=== PATIENT | female | born 1955 | race Caucasian/White ===

== ENCOUNTER → 2017-03-01 | Outpatient (CLI) | payer MEDICARE ==
[~2017-03-01] MED LIST: ACHD5005 PO; AMLO2.5T PO; ATEN100T88 PO; NAPR220T76 PO; OXYC-12 PO; PROP1TAB77 PO
--- NOTE | 2017-03-01 10:24 | Diagnostic Imaging Report ---
PROCEDURE: CT head without contrast. TECHNIQUE: Multiple contiguous axial images were obtained through the brain without the use of intravenous contrast. INDICATION: Head and neck cancer, numbness to left side of the mouth. No priors. FINDINGS: There are no findings suggestive of focal or generalized cerebral edema and there is no evidence for elevation of the intracerebral pressures. The basilar cisterns patent. The sulci non-effaced and there is preservation of normal torres-white matter differentiations. The ventricular system nondilated and nondisplaced. There are no abnormal extra-axial collections. Mastoids, paranasal sinuses, orbits and calvarium appeared within normal limits. IMPRESSION: Normal CT head Dictated by: Dictated on workstation # [id number]
== END ==
LOC: RAD 09:33
PROVIDERS: ATTEND Nurse Practitioner Family
DX: N20.9 Urinary calculus, unspecified (principal)
CPT/HCPCS: 70450

== ENCOUNTER 2018-11-14 21:45 | Inpatient (IN) | payer MEDICARE ==
[~2018-11-14] VITALS: Ht 167.6 cm; Wt 112.9 kg
[2018-11-14] MEDS: ASPIRIN 81 MG CHEW (CHILDREN'S ASA) PO ONE ×2 (10:00→22:00)
[2018-11-14] MEDS ORDERED: NS IV 1000 ML 1,000 ML IV SCH (21:55)
[2018-11-14] MEDS ORDERED: DILTIAZEM 25 MG/5 ML INJ (CARDIZEM) VIAL ONE (22:00)
[2018-11-14] MEDS ORDERED: NS (IVPB) 0 ML ONE (22:00)
[2018-11-14] MEDS ORDERED: DILTIAZEM 125 MG/25 ML IV (CARDIZEM) IV ONE (22:00)
--- NOTE | 2018-11-14 22:01 | ED Cardiac General ---
History of Present Illness General Stated Complaint: HIGH BLOOD PRESSURE Source: patient Exam Limitations: no limitations History of Present Illness Date Seen by Provider: Nov 14, 2018 Time Seen by Provider: 21:49 Initial Comments The patient presents to ER by private conveyance with chief complaint for the past day she has felt poorly just feeling off in her chest. She denies any chest pain nausea sweats or radiation of her symptoms. And just palpitations and irregular rapid heartbeat. She took her blood pressure and said it was high 140/110 so she decided to come to the ER to be checked out. She has no history of heart disease or dysrhythmia. She's having no swelling but she does get short of breath on exertion. She is not on any blood thinners nor does she follow with a grinder operator external tool or have a history of a heart catheterization. She does have diabetes but no thyroid problems. She takes blood pressure medicines. All of her medicines have been stable for many months. She does not smoke or use alcohol or drugs. She estimates her weight around 240 pounds. Allergies and Home Medications Allergies Coded Allergies: No Known Drug Allergies (Unverified , 04/20/10) Home Medications Amlodipine Besylate 2.5 Mg Tablet, 2.5 MG PO DAILY, (Reported) Atenolol 100 Mg Tablet, 100 MG PO DAILY, (Reported) Hydrocodone Bit/Acetaminophen 1 Each Tablet, 1 EACH PO BID PRN, (Reported) Naproxen Sodium 220 Mg Tablet, 220 MG PO BID PRN, (Reported) Oxycodone Hcl/Acetaminophen 1 Each Tablet, 1-2 TAB PO Q4H, (Reported) q 4-6 hrs. as needed for pain Patient Home Medication List Home Medication List Reviewed: Yes Review of Systems Review of Systems Constitutional: No chills, No diaphoresis EENTM: No Blurred Vision, No Double Vision Respiratory: Denies Cough; Shortness of Air, SOA With Exertion Cardiovascular: See HPI; Denies Chest Pain, Denies Edema; Irregular Heart Rate , Lightheadedness, Palpitations; Denies Syncope Gastrointestinal: Denies Constipated, Denies Diarrhea, Denies Nausea Genitourinary: Denies Discharge, Denies Drainage Musculoskeletal: No back pain, No joint pain Skin: No pruritus, No rash Psychiatric/Neurological: Denies Headache, Denies Numbness, Denies Paresthesia Past Otlnjkn-Vaxmfp-Ndbuyo Hx Patient Social History Alcohol Use: Denies Use Recreational Drug Use: No Smoking Status: Never a Smoker Recent Foreign Travel: No Contact w/Someone Who Travel: No Immunizations Up To Date Date of Influenza Vaccine: Jun 08, 2012 Past Medical History Reproductive Disorders: No Physical Exam Vital Signs Vital Signs - First Documented 11/14/18 21:50 Pulse 168 Resp 24 B/P (MAP) 120/98 (105) Pulse Ox 98 O2 Delivery Room Air Capillary Refill : Height, Weight, BMI Height: '" Weight: lbs. oz. kg; BMI Method: General Appearance: Anxious, Obese HEENT: PERRL/EOMI, Pharynx Normal, Moist Mucous Membranes Neck: Normal Inspection, Supple Respiratory: Chest Non Tender, Lungs Clear, Normal Breath Sounds, No Accessory Muscle Use, No Respiratory Distress Cardiovascular: No Edema, Normal Peripheral Pulses, Irregularly Irregular, Tachycardia Gastrointestinal: Normal Bowel Sounds, Non Tender, Soft Neurologic/Psychiatric: Alert, Oriented x3, audience coordinator II-XII Norm as Tested Skin: Normal Color, Warm/Dry Progress/Results/Core Measures Results/Orders Lab Results Laboratory Tests Test 11/14/18 22:01 Range/Units White Blood Count 16.3 H 4.3-11.0 10^3/uL Red Blood Count 5.49 4.35-5.85 10^6/uL Hemoglobin 14.7 11.5-16.0 G/DL Hematocrit 44 35-52 % Mean Corpuscular Volume 79 L 80-99 FL Mean Corpuscular Hemoglobin 27 25-34 PG Mean Corpuscular Hemoglobin Concent 34 32-36 G/DL Red Cell Distribution Width 15.6 H 10.0-14.5 % Platelet Count 333 130-400 10^3/uL Mean Platelet Volume 10.2 7.4-10.4 FL Neutrophils (%) (Auto) 72 42-75 % Lymphocytes (%) (Auto) 20 12-44 % Monocytes (%) (Auto) 8 0-12 % Eosinophils (%) (Auto) 1 0-10 % Basophils (%) (Auto) 0 0-10 % Neutrophils # (Auto) 11.7 H 1.8-7.8 X 10^3 Lymphocytes # (Auto) 3.2 1.0-4.0 X 10^3 Monocytes # (Auto) 1.2 H 0.0-1.0 X 10^3 Eosinophils # (Auto) 0.2 0.0-0.3 10^3/uL Basophils # (Auto) 0.0 0.0-0.1 10^3/uL Neutrophils % (Manual) 68 % Lymphocytes % (Manual) 20 % Monocytes % (Manual) 7 % Eosinophils % (Manual) 1 % Basophils % (Manual) 2 % Band Neutrophils 0 % Reactive Lymphocytes 2 % Microcytosis SLIGHT Prothrombin Time 13.1 12.2-14.7 SEC INR Comment 1.0 0.8-1.4 Activated Partial Thromboplast Time 30 24-35 SEC Sodium Level 140 135-145 MMOL/L Potassium Level 3.1 L 3.6-5.0 MMOL/L Chloride Level 103 98-107 MMOL/L Carbon Dioxide Level 23 21-32 MMOL/L Anion Gap 14 5-14 MMOL/L Blood Urea Nitrogen 12 7-18 MG/DL Creatinine 0.98 0.60-1.30 MG/DL Estimat Glomerular Filtration Rate 58 BUN/Creatinine Ratio 12 Glucose Level 132 H 70-105 MG/DL Calcium Level 9.7 8.5-10.1 MG/DL Corrected Calcium 9.5 8.5-10.1 MG/DL Magnesium Level 2.3 1.8-2.4 MG/DL Total Bilirubin 0.3 0.1-1.0 MG/DL Aspartate Amino Transf (AST/SGOT) 27 5-34 U/L Alanine Aminotransferase (ALT/SGPT) 23 0-55 U/L Alkaline Phosphatase 107 40-136 U/L Myoglobin 34.1 10.0-92.0 NG/ML Troponin I < 0.028 <0.028 NG/ML B-Type Natriuretic Peptide 610.0 H <100.0 PG/ML Total Protein 7.9 6.4-8.2 GM/DL Albumin 4.2 3.2-4.5 GM/DL Thyroid Stimulating Hormone (TSH) 6.08 H 0.35-4.94 UIU/ML My Orders Orders - SHA EARLY Cbc With Automated Diff (11/14/18 21:55) Magnesium (11/14/18 21:55) Chest 1 View, Ap/Pa Only (11/14/18 21:55) Ekg Tracing (11/14/18 21:55) Cardiac Profile 1 (11/14/18 21:55) Comprehensive Metabolic Panel (11/14/18 21:55) Myoglobin Serum (11/14/18 21:55) Protime With Inr (11/14/18 21:55) Partial Thromboplastin Time (11/14/18 21:55) O2 (11/14/18 21:55) Monitor-Rhythm Ecg Trace Only (11/14/18 21:55) Lipid Panel (11/15/18 06:00) Aspirin Chewable Tablet (Baby Aspirin Ch (11/14/18 22:00) Saline Lock/Iv-Start (11/14/18 21:55) BNP (11/14/18 21:55) Saline Lock/Iv-Start (11/14/18 21:55) Ns Iv 1000 Ml (Sodium Chloride 0.9%) (11/14/18 21:55) Ns (Ivpb) (Sodium C... W/Diltiazem Injec (11/14/18 22:15) Diltiazem Injection (Cardizem Injection) (11/14/18 22:15) Ns (Ivpb) (Sodium Chloride 0.9% Ivpb Bag (11/14/18 22:00) Diltiazem Iv For Drip (Cardizem Iv For D (11/14/18 22:00) Diltiazem Injection (Cardizem Injection) (11/14/18 22:00) Manual Differential (11/14/18 22:01) Thyroid Stimulating Hormone (11/14/18 22:12) Influenza A And B Antigens (11/14/18 23:13) Medications Given in ED Current Medications Medications Dose Ordered Sig/Vielka Route Start Time Stop Time Status Last Admin Dose Admin Aspirin 324 mg ONCE ONCE PO 11/14/18 22:00 11/14/18 22:01 DC 11/14/18 22:00 324 MG Diltiazem HCl 20 mg ONCE ONCE IVP 11/14/18 22:15 11/14/18 22:16 DC 11/14/18 22:05 10 MG Vital Signs/I&O 11/14/18 21:50 Pulse 168 Resp 24 B/P (MAP) 120/98 (105) Pulse Ox 98 O2 Delivery Room Air Progress Progress Note #1: Time: 22:00 Progress Note On the monitor she looks to be tachycardic with an irregular rhythm most likely atrial fibrillation. We'll obtain EKG give her aspirin look for reason why she would be in atrial fibrillation and talk to her about blood thinners. We'll get a chest x-ray and consultation with cardiology. The EKG supports atrial fib with rapid ventricular response we'll give her a 20 mg bolus of Cardizem, fluid bolus and put her on a drip starting at 5 mg. The patient at this time has a good blood pressure 120/98. Progress Note #2: Time: 23:14 Progress Note We will add an influenza since she has an elevated white count. Her heart rate is under much better control on 10 mg/m running in the 100-110 range. Diagnostic Imaging Diagonstic Imaging: Xray Plain Films/CT/US/NM/MRI: chest (1v) Comments Cardiac prominence accentuated by AP view. No acute cardiopulmonary process. Reviewed: Reviewed by Me Departure Communication (Admissions) Time/Spoke to Admitting Phy: 23:20 Discussed case lab EKG imaging findings with Dr. Brooks and she agrees to admit the patient on a Cardizem drip at the ICU. Time/Spoke to Consulting Phy: 23:15 Discussed case lab imaging findings with Dr. Galindo and he agrees with admission and Lovenox for anticoagulation. Impression Primary Impression: Atrial fibrillation with rapid ventricular response Disposition: ADMITTED INPATIENT Condition: Stable Admissions Decision to Admit Reason: Admit from ER (General) Decision to Admit/Date: Nov 14, 2018 Time/Decision to Admit Time: 23:10 Departure-Patient Inst. Referrals: ZOEY SANTANA DO (PCP) Primary Care Physician VESNA FLOREZ (Family) Primary Care Physician SHA EARLY Nov 14, 2018 22:01
[2018-11-14 22:08] LABS: BASOPHILS % (AUTO) 0 % (0-10); EOSINOPHILS # (AUTO) 0.2 10^3/uL (0.0-0.3); EOSINOPHILS % (AUTO) 1 % (0-10); HEMATOCRIT 44 % (35-52); HEMOGLOBIN 14.7 G/DL (11.5-16.0); LYMPHOCYTES # (AUTO) 3.2 X 10^3 (1.0-4.0); LYMPHOCYTES % (AUTO) 20 % (12-44); MEAN CORPUSCULAR HEMOGLOBIN 27 PG (25-34); MEAN CORPUSCULAR HGB CONC 34 G/DL (32-36); MEAN CORPUSCULAR VOLUME 79 FL (80-99); MEAN PLATELET VOLUME 10.2 FL (7.4-10.4); MONOCYTES # (AUTO) 1.2 X 10^3 (0.0-1.0); MONOCYTES % (AUTO) 8 % (0-12); NEUTROPHILS # (AUTO) 11.7 X 10^3 (1.8-7.8); NEUTROPHILS % (AUTO) 72 % (42-75); PLATELET COUNT 333 10^3/uL (130-400); RED CELL DISTRIBUTION WIDTH 15.6 % (10.0-14.5); WHITE BLOOD COUNT 16.3 10^3/uL (4.3-11.0)
--- OUTSIDE RECORDS SUMMARY | 2018-11-14 22:12 | XMS REPORT ---
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 Active 11381078 Problem Arthritis M19.90 Active 9393875 Problem Edema R60.9 Active 597240098 Problem Morbid (severe) obesity due to excess calories E66.01 Active 340164136 Problem Body mass index (BMI) of 40.0-44.9 in adult Z68.41 Active 280460946 Problem CAD (coronary artery disease) I25.10 Active 17764657 Problem Essential hypertension I10 Active 08723177 Problem H/O motion sickness Z87.898 Active 253600950 Problem Heartburn R12 Active 64981931 ALLERGIES No Information ENCOUNTERS Encounter Location Date Diagnosis [place] [address] [address] Aug, Type 2 diabetes mellitus with diabetic chronic kidney disease, 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 [place] [address] [place] [id number] [place] [address] Aug, Type 2 diabetes mellitus with diabetic chronic kidney disease, 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 ; Essential hypertension I10 ; Encounter for immunization Z23 ; CAD (coronary artery disease) I25.10 ; Arthritis M19.90 and BMI 40.0-44.9, adult Z68.41 [facility] [address] [address] Aug, [place] [address] [place] [id number] [place] [address] Jul, Type 2 diabetes mellitus with diabetic chronic kidney disease, 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 [place] [id number] [place] [address] Jun, [place] [id number] [place] [address] Jun, Cough R05 and BMI 40.0-44.9, adult Z68.[address] [address] Mar, Type 2 diabetes mellitus with diabetic chronic kidney disease, 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 ; Essential hypertension I10 ; Arthritis M19.90 ; Edema R60.9 ; Body mass index (BMI) of 40.0-44.9 in adult Z68.41 and Morbid (severe) obesity due to excess calories E66.01 [place] [id number] [place] [address] 27 Nov, 2018 Cough R05 and BMI 40.0-44.9, adult Z68.41 [place] [id number] [place] [address] 14 Nov, 2018 Type 2 diabetes mellitus with diabetic chronic kidney disease, 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 ; Essential hypertension I10 ; CAD ( coronary artery disease) I25.10 ; Heartburn R12 ; Arthritis M19.90 ; Reactive airway disease that is not asthma R09.89 ; BMI 40.0-44.9, adult Z68.41 ; Screening breast examination Z12.31 ; Family history of breast cancer Z80.3 and Long-term use of high-risk medication Z79.899 [place] [id number] [place] [address] Jul, Type 2 diabetes mellitus with diabetic chronic kidney disease, 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 ; Essential hypertension I10 ; CAD ( coronary artery disease) I25.10 ; Heartburn R12 ; Arthritis M19.90 and Reactive airway disease that is not asthma R09.89 [place] [id number] [place] [address] May, Cellulitis of right lower leg L03.115 and Insect bite ( nonvenomous), right lower leg, initial encounter S80.861A [facility] [address] [place] [id number] [place] [address] February, [place] [address] [place] [id number] [place] [address] February, Type 2 diabetes mellitus with diabetic chronic kidney disease, 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 ; Essential hypertension I10 ; CAD ( coronary artery disease) I25.10 ; Heartburn R12 ; Arthritis M19.90 ; H/O motion sickness Z87.898 and Facial paresthesia R20.9 [place] [address] [place] [id number] [place] [address] February, Type 2 diabetes mellitus with diabetic chronic kidney disease, 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 ; Essential hypertension I10 ; CAD ( coronary artery disease) I25.10 ; Heartburn R12 ; Arthritis M19.90 and H/O motion sickness Z87.898 [place] [address] [place] [id number] [place] [address]- [address] Dec, [place] [address] [place] [id number] [place] [address]- [address] Dec, [place] [address] [place] [id number] [place] [address]62- [address] Oct, Type 2 diabetes mellitus with diabetic chronic kidney disease, 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 ; Essential hypertension I10 ; CAD ( coronary artery disease) I25.10 ; Heartburn R12 and Arthritis M19.90 [facility] [address] [place] [id number] [place] [address] Aug, [facility] [address] [place] [id number] [place] [address]53- [address] Jul, [place] [address] [place] [id number] [place] [address]39- [address] 14 Jun, 2016 Type 2 diabetes mellitus with diabetic chronic kidney disease, 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 ; Essential hypertension I10 ; CAD ( coronary artery disease) I25.10 ; Heartburn R12 ; Screening for hyperlipidemia Z13.220 and Arthritis M19.90 [facility] [address] [place] [id number] [place] [address] Mar, [facility] [address] [place] [id number] [address] Mar, Cubital tunnel 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 G56.22 [facility] [address] [place] [id number] [place] [address] February, Type 2 diabetes mellitus with diabetic chronic kidney disease, 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 ; Essential hypertension I10 ; CAD ( coronary artery disease) I25.10 and Heartburn R12 [facility] [address] [address] February, [facility] [address] [place] [id number] [place] [address]40[address] 1776 February, [facility] [address] [place] [id number] [place] [address] 6[address]- [address] Jan, [facility] [address] [place] [id number] [place] [address]13- 73[address] Jan, [facility] [address] [address] Dec, [facility] [address] [address] Dec, [facility] [address] [place] [address] 24 Dec, 2015 Essential hypertension I10 ; CAD (coronary artery disease) I25.10 ; Type 2 diabetes mellitus with diabetic chronic kidney disease, 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 and Left hand pain M79.642 [facility] [address] [address] 14 Dec, 2015 [facility] [address] [place] [id number] [place] [address]81- 7095 Dec, [facility] [address] [place] [id number] [place] [address] 15980- 9384 Nov, CAD (coronary artery disease) I25.10 and Cough R05 [facility] [address] [place] [id number] [place] [address] 37779- 8708 Nov, [facility] [address] 1201[address]- [address] Nov, Essential hypertension I10 ; Edema R60.9 ; Type 2 diabetes mellitus with diabetic chronic kidney disease, 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 ; Arthritis M19.90 and Sinusitis J32.9 [facility] [address] [address] Jul, Upper respiratory tract infection, unspecified upper respiratory infection J06.9 [facility] [address] [address] Apr, Diabetes 250.00 ; Edema 782.3 ; Hypertension 401.9 ; Arthritis 716.90 and Lumbar back pain 724.2 [facility] [address] [place] [id number] [place] [address]- [address] Jan, [facility] [address] [place] [id number] [place] [address] 03248- 3[address] Jan, [facility] [address] [place] [id number] [place] [address] 75775- 6436 Oct, [facility] [address] [place] [id number] [place] [address] 07858- 8445 Oct, [facility] [address] [place] [id number] [place] [address] 99306- 0541 Sep, [facility] [address] [place] [id number] [place] [address] 0[address]32- 7[address] Sep, [facility] [address] [place] [id number] [place] [address] 48152- 3132 Mar, [facility] [address] [facility] [id number] [place] [address]- [address] Mar, [facility] [place] [facility] [address] [id number] [place] [address]- 2547 Mar, [facility] [place] [facility] [address] [id number] [place] [address]- 9878 Mar, [facility] [place] [facility] [address] [id number] [place] [address]- 0173 Mar, [facility] [place] [facility] [address] [id number] [place] [address]- 8893 Mar, [facility] [place] [facility] [address] [id number] [place] [address]- 6361 February, [facility] [place] [facility] [address] [id number] [place] [address]- 1335 February, [facility] [place] [facility] [address] [id number] [place] [address]- 3684 February, [facility] [place] [facility] [address] [id number] [place] [address]- 9255 February, [facility] [place] [facility] [address] [id number] [place] [address]- 2445 Dec, [facility] [place] [facility] [address] [id number] [place] [address]- 9429 Dec, [facility] [place] [facility] [address] [id number] [place] [address]- 2071 Nov, [facility] [place] [facility] [address] [id number] [place] [address]- 0536 Nov, [facility] [place] [facility] [address] [id number] [place] [address]- 6145 Nov, [facility] [place] [facility] [address] [id number] [place] [address]- 1663 Nov, [facility] [place] [facility] [address] [id number] [place] [address]- 2290 Nov, [facility] [place] [facility] [address] [id number] [place] [address]- 0914 Nov, [facility] [place] [facility] [address] [id number] [place] [address] Aug, [facility] [place] [facility] [address] [id number] [place] [address]- 6223 Aug, [facility] [place] [facility] [address] [id number] [place] [address]- 5779 Jul, [facility] [place] [facility] [address] [id number] [place] [address]- 0838 Jul, [facility] [place] [facility] [address] [id number] [place] [address]- 7960 Jul, [facility] [place] [facility] [address] [id number] [place] [address]- 9878 Jul, [facility] [place] [facility] [address] [id number] [place] [address]- 1909 Jul, [facility] [place] [facility] [address] [id number] [place] [address]- 8103 Jul, [facility] [place] [facility] [address] [id number] [place] [address]- 2803 May, [facility] [place] [facility] [address] [id number] [place] [address]- 5125 Apr, [facility] [place] [facility] [address] [id number] [place] [address]- 7928 Apr, [facility] [place] [facility] [address] [id number] [place] [address]- 5353 Apr, [facility] [place] [facility] [address] [id number] [place] [address]- 4359 Apr, [facility] [place] [facility] [address] [id number] [place] [address] Apr, [facility] [place] [facility] [address] [id number] [place] [address]- 1063 Jan, [facility] [address] [id number] [place] [address]- 4806 Jan, [facility] [address] [id number] [place] [address]- 5585 Jan, [facility] [address] [id number] [place] [address]- 0009 Dec, [facility] [address] [id number] [place] [address]- 7235 Oct, [facility] [address] [id number] [place] [address]- 8752 Sep, [facility] [address] [id number] [place] [address]- 0701 Sep, [facility] [address] [id number] [place] [address]- 7060 February, [facility] [address] [id number] [place] [address]- 5255 February, [facility] [address] [id number] [place] [address]- 9498 Jan, [facility] [address] [id number] [place] [address]- 6301 15 Aug, 2011 [facility] [address] [id number] [place] [address]- 2867 Aug, [facility] [address] [id number] [place] [address]- 8657 Aug, [facility] [address] [id number] [place] [address]- 3771 Aug, [facility] [address] [id number] [place] [address]- 8869 Jul, [facility] [address] [id number] [place] [address] Jul, [facility] [address] [facility] [id number] [place] [address]- 6417 Jul, IMMUNIZATIONS No Known Immunizations SOCIAL HISTORY Never Assessed REASON FOR VISIT refill request PLAN OF CARE VITAL SIGNS MEDICATIONS Medication Instructions Dosage Frequency Start Date End Date Duration Status Bydureon 2 MG Subcutaneous- ICD10- E11.22 once weekly 2 mg 28 days Active RESULTS No Results PROCEDURES No Known procedures INSTRUCTIONS MEDICATIONS ADMINISTERED No Known Medications MEDICAL (GENERAL) HISTORY Type Description Date Medical History HTN Medical History ARTHRITIS R FOOT, BACK, AND BILAT KNEES Medical History Intestinal disaccharidase deficiencies and disaccharide malabsorption Medical History Edema Medical History Diabetes Medical History Hypertension Medical History DM 11/23 7.7 Surgical History HYSTERECTOMY Surgical History C- SECTION Surgical History RIGHT KNEE SCOPED Surgical History SURGICAL BREAST BIOPSY Hospitalization History Surgery(s)/Childbirth(s) only
--- OUTSIDE RECORDS SUMMARY | 2018-11-14 22:13 | XMS REPORT ---
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 Active 56440940 Problem Arthritis M19.90 Active 0126852 Problem Edema R60.9 Active 579495962 Problem Morbid (severe) obesity due to excess calories E66.01 Active 615891802 Problem Body mass index (BMI) of 40.0-44.9 in adult Z68.41 Active 029497790 Problem CAD (coronary artery disease) I25.10 Active 18785324 Problem Essential hypertension I10 Active 63785895 Problem H/O motion sickness Z87.898 Active 266262176 Problem Heartburn R12 Active 05994117 ALLERGIES No Information ENCOUNTERS Encounter Location Date Diagnosis [facility] [address] [address] Aug, [facility] [address] [address] Aug, [facility] [address] [address] Jul, Type 2 diabetes mellitus with diabetic chronic kidney disease, 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 [facility] [address] [address] Jun, [facility] [address] [address] Jun, Cough R05 and BMI 40.0-44.9, adult Z68.41 [facility] [address] [address] Mar, Type 2 diabetes mellitus with diabetic chronic kidney disease, 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 ; Essential hypertension I10 ; Arthritis M19.90 ; Edema R60.9 ; Body mass index (BMI) of 40.0-44.9 in adult Z68.41 and Morbid (severe) obesity due to excess calories E66.01 [facility] [address] [place], [place] [id number] [place] [address] 27 Nov, 2017 Cough R05 and BMI 40.0-44.9, adult Z68.[address] [address] 14 Nov, 2018 Type 2 diabetes mellitus [...] and Long-term use of high-risk medication Z79.[address] [address] Jul, Type 2 diabetes mellitus with diabetic chronic kidney disease, 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 ; Essential hypertension I10 ; CAD ( coronary artery disease) I25.10 ; Heartburn R12 ; Arthritis M19.90 and Reactive airway disease that is not asthma R09.89 [facility] [address] [place] [id number] [place] [address] May, Cellulitis of right lower leg L03.115 and Insect bite ( nonvenomous), right lower leg, initial encounter S80.861A [address] [address] February, [place] [address] [address] February, Type 2 diabetes mellitus with diabetic chronic kidney disease, 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 ; Essential hypertension I10 ; CAD ( coronary artery disease) I25.10 ; Heartburn R12 ; Arthritis M19.90 ; H/O motion sickness Z87.898 and Facial paresthesia R20.9 [facility] [id number] [place] [address]- [address] February, Type 2 diabetes mellitus with diabetic chronic kidney disease, 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 ; Essential hypertension I10 ; CAD ( coronary artery disease) I25.10 ; Heartburn R12 ; Arthritis M19.90 and H/O motion sickness Z87.898 [place] [id number] [place] [address]- [address]98 Dec, [place] [address] [address] Dec, [place] [address] [address] Oct, Type 2 diabetes mellitus with diabetic chronic kidney disease, 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 ; Essential hypertension I10 ; CAD ( coronary artery disease) I25.10 ; Heartburn R12 and Arthritis M19.90 [place] [address] [address] Aug, [facility] [id number] [place] [address] Jul, [place] [address] [address] Jun, Type 2 diabetes mellitus with diabetic chronic kidney disease, 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 ; Essential hypertension I10 ; CAD ( coronary artery disease) I25.10 ; Heartburn R12 ; Screening for hyperlipidemia Z13.220 and Arthritis M19.90 [facility] [id number] [place] [address]- [address] Mar, [facility] [address] [id number] [place] [address]- 12[address] Mar, Cubital tunnel 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 G56.22 [facility] [address] [address] February, Type 2 diabetes mellitus with diabetic chronic kidney disease, 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 ; Essential hypertension I10 ; CAD ( coronary artery disease) I25.10 and Heartburn R12 [facility] [address] [address] February, [facility] [id number] [place] [address]- [address] February, [facility] [id number] [place] [address] 10343- 8296 Jan, [facility] [id number] [place] [address] 16755- 9424 Jan, [facility] [id number] [place] [address] 24702- 9363 Dec, [facility] [id number] [place] [address]73- 6[address] Dec, [facility] [id number] [place] [address] 22271- 9893 Dec, Essential hypertension I10 ; CAD (coronary artery disease) I25.10 ; Type 2 diabetes mellitus with diabetic chronic kidney disease, 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 and Left hand pain M79.642 [facility] [address] [address] Dec, [facility] [address] [address] Dec, [facility] [id number] [place] [address]- 97[address] Nov, CAD (coronary artery disease) I25.10 and Cough R05 [facility] [address] [address] Nov, [facility] [id number] [place] [address]- [address] 16 Nov, 2015 Essential hypertension I10 ; Edema R60.9 ; Type 2 diabetes mellitus with diabetic chronic kidney disease, 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 ; Arthritis M19.90 and Sinusitis J32.9 [facility] [id number] [place] [address]- [address] Jul, Upper respiratory tract infection, unspecified upper respiratory infection J06.9 [facility] [id number] [place] [address]- 1829 Apr, Diabetes 250.00 ; Edema 782.3 ; Hypertension 401.9 ; Arthritis 716.90 and Lumbar back pain 724.2 [facility] [id number] [place] [address]- [address] Jan, [facility] [id number] [place] [address] 05129- 9055 Jan, [facility] [id number] [place] [address] 30[address]- 27[address] Oct, [facility] [id number] [place] [address] 38858- 9468 Oct, [facility] [id number] [place] [address] 44471- 1465 Sep, [facility] [id number] [place] [address] 14746- 7128 Sep, [facility] [id number] [place] [address] 68234- 47[address] Mar, [facility] [id number] [place] [address] 89031- 8[address] Mar, [facility] [id number] [place] [address] 80187- 4[address] Mar, [facility] [id number] [place] [address] 01473- 62[address] Mar, [facility] [id number] [place] [address]- [address] Mar, [facility] [place] [facility] [address] [id number] [place] [address]- [address]94 Mar, [facility] [place] [facility] [address] [id number] [place] [address]- [address] February, [facility] [place] [facility] [address] [facility] [id number] [place] [address]- 6[address] February, [facility] [place] [facility] [address] [id number] [place] [address]- 8813 February, [facility] [place] [facility] [address] [id number] [place] [address]- 1017 February, [facility] [place] [facility] [address] [facility] [id number] [place] [address]- 7840 Dec, [facility] [place] [facility] [address] [facility] [id number] [place] [address]- 3953 Dec, [facility] [place] [facility] [address] [id number] [place] [address]- 1327 Nov, [facility] [place] [facility] [address] [id number] [place] [address]- 0281 Nov, [facility] [place] [facility] [address] [facility] [id number] [place] [address]- 6936 Nov, [facility] [place] [facility] [address] [id number] [place] [address]- 0258 Nov, [facility] [place] [facility] [address] [id number] [address]- 1356 Nov, [facility] [place] [facility] [address] [id number] [place] [address]- 0185 Nov, [facility] [place] [facility] [address] [facility] [id number] [address]- [address] Aug, [facility] [place] [facility] [address] [facility] [id number] [address]- 7043 Aug, [facility] [place] [facility] [address] [id number] [place] [address]- 4067 Jul, [facility] [place] [facility] [address] [id number] [place] [address]- 9490 Jul, [facility] [place] [facility] [address] [id number] [place] [address]- 0912 Jul, [facility] [place] [facility] [address] [id number] [place] [address]- 3806 Jul, [facility] [place] [facility] [address] [id number] [place] [address]- 6175 Jul, [facility] [place] [facility] [address] [id number] [place] [address]- 0011 Jul, [facility] [place] [facility] [address] [id number] [place] [address]- 3059 May, [facility] [place] [facility] [address] [id number] [place] [address]- 3559 Apr, [facility] [place] [facility] [address] [id number] [place] [address]- 1776 Apr, [facility] [place] [facility] [address] [id number] [place] [address]- 0057 Apr, [facility] [place] [facility] [address] [id number] [place] [address]- 2285 Apr, [facility] [place] [facility] [address] [id number] [place] [address]- 1567 Apr, [facility] [place] [facility] [address] [id number] [place] [address]- 8677 Jan, [facility] [place] [facility] [address] [id number] [place] [address]- 7699 Jan, [facility] [place] [facility] [address] [id number] [place] [address]- 8005 Jan, [facility] [place] [facility] [address] [id number] [address]- 2156 Dec, [facility] [id number] [address]- [address] Oct, [facility] [address] [address]- 95[address] Sep, [facility] [address] [address]- 9866 Sep, [facility] [address] [address]- 0[address] February, [facility] [address] [address]- 8[address] February, [facility] [address] [address]- 4556 Jan, [facility] [address] [address]- 1856 Aug, [facility] [address] [address]- 6813 Aug, [facility] [address] [address]- 4511 Aug, [facility] [address] [address]- 2486 Aug, [facility] [id number] [address]- 8903 Jul, [facility] [address] [address]- 8751 Jul, [facility] [id number] [address]- 4432 Jul, IMMUNIZATIONS No Known Immunizations SOCIAL HISTORY Never Assessed REASON FOR VISIT MTM (Medication Therapy Management) PLAN OF CARE VITAL SIGNS MEDICATIONS Unknown Medications RESULTS No Results PROCEDURES No Known procedures [...]
--- OUTSIDE RECORDS SUMMARY | 2018-11-14 22:13 | XMS REPORT ---
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 Active 54888064 Problem Arthritis M19.90 Active 2495759 Problem Edema R60.9 Active 481731976 Problem Morbid (severe) obesity due to excess calories E66.01 Active 498728978 Problem Body mass index (BMI) of 40.0-44.9 in adult Z68.41 Active 720376433 Problem CAD (coronary artery disease) I25.10 Active 73402829 Problem Essential hypertension I10 Active 07715575 Problem H/O motion sickness Z87.898 Active 974761638 Problem Heartburn R12 Active 94626806 ALLERGIES No Known Allergies ENCOUNTERS Encounter Location Date Diagnosis [facility] [id number] [place] [address] 16 Aug, 2018 Type 2 diabetes mellitus with diabetic chronic kidney disease, 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 ; Essential hypertension I10 ; Encounter for immunization Z23 ; CAD (coronary artery disease) I25.10 ; Arthritis M19.90 and BMI 40.0-44.9, adult Z68.41 [facility] [id number] [place] [address]17 Aug, [facility] [id number] [place] [address] 85683- 4320 Jul, Type 2 diabetes mellitus with diabetic chronic kidney disease, 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 [facility] [id number] [address] Jun, [facility] [place] [id number] [place] [address] Jun, Cough R05 and BMI 40.0-44.9, adult Z68.[address] [address] Mar, Type 2 diabetes mellitus with diabetic chronic kidney disease, 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 ; Essential hypertension I10 ; Arthritis M19.90 ; Edema R60.9 ; Body mass index (BMI) of 40.0-44.9 in adult Z68.41 and Morbid (severe) obesity due to excess calories E66.01 [facility] [address] [address] 27 Nov, 2017 Cough R05 and BMI 40.0-44.9, adult Z68.[address] [address] 14 Nov, 2017 Type 2 diabetes mellitus with diabetic chronic kidney disease, 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 ; Essential hypertension I10 ; CAD ( coronary artery disease) I25.10 ; Heartburn R12 ; Arthritis M19.90 ; Reactive airway disease that is not asthma R09.89 ; BMI 40.0-44.9, adult Z68.41 ; Screening breast examination Z12.31 ; Family history of breast cancer Z80.3 and Long-term use of high-risk medication Z79.[address] [address] Jul, Type 2 diabetes mellitus with diabetic chronic kidney disease, 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 ; Essential hypertension I10 ; CAD ( coronary artery disease) I25.10 ; Heartburn R12 ; Arthritis M19.90 and Reactive airway disease that is not asthma R09.89 [facility] [address] [address] May, Cellulitis of right lower leg L03.115 and Insect bite ( nonvenomous), right lower leg, initial encounter S80.861A [address] [place] [address] February, [place] [address] [address] February, Type 2 diabetes mellitus with diabetic chronic kidney disease, 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 ; Essential hypertension I10 ; CAD ( coronary artery disease) I25.10 ; Heartburn R12 ; Arthritis M19.90 ; H/O motion sickness Z87.898 and Facial paresthesia R20.9 [place] [address] [address] February, Type 2 diabetes mellitus with diabetic chronic kidney disease, 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 ; Essential hypertension I10 ; CAD ( coronary artery disease) I25.10 ; Heartburn R12 ; Arthritis M19.90 and H/O motion sickness Z87.898 [place] [address] [address] Dec, [place] [address] [address] Dec, [place] [address] [address] Oct, Type 2 diabetes mellitus with diabetic chronic kidney disease, 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 ; Essential hypertension I10 ; CAD ( coronary artery disease) I25.10 ; Heartburn R12 and Arthritis M19.90 [place] [id number] [place] [address] Aug, [place] [id number] [place] [address]93- 5664 Jul, [place] [address] [address] 14 Jun, 2016 Type 2 diabetes mellitus with diabetic chronic kidney disease, 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 ; Essential hypertension I10 ; CAD ( coronary artery disease) I25.10 ; Heartburn R12 ; Screening for hyperlipidemia Z13.220 and Arthritis M19.90 [place] [address] [place] [address] Mar, [facility] [address] [address] Mar, Cubital tunnel 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 G56.22 [facility] [address] [address] February, Type 2 diabetes mellitus with diabetic chronic kidney disease, 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 ; Essential hypertension I10 ; CAD ( coronary artery disease) I25.10 and Heartburn R12 [facility] [address] [address] February, [facility] [id number] [place] [address]14- [address] February, [facility] [id number] [address] Jan, [facility] [address] [address] Jan, [facility] [address] [address] Dec, [facility] [address] [address] Dec, [facility] [address] [address] Dec, Essential hypertension I10 ; CAD (coronary artery disease) I25.10 ; Type 2 diabetes mellitus with diabetic chronic kidney disease, 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 and Left hand pain M79.642 [facility] [address], [place] [address] Dec, [facility] [address] [address] Dec, [facility] [id number] [address] Nov, CAD (coronary artery disease) I25.10 and Cough R05 [facility] [address] [address] Nov, [facility] [id number] [place] [address] 74[address]- 4[address] Nov, Essential hypertension I10 ; Edema R60.9 ; Type 2 diabetes mellitus with diabetic chronic kidney disease, 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 ; Arthritis M19.90 and Sinusitis J32.9 [facility] [id number] [place] [address]64- [address] Jul, Upper respiratory tract infection, unspecified upper respiratory infection J06.9 [facility] [id number] [place] [address] 24065- 8642 Apr, Diabetes 250.00 ; Edema 782.3 ; Hypertension 401.9 ; Arthritis 716.90 and Lumbar back pain 724.2 [facility] [id number] [place] [address] 99584- 7898 Jan, [facility] [id number] [place] [address]12- 6099 Jan, [facility] [id number] [place] [address] 80446- 4516 Oct, [facility] [id number] [place] [address] 33235- 3570 Oct, [facility] [id number] [place] [address] 71054- 8563 Sep, [facility] [id number] [place] [address] 48002- 3877 Sep, [facility] [id number] [place] [address] 91085- 8755 Mar, [facility] [id number] [place] [address] 10253- 9305 Mar, [facility] [id number] [place] [address] 36091- 3611 Mar, [facility] [place] [facility] [address] [id number] [place] [address]- 87[address] Mar, [facility] [place] [facility] [address] [id number] [place] [address]- 59[address] Mar, [facility] [place] [facility] [address] [facility] [id number] [place] [address]- 0810 Mar, [facility] [place] [facility] [address] [id number] [place] [address]- 20[address] February, [facility] [place] [facility] [address] [id number] [place] [address]- 2088 February, [facility] [place] [facility] [address] [facility] [id number] [place] [address]- 0494 February, [facility] [place] [facility] [address] [facility] [id number] [place] [address]- 1605 February, [facility] [place] [facility] [address] [id number] [place] [address]- 8066 Dec, [facility] [place] [facility] [address] [facility] [id number] [place] [address]- 8832 Dec, [facility] [place] [facility] [address] [facility] [id number] [place] [address]- 7691 Nov, [facility] [place] [facility] [address] [id number] [place] [address]- 0390 Nov, [facility] [place] [facility] [address] [id number] [place] [address]- 3149 Nov, [facility] [place] [facility] [address] [id number] [place] [address]- 9858 Nov, [facility] [place] [facility] [address] [id number] [place] [address]- 5061 Nov, [facility] [place] [facility] [address] [facility] [id number] [place] [address]- 4472 Nov, [facility] [place] [facility] [address] [id number] [place] [address]- 9480 Aug, [facility] [place] [facility] [address] [id number] [place] [address] Aug, [facility] [place] [facility] [address] [id number] [place] [address]- 7474 Jul, [facility] [place] [facility] [address] [id number] [place] [address]- 9607 Jul, [facility] [place] [facility] [address] [id number] [place] [address]- 1501 Jul, [facility] [place] [facility] [address] [id number] [place] [address]- 8370 Jul, [facility] [place] [facility] [address] [id number] [place] [address]- 1017 Jul, [facility] [place] [facility] [address] [id number] [place] [address]- 0587 Jul, [facility] [place] [facility] [address] [id number] [place] [address]- 7923 May, [facility] [place] [facility] [address] [id number] [place] [address]- 0810 Apr, [facility] [place] [facility] [address] [id number] [place] [address]- 7654 Apr, [facility] [place] [facility] [address] [id number] [place] [address]- 7544 Apr, [facility] [place] [facility] [address] [id number] [place] [address]- 7700 Apr, [facility] [place] [facility] [address] [id number] [place] [address]- 9295 Apr, [facility] [place] [facility] [address] [id number] [place] [address]- 7747 Jan, [facility] [place] [facility] [address] [id number] [place] [address]- 2287 Jan, [facility] [address] [facility] [id number], [place] [address]- 1316 Jan, [facility] [address] [facility] [id number], [place] [address]- 1306 Dec, [facility] [address] [place] [address]- 2546 Oct, [facility] [address] [facility] [id number], [place] [address]- 0236 Sep, [facility] [address] [facility] [id number], [place] [address]- 3[address] Sep, [facility] [id number] [place] [address]2557- 6076 February, [facility] [id number] [place] [address]- 6886 February, [facility] [address] [place] [address]- 2983 Jan, [facility] [address] [place] [address]- 1376 Aug, [facility] [address] [place] [address]- 0728 Aug, [facility] [address] [place] [address]- 2546 Aug, [facility] [id number] [address]- 2546 Aug, [facility] [id number] [address]- 1219 Jul, [facility] [address] [place] [address]- 8736 Jul, [facility] [id number], [place] [address]- 0683 Jul, IMMUNIZATIONS Vaccine Route Administration Date Status FLULAVAL QUAD 0.5ML (6 MO & UP) 2018 IM Intramuscular Aug 23, 2018 Administered SOCIAL HISTORY Never Assessed REASON FOR VISIT New Provider Visit Melissa Iniguez MA PLAN OF CARE Activity Details Follow Up 6 months or as indicated by lab Reason:DM/HTN VITAL SIGNS Height 66 in 2018-08-23 Weight 250.7 lbs 2018-08-23 Temperature 97.9 degrees Fahrenheit 2018-08-23 Heart Rate 72 bpm 2018-08-23 Respiratory Rate 20 2018-08-23 BMI 40.46 kg/m2 2018-08-23 Blood pressure systolic 130 mmHg 2018-08-23 Blood pressure diastolic 72 mmHg 2018-08-23 MEDICATIONS Medication Instructions Dosage Frequency Start Date End Date Duration Status Lisinopril 5 mg Orally Once a day 1 tablet 24h 30 days Active Hydrochlorothiazide 25 MG Orally Once a day 1 Tablet by Oral route 1 time per day 24h 30 days Active ProAir HFA 108 (90 Base) MCG/ACT Inhalation every 4 hrs prn 2 puffs as needed Active Bydureon 2 MG Subcutaneous- ICD10- E11.22 once weekly 2 mg Mar, Active Test strips Test Strips ICD10- E11.22 2 times a day test blood sugar 12h Active MetFORMIN HCl ER 500 mg Orally Once a day 2 tablet with evening meal 24h 30 days Active Atenolol 100 mg Orally Once a day 1 tablet 24h 30 days Active Omeprazole 40 mg Orally Once a day 1 capsule 24h 30 Active Celebrex 200 mg Orally Once a day TAKE ONE CAPSULE BY MOUTH ONCE DAILY 24h 30 days Active Hydrocodone-Acetaminophen 5-325 MG Orally daily as needed for severe pain 1 tablet Active Mucinex 600 MG Orally every 12 hrs 1 tablet as needed 12h Active Blood Glucose Monitor System w/Device ICD10- E11.22 2 times a day test blood sugar 12h Active RESULTS No Results PROCEDURES Procedure Date Ordered Result Body Site LAB NOT BILLED BY [facility] Aug 23, 2018 [facility] VISIT ESTABLISHED PATIENT Aug 23, 2018 GLYCATED HEMOGLOBIN TEST Aug 23, 2018 FLULAVAL QUAD 0.5ML (6 MO & UP) 2018 Aug 23, 2018 VENIPUNCT, ROUTINE* Aug 23, 2018 SINGLE IMMUNIZATION ADMIN Aug 23, 2018 INSTRUCTIONS MEDICATIONS ADMINISTERED No Known Medications MEDICAL [...]
--- OUTSIDE RECORDS SUMMARY | 2018-11-14 22:13 | XMS REPORT ---
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 Active 79505710 Problem Arthritis M19.90 Active 1151424 Problem Edema R60.9 Active 032582055 Problem Morbid (severe) obesity due to excess calories E66.01 Active 996090713 Problem Body mass index (BMI) of 40.0-44.9 in adult Z68.41 Active 455993965 Problem CAD (coronary artery disease) I25.10 Active 28801374 Problem Essential hypertension I10 Active 42296889 Problem H/O motion sickness Z87.898 Active 462012488 Problem Heartburn R12 Active 72467665 ALLERGIES No Information ENCOUNTERS Encounter Location Date Diagnosis [facility] [address] [address] 02 Aug, 2018 [facility] [address] [address] Jul, Type 2 diabetes mellitus with diabetic chronic kidney disease, 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 [facility] [address] [address] Jun, [facility] [address] [address] 19 Jun, 2018 Cough R05 and BMI 40.0-44.9, adult Z68.41 [facility] [address] [address] Mar, Type 2 diabetes mellitus with diabetic chronic kidney disease, 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 ; Essential hypertension I10 ; Arthritis M19.90 ; Edema R60.9 ; Body mass index (BMI) of 40.0-44.9 in adult Z68.41 and Morbid (severe) obesity due to excess calories E66.01 [facility] [id number] [place] [address] 27 Nov, 2018 Cough R05 and BMI 40.0-44.9, adult Z68.[address] [address] 14 Nov, 2018 Type 2 diabetes mellitus [...] and Long-term use of high-risk medication Z79.899 [place] [facility] [id number] [place] [address]21- [address]99 Jul, Type 2 diabetes mellitus with diabetic chronic kidney disease, 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 ; Essential hypertension I10 ; CAD ( coronary artery disease) I25.10 ; Heartburn R12 ; Arthritis M19.90 and Reactive airway disease that is not asthma R09.89 [facility] IN [facility] [id number] [place] [address] May, Cellulitis of right lower leg L03.115 and Insect bite ( nonvenomous), right lower leg, initial encounter S80.861A [facility] [facility] [id number] [place] [address]28- 4067 February, [address] [address] February, Type 2 diabetes mellitus with diabetic chronic kidney disease, 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 ; Essential hypertension I10 ; CAD ( coronary artery disease) I25.10 ; Heartburn R12 ; Arthritis M19.90 ; H/O motion sickness Z87.898 and Facial paresthesia R20.9 [place] [id number] [place] [address]60- 4092 February, Type 2 diabetes mellitus with diabetic chronic kidney disease, 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 ; Essential hypertension I10 ; CAD ( coronary artery disease) I25.10 ; Heartburn R12 ; Arthritis M19.90 and H/O motion sickness Z87.898 [place] [facility] [id number] [place] [address]- [address] Dec, [place] [id number] [place] [address] 12055- 8811 Dec, [place] [facility] [id number] [place] [address] 78015- 0828 Oct, Type 2 diabetes mellitus with diabetic chronic kidney disease, 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 ; Essential hypertension I10 ; CAD ( coronary artery disease) I25.10 ; Heartburn R12 and Arthritis M19.90 [place] [id number] [place] [address]- 0[address] Aug, [place] [id number] [place] [address] 97390- 9534 Jul, [place] [id number] [place] [address] 11123- 5469 14 Jun, 2016 Type 2 diabetes mellitus with diabetic chronic kidney disease, 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 ; Essential hypertension I10 ; CAD ( coronary artery disease) I25.10 ; Heartburn R12 ; Screening for hyperlipidemia Z13.220 and Arthritis M19.90 [facility] [id number] [place] [address] 61494- 2561 Mar, [place] [id number] [place] [address] 55958- 7695 Mar, Cubital tunnel 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 G56.22 [place] [id number] [place] [address] 8[address]- 2[address] February, Type 2 diabetes mellitus with diabetic chronic kidney disease, 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 ; Essential hypertension I10 ; CAD ( coronary artery disease) I25.10 and Heartburn R12 [facility] [id number] [place] [address] 19019- 7524 February, [facility] [id number] [place] [address] 0[address]64- 06[address] February, [facility] [address] [address] Jan, [facility] [id number] [place] [address] 53110- 6696 Jan, [facility] [id number] [place] [address] 30646- 4037 Dec, [place] [id number] [place] [address] 00963- 6360 Dec, [facility] [id number] [place] [address] 57926- 8448 Dec, Essential hypertension I10 ; CAD (coronary artery disease) I25.10 ; Type 2 diabetes mellitus with diabetic chronic kidney disease, 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 and Left hand pain M79.642 [facility] [id number] [place] [address] 76658- 6580 Dec, [place] [id number] [place] [address] 81023- 5863 Dec, [facility] [id number] [place] [address] 27261- 4186 Nov, CAD (coronary artery disease) I25.10 and Cough R05 [facility] [id number] [place] [address] 76651- 7991 Nov, [facility] [id number] [place] [address] 64268- 5627 Nov, Essential hypertension I10 ; Edema R60.9 ; Type 2 diabetes mellitus with diabetic chronic kidney disease, 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 ; Arthritis M19.90 and Sinusitis J32.9 [facility] [id number] [place] [address] 08556- 7732 Jul, Upper respiratory tract infection, unspecified upper respiratory infection J06.9 [facility] [address] [address] Apr, Diabetes 250.00 ; Edema 782.3 ; Hypertension 401.9 ; Arthritis 716.90 and Lumbar back pain 724.2 [facility] [id number] [place] [address] 42376- 8755 Jan, [facility] [id number] [place] [address] 89914- 3149 Jan, [facility] [id number] [place] [address] 11126- 9603 Oct, [facility] [id number] [place] [address] 89879- 5842 Oct, [facility] [id number] [place] [address] 12090- 0826 Sep, [facility] [id number] [place] [address] 46059- 2260 Sep, [facility] [address] [address] Mar, [facility] [id number] [place] [address] 50346- 9338 Mar, [facility] [address] [address] Mar, [facility] [id number] [place] [address] 08737- 6270 Mar, [facility] [address] [address] 4747 Mar, [facility] [id number] [place] [address] 94382- 3313 Mar, [facility] [place] [facility] [address] [id number] [place] [address]- 3230 February, [facility] [place] [facility] [address] [facility] [id number] [place] [address] February, [facility] [place] [facility] [address] [facility] [id number] [place] [address]- 57[address] February, [facility] [place] [facility] [address] [facility] [id number] [place] [address]- 3387 February, [facility] [place] [facility] [address] [facility] [id number] [place] [address]- 1729 Dec, [facility] [place] [facility] [address] [facility] [id number] [place] [address]- 7466 Dec, [facility] [place] [facility] [address] [facility] [id number] [place] [address]- 2781 Nov, [facility] [place] [facility] [address] [facility] [id number] [place] [address]- 4206 Nov, [facility] [place] [facility] [address] [facility] [id number] [place] [address]- 3205 Nov, [facility] [place] [facility] [address] [facility] [id number] [place] [address]- 0223 Nov, [facility] [place] [facility] [address] [facility] [id number] [place] [address]- 0665 Nov, [facility] [place] [facility] [address] [facility] [id number], [place] [address]- 2802 Nov, [facility] [place] [facility] [address] [facility] [id number] [address]- 3422 Aug, [facility] [place] [facility] [address] [facility] [id number] [address]- 0511 Aug, [facility] [place] [facility] [address] [facility] [id number], [place] [address]- 2547 Jul, [facility] [place] [facility] [address] [id number] [place] [address]- 3104 Jul, [facility] [place] [facility] [address] [id number] [place] [address]- 2736 Jul, [facility] [place] [facility] [address] [id number] [place] [address]- 0624 Jul, [facility] [place] [facility] [address] [id number] [place] [address]- 6832 Jul, [facility] [place] [facility] [address] [id number] [place] [address]- 9519 Jul, [facility] [place] [facility] [address] [id number] [place] [address]- 6093 May, [facility] [place] [facility] [address] [id number] [place] [address]- 9619 Apr, [facility] [place] [facility] [address] [id number] [place] [address]- 0079 Apr, [facility] [place] [facility] [address] [id number] [place] [address]- 5845 Apr, [facility] [place] [facility] [address] [id number] [place] [address]- 6723 Apr, [facility] [place] [facility] [address] [id number] [place] [address]- 1776 Apr, [facility] [place] [facility] [address] [id number] [place] [address]- 3546 Jan, [facility] [place] [facility] [address] [id number] [place] [address]- 8589 Jan, [facility] [place] [facility] [address] [id number] [place] [address]- 0937 Jan, [facility] [place] [facility] [address] [id number] [place] [address]- 8107 Dec, [facility] [place] [facility] [address] [id number], [place] [address]- 3596 Oct, [facility] [id number] [address]- 9384 Sep, [facility] [address], [place] [address]- 4[address] Sep, [facility] [address] [address]- 8936 February, [facility] [address] [address]- 1466 February, [facility] [address] [address]- 8123 Jan, [facility] [id number] [place] [address] 22335- 8346 Aug, [facility] [address] [address]- 8626 Aug, [facility] [address], [place] [address]- 7094 Aug, [facility] [address] [address]- 6385 Aug, [facility] [address], [place] [address]- 6485 Jul, [facility] [id number] [address]- 4132 Jul, [facility] [address] [address]- 3747 Jul, IMMUNIZATIONS No Known Immunizations SOCIAL HISTORY Never Assessed REASON FOR VISIT Refill request PLAN OF CARE VITAL SIGNS MEDICATIONS Medication Instructions Dosage Frequency Start Date End Date Duration Status MetFORMIN HCl ER 500 mg Orally Once a day 2 tablet with evening meal 24h 30 Active RESULTS No Results PROCEDURES No Known procedures INSTRUCTIONS MEDICATIONS ADMINISTERED No Known Medications MEDICAL (GENERAL) HISTORY Type Description Date Medical History HTN Medical History ARTHRITIS R FOOT, BACK, AND BILAT KNEES Medical History Intestinal disaccharidase deficiencies and disaccharide malabsorption Medical History Edema Medical History Diabetes Medical History Hypertension Medical History DM 2/16 7.7 Surgical History HYSTERECTOMY Surgical History C- SECTION Surgical History RIGHT KNEE SCOPED Surgical History SURGICAL BREAST BIOPSY Hospitalization History Surgery(s)/Childbirth(s) only
--- OUTSIDE RECORDS SUMMARY | 2018-11-14 22:14 | XMS REPORT ---
Author Author VESNA FLOREZ [facility] eClinical[employer] Address Unknown Phone Unavailable Care Team Providers Care Tire Technician Name Role Phone VESNA FLOREZ CP Unavailable Allergies, Adverse Reactions, Alerts Substance Reaction Event Type N.K.D.A. 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 Active Problem Diabetes 250.00 Active Problem Obesity, unspecified 278.00 Active Problem Edema 782.3 Active Problem Need for prophylactic vaccination and inoculation, Influenza V04.81 Active Problem Dyspepsia and other specified disorders of function of stomach 536.8 Active Medications Medication Code System Code Instructions Start Date End Date Status Dosage PredniSONE FORMERLY NAMED [facility] [address]-85 20 MG Orally Twice a day Aug 03, 2015Aug 1 tablet with food or milk Atenolol FORMERLY NAMED [facility] [address]-79 100 MG Orally Once a day 1 tablet Mucinex FORMERLY NAMED [facility] [address]-84 600 MG Orally every 12 hrs 1 tablet as needed Tessalon Perles FORMERLY NAMED [facility] [address]-71 100 MG Orally Three times a day Aug 03, 2015 Aug 23, 2015 1 capsule as needed ProAir HFA FORMERLY NAMED [facility] [address]-53 108 (90 Base) MCG/ACT Inhalation every 4 hrs prn Aug 03, 2015 2 puffs as needed Aleve FORMERLY NAMED [facility] [address]-58 220 MG Once a day March 17, 2014 take 2 tablet (220 mg) by oral route every 12 hours as needed Celebrex FORMERLY NAMED [facility] [address]-35 200 MG Orally Once a day Oct 12, 2014 Nov 24, 2015 1 capsule by Oral route 1 time per day Hydrocodone-Acetaminophen FORMERLY NAMED [facility] [address]-74 5-325 MG Orally every 6 hrs Aug 03, 2015 1 tablet as needed Hydrochlorothiazide FORMERLY NAMED [facility] [address]-81 25 MG Orally Once a day Oct 12, 2014 1 Tablet by Oral route 1 time per day Procedures Procedure Coding System Code Date Office Visit, Est Pt., Level 3 CPT-4 01340 Aug 03, 2015 Vital Signs Date/Time: Aug 03, 2015 Temperature 97.5 F Weight 299.0 lbs Height 66 in BMI 48.25 Index Blood Pressure Diastolic 84 mmHg Blood Pressure Systolic 140 mmHg Cardiac Monitoring Heart Rate 78 bpm Results No Known Results Summary Purpose eClinicalWorks Submission
--- OUTSIDE RECORDS SUMMARY | 2018-11-14 22:14 | XMS REPORT ---
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 Active 47722628 Problem Arthritis M19.90 Active 4458615 Problem Edema R60.9 Active 498283274 Problem Morbid (severe) obesity due to excess calories E66.01 Active 329953624 Problem Body mass index (BMI) of 40.0-44.9 in adult Z68.41 Active 445133611 Problem CAD (coronary artery disease) I25.10 Active 54079163 Problem Essential hypertension I10 Active 33463237 Problem H/O motion sickness Z87.898 Active 962148970 Problem Heartburn R12 Active 90698178 ALLERGIES No Known Allergies ENCOUNTERS Encounter Location Date Diagnosis [facility] [id number], [place] [address] Mar, Type 2 diabetes mellitus with diabetic chronic kidney disease, 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 ; Essential hypertension I10 ; Arthritis M19.90 ; Edema R60.9 ; Body mass index (BMI) of 40.0-44.9 in adult Z68.41 and Morbid (severe) obesity due to excess calories E66.01 [facility] [id number], [place] [address] Nov, 2017 Cough R05 and BMI 40.0-44.9, adult Z68.41 [facility] [id number], [place] [address] 14 Nov, 2017 Type 2 diabetes mellitus [...] and Long-term use of high-risk medication Z79.899 [facility] [address] [address] Jul, Type 2 diabetes mellitus with diabetic chronic kidney disease, 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 ; Essential hypertension I10 ; CAD ( coronary artery disease) I25.10 ; Heartburn R12 ; Arthritis M19.90 and Reactive airway disease that is not asthma R09.89 [facility] [address] [address] May, Cellulitis of right lower leg L03.115 and Insect bite ( nonvenomous), right lower leg, initial encounter S80.861A [address] [address] February, [address] [address] February, Type 2 diabetes mellitus with diabetic chronic kidney disease, 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 ; Essential hypertension I10 ; CAD ( coronary artery disease) I25.10 ; Heartburn R12 ; Arthritis M19.90 ; H/O motion sickness Z87.898 and Facial paresthesia R20.9 [place] [address] [address] February, Type 2 diabetes mellitus with diabetic chronic kidney disease, 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 ; Essential hypertension I10 ; CAD ( coronary artery disease) I25.10 ; Heartburn R12 ; Arthritis M19.90 and H/O motion sickness Z87.898 [place] [address] [address] Dec, [place] [address] [address] Dec, [facility] [address], [place] [address] Oct, Type 2 diabetes mellitus with diabetic chronic kidney disease, 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 ; Essential hypertension I10 ; CAD ( coronary artery disease) I25.10 ; Heartburn R12 and Arthritis M19.90 [facility] [id number], [place] [address] Aug, [facility] [id number] [place] [address] Jul, [facility] [id number] [place] [address] Jun, Type 2 diabetes mellitus with diabetic chronic kidney disease, 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 ; Essential hypertension I10 ; CAD ( coronary artery disease) I25.10 ; Heartburn R12 ; Screening for hyperlipidemia Z13.220 and Arthritis M19.90 [facility] [id number] [place] [address] Mar, [facility] [id number] [place] [address] Mar, Cubital tunnel 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 G56.22 [facility] [address], [place] [address] February, Type 2 diabetes mellitus with diabetic chronic kidney disease, 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 ; Essential hypertension I10 ; CAD ( coronary artery disease) I25.10 and Heartburn R12 [facility] [address], [place] [address] February, [facility] [id number] [place] [address] February, [facility] [address], [place] [address] Jan, [facility] [id number] [place] [address] Jan, [facility] [id number] [place] [address] Dec, [facility] [address] [address] Dec, [facility] [id number] [place] [address] Dec, Essential hypertension I10 ; CAD (coronary artery disease) I25.10 ; Type 2 diabetes mellitus with diabetic chronic kidney disease, 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 and Left hand pain M79.642 [facility] [id number] [place] [address] Dec, [facility] [id number] [place] [address] Dec, [facility] [facility] [id number] [place] [address] Nov, CAD (coronary artery disease) I25.10 and Cough R05 [facility] [facility] [id number] [place] [address] Nov, [facility] [id number] [place] [address] Nov, Essential hypertension I10 ; Edema R60.9 ; Type 2 diabetes mellitus with diabetic chronic kidney disease, 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 ; Arthritis M19.90 and Sinusitis J32.9 [facility] [id number] [place] [address] Jul, Upper respiratory tract infection, unspecified upper respiratory infection J06.9 [facility] [id number] [place] [address] Apr, Diabetes 250.00 ; Edema 782.3 ; Hypertension 401.9 ; Arthritis 716.90 and Lumbar back pain 724.2 [facility] [id number] [place] [address] Jan, [facility] [facility] [address] [id number] [place] [address] Jan, [facility] [place] [facility] [address] [id number] [place] [address] Oct, [facility] [place] [facility] [address] [id number] [place] [address] Oct, [facility] [place] [facility] [address] [id number] [place] [address] Sep, [facility] [place] [facility] [address] [id number] [place] [address] Sep, [facility] [place] [facility] [address] [id number] [place] [address] Mar, [facility] [place] [facility] [address] [id number] [place] [address] Mar, [facility] [place] [facility] [address] [id number] [place] [address] Mar, [facility] [place] [facility] [address] [id number] [place] [address] Mar, [facility] [place] [facility] [address] [id number] [place] [address] Mar, [facility] [place] [facility] [address] [id number] [place] [address] Mar, [facility] [place] [facility] [address] [id number] [place] [address] February, [facility] [place] [facility] [address] [id number] [place] [address] February, [facility] [place] [facility] [address] [id number] [place] [address] February, [facility] [place] [facility] [address] [id number] [place] [address] February, [facility] [place] [facility] [address] [id number] [place] [address] Dec, [facility] [place] [facility] [address] [id number] [place] [address] Dec, [facility] [place] [facility] [address] [id number] [place] [address] Nov, [facility] [place] [facility] [address] [id number] [place] [address] Nov, [facility] [place] [facility] [address] [id number] [place] [address] Nov, [facility] [place] [facility] [address] [id number] [place] [address] Nov, [facility] [place] [facility] [address] [id number] [place] [address] Nov, [facility] [place] [facility] [address] [id number] [place] [address] Nov, [facility] [place] [facility] [address] [id number] [place] [address] Aug, [facility] [place] [facility] [address] [id number] [place] [address] Aug, [facility] [place] [facility] [address] [id number] [place] [address] Jul, [facility] [place] [facility] [address] [id number] [place] [address] Jul, [facility] [place] [facility] [address] [id number] [place] [address] Jul, [facility] [place] [facility] [address] [id number] [place] [address] Jul, [facility] [place] [facility] [address] [facility] [id number] [place] [address] Jul, [facility] [place] [facility] [address] [id number] [place] [address] Jul, [facility] [place] [facility] [address] [id number] [place] [address] May, [facility] [address] [id number] [place] [address] Apr, [facility] [address] [id number] [place] [address] Apr, [facility] [address] [id number] [place] [address] Apr, [facility] [address] [id number] [place] [address] Apr, [facility] [address] [id number] [place] [address] Apr, [facility] [address] [id number] [place] [address] Jan, [facility] [address] [id number] [place] [address] Jan, [facility] [address] [id number] [place] [address] Jan, [facility] [address] [id number] [place] [address]- [address] Dec, [facility] [address] [id number] [place] [address] Oct, [facility] [address] [id number] [place] [address] Sep, [facility] [address] [id number] [place] [address] Sep, [facility] [address] [id number] [place] [address] 269[address] February, [facility] [address] [id number] [place] [address] February, [facility] [address] [id number] [place] [address] Jan, [facility] [address] [facility] [id number] [address] Aug, [facility] [id number], [place] [address] Aug, [facility] [id number], [place] [address] Aug, [facility] [id number], [place] [address] Aug, [facility] [address] [facility] [id number] [address] Jul, [facility] [id number], [place] [address] Jul, [facility] [id number], [place] [address] Jul, IMMUNIZATIONS No Known Immunizations SOCIAL HISTORY Never Assessed REASON FOR VISIT congestion and cough for 4 days. [email or web address] PLAN OF CARE Activity Details Follow Up prn Reason: VITAL SIGNS Height 66 in 2017-12-04 Weight 260.8 lbs 2017-12-04 Temperature 98.6 degrees Fahrenheit 2017-12-04 Heart Rate 80 bpm 2017-12-04 Respiratory Rate 20 2017-12-04 BMI 42.09 kg/m2 2017-12-04 Blood pressure systolic 136 mmHg 2017-12-04 Blood pressure diastolic 80 mmHg 2017-12-04 MEDICATIONS Medication Instructions Dosage Frequency Start Date End Date Duration Status Atenolol 100 MG Orally Once a day 1 tablet 24h 30 days Active Celebrex 200 MG oral Once a day 1 capsule 24h Active Test strips Test Strips ICD10- E11.22 2 times a day test blood sugar 12h Active Hydrochlorothiazide 25 MG Orally Once a day 1 Tablet by Oral route 1 time per day 24h Active Tessalon Perles 100 mg Orally Three times a day 1 capsule as needed 8h Nov, Active Acyclovir 400 mg Orally 5 times daily 1 tablet February, 10 days Not-Taking PredniSONE 10 mg 6 tablets daily x5days, 4 tablets daily x2days, 2 tablets daily x2days, 1 tablet daily x2days February, Not-Taking Omeprazole 40 mg Orally Once a day 1 capsule 24h Active ProAir HFA 108 (90 Base) MCG/ACT Inhalation every 4 hrs prn 2 puffs as needed Active Hydrocodone-Acetaminophen 5-325 MG Orally daily as needed for severe pain 1 tablet Active MetFORMIN HCl ER 500 MG TAKE TWO TABLETS BY MOUTH ONCE DAILY (NEED APPOINTMENT) 30 Active Bydureon 2 MG Subcutaneous- ICD10- E11.22 once weekly 2 mg Active MetFORMIN HCl ER 500 mg Orally Once a day 2 tablets 24h 30 Active Celebrex 200 MG TAKE ONE CAPSULE BY MOUTH ONCE DAILY 30 Active Blood Glucose Monitor System w/Device ICD10- E11.22 2 times a day test blood sugar 12h Active Scopolamine 1 MG/3DAYS Transdermal every 3 days 1 patch to skin as needed Not-Taking RESULTS No Results PROCEDURES Procedure Date Ordered Result Body Site [facility] VISIT ESTABLISHED PATIENT Dec 04, 2017 INSTRUCTIONS MEDICATIONS ADMINISTERED No Known Medications MEDICAL [...]
--- OUTSIDE RECORDS SUMMARY | 2018-11-14 22:14 | XMS REPORT ---
Author Author AL MATHEWS Organization [facility] Address [address] [place] [address] Care Team Providers Care Sr. 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 Active 24067430 Problem Arthritis M19.90 Active 5263465 Problem Edema R60.9 Active 406224622 Problem Morbid (severe) obesity due to excess calories E66.01 Active 061840584 Problem Body mass index (BMI) of 40.0-44.9 in adult Z68.41 Active 984850999 Problem CAD (coronary artery disease) I25.10 Active 87302437 Problem Essential hypertension I10 Active 30100045 Problem H/O motion sickness Z87.898 Active 311457367 Problem Heartburn R12 Active 34782522 ALLERGIES No Known Allergies ENCOUNTERS Encounter Location Date Diagnosis [facility] [id number] [place] [address] Jun, [facility] [id number] [place] [address]12[address] 5163 Mar, Type 2 diabetes mellitus with diabetic chronic kidney disease, 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 ; Essential hypertension I10 ; Arthritis M19.90 ; Edema R60.9 ; Body mass index (BMI) of 40.0-44.9 in adult Z68.41 and Morbid (severe) obesity due to excess calories E66.01 [facility] [id number] [place] [address] 27 Nov, 2017 Cough R05 and BMI 40.0-44.9, adult Z68.41 [facility] [id number] [place] [address]144- 1404 Nov, Type 2 diabetes mellitus with diabetic chronic kidney disease, 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 ; Essential hypertension I10 ; CAD ( coronary artery disease) I25.10 ; Heartburn R12 ; Arthritis M19.90 ; Reactive airway disease that is not asthma R09.89 ; BMI 40.0-44.9, adult Z68.41 ; Screening breast examination Z12.31 ; Family history of breast cancer Z80.3 and Long-term use of high-risk medication Z79.899 [place] [address] [address] Jul, Type 2 diabetes mellitus with diabetic chronic kidney disease, 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 ; Essential hypertension I10 ; CAD ( coronary artery disease) I25.10 ; Heartburn R12 ; Arthritis M19.90 ; H/O motion sickness Z87.898 and Facial paresthesia R20.9 [facility] [address] [address] February, Type 2 diabetes mellitus with diabetic chronic kidney disease, 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 ; Essential hypertension I10 ; CAD ( coronary artery disease) I25.10 ; Heartburn R12 ; Arthritis M19.90 and H/O motion sickness Z87.898 [place] [address] [address]- [address] Dec, [facility] [address], [place] [address] Dec, [facility] [id number] [place] [address]- [address]185 Oct, Type 2 diabetes mellitus with diabetic chronic kidney disease, 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 ; Essential hypertension I10 ; CAD ( coronary artery disease) I25.10 ; Heartburn R12 and Arthritis M19.90 [facility] [id number] [place] [address]285[address] 9133 Aug, [facility] [id number] [place] [address] 34198- 1697 Jul, [facility] [id number] [place] [address] 26588- 1341 Jun, Type 2 diabetes mellitus with diabetic chronic kidney disease, 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 ; Essential hypertension I10 ; CAD ( coronary artery disease) I25.10 ; Heartburn R12 ; Screening for hyperlipidemia Z13.220 and Arthritis M19.90 [facility] [id number] [address] Mar, [facility] [id number] [place] [address]271[address] 5[address] Mar, Cubital tunnel 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 G56.22 [facility] [id number] [place] [address] 08183- 7[address] February, Type 2 diabetes mellitus with diabetic chronic kidney disease, 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 ; Essential hypertension I10 ; CAD ( coronary artery disease) I25.10 and Heartburn R12 [facility] [id number] [address] February, [facility] [id number] [place] [address] 87939- 4912 February, [facility] [id number] [place] [address] 60469- 9892 Jan, [facility] [address] [address] Jan, [facility] [id number] [place] [address]34- 6439 Dec, [facility] [id number] [place] [address] 64779- 2934 Dec, [facility] [id number] [place] [address] 19172- 3235 Dec, Essential hypertension I10 ; CAD (coronary artery disease) I25.10 ; Type 2 diabetes mellitus with diabetic chronic kidney disease, 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 and Left hand pain M79.642 [place] [id number] [place] [address]222- 1614 Dec, [place] [id number] [place] [address] 83111- 8576 Dec, [facility] [id number] [place] [address] 83806- 7381 Nov, CAD (coronary artery disease) I25.10 and Cough R05 [place] [id number] [place] [address]99- 9315 Nov, [place] [id number] [place] [address] 79553- 9241 Nov, Essential hypertension I10 ; Edema R60.9 ; Type 2 diabetes mellitus with diabetic chronic kidney disease, 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 ; Arthritis M19.90 and Sinusitis J32.9 [place] [address] [place] [address] 10551- 2114 Jul, Upper respiratory tract infection, unspecified upper respiratory infection J06.9 [facility] [address] [place] [address] 69682- 6716 Apr, Diabetes 250.00 ; Edema 782.3 ; Hypertension 401.9 ; Arthritis 716.90 and Lumbar back pain 724.2 [facility] [place] [facility] [address] [id number] [place] [address] Jan, [facility] [place] [facility] [address] [id number] [place] [address]- 7833 Jan, [facility] [place] [facility] [address] [id number] [place] [address]- 7029 Oct, [facility] [place] [facility] [address] [id number] [place] [address]- 3866 Oct, [facility] [place] [facility] [address] [id number] [place] [address]- 6067 Sep, [facility] [place] [facility] [address] [id number] [place] [address]- 0212 Sep, [facility] [place] [facility] [address] [id number] [place] [address]- 4999 Mar, [facility] [place] [facility] [address] [id number] [place] [address]- 6763 Mar, [facility] [place] [facility] [address] [id number] [place] [address]- 6901 Mar, [facility] [place] [facility] [address] [id number] [place] [address]- 8934 Mar, [facility] [place] [facility] [address] [id number] [place] [address]- 6874 Mar, [facility] [place] [facility] [address] [id number] [place] [address]- 6604 Mar, [facility] [place] [facility] [address] [id number] [place] [address]- 1523 February, [facility] [place] [facility] [address] [id number] [place] [address]- 2399 February, [facility] [place] [facility] [address] [id number] [place] [address]- 4388 February, [facility] [place] [facility] [address] [id number] [place] [address]- 2972 February, [facility] [place] [facility] [address] [id number] [place] [address]- 9772 Dec, [facility] [place] [facility] [address] [id number] [place] [address]- 1588 Dec, [facility] [place] [facility] [address] [facility] [id number] [place] [address]- 7924 Nov, [facility] [place] [facility] [address] [id number] [place] [address]- 4390 Nov, [facility] [place] [facility] [address] [id number] [place] [address]- 3485 Nov, [facility] [place] [facility] [address] [facility] [id number] [place] [address]- 1231 Nov, [facility] [place] [facility] [address] [facility] [id number] [place] [address]- 2726 Nov, [facility] [place] [facility] [address] [facility] [id number] [place] [address]- 1208 Nov, [facility] [place] [facility] [address] [facility] [id number] [place] [address]- 4780 Aug, [facility] [place] [facility] [address] [facility] [id number] [place] [address]- 5180 Aug, [facility] [place] [facility] [address] [facility] [id number] [place] [address]- 4676 Jul, [facility] [place] [facility] [address] [id number] [place] [address]- 5177 Jul, [facility] [place] [facility] [address] [id number] [place] [address]- 0864 Jul, [facility] [place] [facility] [address] [facility] [id number] [place] [address]- 9961 Jul, [facility] [place] [facility] [address] [facility] [id number] [address]- 9377 Jul, [facility] [place] [facility] [address] [id number] [place] [address]- 5417 Jul, [facility] [address] [id number] [place] [address]- 8485 May, [facility] [place] [facility] [address] [id number] [place] [address]- 2576 Apr, [facility] [place] [facility] [address] [id number] [place] [address]- 6990 Apr, [facility] [place] [facility] [address] [id number] [place] [address]- 1360 Apr, [facility] [place] [facility] [address] [id number] [place] [address]- 4206 Apr, [facility] [address] [id number] [place] [address]- 5523 Apr, [facility] [address] [id number] [place] [address]- 5616 Jan, [facility] [address] [id number] [place] [address]- 6399 Jan, [facility] [address] [id number] [place] [address]- 6756 Jan, [facility] [address] [id number] [place] [address]- 5652 Dec, [facility] [address] [id number] [place] [address]- 6807 Oct, [facility] [place] [facility] [address] [id number] [place] [address]- 6824 Sep, [facility] [place] [facility] [address] [id number] [place] [address]- 3628 Sep, [facility] [place] [facility] [address] [id number] [place] [address]- 0882 February, [facility] [place] [facility] [address] [id number] [place] [address]- 4662 February, [facility] [id number] [address] Jan, [facility] [address] [address] Aug, [facility] [address] [address]- 6062 Aug, [facility] [address] [place] [address]- 8013 Aug, [facility] [address] [place] [address]- 3579 Aug, [facility] [address] [place] [address]- 0565 Jul, [facility] [address] [address]- 9743 Jul, [facility] [address] Jul, IMMUNIZATIONS No Known Immunizations SOCIAL HISTORY Never Assessed REASON FOR VISIT Diabetes-JACKIE Chakraborty PLAN OF CARE Activity Details Follow Up 3 Months, prn Reason:CHM/DM VITAL SIGNS Height 66 in 2018-03-26 Weight 260.7 lbs 2018-03-26 Temperature 97.6 degrees Fahrenheit 2018-03-26 Heart Rate 72 bpm 2018-03-26 Respiratory Rate 20 2018-03-26 BMI 42.07 kg/m2 2018-03-26 Blood pressure systolic 142 mmHg 2018-03-26 Blood pressure diastolic 90 mmHg 2018-03-26 MEDICATIONS Medication Instructions Dosage Frequency Start Date End Date Duration Status Omeprazole 40 mg Orally Once a day 1 capsule 24h Active Test strips Test Strips ICD10- E11.22 2 times a day test blood sugar 12h Active Bydureon 2 MG Subcutaneous- ICD10- E11.22 once weekly 2 mg Mar, 12 months Active ProAir HFA 108 (90 Base) MCG/ACT Inhalation every 4 hrs prn 2 puffs as needed Active Atenolol 100 MG Orally Once a day 1 tablet 24h Active Lisinopril 5 mg Orally Once a day 1 tablet 24h Mar, 90 days Active Blood Glucose Monitor System w/Device ICD10- E11.22 2 times a day test blood sugar 12h Active Hydrocodone-Acetaminophen 5-325 MG Orally daily as needed for severe pain 1 tablet Active Hydrochlorothiazide 25 MG Orally Once a day 1 Tablet by Oral route 1 time per day 24h Active MetFORMIN HCl ER 500 MG TAKE TWO TABLETS BY MOUTH ONCE DAILY (NEED APPOINTMENT) 30 Active Celebrex 200 MG TAKE ONE CAPSULE BY MOUTH ONCE DAILY 30 Active RESULTS No Results PROCEDURES Procedure Date Ordered Result Body Site GLYCATED HEMOGLOBIN TEST March 26, 2018 MICROALBUMIN, SEMIQUANT March 26, 2018 [facility] VISIT ESTABLISHED PATIENT March 26, 2018 LAB [facility] March 26, 2018 INSTRUCTIONS MEDICATIONS ADMINISTERED No Known Medications [...]
--- OUTSIDE RECORDS SUMMARY | 2018-11-14 22:14 | XMS REPORT ---
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
--- OUTSIDE RECORDS SUMMARY | 2018-11-14 22:14 | XMS REPORT ---
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 Active 63786578 Problem H/O motion sickness Z87.898 Active 878679869 Problem Heartburn R12 Active 44958144 Problem Arthritis M19.90 Active 8665198 Problem Edema R60.9 Active 991348169 Problem CAD (coronary artery disease) I25.10 Active 17831086 Problem Essential hypertension I10 Active 08065919 ALLERGIES No Information SOCIAL HISTORY Never Assessed PLAN OF CARE VITAL SIGNS MEDICATIONS No Known Medications RESULTS No Results PROCEDURES No Known procedures IMMUNIZATIONS No Known Immunizations MEDICAL (GENERAL) HISTORY Type Description Date Medical History DM 11/23 7.7 Medical History HTN Medical History ARTHRITIS R FOOT, BACK, AND BILAT KNEES Medical History Intestinal disaccharidase deficiencies and disaccharide malabsorption Medical History Edema Medical History Diabetes Medical History Hypertension Surgical History HYSTERECTOMY Surgical History C- SECTION Surgical History RIGHT KNEE SCOPED Surgical History SURGICAL BREAST BIOPSY Hospitalization History Surgery(s)/Childbirth(s) only
--- OUTSIDE RECORDS SUMMARY | 2018-11-14 22:14 | XMS REPORT ---
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 Active 91695451 Problem Arthritis M19.90 Active 2384641 Problem Edema R60.9 Active 739297394 Problem Morbid (severe) obesity due to excess calories E66.01 Active 224824547 Problem Body mass index (BMI) of 40.0-44.9 in adult Z68.41 Active 386989129 Problem CAD (coronary artery disease) I25.10 Active 01204978 Problem Essential hypertension I10 Active 09655172 Problem H/O motion sickness Z87.898 Active 147813381 Problem Heartburn R12 Active 57022807 ALLERGIES No Known Allergies ENCOUNTERS Encounter Location Date Diagnosis [facility] [address] [address] Jun, [facility] [address] [address] Jun, Cough R05 and BMI 40.0-44.9, adult Z68.41 [facility] [address] [address] Mar, Type 2 diabetes mellitus with diabetic chronic kidney disease, 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 ; Essential hypertension I10 ; Arthritis M19.90 ; Edema R60.9 ; Body mass index (BMI) of 40.0-44.9 in adult Z68.41 and Morbid (severe) obesity due to excess calories E66.01 [facility] [address] [address] 27 Nov, 2017 Cough R05 and BMI 40.0-44.9, adult Z68.41 [place] [address] [address] 14 Nov, 2017 Type 2 diabetes mellitus [...] and Long-term use of high-risk medication Z79.899 [place] [address] [address] 03 Jul, 2017 Type 2 diabetes mellitus with diabetic chronic kidney disease, 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 ; Essential hypertension I10 ; CAD ( coronary artery disease) I25.10 ; Heartburn R12 ; Arthritis M19.90 and Reactive airway disease that is not asthma R09.89 [facility] [address] [address] May, Cellulitis of right lower leg L03.115 and Insect bite ( nonvenomous), right lower leg, initial encounter S80.861A [place] [address] [place] [id number] [place] [address] February, [place] [address] [address] February, Type 2 diabetes mellitus with diabetic chronic kidney disease, 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 ; Essential hypertension I10 ; CAD ( coronary artery disease) I25.10 ; Heartburn R12 ; Arthritis M19.90 ; H/O motion sickness Z87.898 and Facial paresthesia R20.9 [facility] [address] [place] [place] [id number] [place] [address] February, Type 2 diabetes mellitus with diabetic chronic kidney disease, 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 ; Essential hypertension I10 ; CAD ( coronary artery disease) I25.10 ; Heartburn R12 ; Arthritis M19.90 and H/O motion sickness Z87.898 [facility] [id number] [place] [address] Dec, [facility] [id number] [place] [address] Dec, [facility] [address] [id number] [place] [address] Oct, Type 2 diabetes mellitus with diabetic chronic kidney disease, 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 ; Essential hypertension I10 ; CAD ( coronary artery disease) I25.10 ; Heartburn R12 and Arthritis M19.90 [facility] [address] [place] [place] [id number] [place] [address] Aug, [place] [address] [place] [id number] [place] [address] Jul, [facility] [address] [id number] [place] [address] 14 Jun, 2016 Type 2 diabetes mellitus with diabetic chronic kidney disease, 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 ; Essential hypertension I10 ; CAD ( coronary artery disease) I25.10 ; Heartburn R12 ; Screening for hyperlipidemia Z13.220 and Arthritis M19.90 [facility] [id number] [place] [address] Mar, [facility] [address] [place] [place] [id number] [place] [address] Mar, Cubital tunnel 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 G56.22 [facility] [address] [place] [id number] [place] [address] February, Type 2 diabetes mellitus with diabetic chronic kidney disease, 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 ; Essential hypertension I10 ; CAD ( coronary artery disease) I25.10 and Heartburn R12 [facility] [address] [place] [id number] [place] [address] February, [facility] [address] [place] [address] February, [facility] [address] [place] [id number] [place] [address] Jan, [facility] [address] [place] [id number] [place] [address]- [address] Jan, [facility] [address] [place] [id number] [place] [address]- 6[address] Dec, [facility] [address] [place] [id number] [place] [address]- [address] Dec, [facility] [address] [place] [id number] [place] [address]- [address] Dec, Essential hypertension I10 ; CAD (coronary artery disease) I25.10 ; Type 2 diabetes mellitus with diabetic chronic kidney disease, 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 and Left hand pain M79.642 [place] [address] [place] [id number] [place] [address]- [address] Dec, [facility] [address] [place] [id number] [place] [address]67- [address] Dec, [facility] [address] [place] [id number] [place] [address]48- [address] Nov, CAD (coronary artery disease) I25.10 and Cough R05 [facility] [address] [place] [id number] [place] [address] Nov, [facility] [address] [place] [id number] [place] [address]- [address] Nov, Essential hypertension I10 ; Edema R60.9 ; Type 2 diabetes mellitus with diabetic chronic kidney disease, 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 ; Arthritis M19.90 and Sinusitis J32.9 [facility] [id number] [place] [address]- [address] 27 Jul, 2015 Upper respiratory tract infection, unspecified upper respiratory infection J06.9 [facility] [address] [place] [id number] [place] [address]- [address] Apr, Diabetes 250.00 ; Edema 782.3 ; Hypertension 401.9 ; Arthritis 716.90 and Lumbar back pain 724.2 [facility] [address] [address] Jan, [facility] [place] [address] [address] Jan, [facility] [place] [address] [address] Oct, [facility] [place] [address] [address] Oct, [facility] [place] [address] [address] Sep, [facility] [address] [address] Sep, [facility] [place] [address] [place] [address] Mar, [facility] [place] [address] [place] [address] Mar, [facility] [place] [address] [address] Mar, [facility] [address] [address] Mar, [facility] [address] [place] [address] Mar, [facility] [address] [place] [address] Mar, [facility] [address] [place] [address] February, [facility] [place] [id number] [address] February, [facility] [place] [facility] [address] [id number] [place] [address] February, [facility] [place] [facility] [address] [id number] [place] [address]- [address] February, [facility] [place] [facility] [address] [id number] [place] [address]- 5703 Dec, [facility] [place] [facility] [address] [id number] [place] [address]- 5992 Dec, [facility] [place] [facility] [address] [id number] [place] [address]- 8140 Nov, [facility] [place] [facility] [address] [id number] [place] [address]- 1002 Nov, [facility] [place] [facility] [address] [facility] [id number] [place] [address]- 6[address] Nov, [facility] [place] [facility] [address] [id number] [place] [address]- 5703 Nov, [facility] [place] [facility] [address] [id number] [place] [address]- 4406 Nov, [facility] [place] [facility] [address] [facility] [id number] [place] [address]- 1290 Nov, [facility] [place] [facility] [address] [facility] [id number] [place] [address]- 6[address] Aug, [facility] [place] [facility] [address] [id number], [place] [address]- [address] Aug, [facility] [place] [facility] [address] [id number] [place] [address]- 9755 Jul, [facility] [place] [facility] [address] [id number] [place] [address]- 7499 Jul, [facility] [place] [facility] [address] [id number] [place] [address]- 9189 Jul, [facility] [place] [facility] [address] [id number] [place] [address]- 5966 Jul, [facility] [address] [id number] [place] [address]- 9073 Jul, [facility] [place] [facility] [address] [id number] [place] [address]- 9029 Jul, [facility] [place] [facility] [address] [id number] [place] [address]- 0815 May, [facility] [place] [facility] [address] [id number] [place] [address]- 9771 Apr, [facility] [place] [facility] [address] [id number] [place] [address]- 6661 Apr, [facility] [place] [facility] [address] [id number] [place] [address]- 1298 Apr, [facility] [place] [facility] [address] [id number] [place] [address]- 4630 Apr, [facility] [place] [facility] [address] [id number] [place] [address]- 7683 Apr, [facility] [place] [facility] [address] [id number] [place] [address]- 0113 Jan, [facility] [place] [facility] [address] [id number] [place] [address]- [address] Jan, [facility] [place] [facility] [address] [id number], [place] [address]- 9[address] Jan, [facility] [place] [facility] [address] [id number], [place] [address]- [address] Dec, [facility] [place] [facility] [address] [id number] [place] [address]- 9583 Oct, [facility] [place] [facility] [address] [id number] [place] [address]- 8340 Sep, [facility] [place] [facility] [address] [id number] [place] [address]- 0177 Sep, [facility] [place] [facility] [address] [id number] 17 Feb, 2012 [facility] [address] [address] February, [facility] [address] [address]- [address] Jan, [facility] [address] [address]- [address] Aug, [facility] [address] [address]- [address] Aug, [facility] [id number] [place] [address] 8[address]104- 3163 Aug, [facility] [address] [address]- 130[address] Aug, [facility] [address] [address]- 89[address] Jul, [facility] [address], [place] [address]- 68[address] Jul, [facility] [address] [address]- 20[address] Jul, IMMUNIZATIONS No Known Immunizations SOCIAL HISTORY Never Assessed REASON FOR VISIT Congestion and cough JStrasserRN PLAN OF CARE Activity Details Follow Up prn Reason: VITAL SIGNS Height 66 in 2018-06-26 Weight 255.4 lbs 2018-06-26 Temperature 98.6 degrees Fahrenheit 2018-06-26 Heart Rate 86 bpm 2018-06-26 Respiratory Rate 20 2018-06-26 BMI 41.22 kg/m2 2018-06-26 Blood pressure systolic 120 mmHg 2018-06-26 Blood pressure diastolic 74 mmHg 2018-06-26 MEDICATIONS Medication Instructions Dosage Frequency Start Date End Date Duration Status MetFORMIN HCl ER 500 MG TAKE TWO TABLETS BY MOUTH ONCE DAILY (NEED APPOINTMENT) 30 Active Tessalon Perles 100 mg Orally TID PRN 1 capsule as needed Jun, Jun, 10 days Active Lisinopril 5 mg Orally Once a day 1 tablet 24h 90 Active Omeprazole 40 mg Orally Once a day 1 capsule 24h 30 Active Cough Syrup 100 MG/5ML Orally every 4 hrs 10 ml as needed 4h Active Test strips Test Strips ICD10- E11.22 2 times a day test blood sugar 12h Active Blood Glucose Monitor System w/Device ICD10- E11.22 2 times a day test blood sugar 12h Active Mucinex 600 MG Orally every 12 hrs 1 tablet as needed 12h Active Hydrochlorothiazide 25 MG Orally Once a day 1 Tablet by Oral route 1 time per day 24h 30 Active Atenolol 100 MG Orally Once a day 1 tablet 24h 30 Active Hydrocodone-Acetaminophen 5-325 MG Orally daily as needed for severe pain 1 tablet Active Celebrex 200 MG TAKE ONE CAPSULE BY MOUTH ONCE DAILY 30 Active Bydureon 2 MG Subcutaneous- ICD10- E11.22 once weekly 2 mg Mar, 12 months Active ProAir HFA 108 (90 Base) MCG/ACT Inhalation every 4 hrs prn 2 puffs as needed Active RESULTS No Results PROCEDURES Procedure Date Ordered Result Body Site [facility] VISIT ESTABLISHED PATIENT Jun 26, 2018 INSTRUCTIONS MEDICATIONS ADMINISTERED No Known [...]
--- OUTSIDE RECORDS SUMMARY | 2018-11-14 22:14 | XMS REPORT ---
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 Active 02712515 Problem Arthritis M19.90 Active 6222362 Problem Edema R60.9 Active 462725859 Problem Morbid (severe) obesity due to excess calories E66.01 Active 955874719 Problem Body mass index (BMI) of 40.0-44.9 in adult Z68.41 Active 762271078 Problem CAD (coronary artery disease) I25.10 Active 52992589 Problem Essential hypertension I10 Active 29096883 Problem H/O motion sickness Z87.898 Active 270433061 Problem Heartburn R12 Active 86185775 ALLERGIES No Information ENCOUNTERS Encounter Location Date Diagnosis [facility] [address] [address] Jun, [facility] [address] [address] Jun, Cough R05 and BMI 40.0-44.9, adult Z68.41 [facility] [address] [address] Mar, Type 2 diabetes mellitus with diabetic chronic kidney disease, 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 ; Essential hypertension I10 ; Arthritis M19.90 ; Edema R60.9 ; Body mass index (BMI) of 40.0-44.9 in adult Z68.41 and Morbid (severe) obesity due to excess calories E66.01 [facility] [address] [address] Nov, Cough R05 and BMI 40.0-44.9, adult Z68.41 [place] [id number] [place] [address] 14 Nov, 2017 Type 2 diabetes mellitus [...] and Long-term use of high-risk medication Z79.899 [place] [address] [address] Jul, Type 2 diabetes mellitus with diabetic chronic kidney disease, 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 ; Essential hypertension I10 ; CAD ( coronary artery disease) I25.10 ; Heartburn R12 ; Arthritis M19.90 and Reactive airway disease that is not asthma R09.89 [facility] [id number] [place] [address] May, Cellulitis of right lower leg L03.115 and Insect bite ( nonvenomous), right lower leg, initial encounter S80.861A [place] [id number] [place] [address] February, [facility] [address] [address] February, Type 2 diabetes mellitus with diabetic chronic kidney disease, 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 ; Essential hypertension I10 ; CAD ( coronary artery disease) I25.10 ; Heartburn R12 ; Arthritis M19.90 ; H/O motion sickness Z87.898 and Facial paresthesia R20.9 [facility] [id number] [place] [address] February, Type 2 diabetes mellitus with diabetic chronic kidney disease, 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 ; Essential hypertension I10 ; CAD ( coronary artery disease) I25.10 ; Heartburn R12 ; Arthritis M19.90 and H/O motion sickness Z87.898 [facility] [id number] [place] [address] Dec, [facility] [id number] [place] [address] Dec, [facility] [id number] [place] [address] Oct, Type 2 diabetes mellitus with diabetic chronic kidney disease, 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 ; Essential hypertension I10 ; CAD ( coronary artery disease) I25.10 ; Heartburn R12 and Arthritis M19.90 [facility] [id number] [place] [address] Aug, [place] [id number] [place] [address] Jul, [facility] [id number] [place] [address] Jun, Type 2 diabetes mellitus with diabetic chronic kidney disease, 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 ; Essential hypertension I10 ; CAD ( coronary artery disease) I25.10 ; Heartburn R12 ; Screening for hyperlipidemia Z13.220 and Arthritis M19.90 [facility] [id number] [address] Mar, [facility] [id number] [place] [address] Mar, Cubital tunnel 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 G56.22 [facility] [id number] [place] [address] February, Type 2 diabetes mellitus with diabetic chronic kidney disease, 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 ; Essential hypertension I10 ; CAD ( coronary artery disease) I25.10 and Heartburn R12 [facility] [id number] [place] [address] February, [facility] [address] [place] [address] February, [facility] [address] [place] [address] Jan, [facility] [address] [address] Jan, [facility] [id number] [place] [address] Dec, [facility] [id number] [place] [address] Dec, [facility] [id number] [place] [address] Dec, Essential hypertension I10 ; CAD (coronary artery disease) I25.10 ; Type 2 diabetes mellitus with diabetic chronic kidney disease, 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 and Left hand pain M79.642 [facility] [id number] [place] [address] Dec, [facility] [id number] [place] [address] Dec, [facility] [id number] [place] [address] Nov, CAD (coronary artery disease) I25.10 and Cough R05 [facility] [address] [address] Nov, [facility] [id number] [address] Nov, Essential hypertension I10 ; Edema R60.9 ; Type 2 diabetes mellitus with diabetic chronic kidney disease, 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 ; Arthritis M19.90 and Sinusitis J32.9 [facility] [address] [address] 27 Jul, 2015 Upper respiratory tract infection, unspecified upper respiratory infection J06.9 [facility] [id number] [address] Apr, Diabetes 250.00 ; Edema 782.3 ; Hypertension 401.9 ; Arthritis 716.90 and Lumbar back pain 724.2 [facility] [address] [address] Jan, [facility] [id number] [place] [address] Jan, [facility] [id number] [place] [address] Oct, [facility] [id number] [place] [address] Oct, [facility] [id number] [place] [address] Sep, [facility] [id number] [place] [address] Sep, [facility] [id number] [address] Mar, [facility] [id number] [place] [address] Mar, [facility] [id number] [address] Mar, [facility] [address] [address] Mar, [facility] [address] [address] Mar, [facility] [id number] [place] [address] Mar, [facility] [id number] [address] February, [facility] [address] [address] February, [facility] [place] [facility] [address] [id number] [place] [address]- [address] February, [facility] [place] [facility] [address] [id number] [place] [address]- 5[address] February, [facility] [place] [facility] [address] [id number] [place] [address]- 6[address] Dec, [facility] [place] [facility] [address] [id number] [place] [address]- 66[address] Dec, [facility] [place] [facility] [address] [id number] [place] [address]- [address] Nov, [facility] [place] [facility] [address] [id number] [place] [address]- 4005 Nov, [facility] [place] [facility] [address] [facility] [id number] [place] [address]- 5[address] Nov, [facility] [place] [facility] [address] [id number] [place] [address]- 6424 Nov, [facility] [place] [facility] [address] [facility] [id number] [place] [address]- 7378 Nov, [facility] [place] [facility] [address] [facility] [id number] [place] [address]- 8109 Nov, [facility] [place] [facility] [address] [facility] [id number] [place] [address]- 4653 Aug, [facility] [place] [facility] [address] [id number] [address] Aug, [facility] [place] [facility] [address] [id number] [place] [address]- 6016 Jul, [facility] [place] [facility] [address] [id number] [place] [address]- 9596 Jul, [facility] [place] [facility] [address] [id number] [place] [address]- 6505 Jul, [facility] [place] [facility] [address] [id number] [address]- 5[address] Jul, [facility] [address] [id number] [place] [address]- 0886 Jul, [facility] [place] [facility] [address] [id number] [place] [address] Jul, [facility] [place] [facility] [address] [id number] [place] [address]- 2827 May, [facility] [place] [facility] [address] [id number] [place] [address]- 4330 Apr, [facility] [place] [facility] [address] [id number] [place] [address]- 6618 Apr, [facility] [place] [facility] [address] [id number] [place] [address]- 5919 Apr, [facility] [address] [id number] [place] [address]- 3774 Apr, [facility] [place] [facility] [address] [id number] [place] [address]- 7426 Apr, [facility] [place] [facility] [address] [id number] [place] [address]- 8358 Jan, [facility] [place] [facility] [address] [id number] [place] [address]- 2202 Jan, [facility] [place] [facility] [address] [id number] [place] [address]- 4232 Jan, [facility] [place] [facility] [address] [id number] [place] [address]- 6752 Dec, [facility] [place] [facility] [address] [id number] [place] [address] Oct, [facility] [place] [facility] [address] [id number] [place] [address] Sep, [facility] [place] [facility] [address] [id number] [place] [address]- 4069 Sep, [facility] [place] [facility] [id number] [address] February, [facility] [id number] [address] February, [facility] [address] [address] Jan, [facility] [id number] [address]- [address] Aug, [facility] [address] [address]- [address] Aug, [facility] [address] [address]- 4[address] Aug, [facility] [address] [address]- [address] Aug, [facility] [address] [address]- 9[address] Jul, [facility] [id number] [address]- 1608 Jul, [facility] [id number] [address] Jul, IMMUNIZATIONS No Known Immunizations SOCIAL HISTORY Never Assessed REASON FOR VISIT Eye Exam PLAN OF CARE VITAL SIGNS MEDICATIONS Unknown [...]
[2018-11-14] MEDS ORDERED: DILTIAZEM 25 MG/5 ML INJ (CARDIZEM) VIAL IVP ONE (22:15)
[2018-11-14] MEDS ORDERED: DILTIAZEM INJECTION 125 MG in NS (IVPB) 100 ML IV SCH (22:15)
--- OUTSIDE RECORDS SUMMARY | 2018-11-14 22:15 | XMS REPORT ---
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 Unknown Non Drug Allergy Oct, Unknown SOCIAL HISTORY No smoking Hx information available PLAN OF CARE Activity Details Follow Up 3 Months Reason:DM/HTN VITAL SIGNS Height 66 in 2016-11-07 Weight 269.5 lbs 2016-11-07 Temperature 97.6 degrees Fahrenheit 2016-11-07 Heart Rate 76 bpm 2016-11-07 Respiratory Rate 20 2016-11-07 BMI 43.49 kg/m2 2016-11-07 Blood pressure systolic 122 mmHg 2016-11-07 Blood pressure diastolic 80 mmHg 2016-11-07 MEDICATIONS Medication Instructions Dosage Frequency Start Date End Date Duration Status Hydrocodone-Acetaminophen 5-325 MG Orally 2 times a day as needed for severe pain 1 tablet Jul, Active Test strips Test Strips ICD10- E11.22 2 times a day test blood sugar 12h Active Atenolol 100 MG Orally Once a day 1 tablet 24h 30 days Active Celebrex 200 MG oral Once a day 1 capsule 24h Active Blood Glucose Monitor System w/Device ICD10- E11.22 2 times a day test blood sugar 12h Active MetFORMIN HCl ER 500 MG Orally Once a day 2 tablets 24h Active Hydrochlorothiazide 25 MG Orally Once a day 1 Tablet by Oral route 1 time per day 24h Active Omeprazole 40 mg Orally Once a day 1 capsule 24h Active Bydureon 2 MG Subcutaneous- ICD10- E11.22 once weekly 2 mg Active MetFORMIN HCl ER 500 MG TAKE TWO TABLETS BY MOUTH ONCE DAILY 30 Active Bydureon 2 MG INJECT 2 MG SUBCTANEOUS ONCE WEEKLY (MUST HAVE APPOINTMENT FOR REFILL) 84 Active RESULTS Name Result Date Reference Range A1C (IN HOUSE) 2016-11-07 A1C IN HOUSE 6.1 4.3 - 5.6 % Previous A1c 6.1 Lot 0664 Exp date 08/2018 CMP 2016-11-07 Glucose, Serum 125 65-99 BUN 11 8-27 Creatinine, Serum 0.76 0.57-1.00 eGFR If NonAfricn Am 86 >59 eGFR If Africn Am 99 >59 BUN/Creatinine Ratio 14 11-26 Sodium, Serum 141 134-144 Potassium, Serum 3.7 3.5-5.2 Chloride, Serum 97 96-106 Carbon Dioxide, Total 27 18-29 Calcium, Serum 9.1 8.7-10.3 Protein, Total, Serum 6.5 6.0-8.5 Albumin, Serum 3.9 3.6-4.8 Globulin, Total 2.6 1.5-4.5 A/G Ratio 1.5 1.1-2.5 Bilirubin, Total 0.4 0.0-1.2 Alkaline Phosphatase, S 116 39-117 AST (SGOT) 19 0-40 ALT (SGPT) 16 0-32 PROCEDURES Procedure Date Ordered Related Diagnosis Body Site GLYCATED HEMOGLOBIN TEST Nov 07, 2016 [facility] Office Visit, Est Pt., Level 4 Nov 07, 2016 [facility] VISIT ESTABLISHED PATIENT Nov 07, 2016 SONAM, ROUTINE* Nov 07, 2016 IMMUNIZATIONS No Known Immunizations
--- OUTSIDE RECORDS SUMMARY | 2018-11-14 22:15 | XMS REPORT ---
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 Active 92971630 Problem H/O motion sickness Z87.898 Active 582637496 Problem Heartburn R12 Active 92351156 Problem Arthritis M19.90 Active 2914077 Problem Edema R60.9 Active 718451665 Problem CAD (coronary artery disease) I25.10 Active 88380081 Problem Essential hypertension I10 Active 19008265 ALLERGIES No Information SOCIAL HISTORY Never Assessed PLAN OF CARE VITAL SIGNS MEDICATIONS Medication Instructions Dosage Frequency Start Date End Date Duration Status Acyclovir 400 mg Orally 5 times daily 1 tablet February, 10 days Active PredniSONE 10 mg 6 tablets daily x5days, 4 tablets daily x2days, 2 tablets daily x2days, 1 tablet daily x2days February, Active RESULTS No Results PROCEDURES No Known [...]
--- OUTSIDE RECORDS SUMMARY | 2018-11-14 22:15 | XMS REPORT ---
Author Author VESNA FLOREZ Organization [employer] Address Unknown Phone Unavailable Care Team Providers Care Coil Placer Name Role Phone VESNA FLOREZ CP Unavailable [...] disease, 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 Active Medications Medication Code System Code Instructions Start Date End Date Status Dosage Bydureon [facility] [id number] 2 MG INJECT 2 MG SUBCTANEOUS ONCE WEEKLY (MUST HAVE APPOINTMENT FOR REFILL) Results No Known Results Summary Purpose [employer] Submission
--- OUTSIDE RECORDS SUMMARY | 2018-11-14 22:15 | XMS REPORT ---
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 Active 37289110 Problem H/O motion sickness Z87.898 Active 585948793 Problem Heartburn R12 Active 21903782 Problem Arthritis M19.90 Active 8596736 Problem Edema R60.9 Active 230694206 Problem CAD (coronary artery disease) I25.10 Active 54742937 Problem Essential hypertension I10 Active 86169958 ALLERGIES No Known Allergies SOCIAL HISTORY Never Assessed PLAN OF CARE Activity Details Follow Up pending CT and 2.5 months DM Reason:DM VITAL SIGNS Height 66 in 2017-03-01 Weight 262.9 lbs 2017-03-01 Temperature 97.8 degrees Fahrenheit 2017-03-01 Heart Rate 80 bpm 2017-03-01 Respiratory Rate 18 2017-03-01 BMI 42.43 kg/m2 2017-03-01 Blood pressure systolic 130 mmHg 2017-03-01 Blood pressure diastolic 82 mmHg 2017-03-01 MEDICATIONS Medication Instructions Dosage Frequency Start Date End Date Duration Status Blood Glucose Monitor System w/Device ICD10- E11.22 2 times a day test blood sugar 12h Active MetFORMIN HCl ER 500 mg Orally Once a day 2 tablets 24h 30 Active Test strips Test Strips ICD10- E11.22 2 times a day test blood sugar 12h Active Celebrex 200 MG oral Once a day 1 capsule 24h Active Scopolamine 1 MG/3DAYS Transdermal every 3 days 1 patch to skin as needed Active Bydureon 2 MG Subcutaneous- ICD10- E11.22 once weekly 2 mg Active Omeprazole 40 mg Orally Once a day 1 capsule 24h Active Hydrochlorothiazide 25 MG Orally Once a day 1 Tablet by Oral route 1 time per day 24h Active Celebrex 200 MG TAKE ONE CAPSULE BY MOUTH ONCE DAILY 30 Active Atenolol 100 MG Orally Once a day 1 tablet 24h 30 days Active Hydrocodone-Acetaminophen 5-325 MG Orally daily as needed for severe pain 1 tablet Active RESULTS Name Result Date Reference Range CT Scan : Brain w/o Contrast 2017-03-01 PROCEDURES Procedure Date Ordered Result Body Site [facility] VISIT ESTABLISHED PATIENT March 01, 2017 IMMUNIZATIONS No Known Immunizations MEDICAL (GENERAL) HISTORY [...]
--- OUTSIDE RECORDS SUMMARY | 2018-11-14 22:15 | XMS REPORT ---
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 Active 52681011 Problem H/O motion sickness Z87.898 Active 237859027 Problem Heartburn R12 Active 27944748 Problem Arthritis M19.90 Active 7718562 Problem Edema R60.9 Active 908686209 Problem CAD (coronary artery disease) I25.10 Active 97287978 Problem Essential hypertension I10 Active 13092465 ALLERGIES No Known Allergies ENCOUNTERS Encounter Location Date Diagnosis [facility] [address] [facility] [id number] [address] Nov, 2017 Cough R05 and BMI 40.0-44.9, adult Z68.41 [facility] [address] [address] 14 Nov, 2017 Type 2 diabetes mellitus [...] and Long-term use of high-risk medication Z79.899 [facility] [address] [address] Jul, Type 2 diabetes mellitus with diabetic chronic kidney disease, 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 ; Essential hypertension I10 ; CAD ( coronary artery disease) I25.10 ; Heartburn R12 ; Arthritis M19.90 ; H/O motion sickness Z87.898 and Facial paresthesia R20.9 [facility] [id number] [place] [address] February, Type 2 diabetes mellitus with diabetic chronic kidney disease, 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 ; Essential hypertension I10 ; CAD ( coronary artery disease) I25.10 ; Heartburn R12 ; Arthritis M19.90 and H/O motion sickness Z87.898 [facility] [id number] [place] [address] Dec, [facility] [id number] [place] [address] 1772 Dec, [facility] [id number] [place] [address] Oct, Type 2 diabetes mellitus with diabetic chronic kidney disease, 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 ; Essential hypertension I10 ; CAD ( coronary artery disease) I25.10 ; Heartburn R12 and Arthritis M19.90 [facility] [id number] [place] [address] Aug, [facility] [id number] [place] [address] Jul, [facility] [address] [address] Jun, Type 2 diabetes mellitus with diabetic chronic kidney disease, 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 ; Essential hypertension I10 ; CAD ( coronary artery disease) I25.10 ; Heartburn R12 ; Screening for hyperlipidemia Z13.220 and Arthritis M19.90 [facility] [id number] [address] Mar, [facility] [id number] [address] Mar, Cubital tunnel 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 G56.22 [facility] [id number] [place] [address] February, Type 2 diabetes mellitus with diabetic chronic kidney disease, 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 ; Essential hypertension I10 ; CAD ( coronary artery disease) I25.10 and Heartburn R12 [facility] [address] [address] February, [facility] [address] [address] February, [facility] [address] [address] Jan, [facility] [address] [address] Jan, [facility] [address] [address] Dec, [facility] [address] [address] Dec, [facility] [address] [address] Dec, Essential hypertension I10 ; CAD (coronary artery disease) I25.10 ; Type 2 diabetes mellitus with diabetic chronic kidney disease, 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 and Left hand pain M79.642 [facility] [address] [place] [address] Dec, [facility] [address] [address] Dec, [facility] [id number] [place] [address] Nov, CAD (coronary artery disease) I25.10 and Cough R05 [facility] [id number] [place] [address] Nov, [facility] [id number] [place] [address] Nov, Essential hypertension I10 ; Edema R60.9 ; Type 2 diabetes mellitus with diabetic chronic kidney disease, 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 ; Arthritis M19.90 and Sinusitis J32.9 [facility] [id number] [place] [address] Jul, Upper respiratory tract infection, unspecified upper respiratory infection J06.9 [facility] [id number] [place] [address] Apr, Diabetes 250.00 ; Edema 782.3 ; Hypertension 401.9 ; Arthritis 716.90 and Lumbar back pain 724.2 [facility] [id number] [place] [address] Jan, [facility] [id number] [place] [address] 36[address] Jan, [facility] [id number] [place] [address] 73989[address] 7[address] Oct, [facility] [id number] [place] [address] 12[address] 80[address] Oct, [facility] [id number] [place] [address] 48141[address] 85[address] Sep, [facility] [id number] [place] [address] [place] [address] Sep, [facility] [place] [facility] [address] [id number] [place] [address] Mar, [facility] [place] [facility] [address] [id number] [place] [address] Mar, [facility] [place] [facility] [address] [id number] [place] [address] Mar, [facility] [place] [facility] [address] [id number] [place] [address] 39[address] Mar, [facility] [place] [facility] [address] [id number] [place] [address] Mar, [facility] [place] [facility] [address] [id number] [place] [address] 0[address] Mar, [facility] [place] [facility] [address] [id number] [place] [address] February, [facility] [place] [facility] [address] [id number] [place] [address] February, [facility] [place] [facility] [address] [id number] [place] [address]207 February, [facility] [place] [facility] [address] [id number] [place] [address] 00[address] February, [facility] [place] [facility] [address] [id number] [place] [address] 360[address] Dec, [facility] [place] [facility] [address] [id number] [place] [address] 62[address] Dec, [facility] [place] [facility] [address] [id number] [place] [address] 8[address] Nov, [facility] [place] [facility] [address] [id number] [place] [address] 3439 Nov, [facility] [place] [facility] [address] [id number] [place] [address] 8748 Nov, [facility] [place] [facility] [address] [id number] [place] [address] 46[address] Nov, 2013 [facility] [place] [facility] [address] [id number] [place] [address] 95[address] Nov, [facility] [place] [facility] [address] [id number] [place] [address] 34[address] Nov, [facility] [place] [facility] [address] [id number] [place] [address] 0874 Aug, [facility] [place] [facility] [address] [id number] [place] [address] 6062 Aug, [facility] [place] [facility] [address] [id number] [place] [address] 2450 Jul, [facility] [place] [facility] [address] [id number] [place] [address] 0[address] Jul, [facility] [place] [facility] [address] [id number] [place] [address] 6752 Jul, [facility] [place] [facility] [address] [id number] [place] [address]- 2167 Jul, [facility] [place] [facility] [address] [id number] [place] [address]- 0116 Jul, [facility] [place] [facility] [address] [id number] [place] [address]- 0497 Jul, [facility] [place] [facility] [address] [id number] [place] [address] 5[address] May, [facility] [place] [facility] [address] [id number] [place] [address]- 2764 Apr, [facility] [place] [facility] [address] [id number] [place] [address]- 9348 Apr, [facility] [place] [facility] [address] [id number] [address] Apr, [facility] [place] [facility] [address] [id number] [place] [address]- 8716 Apr, [facility] [address] [id number] [place] [address]- 2710 Apr, [facility] [address] [id number] [place] [address]- 7714 Jan, [facility] [address] [id number] [place] [address]- 6065 Jan, [facility] [address] [id number] [place] [address]- 1567 Jan, [facility] [address] [id number] [place] [address]- 1003 Dec, [facility] [address] [id number] [place] [address]- 3662 Oct, [facility] [address] [id number] [place] [address] 3064 Sep, [facility] [address] [id number] [place] [address]- 0083 Sep, [facility] [address] [id number] [place] [address] February, [facility] [address] [id number] [place] [address]- 3[address] February, [facility] [address] [id number] [place] [address]- 7855 Jan, [facility] [address] [id number] [place] [address]- 0783 Aug, [facility] [place] [facility] [address] [id number] [place] [address] 1932 Aug, [facility] [place] [facility] [address] [id number] [place] [address]- 6952 Aug, [facility] [place] [facility] [address] [facility] [id number] [place] [address]- 6[address] Aug, [facility] [place] [facility] [address] [facility] [id number] [place] [address]- 7[address] Jul, [facility] [address] [facility] [id number] [place] [address]- 0100 Jul, [facility] [address] [facility] [id number] [place] [address] 39[address] Jul, IMMUNIZATIONS Vaccine Route Administration Date Status SOLUMEDROL (UP TO 125 MG) IM Intramuscular May 10, 2017 Administered SOCIAL HISTORY Never Assessed REASON FOR VISIT Leg swelling, swelling, redness, and warmth to right calf since this morning---- CRyburn,CCMA PLAN OF CARE Activity Details Follow Up prn Reason: VITAL SIGNS Height 66 in 2017-05-10 Weight 261.4 lbs 2017-05-10 Temperature 98.9 degrees Fahrenheit 2017-05-10 Heart Rate 92 bpm 2017-05-10 Respiratory Rate 18 2017-05-10 BMI 42.19 kg/m2 2017-05-10 Blood pressure systolic 136 mmHg 2017-05-10 Blood pressure diastolic 87 mmHg 2017-05-10 MEDICATIONS Medication Instructions Dosage Frequency Start Date End Date Duration Status Celebrex 200 MG oral Once a day 1 capsule 24h Active Omeprazole 40 mg Orally Once a day 1 capsule 24h Active Scopolamine 1 MG/3DAYS Transdermal every 3 days 1 patch to skin as needed Active Atenolol 100 MG Orally Once a day 1 tablet 24h 30 days Active Blood Glucose Monitor System w/Device ICD10- E11.22 2 times a day test blood sugar 12h Active MetFORMIN HCl ER 500 mg Orally Once a day 2 tablets 24h 30 Active Hydrocodone-Acetaminophen 5-325 MG Orally daily as needed for severe pain 1 tablet Active Hydrochlorothiazide 25 MG Orally Once a day 1 Tablet by Oral route 1 time per day 24h Active Acyclovir 400 mg Orally 5 times daily 1 tablet February, 10 days Active Bydureon 2 MG Subcutaneous- ICD10- E11.22 once weekly 2 mg Active Test strips Test Strips ICD10- E11.22 2 times a day test blood sugar 12h Active Bactrim DS 800-160 MG Orally twice daily 1 tablet May, May, 10 days Active RESULTS No Results PROCEDURES Procedure Date Ordered Result Body Site SOLUMEDROL (UP TO 125 MG) May 10, 2017 THER/PROPH/DIAG INJ, SC/IM May 10, 2017 [facility] VISIT ESTABLISHED PATIENT May 10, 2017 INSTRUCTIONS MEDICATIONS ADMINISTERED No Known Medications [...]
--- OUTSIDE RECORDS SUMMARY | 2018-11-14 22:15 | XMS REPORT ---
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
--- OUTSIDE RECORDS SUMMARY | 2018-11-14 22:15 | XMS REPORT ---
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 Active 85162593 Problem H/O motion sickness Z87.898 Active 389492827 Problem Heartburn R12 Active 16136422 Problem Arthritis M19.90 Active 2366264 Problem Edema R60.9 Active 247904436 Problem CAD (coronary artery disease) I25.10 Active 18415071 Problem Essential hypertension I10 Active 97296885 ALLERGIES No Known Allergies SOCIAL HISTORY Never Assessed PLAN OF CARE Activity Details Follow Up 3 Weeks Reason:DM VITAL SIGNS Height 66 in 2017-02-06 Weight 254.2 lbs 2017-02-06 Temperature 98.1 degrees Fahrenheit 2017-02-06 Heart Rate 82 bpm 2017-02-06 Respiratory Rate 18 2017-02-06 BMI 41.02 kg/m2 2017-02-06 Blood pressure systolic 124 mmHg 2017-02-06 Blood pressure diastolic 76 mmHg 2017-02-06 MEDICATIONS Medication Instructions Dosage Frequency Start Date End Date Duration Status Omeprazole 40 mg Orally Once a day 1 capsule 24h Active Bydureon 2 MG Subcutaneous- ICD10- E11.22 once weekly 2 mg Active Atenolol 100 MG Orally Once a day 1 tablet 24h 30 days Active Celebrex 200 MG oral Once a day 1 capsule 24h Active Blood Glucose Monitor System w/Device ICD10- E11.22 2 times a day test blood sugar 12h Active Scopolamine 1 MG/3DAYS Transdermal every 3 days 1 patch to skin as needed February, Active MetFORMIN HCl ER 500 mg Orally Once a day 2 tablets 24h 30 Active Hydrochlorothiazide 25 MG Orally Once a day 1 Tablet by Oral route 1 time per day 24h Active Test strips Test Strips ICD10- E11.22 2 times a day test blood sugar 12h Active Celebrex 200 MG TAKE ONE CAPSULE BY MOUTH ONCE DAILY 30 Active Hydrocodone-Acetaminophen 5-325 MG Orally daily as needed for severe pain 1 tablet Jul, Active RESULTS Name Result Date Reference Range LIPID PANEL 2017-02-06 Cholesterol, Total 164 100-199 Triglycerides 116 0-149 HDL Cholesterol 57 >39 VLDL Cholesterol Francis 23 5-40 LDL Cholesterol Calc 84 0-99 Comment: A1C (IN HOUSE) 2017-02-06 A1C IN HOUSE 5.9 4.3 - 5.6 % Previous A1c 6.1 Lot [id number] Exp date 10/2018 URINE DRUG SCREEN (IN HOUSE) 2017-02-06 Lot # [id number] Exp date 08/2018 Control + COCAINE Negative AMPH Negative MTD Negative THC Negative OPIATE Negative BENZO Negative PCP Negative BAR Negative OXY Negative MAMP Negative TCA Negative BUP Negative MDMA Negative CMP 2017-02-06 Glucose, Serum 109 65-99 BUN 8 8-27 Creatinine, Serum 0.75 0.57-1.00 eGFR If NonAfricn Am 86 >59 eGFR If Africn Am 99 >59 BUN/Creatinine Ratio 11 12-28 Sodium, Serum 142 134-144 Potassium, Serum 3.8 3.5-5.2 Chloride, Serum 97 96-106 Carbon Dioxide, Total 27 18-29 Calcium, Serum 9.1 8.7-10.3 Protein, Total, Serum 7.1 6.0-8.5 Albumin, Serum 4.0 3.6-4.8 Globulin, Total 3.1 1.5-4.5 A/G Ratio 1.3 1.2-2.2 Bilirubin, Total 0.6 0.0-1.2 Alkaline Phosphatase, S 108 39-117 AST (SGOT) 22 0-40 ALT (SGPT) 14 0-32 PROCEDURES Procedure Date Ordered Result Body Site GLYCATED HEMOGLOBIN TEST February 06, 2017 [facility] February 06, 2017 [facility] VISIT ESTABLISHED PATIENT February 06, 2017 VENIPUNCT, ROUTINE* February 06, 2017 IMMUNIZATIONS No Known Immunizations MEDICAL (GENERAL) [...]
--- OUTSIDE RECORDS SUMMARY | 2018-11-14 22:15 | XMS REPORT ---
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 Unknown Non Drug Allergy Jun, Unknown SOCIAL HISTORY No smoking Hx information available PLAN OF CARE VITAL SIGNS Height 66 in 2016-06-21 Weight 275 lbs 2016-06-21 Heart Rate 78 bpm 2016-06-21 Respiratory Rate 18 2016-06-21 BMI 44.38 kg/m2 2016-06-21 Blood pressure systolic 132 mmHg 2016-06-21 Blood pressure diastolic 86 mmHg 2016-06-21 MEDICATIONS Medication Instructions Dosage Frequency Start Date End Date Duration Status Omeprazole 40 mg Orally Once a day 1 capsule 24h Active Blood Glucose Monitor System w/Device ICD10- E11.22 2 times a day test blood sugar 12h Active MetFORMIN HCl ER 500 MG Orally Once a day 2 tablets 24h Active Celebrex 200 MG oral Once a day 1 capsule 24h Active Bydureon 2 MG Subcutaneous- ICD10- E11.22 once weekly 2 mg Active Test strips Test Strips ICD10- E11.22 2 times a day test blood sugar 12h Active Atenolol 100 MG Orally Once a day 1 tablet 24h 30 days Active Hydrocodone-Acetaminophen 5-325 MG Orally 2 times a day as needed for severe pain 1 tablet Jul, Active Hydrochlorothiazide 25 MG Orally Once a day 1 Tablet by Oral route 1 time per day 24h Active RESULTS Name Result Date Reference Range A1C (IN HOUSE) 2016-06-21 A1C IN HOUSE 6.1 4.3 - 5.6 % Previous A1c 6.5 Lot [id number] Exp date MICROALBUMIN, URINE (IN HOUSE) 2016-06-21 MICROALBUMIN normal Lot # [id number] Exp date Clarity clourdy Color dark yellow ALB 80 mg/L CRE 200 mg/dL A:C (IN HOUSE) <30 mg/g Control + Control Lot # Exp date LIPID PANEL 2016-06-21 Cholesterol, Total 154 100-199 Triglycerides 95 0-149 HDL Cholesterol 46 >39 VLDL Cholesterol Francis 19 5-40 LDL Cholesterol Calc 89 0-99 Comment: CMP 2016-06-21 Glucose, Serum 119 65-99 BUN 9 8-27 Creatinine, Serum 0.70 0.57-1.00 eGFR If NonAfricn Am 94 >59 eGFR If Africn Am 109 >59 BUN/Creatinine Ratio 13 11-26 Sodium, Serum 140 134-144 Potassium, Serum 3.8 3.5-5.2 Chloride, Serum 96 97-108 Carbon Dioxide, Total 28 18-29 Calcium, Serum 9.1 8.7-10.3 Protein, Total, Serum 6.7 6.0-8.5 Albumin, Serum 3.9 3.6-4.8 Globulin, Total 2.8 1.5-4.5 A/G Ratio 1.4 1.1-2.5 Bilirubin, Total 0.5 0.0-1.2 Alkaline Phosphatase, S 123 39-117 AST (SGOT) 21 0-40 ALT (SGPT) 13 0-32 PROCEDURES Procedure Date Ordered Related Diagnosis Body Site GLYCATED HEMOGLOBIN TEST Jun 21, 2016 [facility] Jun [facility], 2016 VENIPUNCT, ROUTINE* Jun 21, 2016 MICROALBUMIN, SEMIQUANT Jun 21, 2016 Office Visit, Est Pt., Level 4 Jun 21, 2016 [facility] VISIT ESTABLISHED PATIENT Jun 21, 2016 IMMUNIZATIONS No Known Immunizations
--- OUTSIDE RECORDS SUMMARY | 2018-11-14 22:16 | XMS REPORT ---
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 Active 42316669 Problem H/O motion sickness Z87.898 Active 990517223 Problem Heartburn R12 Active 55564195 Problem Arthritis M19.90 Active 6770461 Problem Edema R60.9 Active 283955654 Problem CAD (coronary artery disease) I25.10 Active 93576597 Problem Essential hypertension I10 Active 30662657 ALLERGIES No Known Allergies ENCOUNTERS Encounter Location Date Diagnosis [facility] [id number], [place] [address] 27 Nov, 2017 Cough R05 and BMI 40.0-44.9, adult Z68.41 [facility] [id number], [place] [address] 14 Nov, 2017 Type 2 diabetes mellitus [...] and Long-term use of high-risk medication Z79.899 [facility] [address] [address] Jul, Type 2 diabetes mellitus with diabetic chronic kidney disease, 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 ; Essential hypertension I10 ; CAD ( coronary artery disease) I25.10 ; Heartburn R12 ; Arthritis M19.90 and Reactive airway disease that is not asthma R09.89 [facility] [id number] [place] [address] May, Cellulitis of right lower leg L03.115 and Insect bite ( nonvenomous), right lower leg, initial encounter S80.861A [facility] [id number] [place] [address] 16679- [address]85 February, [facility] [id number] [place] [address]192- 9720 February, Type 2 diabetes mellitus with diabetic chronic kidney disease, 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 ; Essential hypertension I10 ; CAD ( coronary artery disease) I25.10 ; Heartburn R12 ; Arthritis M19.90 ; H/O motion sickness Z87.898 and Facial paresthesia R20.9 [facility] [id number] [place] [address]66[address] February, Type 2 diabetes mellitus with diabetic chronic kidney disease, 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 ; Essential hypertension I10 ; CAD ( coronary artery disease) I25.10 ; Heartburn R12 ; Arthritis M19.90 and H/O motion sickness Z87.898 [facility] [id number] [place] [address] 88699- 9875 Dec, [facility] [id number] [place] [address] 25902- 0868 Dec, [facility] [id number] [place] [address] 25629- 3280 Oct, Type 2 diabetes mellitus with diabetic chronic kidney disease, 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 ; Essential hypertension I10 ; CAD ( coronary artery disease) I25.10 ; Heartburn R12 and Arthritis M19.90 [facility] [id number] [place] [address] 08014- 2584 Aug, [facility] [id number] [place] [address] 84911- 9320 Jul, [facility] [address], [place] [address] Jun, Type 2 diabetes mellitus with diabetic chronic kidney disease, 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 ; Essential hypertension I10 ; CAD ( coronary artery disease) I25.10 ; Heartburn R12 ; Screening for hyperlipidemia Z13.220 and Arthritis M19.90 [facility] [id number] [place] [address]- 5[address] Mar, [facility] [id number] [address] Mar, Cubital tunnel 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 G56.22 [facility] [id number] [place] [address] 69784- 2039 February, Type 2 diabetes mellitus with diabetic chronic kidney disease, 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 ; Essential hypertension I10 ; CAD ( coronary artery disease) I25.10 and Heartburn R12 [facility] [address] [address] February, [facility] [address], [place] [address] February, [facility] [address], [place] [address] Jan, [facility] [address], [place] [address] Jan, [facility] [address], [place] [address] Dec, [facility] [address] [address] Dec, [facility] [address], [place] [address] Dec, Essential hypertension I10 ; CAD (coronary artery disease) I25.10 ; Type 2 diabetes mellitus with diabetic chronic kidney disease, 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 and Left hand pain M79.642 [facility] [id number] [place] [address] 09791- 8127 14 Dec, 2015 [facility] [address] [address] Dec, [facility] [id number] [place] [address] 19289- 6468 Nov, CAD (coronary artery disease) I25.10 and Cough R05 [facility] [id number] [place] [address] 86886- 0781 Nov, [facility] [address] [address] Nov, Essential hypertension I10 ; Edema R60.9 ; Type 2 diabetes mellitus with diabetic chronic kidney disease, 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 ; Arthritis M19.90 and Sinusitis J32.9 [facility] [id number] [place] [address] 06726[address] Jul, Upper respiratory tract infection, unspecified upper respiratory infection J06.9 [facility] [id number] [place] [address] 33203- 0430 Apr, Diabetes 250.00 ; Edema 782.3 ; Hypertension 401.9 ; Arthritis 716.90 and Lumbar back pain 724.[id number] [place] [address] 80041[address] 4156 Jan, [facility] [id number] [place] [address] 79906- 5346 Jan, [facility] [id number] [place] [address] 87862- 5554 Oct, [facility] [id number] [place] [address] 52958- 4491 Oct, [facility] [id number] [place] [address] 69547- 4799 Sep, [facility] [address] [place] [address] Sep, [facility] [place] [facility] [address] [id number] [place] [address] Mar, [facility] [place] [facility] [address] [id number] [place] [address] Mar, [facility] [place] [facility] [address] [id number] [place] [address] 8358 Mar, [facility] [place] [facility] [address] [id number] [place] [address] 40[address] Mar, [facility] [place] [facility] [address] [id number] [place] [address] 9707 Mar, [facility] [place] [facility] [address] [id number] [place] [address] Mar, [facility] [place] [facility] [address] [id number] [place] [address] 0446 February, [facility] [place] [facility] [address] [id number] [place] [address] 8361 February, [facility] [place] [facility] [address] [id number] [place] [address] 9558 February, [facility] [place] [facility] [address] [id number] [place] [address] February, [facility] [place] [facility] [address] [id number] [place] [address] Dec, [facility] [place] [facility] [address] [id number] [place] [address] 5908 Dec, [facility] [place] [facility] [address] [id number] [place] [address]324 Nov, [facility] [place] [facility] [address] [id number] [place] [address] 6826 Nov, [facility] [place] [facility] [address] [id number] [place] [address] 63[address] Nov, [facility] [place] [facility] [address] [id number] [place] [address] 9457 Nov, 2013 [facility] [place] [facility] [address] [id number] [place] [address] 9746 Nov, [facility] [place] [facility] [address] [id number] [place] [address] 4978 Nov, [facility] [place] [facility] [address] [id number] [place] [address] 6[address] Aug, [facility] [place] [facility] [address] [id number] [place] [address] 5741 Aug, [facility] [place] [facility] [address] [id number] [place] [address] 46[address] Jul, [facility] [place] [facility] [address] [id number] [place] [address] 4878 Jul, [facility] [place] [facility] [address] [id number] [place] [address] 1114 Jul, [facility] [place] [facility] [address] [id number] [place] [address]- 2049 Jul, [facility] [place] [facility] [address] [id number] [place] [address] 2813 Jul, [facility] [place] [facility] [address] [id number] [place] [address]- 9590 Jul, [facility] [place] [facility] [address] [id number] [place] [address]- 2092 May, [facility] [place] [facility] [address] [id number] [place] [address]- 6174 Apr, [facility] [place] [facility] [address] [id number] [place] [address] Apr, [facility] [place] [facility] [address] [id number] [place] Apr, [facility] [place] [facility] [address] [id number] [place] [address]- 0734 Apr, [facility] [address] [id number] [place] [address]- 9136 Apr, [facility] [address] [id number] [place] [address]- 4842 Jan, [facility] [address] [id number] [place] [address]- 8318 Jan, [facility] [address] [id number] [place] [address]- 8017 Jan, [facility] [address] [id number] [place] [address]- 4729 Dec, [facility] [address] [id number] [place] [address]- 3263 Oct, [facility] [address] [id number] [place] [address]- 7342 Sep, [facility] [address] [id number] [place] [address]- 9459 Sep, [facility] [address] [id number] [place] [address]- 0526 February, [facility] [address] [id number] [place] [address]- 0145 February, [facility] [address] [id number] [place] [address]- 2866 Jan, [facility] [address] [id number] [place] [address]- 0152 Aug, [facility] [address] [id number] [place] [address]- 0407 Aug, [facility] [address] [id number] [place] [address]- 9983 Aug, [facility] [address] [id number] [place] [address]- 7839 Aug, [facility] [address] [facility] [id number] [place] [address] Jul, [facility] [address] [facility] [id number] [place] [address]- 1085 Jul, [facility] [address] [facility] [id number] [place] [address] 1774 Jul, IMMUNIZATIONS No Known Immunizations SOCIAL HISTORY Never Assessed REASON FOR VISIT Diabetes--tcuppettRN PLAN OF CARE Activity Details Follow Up 3 Months, prn Reason:prn VITAL SIGNS Height 66 in 2017-07-10 Weight 257.1 lbs 2017-07-10 Temperature 97.6 degrees Fahrenheit 2017-07-10 Heart Rate 76 bpm 2017-07-10 Respiratory Rate 20 2017-07-10 BMI 41.49 kg/m2 2017-07-10 Blood pressure systolic 128 mmHg 2017-07-10 Blood pressure diastolic 80 mmHg 2017-07-10 MEDICATIONS Medication Instructions Dosage Frequency Start Date [...] 4 hrs prn 2 puffs as needed Jul, Active Scopolamine 1 MG/3DAYS Transdermal every 3 days 1 patch to skin as needed Active Celebrex 200 MG oral Once a day 1 capsule 24h Active Test strips Test Strips ICD10- E11.22 2 times a day test blood sugar 12h Active MetFORMIN HCl ER 500 mg Orally Once a day 2 tablets 24h 30 Active Hydrocodone-Acetaminophen 5-325 MG Orally daily as needed for severe pain 1 tablet Active Atenolol 100 MG Orally Once a day 1 tablet 24h 30 days Active Hydrochlorothiazide 25 MG Orally Once a day 1 Tablet by Oral route 1 time per day 24h Active RESULTS Name Result Date Reference Range A1C (IN HOUSE) 2017-07-10 A1C IN HOUSE 5.7 4.3 - 5.6 % Previous A1c 5.9 Lot [id number] Exp date 04/2019 LIPID PANEL 2017-07-10 Cholesterol, Total 166 100-199 Triglycerides 117 0-149 HDL Cholesterol 51 >39 VLDL Cholesterol Francis 23 5-40 LDL Cholesterol Calc 92 0-99 Comment: CMP 2017-07-10 Glucose, Serum 108 65-99 BUN 9 8-27 Creatinine, Serum 0.72 0.57-1.00 eGFR If NonAfricn Am 91 >59 eGFR If Africn Am 105 >59 BUN/Creatinine Ratio 13 12-28 Sodium, Serum 141 134-144 Potassium, Serum 3.7 3.5-5.2 Chloride, Serum 97 96-106 Carbon Dioxide, Total 26 18-29 Calcium, Serum 9.2 8.7-10.3 Protein, Total, Serum 7.2 6.0-8.5 Albumin, Serum 4.0 3.6-4.8 Globulin, Total 3.2 1.5-4.5 A/G Ratio 1.3 1.2-2.2 Bilirubin, Total 0.5 0.0-1.2 Alkaline Phosphatase, S 116 39-117 AST (SGOT) 21 0-40 ALT (SGPT) 17 0-32 PROCEDURES Procedure Date Ordered Result Body Site LAB [facility] Jul 10, 2017 GLYCATED HEMOGLOBIN TEST Jul 10, 2017 [facility] VISIT ESTABLISHED PATIENT Jul 10, 2017 VENIPUNCT, ROUTINE* Jul 10, 2017 INSTRUCTIONS MEDICATIONS ADMINISTERED No Known [...]
--- OUTSIDE RECORDS SUMMARY | 2018-11-14 22:17 | XMS REPORT | Continuity of Care Document ---
Author Author [facility] Address Unknown Phone Unavailable Allergies Active Description Code Type Severity Reaction Onset Reported/Identified Relationship to Patient Clinical Status Yes No Known Drug Allergies [id number] Drug Allergy Unknown N/A 04/20/2010 Medications There is no data. Problems Date Dx Coded Attending Type Code Diagnosis Diagnosed By 08/06/2008 401.1 HYPERTENSION, BENIGN ESSENTIAL 08/06/2008 461.9 SINUSITIS ACUTE 08/06/2008 401.1 ESSENTIAL HYPERTENSION BENIGN 08/06/2008 461.9 SINUSITIS ACUTE 08/06/2008 ZOEY SANTANA DO K 401.1 ESSENTIAL HYPERTENSION BENIGN 08/06/2008 ZOEY SANTANA DO K 461.9 SINUSITIS ACUTE 08/06/2008 MARIALUISA RODRIGUEZ MD 401.1 ESSENTIAL HYPERTENSION BENIGN 08/06/2008 MARIALUISA RODRIGUEZ MD 461.9 SINUSITIS ACUTE 08/06/2008 MARIALUISA RODRIGUEZ MD 401.1 ESSENTIAL HYPERTENSION BENIGN 08/06/2008 MARIALUISA RODRIGUEZ MD 461.9 SINUSITIS ACUTE 08/06/2008 MARIALUISA RODRIGUEZ MD 401.1 ESSENTIAL HYPERTENSION BENIGN 08/06/2008 MARIALUISA RODRIGUEZ MD M 461.9 SINUSITIS ACUTE 08/06/2008 MADL 911 OPERATOR, VESNA L 401.1 ESSENTIAL HYPERTENSION BENIGN 08/06/2008 MADL 911 OPERATOR, VESNA L 461.9 SINUSITIS ACUTE 08/06/2008 MADL 911 OPERATOR, VESNA L 401.1 ESSENTIAL HYPERTENSION BENIGN 08/06/2008 MADL 911 OPERATOR, VESNA L 461.9 SINUSITIS ACUTE 08/06/2008 MADL 911 OPERATOR, VESNA L 401.1 ESSENTIAL HYPERTENSION BENIGN 08/06/2008 MADL 911 OPERATOR, VESNA L 461.9 SINUSITIS ACUTE 11/04/2009 079.99 UNSPECIFIED VIRAL INFECTION IN CONDITIONS CLASSIFIED ELSEWHERE AND OF UNSPECIFIED SITE 11/04/2009 724.2 LUMBAGO 11/04/2009 729.1 MYALGIA AND MYOSITIS, UNSPECIFIED 11/04/2009 079.99 UNSPECIFIED VIRAL INFECTION IN CONDITIONS CLASSIFIED ELSEWHERE AND OF UNSPECIFIED SITE 11/04/2009 724.2 LUMBAGO 11/04/2009 729.1 MYALGIA AND MYOSITIS, UNSPECIFIED 11/04/2009 SANTANA DO ZOEY K 079.99 UNSPECIFIED VIRAL INFECTION IN CONDITIONS CLASSIFIED ELSEWHERE AND OF UNSPECIFIED SITE 11/04/2009 SANTANA DO ZOEY K 724.2 LUMBAGO 11/04/2009 SANTANA DO ZOEY K 729.1 MYALGIA AND MYOSITIS, UNSPECIFIED 11/04/2009 MARIALUISA RODRIGUEZ MD 079.99 UNSPECIFIED VIRAL INFECTION IN CONDITIONS CLASSIFIED ELSEWHERE AND OF UNSPECIFIED SITE 11/04/2009 MARIALUISA RODRIGUEZ MD 724.2 LUMBAGO 11/04/2009 MARIALUISA RODRIGUEZ MD 729.1 MYALGIA AND MYOSITIS, UNSPECIFIED 11/04/2009 MARIALUISA RODRIGUEZ MD 079.99 UNSPECIFIED VIRAL INFECTION IN CONDITIONS CLASSIFIED ELSEWHERE AND OF UNSPECIFIED SITE 11/04/2009 MARIALUISA RODRIGUEZ MD 724.2 LUMBAGO 11/04/2009 MARIALUISA RODRIGUEZ MD 729.1 MYALGIA AND MYOSITIS, UNSPECIFIED 11/04/2009 MARIALUISA RODRIGUEZ MD 079.99 UNSPECIFIED VIRAL INFECTION IN CONDITIONS CLASSIFIED ELSEWHERE AND OF UNSPECIFIED SITE 11/04/2009 MARIALUISA RODRIGUEZ MD 724.2 LUMBAGO 11/04/2009 MARIALUISA RODRIGUEZ MD 729.1 MYALGIA AND MYOSITIS, UNSPECIFIED 11/04/2009 MADL 911 OPERATOR, VESNA L 079.99 UNSPECIFIED VIRAL INFECTION IN CONDITIONS CLASSIFIED ELSEWHERE AND OF UNSPECIFIED SITE 11/04/2009 MADL 911 OPERATOR, VESNA L 724.2 LUMBAGO 11/04/2009 MADL 911 OPERATOR, VESNA L 729.1 MYALGIA AND MYOSITIS, UNSPECIFIED 11/04/2009 MADL 911 OPERATOR, VESNA L 079.99 UNSPECIFIED VIRAL INFECTION IN CONDITIONS CLASSIFIED ELSEWHERE AND OF UNSPECIFIED SITE 11/04/2009 MADL 911 OPERATOR, VESNA L 724.2 LUMBAGO 11/04/2009 MADL 911 OPERATOR, VESNA L 729.1 MYALGIA AND MYOSITIS, UNSPECIFIED 11/04/2009 MADL 911 OPERATOR, VESNA L 079.99 UNSPECIFIED VIRAL INFECTION IN CONDITIONS CLASSIFIED ELSEWHERE AND OF UNSPECIFIED SITE 11/04/2009 MADL 911 OPERATOR, VESNA L 724.2 LUMBAGO 11/04/2009 MADL 911 OPERATOR, VESNA L 729.1 MYALGIA AND MYOSITIS, UNSPECIFIED 07/28/2010 278.01 MORBID OBESITY 07/28/2010 285.9 ANEMIA UNSPECIFIED 07/28/2010 V68.1 ISSUE OF REPEAT PRESCRIPTIONS 07/28/2010 V76.10 BREAST SCREENING, UNSPECIFIED 07/28/2010 278.01 MORBID OBESITY 07/28/2010 285.9 ANEMIA UNSPECIFIED 07/28/2010 V68.1 ISSUE OF REPEAT PRESCRIPTIONS 07/28/2010 V76.10 BREAST SCREENING, UNSPECIFIED 07/28/2010 SANTANA DO ZOEY K 278.01 MORBID OBESITY 07/28/2010 MAX ORANTES ZOEY K 285.9 ANEMIA UNSPECIFIED 07/28/2010 SANTANA DO ZOEY K V68.1 ISSUE OF REPEAT PRESCRIPTIONS 07/28/2010 SANTANA DO ZOEY K V76.10 BREAST SCREENING, UNSPECIFIED 07/28/2010 MARIALUISA RODRIGUEZ MD 278.01 MORBID OBESITY 07/28/2010 MARIALUISA RODRIGUEZ MD 285.9 ANEMIA UNSPECIFIED 07/28/2010 MARIALUISA RODRIGUEZ MD V68.1 ISSUE OF REPEAT PRESCRIPTIONS 07/28/2010 MARIALUISA RODRIGUEZ MD V76.10 BREAST SCREENING, UNSPECIFIED 07/28/2010 MARIALUISA RODRIGUEZ MD 278.01 MORBID OBESITY 07/28/2010 MARIALUISA RODRIGUEZ MD 285.9 ANEMIA UNSPECIFIED 07/28/2010 MARIALUISA RODRIGUEZ MD V68.1 ISSUE OF REPEAT PRESCRIPTIONS 07/28/2010 MARIALUISA RODRIGUEZ MD V76.10 BREAST SCREENING, UNSPECIFIED 07/28/2010 MARIALUISA RODRIGUEZ MD 278.01 MORBID OBESITY 07/28/2010 MARIALUISA RODRIGUEZ MD 285.9 ANEMIA UNSPECIFIED 07/28/2010 MARIALUISA RODRIGUEZ MD V68.1 ISSUE OF REPEAT PRESCRIPTIONS 07/28/2010 MARIALUISA RODRIGUEZ MD V76.10 BREAST SCREENING, UNSPECIFIED 07/28/2010 MADL 911 OPERATOR, VESNA L 278.01 MORBID OBESITY 07/28/2010 MADL 911 OPERATOR, VESNA L 285.9 ANEMIA UNSPECIFIED 07/28/2010 MADL 911 OPERATOR, VESNA L V68.1 ISSUE OF REPEAT PRESCRIPTIONS 07/28/2010 MADL 911 OPERATOR, VESNA L V76.10 BREAST SCREENING, UNSPECIFIED 07/28/2010 MADL 911 OPERATOR, VESNA L 278.01 MORBID OBESITY 07/28/2010 MADL 911 OPERATOR, VESNA L 285.9 ANEMIA UNSPECIFIED 07/28/2010 MADL 911 OPERATOR, VESNA L V68.1 ISSUE OF REPEAT PRESCRIPTIONS 07/28/2010 MADL 911 OPERATOR, VESNA L V76.10 BREAST SCREENING, UNSPECIFIED 07/28/2010 MADL 911 OPERATOR, VESNA L 278.01 MORBID OBESITY 07/28/2010 MADL 911 OPERATOR, VESNA L 285.9 ANEMIA UNSPECIFIED 07/28/2010 MADL 911 OPERATOR, VESNA L V68.1 ISSUE OF REPEAT PRESCRIPTIONS 07/28/2010 MADL 911 OPERATOR, VESNA L V76.10 BREAST SCREENING, UNSPECIFIED 08/15/2010 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 , BREAST 08/15/2010 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 , BREAST 08/15/2010 ZOEY SANTANA DO 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, BREAST 08/15/2010 MARIALUISA RODRIGUEZ MD 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, BREAST 08/15/2010 MARIALUISA RODRIGUEZ MD 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, BREAST 08/15/2010 MARIALUISA RODRIGUEZ MD 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, BREAST 08/15/2010 MADL 911 OPERATOR, VESNA L 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, BREAST 08/15/2010 MADL 911 OPERATOR, VESNA L 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, BREAST 08/15/2010 MADL 911 OPERATOR, VESNA L 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, BREAST 01/13/2011 719.46 KNEE PAIN 01/13/2011 719.46 joint pain, localized in the knee 01/13/2011 ZOEY SANTANA DO 719.46 joint pain, localized in the knee 01/13/2011 MARIALUISA RODRIGUEZ MD 719.46 joint pain, localized in the knee 01/13/2011 MARIALUISA RODRIGUEZ MD 719.46 joint pain, localized in the knee 01/13/2011 MARIALUISA RODRIGUEZ MD 719.46 joint pain, localized in the knee 01/13/2011 MADL 911 OPERATOR, VESNA L 719.46 joint pain, localized in the knee 01/13/2011 MADL 911 OPERATOR, VESNA L 719.46 joint pain, localized in the knee 01/13/2011 MADL 911 OPERATOR, VESNA L 719.46 joint pain, localized in the knee 02/21/2012 788.41 URINARY FREQUENCY 02/21/2012 788.41 URINARY FREQUENCY 02/21/2012 ZOEY SANTANA DO 788.41 URINARY FREQUENCY 02/21/2012 MARIALUISA RODRIGUEZ MD 788.41 URINARY FREQUENCY 02/21/2012 MARIALUISA RODRIGUEZ MD 788.41 URINARY FREQUENCY 02/21/2012 MARIALUISA RODRIGUEZ MD 788.41 URINARY FREQUENCY 02/21/2012 MADL 911 OPERATOR, VESNA L 788.41 URINARY FREQUENCY 02/21/2012 MADL 911 OPERATOR, VESNA L 788.41 URINARY FREQUENCY 02/21/2012 MADL 911 OPERATOR, VESNA L 788.41 URINARY FREQUENCY 08/10/2012 Ot 285.9 ANEMIA NOS 08/10/2012 Ot 401.9 HYPERTENSION NOS 08/10/2012 Ot 715.36 LOC OSTEOARTH NOS-L/LEG 01/03/2013 ZOEY SANTANA DO 782.3 soft tissue swelling (non-joint) [Sx] 01/03/2013 MARIALUISA RODRIGUEZ MD 782.3 soft tissue swelling (non-joint) [Sx] 01/03/2013 MARIALUISA RODRIGUEZ MD 782.3 soft tissue swelling (non-joint) [Sx] 01/03/2013 MARIALUISA RODRIGUEZ MD 782.3 soft tissue swelling (non-joint) [Sx] 01/03/2013 MADL 911 OPERATOR, VESAN L 782.3 soft tissue swelling (non-joint) [Sx] 01/03/2013 MADL 911 OPERATOR, VESNA L 782.3 soft tissue swelling (non-joint) [Sx] 01/03/2013 MADL 911 OPERATOR, VESNA L 782.3 soft tissue swelling (non-joint) [Sx] 07/29/2013 MARIALUISA RODRIGUEZ MD 271.3 GLUCOSE INTOLERANCE 07/29/2013 MARIALUISA RODRIGUEZ MD V04.81 FLU SHOT 07/29/2013 MARIALUISA RODRIGUEZ MD 271.3 GLUCOSE INTOLERANCE 07/29/2013 MARIALUISA RODRIGUEZ MD V04.81 FLU SHOT 07/29/2013 MADL 911 OPERATOR, VESNA L 271.3 GLUCOSE INTOLERANCE 07/29/2013 MADL 911 OPERATOR, VESNA L V04.81 FLU SHOT 07/29/2013 MADL 911 OPERATOR, VESNA L 271.3 GLUCOSE INTOLERANCE 07/29/2013 MADL 911 OPERATOR, VESNA L V04.81 FLU SHOT 07/29/2013 MADL 911 OPERATOR, VESNA L 271.3 GLUCOSE INTOLERANCE 07/29/2013 MADL 911 OPERATOR, VESNA L V04.81 FLU SHOT 12/03/2013 MARIALUISA RODRIGUEZ MD 278.00 OBESITY UNSPECIFIED 12/03/2013 MARIALUISA RODRIGUEZ MD 536.8 DYSPEPSIA AND OTHER SPECIFIED DISORDERS OF FUNCTION OF STOMACH 12/03/2013 GAUTAM KINCAID VESNA L 278.00 OBESITY UNSPECIFIED 12/03/2013 GAUTAM KINCAID, VESNA L 536.8 DYSPEPSIA AND OTHER SPECIFIED DISORDERS OF FUNCTION OF STOMACH 12/03/2013 MADL 911 OPERATOR, VESNA L 278.00 OBESITY UNSPECIFIED 12/03/2013 GAUTAM KINCAID, VESNA L 536.8 DYSPEPSIA AND OTHER SPECIFIED DISORDERS OF FUNCTION OF STOMACH 12/03/2013 GAUTAM KINCAID VESNA L 278.00 OBESITY UNSPECIFIED 12/03/2013 GAUTAM KINCAID, VESNA L 536.8 DYSPEPSIA AND OTHER SPECIFIED DISORDERS OF FUNCTION OF STOMACH 03/17/2014 MADL VESNA KINCAID 462 ACUTE PHARYNGITIS 03/17/2014 VESNA FLOREZ APRN L 462 ACUTE PHARYNGITIS 03/17/2014 VESNA FLOREZ APRN 462 ACUTE PHARYNGITIS 10/12/2014 VESNA FLOREZ APRN 465.9 UPPER RESPIRATORY INFECTION 03/01/2017 Ot 715.96 OSTEOARTHROS NOS-L/LEG 03/01/2017 Ot V57.1 PHYSICAL THERAPY NEC 03/01/2017 Ot V57.21 ENCOUNTER FOR OCCUPATIONAL THERAPY 03/01/2017 Ot V72.63 PRE- PROCEDURAL LABORATORY EXAMINATION 03/01/2017 Ot V72.81 EXAM-PRE- OPERATIVE CARDIOVASCULAR 03/01/2017 Ot V72.83 EXAM PRE- OPERATIVE NEC 03/01/2017 Ot V74.8 SCREEN- BACTERIAL DIS NEC 03/01/2017 Ot 729.5 PAIN IN LIMB 03/01/2017 Ot 729.81 SWELLING OF LIMB 03/07/2017 VESNA FLOREZ ASSISTANT PROFESSOR OF PHYSICS Ot N20.9 URINARY CALCULUS, UNSPECIFIED 03/19/2017 VESNA FLOREZ ASSISTANT PROFESSOR OF PHYSICS Ot N20.9 URINARY CALCULUS, UNSPECIFIED 11/14/2018 VESNA FLOREZ ASSISTANT PROFESSOR OF PHYSICS Ot N20.9 URINARY CALCULUS, UNSPECIFIED 11/14/2018 VESNA FLOREZ ASSISTANT PROFESSOR OF PHYSICS Ot N20.9 URINARY CALCULUS, UNSPECIFIED Procedures Code Description Performed By Performed On 81.54 TOTAL KNEE REPLACEMENT 08/07/2012 77131 MAMMOGRAM, SCREENING 10/11/2012 40243 ROUTINE VENIPUNCTURE 01/03/2013 81442 VENOUS DOPPLER UNILATERAL/ LIMITED 01/03/2013 64417 GLUCOSE FINGER STICK 01/03/2013 68774 A1C (IN-HOUSE) 01/03/2013 86759 CMP 01/03/2013 9066638 GFR CALC (RESULT ONLY) 01/03/2013 88925 LIPID PANEL 01/03/2013 67637 TSH 01/03/2013 28136 CBC 01/03/2013 68268 ROUTINE VENIPUNCTURE 04/08/2013 18836 BMP 04/09/2013 63719 MAGNESIUM 04/09/2013 7205369 GFR CALC (RESULT ONLY) 04/09/2013 20716 ROUTINE VENIPUNCTURE 07/29/2013 69696 A1C (IN-HOUSE) 07/29/20133058832 GFR CALC (RESULT ONLY) 07/29/2013 00575 BMP 07/29/2013 35680 MAGNESIUM 07/29/2013 79780 ROUTINE VENIPUNCTURE 12/03/2013 23211 A1C (IN-HOUSE) 12/03/20138401942 GFR CALC (RESULT ONLY) 12/03/2013 46494 BMP 12/03/2013 15790 LIPID PANEL 12/03/2013 83165 MAGNESIUM 12/03/2013 12362 ROUTINE VENIPUNCTURE 04/01/2014 53267 TSH 04/01/2014 26057 A1C (IN-HOUSE) 04/01/2014 23968 CBC 04/01/2014 87828 CMP 04/01/2014 25146 LIPID PANEL 04/01/20148193591 GFR CALC (RESULT ONLY) 04/01/2014 05051 A1C (IN-HOUSE) 10/12/2014 Results Test Result Range Comp. Metabolic Panel (14) - 06/21/16 09:09 Glucose, Serum 119 mg/dL 65-99 BUN 9 mg/dL 8-27 Creatinine, Serum 0.70 mg/dL 0.57-1.00 eGFR If NonAfricn Am 94 mL/min/1.73 >59 eGFR If Africn Am 109 mL/min/1.73 >59 BUN/Creatinine Ratio 13 11-26 Sodium, Serum 140 mmol/L 134-144 Potassium, Serum 3.8 mmol/L 3.5-5.2 Chloride, Serum 96 mmol/L 97-108 Carbon Dioxide, Total 28 mmol/L 18-29 Calcium, Serum 9.1 mg/dL 8.7-10.3 Protein, Total, Serum 6.7 g/dL 6.0-8.5 Albumin, Serum 3.9 g/dL 3.6-4.8 Globulin, Total 2.8 g/dL 1.5-4.5 A/G Ratio 1.4 1.1-2.5 Bilirubin, Total 0.5 mg/dL 0.0-1.2 Alkaline Phosphatase, S 123 IU/L 39-117 AST (SGOT) 21 IU/L 0-40 ALT (SGPT) 13 IU/L 0-32 Lipid Panel - 06/21/16 09:09 Cholesterol, Total 154 mg/dL 100-199 Triglycerides 95 mg/dL 0-149 HDL Cholesterol 46 mg/dL >39 VLDL Cholesterol Francis 19 mg/dL 5-40 LDL Cholesterol Calc 89 mg/dL 0-99 Comp. Metabolic Panel (14) - 11/07/16 09:14 Glucose, Serum 125 mg/dL 65-99 BUN 11 mg/dL 8-27 Creatinine, Serum 0.76 mg/dL 0.57-1.00 eGFR If NonAfricn Am 86 mL/min/1.73 >59 eGFR If Africn Am 99 mL/min/1.73 >59 BUN/Creatinine Ratio 14 11-26 Sodium, Serum 141 mmol/L 134-144 Potassium, Serum 3.7 mmol/L 3.5-5.2 Chloride, Serum 97 mmol/L 96-106 Carbon Dioxide, Total 27 mmol/L 18-29 Calcium, Serum 9.1 mg/dL 8.7-10.3 Protein, Total, Serum 6.5 g/dL 6.0-8.5 Albumin, Serum 3.9 g/dL 3.6-4.8 Globulin, Total 2.6 g/dL 1.5-4.5 A/G Ratio 1.5 1.1-2.5 Bilirubin, Total 0.4 mg/dL 0.0-1.2 Alkaline Phosphatase, S 116 IU/L 39-117 AST (SGOT) 19 IU/L 0-40 ALT (SGPT) 16 IU/L 0-32 Comp. Metabolic Panel (14) - 02/06/17 09:44 Glucose, Serum 109 mg/dL 65-99 BUN 8 mg/dL 8-27 Creatinine, Serum 0.75 mg/dL 0.57-1.00 eGFR If NonAfricn Am 86 mL/min/1.73 >59 eGFR If Africn Am 99 mL/min/1.73 >59 BUN/Creatinine Ratio 11 12-28 Sodium, Serum 142 mmol/L 134-144 Potassium, Serum 3.8 mmol/L 3.5-5.2 Chloride, Serum 97 mmol/L 96-106 Carbon Dioxide, Total 27 mmol/L 18-29 Calcium, Serum 9.1 mg/dL 8.7-10.3 Protein, Total, Serum 7.1 g/dL 6.0-8.5 Albumin, Serum 4.0 g/dL 3.6-4.8 Globulin, Total 3.1 g/dL 1.5-4.5 A/G Ratio 1.3 1.2-2.2 Bilirubin, Total 0.6 mg/dL 0.0-1.2 Alkaline Phosphatase, S 108 IU/L 39-117 AST (SGOT) 22 IU/L 0-40 ALT (SGPT) 14 IU/L 0-32 Lipid Panel - 02/06/17 09:44 Cholesterol, Total 164 mg/dL 100-199 Triglycerides 116 mg/dL 0-149 HDL Cholesterol 57 mg/dL >39 VLDL Cholesterol Francis 23 mg/dL 5-40 LDL Cholesterol Calc 84 mg/dL 0-99 CMP - 07/10/17 09:10 Glucose, Serum 108 mg/dL 65-99 BUN 9 mg/dL 8-27 Creatinine, Serum 0.72 mg/dL 0.57-1.00 eGFR If NonAfricn Am 91 mL/min/1.73 >59 eGFR If Africn Am 105 mL/min/1.73 >59 BUN/Creatinine Ratio 13 12- Sodium, Serum 141 mmol/L 134-144 Potassium, Serum 3.7 mmol/L 3.5-5.2 Chloride, Serum 97 mmol/L 96-106 Carbon Dioxide, Total 26 mmol/L 18-29 Calcium, Serum 9.2 mg/dL 8.7-10.3 Protein, Total, Serum 7.2 g/dL 6.0-8.5 Albumin, Serum 4.0 g/dL 3.6-4.8 Globulin, Total 3.2 g/dL 1.5-4.5 A/G Ratio 1.3 1.2-2.2 Bilirubin, Total 0.5 mg/dL 0.0-1.2 Alkaline Phosphatase, S 116 IU/L 39-117 AST (SGOT) 21 IU/L 0-40 ALT (SGPT) 17 IU/L 0-32 Comp. Metabolic Panel (14) - 07/10/17 09:10 Glucose, Serum 108 mg/dL 65-99 BUN 9 mg/dL 8-27 Creatinine, Serum 0.72 mg/dL 0.57-1.00 eGFR If NonAfricn Am 91 mL/min/1.73 >59 eGFR If Africn Am 105 mL/min/1.73 >59 BUN/Creatinine Ratio 13 12-28 Sodium, Serum 141 mmol/L 134-144 Potassium, Serum 3.7 mmol/L 3.5-5.2 Chloride, Serum 97 mmol/L 96-106 Carbon Dioxide, Total 26 mmol/L 18-29 Calcium, Serum 9.2 mg/dL 8.7-10.3 Protein, Total, Serum 7.2 g/dL 6.0-8.5 Albumin, Serum 4.0 g/dL 3.6-4.8 Globulin, Total 3.2 g/dL 1.5-4.5 A/G Ratio 1.3 1.2-2.2 Bilirubin, Total 0.5 mg/dL 0.0-1.2 Alkaline Phosphatase, S 116 IU/L 39-117 AST (SGOT) 21 IU/L 0-40 ALT (SGPT) 17 IU/L 0-32 Lipid Panel - 07/10/17 09:10 Cholesterol, Total 166 mg/dL 100-199 Triglycerides 117 mg/dL 0-149 HDL Cholesterol 51 mg/dL >39 VLDL Cholesterol Francis 23 mg/dL 5-40 LDL Cholesterol Calc 92 mg/dL 0-99 TSH - 11/21/17 09:07 TSH 2.31 mIU/L 0.40-4.50 MICROALBUMIN/CREATININE RATIO, URINE - 03/26/18 10:49 CREATININE, RANDOM URINE 219 mg/dL 20-320 MICROALBUMIN 0.9 mg/dL See Note: MICROALBUMIN/CREATININE RATIO, RANDOM URINE 4 mcg/mg creat <30 LIPID PANEL - 08/23/18 09:34 CHOLESTEROL, TOTAL 181 mg/dL <200 HDL CHOLESTEROL 56 mg/dL >50 TRIGLYCERIDES 90 mg/dL <150 LDL-CHOLESTEROL 107 mg/dL (calc) NRG CHOL/HDLC RATIO 3.2 (calc) <5.0 NON HDL CHOLESTEROL 125 mg/dL (calc) <130 CMP - 08/23/18 09:34 GLUCOSE 97 mg/dL 65-99 UREA NITROGEN (BUN) 12 mg/dL 7-25 CREATININE 0.85 mg/dL 0.50-0.99 eGFR NON-AFR. ANGUILLAN 73 mL/min/1.73m2 > OR=60 eGFR 85 mL/min/1.73m2 > OR=60 BUN/CREATININE RATIO NOT APPLICABLE (calc) 6-22 SODIUM 138 mmol/L 135-146 POTASSIUM 4.2 mmol/L 3.5-5.3 CHLORIDE 100 mmol/L 98-110 CARBON DIOXIDE 30 mmol/L 20-32 CALCIUM 9.3 mg/dL 8.6-10.4 PROTEIN, TOTAL 7.0 g/dL 6.1-8.1 ALBUMIN 4.1 g/dL 3.6-5.1 GLOBULIN 2.9 g/dL (calc) 1.9-3.7 ALBUMIN/GLOBULIN RATIO 1.4 (calc) 1.0-2.5 BILIRUBIN, TOTAL 0.6 mg/dL 0.2-1.2 ALKALINE PHOSPHATASE 89 U/L 33-130 AST 15 U/L 10-35 ALT 10 U/L 6-29 Complete blood count (CBC) with automated white blood cell (WBC) differential - 11/14/18 22:01 Blood leukocytes automated count (number/volume) 16.3 10*3/uL 4.3-11.0 Blood erythrocytes automated count (number/volume) 5.49 10*6/uL 4.35-5.85 Venous blood hemoglobin measurement (mass/volume) 14.7 g/dL 11.5-16.0 Blood hematocrit (volume fraction) 44 % 35-52 Automated erythrocyte mean corpuscular volume 79 [foz_us] 80-99 Automated erythrocyte mean corpuscular hemoglobin (mass per erythrocyte) 27 pg 25-34 Automated erythrocyte mean corpuscular hemoglobin concentration measurement ( mass/volume) 34 g/dL 32-36 Automated erythrocyte distribution width ratio 15.6 % 10.0-14.5 Automated blood platelet count (count/volume) 333 10*3/uL 130-400 Automated blood platelet mean volume measurement 10.2 [foz_us] 7.4-10.4 Automated blood neutrophils/100 leukocytes 72 % 42-75 Automated blood lymphocytes/100 leukocytes 20 % 12-44 Blood monocytes/100 leukocytes 8 % 0-12 Automated blood eosinophils/100 leukocytes 1 % 0-10 Automated blood basophils/100 leukocytes 0 % 0-10 Blood neutrophils automated count (number/volume) 11.7 10*3 1.8-7.8 Blood lymphocytes automated count (number/volume) 3.2 10*3 1.0-4.0 Blood monocytes automated count (number/volume) 1.2 10*3 0.0-1.0 Automated eosinophil count 0.2 10*3/uL 0.0-0.3 Automated blood basophil count (count/volume) 0.0 10*3/uL 0.0-0.1 Encounters ACCT No. Visit Date/Time Discharge Status Pt. Type Provider Facility Loc./Unit Complaint [id number] 10/12/2014 15:02:00 10/12/2014 23:59:59 CLS Outpatient MADL VESNA KINCAID [id number] 04/01/2014 09:07:00 04/01/2014 23:59:59 CLS Outpatient JAZMINL VESNA KINCAID [id number] 03/17/2014 14:44:00 03/17/2014 23:59:59 CLS Outpatient MADL VESNA KINCAID L [id number] 12/03/2013 09:36:00 12/03/2013 23:59:59 CLS Outpatient MARIALUISA RODRIGUEZ MD [id number] 07/29/2013 10:04:00 07/29/2013 23:59:59 CLS Outpatient MARIALUISA RODRIGUEZ MD [id number] 04/08/2013 15:19:00 04/08/2013 23:59:59 CLS Outpatient MARIALUISA RODRIGUEZ MD [id number] 01/03/2013 10:20:00 01/03/2013 23:59:59 CLS Outpatient ZOEY SANTANA DO [id number] 10/10/2012 11:18:00 10/10/2012 23:59:59 CLS Outpatient [id number] 08/05/2012 00:00:00 08/05/2012 23:59:59 CLS Outpatient [id number] 02/07/2017 08:07:00 Document Registration [id number] 11/08/2016 08:40:00 Document Registration [id number] 06/22/2016 08:07:00 Document Registration [id number] 03/26/2018 10:00:00 03/26/2018 23:59:59 CLS Out[facility] [id number] 08/23/2018 09:00:00 Document Registration [id number] 03/26/2018 10:00:00 Document Registration [id number] 11/21/2017 08:00:00 Document Registration [id number] 07/10/2017 08:20:00 Document Registration [id number] 07/11/2017 09:10:00 Document Registration [id number] 11/22/2017 11:15:00 11/22/2017 23:59:59 CLS Preadmit ALDA FLOREZA L ASSISTANT PROFESSOR OF PHYSICS [facility] RAD SCREENING [id number] 03/01/2017 09:33:00 03/01/2017 23:59:59 CLS Outpatient VESNA FLOREZ [facility] RAD R20.9 FACIAL PARESTHESIA [id number] 02/18/2015 11:53:00 02/18/2015 23:59:59 CLS Outpatient LYLA DOSS [facility] QUICK [id number] 03/12/2013 16:07:00 03/12/2013 23:59:59 CLS Outpatient [id number] 11/14/2018 21:46:00 ACT Emergency SHARATH HERR, SHA Thomas [facility] ER HIGH BLOOD PRESSURE [id number] 01/03/2013 12:00:00 Document Registration [id number] 08/07/2012 05:38:00 Document Registration [id number] 07/29/2012 09:50:00 Document Registration
[2018-11-14 22:20] LABS: PROTHROMBIN TIME PATIENT 13.1 SEC (12.2-14.7)
[2018-11-14 22:26] LABS: BAND NEUTROPHILS 0 %; BASOPHILS % (MANUAL) 2 %; EOSINOPHILS % (MANUAL) 1 %; LYMPHOCYTES % (MANUAL) 20 %; MICROCYTOSIS SLIGHT; MONOCYTES % (MANUAL) 7 %; NEUTROPHILS % (MANUAL) 68 %; REACTIVE LYMPHOCYTES 2 %
[2018-11-14 22:27] LABS: ALANINE AMINOTRANSFERASE 23 U/L (0-55); ALBUMIN 4.2 GM/DL (3.2-4.5); ALKALINE PHOSPHATASE 107 U/L (40-136); BILIRUBIN,TOTAL 0.3 MG/DL (0.1-1.0); BUN/CREATININE RATIO 12; CALCIUM 9.7 MG/DL (8.5-10.1); CARBON DIOXIDE 23 MMOL/L (21-32); CHLORIDE 103 MMOL/L (98-107); CREATININE SERUM 0.98 MG/DL (0.60-1.30); GFR ESTIMATED 58; GLUCOSE 132 MG/DL (70-105); MAGNESIUM 2.3 MG/DL (1.8-2.4); POTASSIUM 3.1 MMOL/L (3.6-5.0); SODIUM 140 MMOL/L (135-145); TOTAL PROTEIN 7.9 GM/DL (6.4-8.2)
[2018-11-14 22:34] LABS: MYOGLOBIN SERUM 34.1 NG/ML (10.0-92.0)
[2018-11-15] VITALS (29 sets, daily range): BP systolic 85–143; BP diastolic 63–86
--- NOTE | 2018-11-15 00:30 | NUR ---
KRISTIAN KERNS admitted to room CU8-1, with an admitting diagnosis of A-FIB RVR, HYPOKALEMIA,HYPOTHYROIDISM, on 11/14/18 from [place] via , accompanied by .KRISTIAN KERNS introduced to surroundings, call light, bed controls, phone, TV, temperature control, lights, meal times, smoking policy, visitor policy, side rail policy, bathrooms and showers. Patient Rights given to patient in the handbook. KRISTIAN KERNS verbalizes understanding that [facility] is not responsible for the loss or damage to any personal effects or valuables that are kept in the patients posession during their hospitalization. The following Patient Care Plans were discussed witPATIENT]: Discharge Planning, ,, and . KRISTIAN KERNS verbalizes understanding of Interdisciplinary Patient Education. Patient and/or family were informed about the Rapid Response Team and its purpose.
[2018-11-15] MEDS ORDERED: ENOXAPARIN 100 MG/1 ML (LOVENOX) SYR ONE (00:40)
[2018-11-15] MEDS ORDERED: NS W/KCL 40 MEQ/L 1,000 ML IV ONE (00:45)
[2018-11-15] MEDS ORDERED: ACETAMINOPHEN 500 MG TAB (TYLENOL) PO PRN (01:15)
[2018-11-15] MEDS ORDERED: ONDANSETRON 4 MG/2 ML (SDV) Z0FRAN IV PRN (01:15)
[2018-11-15] MEDS: NS W/KCL 40 MEQ/L 1,000 ML IV SCH ×3 (01:18→16:47)
[2018-11-15] MEDS: DILTIAZEM 125 MG/NS 100 ML IV SCH ×6 (01:18→16:42)
--- NOTE | 2018-11-15 02:37 | Consultation-Cardiology ---
HPI-Cardiology Cardiology Consultation Date of Consultation 11/15/18 Date of Admission Time Seen by Provider: 02:32 Indication: atrial fibrillation HPI 62 years old lady with history of hypertension, diabetes mellitus, started to have palpitation for the past 2 days, became worse associated with some shortness of breath and dizziness, came into the emergency room and noted to be in atrial fibrillation with rapid ventricular response, she denied any shortness of breath, no syncope. No claudication Home Medications & Allergies Allergies: Coded Allergies: No Known Drug Allergies (Unverified , 04/20/10) Home Medication List Reviewed: Yes [id number] Hx Patient Social History Marital Status: Employed/Student: employed Alcohol Use: Denies Use Recreational Drug Use: No Smoking Status: Never a Smoker Recent Foreign Travel: No Recent Infectious Disease Expo: No Recent Hopitalizations: No Immunizations Up To Date Date of Influenza Vaccine: Jun 08, 2012 Past Medical History past medical history as described below Family Medical History Family Medical Hx family history of heart disease and hypertension Review of Systems Constitutional: no symptoms reported, see HPI EENTM: see HPI, no symptoms reported Respiratory: see HPI; No cough; dyspnea on exertion; No hemoptysis, No orthopnea, No phlegm, No short of breath, No stridor, No wheezing, No other Cardiovascular: see HPI; No chest pain; edema; No Hx of Intervention; palpitations; No syncope, No vascular heart diseas, No other Gastrointestinal: no symptoms reported, see HPI Genitourinary: no symptoms reported, see HPI Musculoskeletal: see HPI, back pain; No gout; joint pain; No joint swelling, No muscle pain, No muscle stiffness, No muscle cramps, No muscle twitching, No muscle weakness, No neck pain, No other Skin: no symptoms reported, see HPI Psychiatric/Neurological: No Symptoms Reported, See HPI Reviewed Test Results Reviewed Test Results Lab Laboratory Tests Test 11/14/18 22:01 Range/Units White Blood Count 16.3 H 4.3-11.0 10^3/uL Red Blood Count 5.49 4.35-5.85 10^6/uL Hemoglobin 14.7 11.5-16.0 G/DL Hematocrit 44 35-52 % Mean Corpuscular Volume 79 L 80-99 FL Mean Corpuscular Hemoglobin 27 25-34 PG Mean Corpuscular Hemoglobin Concent 34 32-36 G/DL Red Cell Distribution Width 15.6 H 10.0-14.5 % Platelet Count 333 130-400 10^3/uL Mean Platelet Volume 10.2 7.4-10.4 FL Neutrophils (%) (Auto) 72 42-75 % Lymphocytes (%) (Auto) 20 12-44 % Monocytes (%) (Auto) 8 0-12 % Eosinophils (%) (Auto) 1 0-10 % Basophils (%) (Auto) 0 0-10 % Neutrophils # (Auto) 11.7 H 1.8-7.8 X 10^3 Lymphocytes # (Auto) 3.2 1.0-4.0 X 10^3 Monocytes # (Auto) 1.2 H 0.0-1.0 X 10^3 Eosinophils # (Auto) 0.2 0.0-0.3 10^3/uL Basophils # (Auto) 0.0 0.0-0.1 10^3/uL Neutrophils % (Manual) 68 % Lymphocytes % (Manual) 20 % Monocytes % (Manual) 7 % Eosinophils % (Manual) 1 % Basophils % (Manual) 2 % Band Neutrophils 0 % Reactive Lymphocytes 2 % Microcytosis SLIGHT Prothrombin Time 13.1 12.2-14.7 SEC INR Comment 1.0 0.8-1.4 Activated Partial Thromboplast Time 30 24-35 SEC Sodium Level 140 135-145 MMOL/L Potassium Level 3.1 L 3.6-5.0 MMOL/L Chloride Level 103 98-107 MMOL/L Carbon Dioxide Level 23 21-32 MMOL/L Anion Gap 14 5-14 MMOL/L Blood Urea Nitrogen 12 7-18 MG/DL Creatinine 0.98 0.60-1.30 MG/DL Estimat Glomerular Filtration Rate 58 BUN/Creatinine Ratio 12 Glucose Level 132 H 70-105 MG/DL Calcium Level 9.7 8.5-10.1 MG/DL Corrected Calcium 9.5 8.5-10.1 MG/DL Magnesium Level 2.3 1.8-2.4 MG/DL Total Bilirubin 0.3 0.1-1.0 MG/DL Aspartate Amino Transf (AST/SGOT) 27 5-34 U/L Alanine Aminotransferase (ALT/SGPT) 23 0-55 U/L Alkaline Phosphatase 107 40-136 U/L Myoglobin 34.1 10.0-92.0 NG/ML Troponin I < 0.028 <0.028 NG/ML B-Type Natriuretic Peptide 610.0 H <100.0 PG/ML Total Protein 7.9 6.4-8.2 GM/DL Albumin 4.2 3.2-4.5 GM/DL Thyroid Stimulating Hormone (TSH) 6.08 H 0.35-4.94 UIU/ML Physical Exam Vital Signs Vital Signs - First Documented 11/14/18 11/15/18 21:50 00:34 Temp 97.8 Pulse 168 Resp 24 B/P (MAP) 120/98 (105) Pulse Ox 98 O2 Delivery Room Air Capillary Refill : Less Than 3 Seconds Height, Weight, BMI Height: 5'6.00" Weight: 240lbs. oz. 108.479604kv; BMI Method:Stated General Appearance: No Apparent Distress, WD/WN Eyes: Bilateral Eye Normal Inspection, Bilateral Eye PERRL, Bilateral Eye EOMI HEENT: PERRL/EOMI, TMs Normal, Normal ENT Inspection, Pharynx Normal Neck: Full Range of Motion, Normal Inspection, Non Tender, Supple, Carotid Bruit Respiratory: Chest Non Tender, Lungs Clear, Normal Breath Sounds, No Accessory Muscle Use, No Respiratory Distress Cardiovascular: No Edema, No Gallop, No JVD, No Murmur, Normal Peripheral Pulses, Irregularly Irregular, Tachycardia Gastrointestinal: Normal Bowel Sounds, No Organomegaly, No Pulsatile Mass, Non Tender, Soft Back: Normal Inspection, No CVA Tenderness, No Vertebral Tenderness Extremity: Normal Capillary Refill, Normal Inspection, Normal Range of Motion, Non Tender, No Calf Tenderness, No Pedal Edema Neurologic/Psychiatric: Alert, Oriented x3, No Motor/Sensory Deficits, Normal Mood/Affect Skin: Normal Color, Warm/Dry Lymphatic: No Adenopathy A/P-Cardiology Admission Diagnosis Atrial fibrillation Hypertension Hyperlipidemia Hypokalemia Assessment/Plan Atrial fibrillation without ventricular response, rate is better controlled on Cardizem drip, still borderline tachycardic and hypertensive, receiving IV fluid , I will evaluate echocardiogram, continue on Cardizem drip, will consider CHEN and cardioversion if she does not convert on her own. [id number] score of 3, yearly risk of stroke without oral anticoagulation is 3.2 percent, patient is started on Eliquis, received Lovenox dose in the emergency room Hypertension, currently borderline hypotensive on Cardizem drip on atenolol, continue to monitor Hyperlipidemia, monitor lipids Diabetes mellitus, followed and managed by primary care physician Hypokalemia, replace and monitor next Hypothyroidism, managed by primary care phys MASOOD ESPAÑA MD Nov 15, 2018 02:37
[2018-11-15 04:00] LABS: BASOPHILS % (AUTO) 0 % (0-10); EOSINOPHILS % (AUTO) 0 % (0-10); HEMATOCRIT 41 % (35-52); HEMOGLOBIN 13.4 G/DL (11.5-16.0); LYMPHOCYTES # (AUTO) 2.7 X 10^3 (1.0-4.0); LYMPHOCYTES % (AUTO) 16 % (12-44); MEAN CORPUSCULAR HEMOGLOBIN 26 PG (25-34); MEAN CORPUSCULAR HGB CONC 33 G/DL (32-36); MEAN CORPUSCULAR VOLUME 80 FL (80-99); MONOCYTES % (AUTO) 6 % (0-12); NEUTROPHILS # (AUTO) 13.3 X 10^3 (1.8-7.8); NEUTROPHILS % (AUTO) 78 % (42-75); PLATELET COUNT 228 10^3/uL (130-400); RED CELL DISTRIBUTION WIDTH 15.5 % (10.0-14.5); WHITE BLOOD COUNT 17.1 10^3/uL (4.3-11.0)
[2018-11-15 04:31] LABS: ALANINE AMINOTRANSFERASE 18 U/L (0-55); ALBUMIN 3.4 GM/DL (3.2-4.5); ALKALINE PHOSPHATASE 85 U/L (40-136); BILIRUBIN,TOTAL 0.2 MG/DL (0.1-1.0); BUN/CREATININE RATIO 14; CALCIUM 8.9 MG/DL (8.5-10.1); CARBON DIOXIDE 22 MMOL/L (21-32); CHLORIDE 108 MMOL/L (98-107); CREATININE SERUM 0.77 MG/DL (0.60-1.30); GFR ESTIMATED > 60; GLUCOSE 106 MG/DL (70-105); MAGNESIUM 2.1 MG/DL (1.8-2.4); PHOSPHORUS 3.6 MG/DL (2.3-4.7); POTASSIUM 3.9 MMOL/L (3.6-5.0); SODIUM 142 MMOL/L (135-145); TOTAL PROTEIN 6.5 GM/DL (6.4-8.2)
[2018-11-15 04:32] LABS: CHOLESTEROL 138 MG/DL (< 200); HDL CHOLESTEROL 37 MG/DL (40-60); TRIGLYCERIDES 76 MG/DL (<150); VLDL CHOLESTEROL 15 MG/DL (5-40)
[2018-11-15 04:51] LABS: FREE T4 (FREE THYROXINE) 1.22 NG/DL (0.70-1.48)
--- NOTE | 2018-11-15 05:49 | Diagnostic Imaging Report ---
INDICATION: Hypertension. Palpitations. COMPARISON: None FINDINGS: Single frontal view of the chest demonstrates normal heart size and pulmonary vascularity. The lungs are well aerated and clear. No large pleural effusion or pneumothorax is seen. The visualized osseous structures show no acute abnormalities. IMPRESSION: 1. No acute cardiopulmonary process. Dictated by: Dictated on workstation # [id number]
[2018-11-15] MEDS: POTASSIUM CL 10MEQ/50ML IVPB 50 ML IV SCH (07:10)
[2018-11-15] MEDS: MAGNESIUM 1 GM/100 ML IVPB 100 ML IV SCH (07:10)
[2018-11-15] MEDS: KCL 20 MEQ TAB (K-DUR) PO SCH (07:11)
--- NOTE | 2018-11-15 07:51 | Diagnostic Imaging Report ---
INDICATION: Atrial fibrillation. Hypothyroidism. COMPARISON: 11/14/2018 FINDINGS: Single frontal view of the chest demonstrates normal heart size and pulmonary vascularity. The lungs are well aerated and clear. No large pleural effusion or pneumothorax is seen. The visualized osseous structures show no acute abnormalities. IMPRESSION: 1. No acute cardiopulmonary process. Dictated by: Dictated on workstation # [id number]
[2018-11-15] MEDS ORDERED: ENOXAPARIN 60 MG/0.6 ML (LOVENOX) SYR SC SCH (09:00)
[2018-11-15] MEDS: APIXABAN 5 MG (ELIQUIS) TABLET PO SCH ×2 (09:04→21:19)
[2018-11-15] MEDS: ATENOLOL 50 MG (TENORMIN) TAB PO SCH (09:04)
[2018-11-15] MEDS ORDERED: METF500T8 PO (09:28)
[2018-11-15] MEDS ORDERED: ACET-2267 PO (09:28)
[2018-11-15] MEDS ORDERED: EXEN2PEN SC (09:28)
[2018-11-15] MEDS ORDERED: HYDR25TA4 PO (09:28)
[2018-11-15] MEDS ORDERED: CELE-63 PO (09:28)
[2018-11-15] MEDS ORDERED: ATEN100T PO (09:28)
[2018-11-15] MEDS ORDERED: OMEP40CA36 PO (09:28)
[2018-11-15] MEDS ORDERED: LISI-556 PO (09:28)
--- NOTE | 2018-11-15 09:30 | NUR ---
WENT OVER THE EXT MED HX WITH THE PATIENT. SHE ALSO HAD HER BOTTLES WITH HER EXCEPT FOR HER BYDUREON. SHE ALSO STATES SHE TAKES TYLENOL OTC NEEDED.
--- NOTE | 2018-11-15 11:10 | NUR ---
Pastoral care visit.
[2018-11-15] MEDS ORDERED: NON-FORMULARY MEDICATION 1 EA EA (Acetaminophen (Tylenol Extra Strength) 1,000 MG) PO PRN (13:30)
--- NOTE | 2018-11-15 14:10 | History & Physicial ([facility]) ---
HPI History of Present Illness: 62 yo female presented to ER last night after 2 days of feeling "not right". Had palpitations and shortness of breath with activity. Denies chest pain. Date seen by provider: Nov 15, 2018 Time Seen by Provider: 11:40 Attending Physician Perri Brooks MD PCP Laura Johnson DO Consult Date of Admission Nov 14, 2018 at 23:20 Home Medications Home Medications Reviewed patient Home Medication Reconciliation performed by pharmacy medication reconciliations conveyor technician and/or nursing. Patients Allergies have been reviewed. Allergies Coded Allergies: No Known Drug Allergies (Unverified , 04/20/10) [id number] Hx Patient Social History Marrital Status: Employed/Student: employed Alcohol Use: Denies Use Recreational Drug Use: No Smoking Status: Never a Smoker Recent Foreign Travel: No Contact w/other who traveled: No Recent Hopitalizations: No Recent Infectious Disease Expo: No Immunizations Up To Date Date of Influenza Vaccine: Aug 15, 2018 Past Medical History PMHx: DMII HTN PSurgHx: Hysterectomy C section Right knee scope Breast biopsy Family Medical History Significant Family History: Heart Disease Review of Systems ([facility]) Constitutional: No fever EENTM: No nose congestion, No throat pain Respiratory: see HPI; No cough Cardiovascular: see HPI Gastrointestinal: No abdominal pain, No constipation, No diarrhea, No nausea, No vomiting Genitourinary: No dysuria Musculoskeletal: joint pain Skin: No rash Psychiatric/Neurological: No Symptoms Reported Reviewed Test Results Reviewed Test Results Lab Laboratory Tests Test 11/14/18 22:01 11/15/18 03:30 Range/Units White Blood Count 16.3 H 17.1 H 4.3-11.0 10^3/uL Red Blood Count 5.49 5.12 4.35-5.85 10^6/uL Hemoglobin 14.7 13.4 11.5-16.0 G/DL Hematocrit 44 41 35-52 % Mean Corpuscular Volume 79 L 80 80-99 FL Mean Corpuscular Hemoglobin 27 26 25-34 PG Mean Corpuscular Hemoglobin Concent 34 33 32-36 G/DL Red Cell Distribution Width 15.6 H 15.5 H 10.0-14.5 % Platelet Count 333 228 130-400 10^3/uL Mean Platelet Volume 10.2 11.0 H 7.4-10.4 FL Neutrophils (%) (Auto) 72 78 H 42-75 % Lymphocytes (%) (Auto) 20 16 12-44 % Monocytes (%) (Auto) 8 6 0-12 % Eosinophils (%) (Auto) 1 0 0-10 % Basophils (%) (Auto) 0 0 0-10 % Neutrophils # (Auto) 11.7 H 13.3 H 1.8-7.8 X 10^3 Lymphocytes # (Auto) 3.2 2.7 1.0-4.0 X 10^3 Monocytes # (Auto) 1.2 H 1.0 0.0-1.0 X 10^3 Eosinophils # (Auto) 0.2 0.0 0.0-0.3 10^3/uL Basophils # (Auto) 0.0 0.0 0.0-0.1 10^3/uL Neutrophils % (Manual) 68 % Lymphocytes % (Manual) 20 % Monocytes % (Manual) 7 % Eosinophils % (Manual) 1 % Basophils % (Manual) 2 % Band Neutrophils 0 % Reactive Lymphocytes 2 % Microcytosis SLIGHT Prothrombin Time 13.1 12.2-14.7 SEC INR Comment 1.0 0.8-1.4 Activated Partial Thromboplast Time 30 24-35 SEC Sodium Level 140 142 135-145 MMOL/L Potassium Level 3.1 L 3.9 3.6-5.0 MMOL/L Chloride Level 103 108 H 98-107 MMOL/L Carbon Dioxide Level 23 22 21-32 MMOL/L Anion Gap 14 12 5-14 MMOL/L Blood Urea Nitrogen 12 11 7-18 MG/DL Creatinine 0.98 0.77 0.60-1.30 MG/DL Estimat Glomerular Filtration Rate 58 > 60 BUN/Creatinine Ratio 12 14 Glucose Level 132 H 106 H 70-105 MG/DL Calcium Level 9.7 8.9 8.5-10.1 MG/DL Corrected Calcium 9.5 9.4 8.5-10.1 MG/DL Magnesium Level 2.3 2.1 1.8-2.4 MG/DL Total Bilirubin 0.3 0.2 0.1-1.0 MG/DL Aspartate Amino Transf (AST/SGOT) 27 23 5-34 U/L Alanine Aminotransferase (ALT/SGPT) 23 18 0-55 U/L Alkaline Phosphatase 107 85 40-136 U/L Myoglobin 34.1 10.0-92.0 NG/ML Troponin I < 0.028 <0.028 NG/ML B-Type Natriuretic Peptide 610.0 H <100.0 PG/ML Total Protein 7.9 6.5 6.4-8.2 GM/DL Albumin 4.2 3.4 3.2-4.5 GM/DL Thyroid Stimulating Hormone (TSH) 6.08 H 0.35-4.94 UIU/ML Phosphorus Level 3.6 2.3-4.7 MG/DL Triglycerides Level 76 <150 MG/DL Cholesterol Level 138 < 200 MG/DL LDL Cholesterol Direct 90 1-129 MG/DL VLDL Cholesterol 15 5-40 MG/DL HDL Cholesterol 37 L 40-60 MG/DL Free Thyroxine 1.22 0.70-1.48 NG/DL Physical Exam-([facility]) Physical Exam Vital Signs VS - Last 72 Hours, by Label 11/14/18 11/14/18 11/15/18 11/15/18 21:50 23:51 00:34 00:37 Temp 97.7 97.8 Pulse 168 113 133 133 Resp 24 18 23 B/P (MAP) 120/98 (105) 132/78 (96) 132/86 (101) Pulse Ox 98 100 100 O2 Delivery Room Air Room Air Room Air 11/15/18 11/15/18 11/15/18 11/15/18 00:45 01:00 01:00 01:15 Pulse 121 98 98 106 Resp 14 14 15 B/P (MAP) 103/80 (88) 96/71 (79) 102/68 (79) Pulse Ox 99 96 95 O2 Delivery Room Air Room Air Room Air 11/15/18 11/15/18 11/15/18 11/15/18 01:30 01:45 02:00 02:23 Pulse 107 92 122 Resp 17 16 15 B/P (MAP) 111/68 (82) 97/68 (78) 102/79 (87) Pulse Ox 96 96 97 96 O2 Delivery Room Air Room Air Room Air Room Air 11/15/18 11/15/18 11/15/18 11/15/18 03:00 04:00 04:00 04:00 Temp 97.9 Pulse 98 75 Resp 16 17 B/P (MAP) 98/75 (83) 93/66 (75) Pulse Ox 95 97 95 O2 Delivery Room Air Room Air Room Air 11/15/18 11/15/18 11/15/18 11/15/18 05:00 06:00 06:15 07:00 Pulse 92 98 100 126 Resp 19 16 15 15 B/P (MAP) 107/72 (84) 85/65 (72) 101/63 (76) 109/84 (92) Pulse Ox 96 95 96 99 O2 Delivery Room Air Room Air Room Air Room Air 11/15/18 11/15/18 11/15/18 11/15/18 07:00 08:00 08:00 09:00 Pulse 120 85 129 Resp 17 15 B/P (MAP) 116/79 (91) 122/70 (87) Pulse Ox 97 97 97 O2 Delivery Room Air Room Air Room Air 11/15/18 11/15/18 11/15/18 11/15/18 10:00 11:00 12:00 13:00 Pulse 105 73 86 72 Resp 15 14 19 B/P (MAP) 106/68 (81) 109/69 (82) 123/86 (98) Pulse Ox 97 97 99 O2 Delivery Room Air Room Air Room Air Capillary Refill : Less Than 3 Seconds General Appearance: no apparent distress Respiratory: lungs clear, normal breath sounds Cardiovascular: no murmur, irregularly irregular Gastrointestinal: normal bowel sounds, non tender, soft Extremities: no pedal edema Neurologic/Psychiatric: normal mood/affect Skin: normal color, warm/dry Assessment/Plan Assessment/Plan Admission Dx Atrial fibrillation with RVR Admission Status: Inpatient Order (span 2 midnights) Reason for Inpatient Admission: Atrial fibrillation with RVR requiring continuous drip to manage rate. (1) Atrial fibrillation with rapid ventricular response Status: Acute Assessment & Plan: Started on cardizem drip and anti-coagulation. Cardiology consulted, appreciate recommendations. (2) Hypertension Status: Chronic Assessment & Plan: Currently borderline hypotensive on drip. Hold home lisinopril and HCTZ. Qualifiers: Qualified Codes: I10 - Essential (primary) hypertension (3) Diabetes mellitus, type 2 Status: Chronic Assessment & Plan: Hold home bydureon (has already received dose this week) and metformin. Diabetic diet. SSI. Qualifiers: Qualified Codes: E11.65 - Type 2 diabetes mellitus with hyperglycemia (4) DVT prophylaxis Status: Acute Assessment & Plan: On apixaban. Clinical Quality Measures DVT/VTE Risk/Contraindication: Risk Factor Score Per Nursin RFS Level Per Nursing on Admit: 3=High PERRI BROOKS MD Nov 15, 2018 14:10
[2018-11-15] MEDS: inSUlin ASPART (NovoLOG) 1 UNIT/0.01 ML (CHARGE PER UNIT) SC SCH ×2 (15:45→21:19)
--- NOTE | 2018-11-15 17:45 | NUR ---
Pt converted to Sinus Rhythm at this time. Dr. Galindo called and new orders received.
[2018-11-15] MEDS ORDERED: AMIODARONE FOR BOLUS 150 MG in D5W 100 ML IVPB 100 ML IV NR (18:15)
[2018-11-15] MEDS: AMIODARONE INJECTION 450 MG in D5W IV SOLUTION (EXCEL) 250 ML IV SCH (18:54)
[2018-11-16] VITALS (11 sets, daily range): BP systolic 109–137; BP diastolic 67–75
[2018-11-16] MEDS: AMIODARONE INJECTION 450 MG in D5W IV SOLUTION (EXCEL) 250 ML IV SCH (01:40)
[2018-11-16 03:55] LABS: BASOPHILS % (AUTO) 0 % (0-10); EOSINOPHILS # (AUTO) 0.5 10^3/uL (0.0-0.3); EOSINOPHILS % (AUTO) 4 % (0-10); HEMATOCRIT 38 % (35-52); HEMOGLOBIN 12.3 G/DL (11.5-16.0); LYMPHOCYTES % (AUTO) 18 % (12-44); MEAN CORPUSCULAR HEMOGLOBIN 26 PG (25-34); MEAN CORPUSCULAR HGB CONC 32 G/DL (32-36); MEAN CORPUSCULAR VOLUME 81 FL (80-99); MEAN PLATELET VOLUME 10.7 FL (7.4-10.4); MONOCYTES # (AUTO) 0.8 X 10^3 (0.0-1.0); MONOCYTES % (AUTO) 7 % (0-12); NEUTROPHILS % (AUTO) 71 % (42-75); PLATELET COUNT 210 10^3/uL (130-400); RED CELL DISTRIBUTION WIDTH 15.8 % (10.0-14.5); WHITE BLOOD COUNT 11.4 10^3/uL (4.3-11.0)
[2018-11-16 04:12] LABS: ALANINE AMINOTRANSFERASE 15 U/L (0-55); ALBUMIN 3.2 GM/DL (3.2-4.5); ALKALINE PHOSPHATASE 75 U/L (40-136); BILIRUBIN,TOTAL 0.5 MG/DL (0.1-1.0); BUN/CREATININE RATIO 10; CALCIUM 8.7 MG/DL (8.5-10.1); CARBON DIOXIDE 21 MMOL/L (21-32); CHLORIDE 109 MMOL/L (98-107); CREATININE SERUM 0.71 MG/DL (0.60-1.30); GFR ESTIMATED > 60; GLUCOSE 89 MG/DL (70-105); MAGNESIUM 1.9 MG/DL (1.8-2.4); PHOSPHORUS 3.9 MG/DL (2.3-4.7); SODIUM 140 MMOL/L (135-145); TOTAL PROTEIN 5.9 GM/DL (6.4-8.2)
[2018-11-16] MEDS ORDERED: CELECOXIB 100 MG (CeleBREX) CAP PO SCH (07:00)
[2018-11-16] MEDS ORDERED: PANTOPRAZOLE 40 MG (PROTONIX) TAB PO SCH (07:00)
[2018-11-16] MEDS: MAGNESIUM 1 GM/100 ML IVPB 100 ML IV SCH (07:41)
[2018-11-16] MEDS: POTASSIUM CL 10MEQ/50ML IVPB 50 ML IV SCH (07:41)
[2018-11-16] MEDS: inSUlin ASPART (NovoLOG) 1 UNIT/0.01 ML (CHARGE PER UNIT) SC SCH (07:42)
[2018-11-16] MEDS: KCL 20 MEQ TAB (K-DUR) PO SCH (07:42)
--- NOTE | 2018-11-16 08:09 | Cardiology Progress Note ---
Subjective Date Seen by Provider: Nov 16, 2018 Time Seen by Provider: 08:07 Subjective/Events-last exam patient is sitting in a chair, feeling comfortable, denied any chest pain. Back to sinus rhythm Review of Systems General: No Chills, No Night Sweats, No Fatigue, No Malaise, No Appetite, No Other HEENT: No Head Aches, No Visual Changes, No Eye Pain, No Ear Pain, No Dysphasia , No Sinus Congestion, No Post Nasal Drip, No Sore Throat, No Other Pulmonary: No Dyspnea, No Cough, No Pleuritic Chest Pain, No Other Cardiovascular: No: Chest Pain, Palpitations, Orthopnea, Paroxysmal Noc. Dyspnea, Edema, Lt Headedness, Other Objective-Cardiology Exam Last Set of Vital Signs Vital Signs 11/16/18 11/16/18 04:00 07:00 Temp 96.9 Pulse 73 Resp 18 B/P (MAP) 119/70 (86) Pulse Ox 97 O2 Delivery Room Air Capillary Refill : Less Than 3 Seconds I&O Intake and Output 11/16/18 00:00 Intake Total 3650 ml Output Total 1900 ml Balance 1750 ml Intake Oral 1525 ml IV Total 2125 ml Output Urine Total 1900 ml # Voids 4 General: Alert, Oriented X3, Cooperative HEENT: Atraumatic, PERRLA Neck: Supple, No JVD, No Thyromegaly Lungs: Clear to Auscultation, Normal Air Movement Heart: Regular Rate, Normal S1, Normal S2, No Murmurs Abdomen: Normal Bowel Sounds, Soft, No Tenderness, No Hepatosplenomegaly, No Masses Extremities: No Clubbing, No Cyanosis, No Edema, Normal Pulses, No Tenderness/ Swelling Skin: No Rashes, No Breakdown, No Significant Lesion Neuro: Normal Gait, Normal Speech, Strength at 5/5 X4 Ext, Normal Tone, Sensation Intact Psych/Mental Status: Mental Status NL, Mood NL Results Lab Laboratory Tests 11/16/18 03:21 A/P-Cardiology Admission Diagnosis Atrial fibrillation Hypertension Hyperlipidemia Hypokalemia Assessment/Plan Paroxysmal atrial fibrillation, back to sinus rhythm, converted to sinus rhythm while on Cardizem drip, I started amiodarone after she returned to sinus rhythm to keep her in sinus [id number] score of 3, yearly risk of stroke without oral anticoagulation is 3.2 percent, patient is started on Eliquis Hypertension, good control on current medication Hyperlipidemia, monitor lipids Diabetes mellitus, followed and managed by primary care physician Hypokalemia, replace and monitor next Hypothyroidism, managed by primary care physician Okay for discharge from cardiology standpoint Clinical Quality Measures DVT/VTE Risk/Contraindication: Risk Factor Score Per Nursin RFS Level Per Nursing on Admit: 3=High MASOOD ESPAÑA MD Nov 16, 2018 08:08
[2018-11-16] MEDS ORDERED: AMIO200T4 PO (08:12)
[2018-11-16] MEDS ORDERED: APIX5TAB PO (08:12)
[2018-11-16] MEDS ORDERED: NON-FORMULARY MEDICATION 1 EA EA (Omeprazole 40 MG) PO SCH (09:00)
[2018-11-16] MEDS ORDERED: AMIODARONE 200 MG (CORDARONE) TAB PO SCH (09:00)
[2018-11-16] MEDS ORDERED: NON-FORMULARY MEDICATION 1 EA EA (Celecoxib 200 MG) PO SCH (09:00)
[2018-11-16] MEDS: APIXABAN 5 MG (ELIQUIS) TABLET PO SCH (09:03)
[2018-11-16] MEDS: NS W/KCL 40 MEQ/L 1,000 ML IV SCH (09:03)
[2018-11-16] MEDS: ATENOLOL 50 MG (TENORMIN) TAB PO SCH (09:03)
--- NOTE | 2018-11-16 09:35 | Discharge Instructions ---
Discharge Inst-[facility] Discharge Medications New, Converted or Re-Newed RX: Transmitted to Pharmacy New Medications: Amiodarone HCl (Amiodarone HCl) 200 Mg Tablet 200 MG PO BID, #60 TAB 2 Refills Apixaban (Eliquis) 5 Mg Tablet 5 MG PO BID, #60 TAB 4 Refills Continued Medications: Acetaminophen (Tylenol Extra Strength) 500 Mg Tablet 1000 MG PO Q6H PRN for PAIN-MILD, TAB Atenolol (Atenolol) 100 Mg Tablet 100 MG PO DAILY, TAB Celecoxib (Celecoxib) 200 Mg Capsule 200 MG PO DAILY, CAP Exenatide Microspheres (Bydureon Pen) 2 Mg/0.65 Ml Pen.injctr 2 MG SC Th, EA Hydrochlorothiazide (Hydrochlorothiazide) 25 Mg Tablet 25 MG PO DAILY, TAB Lisinopril (Lisinopril) 5 Mg Tablet 5 MG PO DAILY, TAB Metformin HCl (Metformin HCl ER) 500 Mg Tab.er.24h 1000 MG PO 1730, TAB TAKES 2 (500MG) TABLETS Omeprazole (Omeprazole) 40 Mg Capsule.dr 40 MG PO DAILY, CAP Patient Instructions Goal/Follow Up Appt: Follow up with Dr. Galindo as directed. Follow up at [facility] with Quin Lilly APRN on Nov 19 at 1:20 pm. Return to The [facility] For: Racing heart, shortness of breath, dizziness, chest pain Activity & Diet Discharge Diet: Cardiac Diet Activity as Tolerated: Yes Orders-Post D/C & Referrals Pneu Vac Indicated: Yes Copy Copies To 1: SANJIV Monaco BETHANY N MD Nov 16, 2018 09:35
--- NOTE | 2018-11-16 09:36 | Discharge Summary ---
Diagnosis/Chief Complaint Date of Admission Nov 14, 2018 at 23:20 Date of Discharge Nov 16, 2018 Admission Diagnosis Admission Diagnosis See problem list Discharge Diagnosis See problem list Problems/Diagnosis: (1) Atrial fibrillation with rapid ventricular response Assessment & Plan: Started on cardizem drip and anti-coagulation. Cardiology consulted. Pt converted on drip and was d/c on amiodarone and NOAC. Status: Acute (2) Hypertension Assessment & Plan: Currently borderline hypotensive on drip. Held home lisinopril and HCTZ. Resumed on d/c. Qualifiers: Qualified Codes: I10 - Essential (primary) hypertension Status: Chronic (3) Diabetes mellitus, type 2 Assessment & Plan: Hold home bydureon (has already received dose this week) and metformin. Diabetic diet. SSI. Qualifiers: Qualified Codes: E11.65 - Type 2 diabetes mellitus with hyperglycemia Status: Chronic Chief Complaint/HPI Chief Complaint/HPI 62 yo female presented to ER last night after 2 days of feeling "not right". Had palpitations and shortness of breath with activity. Denies chest pain. Discharge Summary-Simple/Stand Consultations Discharge Physical Examination Allergies: Coded Allergies: No Known Drug Allergies (Unverified , 04/20/10) Vitals & I&Os Vital Sign - Last 12Hours Date Time Temp Pulse Resp B/P (MAP) Pulse Ox O2 Delivery O2 Flow Rate FiO2 11/16/18 09:00 71 19 115/67 (83) Room Air 11/16/18 08:00 99 11/16/18 04:00 96.9 Intake and Output 11/16/18 00:00 Intake Total 1975 ml Output Total 600 ml Balance 1375 ml General Appearance: Alert, No Acute Distress Respiratory: Clear to Auscultation, Normal Air Movement Cardiovascular: Regular Rate, No Murmurs Extremities: No Edema Psych/Mental Status: Mental Status NL, Mood NL Hospital Course Was the Problem List Reviewed?: Yes See final discharge diagnosis. Labs Laboratory Tests Test 11/14/18 22:01 11/15/18 03:30 11/15/18 15:43 11/16/18 03:21 Range/Units White Blood Count 16.3 H 17.1 H 11.4 H 4.3-11.0 10^3/uL Red Blood Count 5.49 5.12 4.71 4.35-5.85 10^6/uL Hemoglobin 14.7 13.4 12.3 11.5-16.0 G/DL Hematocrit 44 41 38 35-52 % Mean Corpuscular Volume 79 L 80 81 80-99 FL Mean Corpuscular Hemoglobin 27 26 26 25-34 PG Mean Corpuscular Hemoglobin Concent 34 33 32 32-36 G/DL Red Cell Distribution Width 15.6 H 15.5 H 15.8 H 10.0-14.5 % Platelet Count 333 228 210 130-400 10^3/uL Mean Platelet Volume 10.2 11.0 H 10.7 H 7.4-10.4 FL Neutrophils (%) (Auto) 72 78 H 71 42-75 % Lymphocytes (%) (Auto) 20 16 18 12-44 % Monocytes (%) (Auto) 8 6 7 0-12 % Eosinophils (%) (Auto) 1 0 4 0-10 % Basophils (%) (Auto) 0 0 0 0-10 % Neutrophils # (Auto) 11.7 H 13.3 H 8.0 H 1.8-7.8 X 10^3 Lymphocytes # (Auto) 3.2 2.7 2.0 1.0-4.0 X 10^3 Monocytes # (Auto) 1.2 H 1.0 0.8 0.0-1.0 X 10^3 Eosinophils # (Auto) 0.2 0.0 0.5 H 0.0-0.3 10^3/uL Basophils # (Auto) 0.0 0.0 0.0 0.0-0.1 10^3/uL Neutrophils % (Manual) 68 % Lymphocytes % (Manual) 20 % Monocytes % (Manual) 7 % Eosinophils % (Manual) 1 % Basophils % (Manual) 2 % Band Neutrophils 0 % Reactive Lymphocytes 2 % Microcytosis SLIGHT Prothrombin Time 13.1 12.2-14.7 SEC INR Comment 1.0 0.8-1.4 Activated Partial Thromboplast Time 30 24-35 SEC Sodium Level 140 142 140 135-145 MMOL/L Potassium Level 3.1 L 3.9 4.0 3.6-5.0 MMOL/L Chloride Level 103 108 H 109 H 98-107 MMOL/L Carbon Dioxide Level 23 22 21 21-32 MMOL/L Anion Gap 14 12 10 5-14 MMOL/L Blood Urea Nitrogen 12 11 7 7-18 MG/DL Creatinine 0.98 0.77 0.71 0.60-1.30 MG/DL Estimat Glomerular Filtration Rate 58 > 60 > 60 BUN/Creatinine Ratio 12 14 10 Glucose Level 132 H 106 H 89 70-105 MG/DL Calcium Level 9.7 8.9 8.7 8.5-10.1 MG/DL Corrected Calcium 9.5 9.4 9.3 8.5-10.1 MG/DL Magnesium Level 2.3 2.1 1.9 1.8-2.4 MG/DL Total Bilirubin 0.3 0.2 0.5 0.1-1.0 MG/DL Aspartate Amino Transf (AST/SGOT) 27 23 16 5-34 U/L Alanine Aminotransferase (ALT/SGPT) 23 18 15 0-55 U/L Alkaline Phosphatase 107 85 75 40-136 U/L Myoglobin 34.1 10.0-92.0 NG/ML Troponin I < 0.028 <0.028 NG/ML B-Type Natriuretic Peptide 610.0 H <100.0 PG/ML Total Protein 7.9 6.5 5.9 L 6.4-8.2 GM/DL Albumin 4.2 3.4 3.2 3.2-4.5 GM/DL Thyroid Stimulating Hormone (TSH) 6.08 H 0.35-4.94 UIU/ML Phosphorus Level 3.6 3.9 2.3-4.7 MG/DL Triglycerides Level 76 <150 MG/DL Cholesterol Level 138 < 200 MG/DL LDL Cholesterol Direct 90 1-129 MG/DL VLDL Cholesterol 15 5-40 MG/DL HDL Cholesterol 37 L 40-60 MG/DL Free Thyroxine 1.22 0.70-1.48 NG/DL Glucometer 106 70-110 MG/DL Discharge Instructions to patient/family Please see electronic discharge instructions given to patient. Discharge Medications Reviewed and agree with Discharge Medication list on patient's Discharge Instruction sheet Clinical Quality Measures DVT/VTE Risk/Contraindication: Risk Factor Score Per Nursin RFS Level Per Nursing on Admit: 3=High Copy Copies To 1: SANJIV Monaco BETHANY N MD Nov 16, 2018 09:36
--- NOTE | 2018-11-16 10:19 | Diagnostic Imaging Report ---
INDICATION: Atrial fibrillation. TIME OF EXAM: 3:57 AM Correlation is made with prior study one day earlier. FINDINGS: The heart size is normal. The pulmonary vascularity is unremarkable. The lungs are clear. No infiltrate, effusion or pneumothorax is detected. IMPRESSION: No acute cardiopulmonary process is detected. Dictated by: Dictated on workstation # [id number]
== END 2018-11-16 10:40 | disposition home or self-care (01) | DRG 309 ==
LOC: EDUNIT# 21:45 → ER 21:46 → ICU 23:20
PROVIDERS: ADMIT Family Medicine; ATTEND Family Medicine
DX: I48.0 Paroxysmal atrial fibrillation (principal); I10 Essential (primary) hypertension; Z68.41 Body mass index [BMI] 40.0-44.9, adult; E66.9 Obesity, unspecified; E11.65 Type 2 diabetes mellitus with hyperglycemia; E78.5 Hyperlipidemia, unspecified; E87.6 Hypokalemia; E03.9 Hypothyroidism, unspecified
CPT/HCPCS: 36415; 71045; 80053; 80061; 82962; 83735; 83874; 83880; 84100; 84439; 84443; 84484; 85007; 85025; 85027; 85610; 85730; 87804; 93005; 93041; 93306

== ENCOUNTER 2018-12-13 12:06 | Emergency (ER) | payer MEDICARE ==
[~2018-12-13] VITALS: Ht 167.6 cm; Wt 108.9 kg
[~2018-12-13 12:06] MED LIST changes: +ACET-2267 PO; +AMIO200T4 PO; +APIX5TAB PO; +ATEN100T PO; +CELE-63 PO; +EXEN2PEN SC; +HYDR25TA4 PO; +LISI-556 PO; +METF500T8 PO; +OMEP40CA36 PO
[2018-12-13] MEDS ORDERED: ASPIRIN 81 MG CHEW (CHILDREN'S ASA) PO ONE (12:15)
--- OUTSIDE RECORDS SUMMARY | 2018-12-13 12:15 | XMS REPORT | Continuity of Care Document ---
Author Author [facility] Address Unknown Phone Unavailable Allergies Active Description Code Type Severity Reaction Onset Reported/Identified Relationship to Patient Clinical Status Yes No Known Drug Allergies [id number] Drug Allergy Unknown N/A 04/20/2010 Medications There [...] MD M 461.9 SINUSITIS ACUTE 08/06/2008 MADL TRUCK HOPPER, VESNA L 401.1 ESSENTIAL HYPERTENSION BENIGN 08/06/2008 MADL TRUCK HOPPER, VESNA L 461.9 SINUSITIS ACUTE 08/06/2008 MADL TRUCK HOPPER, VESNA L 401.1 ESSENTIAL HYPERTENSION BENIGN 08/06/2008 MADL TRUCK HOPPER, VESNA L 461.9 SINUSITIS ACUTE 08/06/2008 MADL TRUCK HOPPER, VESNA L 401.1 ESSENTIAL HYPERTENSION BENIGN 08/06/2008 MADL TRUCK HOPPER, VESNA L 461.9 SINUSITIS ACUTE 11/04/2009 079.99 [...] 729.1 MYALGIA AND MYOSITIS, UNSPECIFIED 11/04/2009 MADL TRUCK HOPPER, VESNA L 079.99 UNSPECIFIED VIRAL INFECTION IN CONDITIONS CLASSIFIED ELSEWHERE AND OF UNSPECIFIED SITE 11/04/2009 MADL TRUCK HOPPER, VESNA L 724.2 LUMBAGO 11/04/2009 MADL TRUCK HOPPER, VESNA L 729.1 MYALGIA AND MYOSITIS, UNSPECIFIED 11/04/2009 MADL TRUCK HOPPER, VESNA L 079.99 UNSPECIFIED VIRAL INFECTION IN CONDITIONS CLASSIFIED ELSEWHERE AND OF UNSPECIFIED SITE 11/04/2009 MADL TRUCK HOPPER, VESNA L 724.2 LUMBAGO 11/04/2009 MADL TRUCK HOPPER, VESNA L 729.1 MYALGIA AND MYOSITIS, UNSPECIFIED 11/04/2009 MADL TRUCK HOPPER, VESNA L 079.99 UNSPECIFIED VIRAL INFECTION IN CONDITIONS CLASSIFIED ELSEWHERE AND OF UNSPECIFIED SITE 11/04/2009 MADL TRUCK HOPPER, VESNA L 724.2 LUMBAGO 11/04/2009 MADL TRUCK HOPPER, VESNA L 729.1 MYALGIA AND MYOSITIS, UNSPECIFIED [...] MD V76.10 BREAST SCREENING, UNSPECIFIED 07/28/2010 MADL TRUCK HOPPER, VESNA L 278.01 MORBID OBESITY 07/28/2010 MADL TRUCK HOPPER, VESNA L 285.9 ANEMIA UNSPECIFIED 07/28/2010 MADL TRUCK HOPPER, VESNA L V68.1 ISSUE OF REPEAT PRESCRIPTIONS 07/28/2010 MADL TRUCK HOPPER, VESNA L V76.10 BREAST SCREENING, UNSPECIFIED 07/28/2010 MADL TRUCK HOPPER, VESNA L 278.01 MORBID OBESITY 07/28/2010 MADL TRUCK HOPPER, VESNA L 285.9 ANEMIA UNSPECIFIED 07/28/2010 MADL TRUCK HOPPER, VESNA L V68.1 ISSUE OF REPEAT PRESCRIPTIONS 07/28/2010 MADL TRUCK HOPPER, VESNA L V76.10 BREAST SCREENING, UNSPECIFIED 07/28/2010 MADL TRUCK HOPPER, VESNA L 278.01 MORBID OBESITY 07/28/2010 MADL TRUCK HOPPER, VESNA L 285.9 ANEMIA UNSPECIFIED 07/28/2010 MADL TRUCK HOPPER, VESNA L V68.1 ISSUE OF REPEAT PRESCRIPTIONS 07/28/2010 MADL TRUCK HOPPER, VESNA L V76.10 BREAST SCREENING, UNSPECIFIED 08/15/2010 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 , BREAST 08/15/2010 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 , BREAST 08/15/2010 ZOEY SANTANA DO 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, BREAST 08/15/2010 MARIALUISA RODRIGUEZ MD 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, BREAST 08/15/2010 MARIALUISA RODRIGUEZ MD 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, BREAST 08/15/2010 MARIALUISA RODRIGUEZ MD 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, BREAST 08/15/2010 MADL TRUCK HOPPER, VESNA L 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, BREAST 08/15/2010 MADL TRUCK HOPPER, VESNA L 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, BREAST 08/15/2010 MADL TRUCK HOPPER, VESNA L 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, BREAST [...] pain, localized in the knee 01/13/2011 MADL TRUCK HOPPER, VESNA L 719.46 joint pain, localized in the knee 01/13/2011 MADL TRUCK HOPPER, VESNA L 719.46 joint pain, localized in the knee 01/13/2011 MADL TRUCK HOPPER, VESNA L 719.46 joint pain, localized in the knee 02/21/2012 788.41 URINARY FREQUENCY 02/21/2012 788.41 URINARY FREQUENCY 02/21/2012 ZOEY SANTANA DO 788.41 URINARY FREQUENCY 02/21/2012 MARIALUISA RODRIGUEZ MD 788.41 URINARY FREQUENCY 02/21/2012 MARIALUISA RODRIGUEZ MD 788.41 URINARY FREQUENCY 02/21/2012 MARIALUISA RODRIGUEZ MD 788.41 URINARY FREQUENCY 02/21/2012 MADL TRUCK HOPPER, VESNA L 788.41 URINARY FREQUENCY 02/21/2012 MADL TRUCK HOPPER, VESNA L 788.41 URINARY FREQUENCY 02/21/2012 MADL TRUCK HOPPER, VESNA L 788.41 URINARY FREQUENCY 08/10/2012 Ot 285.9 ANEMIA NOS 08/10/2012 Ot 401.9 HYPERTENSION NOS 08/10/2012 Ot 715.36 LOC OSTEOARTH NOS-L/LEG 01/03/2013 ZOEY SANTANA DO 782.3 soft tissue swelling (non-joint) [Sx] 01/03/2013 MARIALUISA RODRIGUEZ MD 782.3 soft tissue swelling (non-joint) [Sx] 01/03/2013 MARIALUISA RODRIGUEZ MD 782.3 soft tissue swelling (non-joint) [Sx] 01/03/2013 MARIALUISA RODRIGUEZ MD 782.3 soft tissue swelling (non-joint) [Sx] 01/03/2013 MADL TRUCK HOPPER, VESNA L 782.3 soft tissue swelling (non-joint) [Sx] 01/03/2013 MADL TRUCK HOPPER, VESNA L 782.3 soft tissue swelling (non-joint) [Sx] 01/03/2013 MADL TRUCK HOPPER, VESNA L 782.3 soft tissue swelling (non-joint) [Sx] 07/29/2013 MARIALUISA RODRIGUEZ MD 271.3 GLUCOSE INTOLERANCE 07/29/2013 MARIALUISA RODRIGUEZ MD V04.81 FLU SHOT 07/29/2013 MARIALUISA RODRIGUEZ MD 271.3 GLUCOSE INTOLERANCE 07/29/2013 MARIALUISA RODRIGUEZ MD V04.81 FLU SHOT 07/29/2013 MADL TRUCK HOPPER, VESNA L 271.3 GLUCOSE INTOLERANCE 07/29/2013 MADL TRUCK HOPPER, VESNA L V04.81 FLU SHOT 07/29/2013 MADL TRUCK HOPPER, VESNA L 271.3 GLUCOSE INTOLERANCE 07/29/2013 MADL TRUCK HOPPER, VESNA L V04.81 FLU SHOT 07/29/2013 MADL TRUCK HOPPER, VESNA L 271.3 GLUCOSE INTOLERANCE 07/29/2013 MADL TRUCK HOPPER, VESNA L V04.81 FLU SHOT 12/03/2013 MARIALUISA RODRIGUEZ MD 278.00 OBESITY UNSPECIFIED 12/03/2013 MARIALUISA RODRIGUEZ MD 536.8 DYSPEPSIA AND OTHER SPECIFIED DISORDERS OF FUNCTION OF STOMACH 12/03/2013 GAUTAM KINCAID VESNA L 278.00 OBESITY UNSPECIFIED 12/03/2013 GAUTAM KINCAID, VESNA L 536.8 DYSPEPSIA AND OTHER SPECIFIED DISORDERS OF FUNCTION OF STOMACH 12/03/2013 MADL TRUCK HOPPER, VESNA L 278.00 OBESITY UNSPECIFIED 12/03/2013 GAUTAM KINCAID, VESNA L 536.8 DYSPEPSIA AND OTHER SPECIFIED DISORDERS OF FUNCTION OF STOMACH 12/03/2013 GAUTAM KINCAID VESNA L 278.00 OBESITY UNSPECIFIED 12/03/2013 GAUTAM KINCAID, VESNA L 536.8 DYSPEPSIA AND OTHER SPECIFIED DISORDERS OF FUNCTION OF STOMACH 03/17/2014 GAUTAM KINCAID VESNA L 462 ACUTE PHARYNGITIS 03/17/2014 MADL TRUCK HOPPER, VESNA L 462 ACUTE PHARYNGITIS 03/17/2014 MADL TRUCK HOPPER, VESNA L 462 ACUTE PHARYNGITIS 10/12/2014 JAZMINL TRUCK HOPPER, VESNA L 465.9 UPPER RESPIRATORY INFECTION 03/01/2017 Ot 715.96 OSTEOARTHROS NOS-L/LEG 03/01/2017 Ot V57.1 PHYSICAL THERAPY NEC 03/01/2017 Ot V57.21 ENCOUNTER FOR OCCUPATIONAL THERAPY 03/01/2017 Ot V72.63 PRE- PROCEDURAL LABORATORY EXAMINATION 03/01/2017 Ot V72.81 EXAM-PRE- OPERATIVE CARDIOVASCULAR 03/01/2017 Ot V72.83 EXAM PRE- OPERATIVE NEC 03/01/2017 Ot V74.8 SCREEN- BACTERIAL DIS NEC 03/01/2017 Ot 729.5 PAIN IN LIMB 03/01/2017 Ot 729.81 SWELLING OF LIMB 03/07/2017 MADL, VESNA L LEATHER SORTER Ot N20.9 URINARY CALCULUS, UNSPECIFIED 03/19/2017 MADL, VESNA L LEATHER SORTER Ot N20.9 URINARY CALCULUS, UNSPECIFIED 11/14/2018 MADL, VESNA L LEATHER SORTER Ot N20.9 URINARY CALCULUS, UNSPECIFIED 11/14/2018 MADL, VESNA L LEATHER SORTER Ot N20.9 URINARY CALCULUS, UNSPECIFIED 11/16/2018 PERRI MADRIGAL MD Ot E03.9 HYPOTHYROIDISM, UNSPECIFIED 11/16/2018 PERRI MADRIGAL MD Ot E11.9 TYPE 2 DIABETES MELLITUS WITHOUT COMPLIC 11/16/2018 PERRI MADRIGAL MD Ot E66.9 OBESITY, UNSPECIFIED 11/16/2018 PERRI MADRIGAL MD Ot E78.5 HYPERLIPIDEMIA, UNSPECIFIED 11/16/2018 PERRI MADRIGAL MD Ot E87.6 HYPOKALEMIA 11/16/2018 PERRI MADRIGAL MD Ot I10 ESSENTIAL (PRIMARY) HYPERTENSION 11/16/2018 PERRI MADRIGAL MD Ot I48.91 UNSPECIFIED ATRIAL FIBRILLATION 11/16/2018 PERRI MADRIGAL MD Ot Z68.41 BODY MASS INDEX (BMI) 40.0-44.9, ADULT 11/16/2018 PERRI MADRIGAL MD, Ot E03.9 HYPOTHYROIDISM, UNSPECIFIED 11/16/2018 PERRI MADRIGAL MD Ot E11.65 TYPE 2 DIABETES MELLITUS WITH HYPERGLYCE 11/16/2018 PERRI MADRIGAL MD, Ot E11.9 TYPE 2 DIABETES MELLITUS WITHOUT COMPLIC 11/16/2018 PERRI MADRIGAL MD Ot E66.9 OBESITY, UNSPECIFIED 11/16/2018 PERRI MADRIGAL MD, Ot E78.5 HYPERLIPIDEMIA, UNSPECIFIED 11/16/2018 PERRI MADRIGAL MD Ot E87.6 HYPOKALEMIA 11/16/2018 PERRI MADRIGAL MD Ot I10 ESSENTIAL (PRIMARY) HYPERTENSION 11/16/2018 PERRI MADRIGAL MD, Ot I48.0 PAROXYSMAL ATRIAL FIBRILLATION 11/16/2018 PERRI MADRIGAL MD Ot I48.91 UNSPECIFIED ATRIAL FIBRILLATION 11/16/2018 PERRI MADRIGAL MD, Ot Z68.41 BODY MASS INDEX (BMI) 40.0-44.9, ADULT Procedures Code Description Performed By Performed On 81.54 TOTAL KNEE REPLACEMENT 08/07/2012 60122 MAMMOGRAM, SCREENING 10/11/2012 11244 ROUTINE VENIPUNCTURE 01/03/2013 85832 VENOUS DOPPLER UNILATERAL/ LIMITED 01/03/2013 90149 GLUCOSE FINGER STICK 01/03/2013 01823 A1C (IN-HOUSE) 01/03/2013 88458 CMP 01/03/2013 5900234 GFR CALC (RESULT ONLY) 01/03/2013 71779 LIPID PANEL 01/03/2013 09743 TSH 01/03/2013 57738 CBC 01/03/2013 60763 ROUTINE VENIPUNCTURE 04/08/2013 94513 BMP 04/09/2013 78415 MAGNESIUM 04/09/2013 8412469 GFR CALC (RESULT ONLY) 04/09/2013 27958 ROUTINE VENIPUNCTURE 07/29/2013 35875 A1C (IN-HOUSE) 07/29/2013 6814858 GFR CALC (RESULT ONLY) 07/29/2013 60279 BMP 07/29/2013 91897 MAGNESIUM 07/29/2013 44193 ROUTINE VENIPUNCTURE 12/03/2013 68197 A1C (IN-HOUSE) 12/03/2013 5052470 GFR CALC (RESULT ONLY) 12/03/2013 76059 BMP 12/03/2013 47762 LIPID PANEL 12/03/2013 80943 MAGNESIUM 12/03/2013 47216 ROUTINE VENIPUNCTURE 04/01/2014 88391 TSH 04/01/2014 65747 A1C (IN-HOUSE) 04/01/2014 19909 CBC 04/01/2014 76770 CMP 04/01/2014 66969 LIPID PANEL 04/01/2014 2327612 GFR CALC (RESULT ONLY) 04/01/2014 14448 A1C (IN-HOUSE) 10/12/2014 Results Test Result Range [...] Am 105 mL/min/1.73 >59 BUN/Creatinine Ratio 13 10-04 Sodium, Serum 141 mmol/L 134-144 Potassium, Serum [...] Am 105 mL/min/1.73 >59 BUN/Creatinine Ratio 13 10-04 Sodium, Serum 141 mmol/L 134-144 Potassium, Serum [...] 7-25 CREATININE 0.85 mg/dL 0.50-0.99 eGFR NON-AFR. SLOVENIAN 73 mL/min/1.73m2 > OR=60 eGFR 85 mL/min/1.73m2 [...] blood basophil count (count/volume) 0.0 10*3/uL 0.0-0.1 PT panel in platelet poor plasma by coagulation assay - 11/14/18 22:01 Prothrombin time (PT) in platelet poor plasma by coagulation assay 13.1 s 12.2-14.7 INR in platelet poor plasma or blood by coagulation assay 1.0 0.8-1.4 Activated partial thromboplastin time (aPTT) in platelet poor plasma bycoagulation assay - 11/14/18 22:01 Activated partial thromboplastin time (aPTT) in platelet poor plasma bycoagulation assay 30 s 24-35 Blood manual differential performed detection - 11/14/18 22:01 Blood monocytes/100 leukocytes 7 % NR Manual blood segmented neutrophils/100 leukocytes 68 % NRG Blood band neutrophils/100 leukocytes 0 % NRG Manual blood lymphocytes/100 leukocytes 20 % NRG Manual eosinophils/100 leukocytes in nose 1 % NRG Manual blood basophils/100 leukocytes 2 % NRG Blood lymphocytes variant/100 leukocytes 2 % NRG Blood microcytes detection by light microscopy SLIGHT NR Comprehensive metabolic panel - 11/14/18 22:01 Serum or plasma sodium measurement (moles/volume) 140 mmol/L 135-145 Serum or plasma potassium measurement (moles/volume) 3.1 mmol/L 3.6-5.0 Serum or plasma chloride measurement (moles/volume) 103 mmol/L 98-107 Carbon dioxide 23 mmol/L 21-32 Serum or plasma anion gap determination (moles/volume) 14 mmol/L 5-14 Serum or plasma urea nitrogen measurement (mass/volume) 12 mg/dL 7-18 Serum or plasma creatinine measurement (mass/volume) 0.98 mg/dL 0.60-1.30 Serum or plasma urea nitrogen/creatinine mass ratio 12 NRG Serum or plasma creatinine measurement with calculation of estimated glomerular filtration rate 58 NRG Serum or plasma glucose measurement (mass/volume) 132 mg/dL 70-105 Serum or plasma calcium measurement (mass/volume) 9.7 mg/dL 8.5-10.1 Serum or plasma total bilirubin measurement (mass/volume) 0.3 mg/dL 0.1-1.0 Serum or plasma alkaline phosphatase measurement (enzymatic activity/volume) 107 U/L 40-136 Serum or plasma aspartate aminotransferase measurement (enzymatic activity/ volume) 27 U/L 5-34 Serum or plasma alanine aminotransferase measurement (enzymatic activity/volume ) 23 U/L 0-55 Serum or plasma protein measurement (mass/volume) 7.9 g/dL 6.4-8.2 Serum or plasma albumin measurement (mass/volume) 4.2 g/dL 3.2-4.5 CALCIUM CORRECTED 9.5 mg/dL 8.5-10.1 Magnesium - 11/14/18 22:01 Magnesium 2.3 mg/dL 1.8-2.4 Serum or plasma troponin i.cardiac measurement (mass/volume) - 11/14/18 22:01 Serum or plasma troponin i.cardiac measurement (mass/volume) < ng/ mL <0.028 Myoglobin, serum - 11/14/18 22:01 Myoglobin, serum 34.1 ng/mL 10.0-92.0 Serum or plasma lithium measurement (moles/volume) - 11/14/18 22:01 BNP level 610.0 pg/mL <100.0 THYROID STIMULATING HORMONE - 11/14/18 22:01 THYROID STIMULATING HORMONE 6.08 u[iU]/mL 0.35-4.94 Influenza virus A and B antigen detection - 11/14/18 23:15 FLU RESULT NEGATIVE FOR INFLUENZA A AND B ANTIGENS BY [facility] Complete blood count (CBC) with automated white blood cell (WBC) differential - 11/15/18 03:30 Blood leukocytes automated count (number/volume) 17.1 10*3/uL 4.3-11.0 Blood erythrocytes automated count (number/volume) 5.12 10*6/uL 4.35-5.85 Venous blood hemoglobin measurement (mass/volume) 13.4 g/dL 11.5-16.0 Blood hematocrit (volume fraction) 41 % 35-52 Automated erythrocyte mean corpuscular volume 80 [foz_us] 80-99 Automated erythrocyte mean corpuscular hemoglobin (mass per erythrocyte) 26 pg 25-34 Automated erythrocyte mean corpuscular hemoglobin concentration measurement ( mass/volume) 33 g/dL 32-36 Automated erythrocyte distribution width ratio 15.5 % 10.0-14.5 Automated blood platelet count (count/volume) 228 10*3/uL 130-400 Automated blood platelet mean volume measurement 11.0 [foz_us] 7.4-10.4 Automated blood neutrophils/100 leukocytes 78 % 42-75 Automated blood lymphocytes/100 leukocytes 16 % 12-44 Blood monocytes/100 leukocytes 6 % 0-12 Automated blood eosinophils/100 leukocytes 0 % 0-10 Automated blood basophils/100 leukocytes 0 % 0-10 Blood neutrophils automated count (number/volume) 13.3 10*3 1.8-7.8 Blood lymphocytes automated count (number/volume) 2.7 10*3 1.0-4.0 Blood monocytes automated count (number/volume) 1.0 10*3 0.0-1.0 Automated eosinophil count 0.0 10*3/uL 0.0-0.3 Automated blood basophil count (count/volume) 0.0 10*3/uL 0.0-0.1 Comprehensive metabolic panel - 11/15/18 03:30 Serum or plasma sodium measurement (moles/volume) 142 mmol/L 135-145 Serum or plasma potassium measurement (moles/volume) 3.9 mmol/L 3.6-5.0 Serum or plasma chloride measurement (moles/volume) 108 mmol/L 98-107 Carbon dioxide 22 mmol/L 21-32 Serum or plasma anion gap determination (moles/volume) 12 mmol/L 5-14 Serum or plasma urea nitrogen measurement (mass/volume) 11 mg/dL 7-18 Serum or plasma creatinine measurement (mass/volume) 0.77 mg/dL 0.60-1.30 Serum or plasma urea nitrogen/creatinine mass ratio 14 NRG Serum or plasma creatinine measurement with calculation of estimated glomerular filtration rate > NRG Serum or plasma glucose measurement (mass/volume) 106 mg/dL 70-105 Serum or plasma calcium measurement (mass/volume) 8.9 mg/dL 8.5-10.1 Serum or plasma total bilirubin measurement (mass/volume) 0.2 mg/dL 0.1-1.0 Serum or plasma alkaline phosphatase measurement (enzymatic activity/volume) 85 U/L 40-136 Serum or plasma aspartate aminotransferase measurement (enzymatic activity/ volume) 23 U/L 5-34 Serum or plasma alanine aminotransferase measurement (enzymatic activity/volume ) 18 U/L 0-55 Serum or plasma protein measurement (mass/volume) 6.5 g/dL 6.4-8.2 Serum or plasma albumin measurement (mass/volume) 3.4 g/dL 3.2-4.5 CALCIUM CORRECTED 9.4 mg/dL 8.5-10.1 Serum or plasma phosphate measurement (mass/volume) - 11/15/18 03:30 Serum or plasma phosphate measurement (mass/volume) 3.6 mg/dL 2.3-4.7 Magnesium - 11/15/18 03:30 Magnesium 2.1 mg/dL 1.8-2.4 Lipid 1996 panel - 11/15/18 03:30 Serum or plasma triglyceride measurement (mass/volume) 76 mg/dL <150 Serum or plasma cholesterol measurement (mass/volume) 138 mg/dL < 200 Serum or plasma cholesterol in HDL measurement (mass/volume) 37 mg/ dL 40-60 Cholesterol in LDL [mass/volume] in serum or plasma by direct assay 90 mg/dL 1-129 Serum or plasma cholesterol in VLDL measurement (mass/volume) 15 mg/ dL 5-40 Serum or plasma thyroxine (T4) free measurement (mass/volume) - 11/15/18 03:30 Serum or plasma thyroxine (T4) free measurement (mass/volume) 1.22 ng/dL 0.70-1.48 Capillary blood glucose measurement by glucometer (mass/volume) - 11/15/18 15: 43 Capillary blood glucose measurement by glucometer (mass/volume) 106 mg/dL 70-110 Complete blood count (CBC) with automated white blood cell (WBC) differential - 11/16/18 03:21 Blood leukocytes automated count (number/volume) 11.4 10*3/uL 4.3-11.0 Blood erythrocytes automated count (number/volume) 4.71 10*6/uL 4.35-5.85 Venous blood hemoglobin measurement (mass/volume) 12.3 g/dL 11.5-16.0 Blood hematocrit (volume fraction) 38 % 35-52 Automated erythrocyte mean corpuscular volume 81 [foz_us] 80-99 Automated erythrocyte mean corpuscular hemoglobin (mass per erythrocyte) 26 pg 25-34 Automated erythrocyte mean corpuscular hemoglobin concentration measurement ( mass/volume) 32 g/dL 32-36 Automated erythrocyte distribution width ratio 15.8 % 10.0-14.5 Automated blood platelet count (count/volume) 210 10*3/uL 130-400 Automated blood platelet mean volume measurement 10.7 [foz_us] 7.4-10.4 Automated blood neutrophils/100 leukocytes 71 % 42-75 Automated blood lymphocytes/100 leukocytes 18 % 12-44 Blood monocytes/100 leukocytes 7 % 0-12 Automated blood eosinophils/100 leukocytes 4 % 0-10 Automated blood basophils/100 leukocytes 0 % 0-10 Blood neutrophils automated count (number/volume) 8.0 10*3 1.8-7.8 Blood lymphocytes automated count (number/volume) 2.0 10*3 1.0-4.0 Blood monocytes automated count (number/volume) 0.8 10*3 0.0-1.0 Automated eosinophil count 0.5 10*3/uL 0.0-0.3 Automated blood basophil count (count/volume) 0.0 10*3/uL 0.0-0.1 Comprehensive metabolic panel - 11/16/18 03:21 Serum or plasma sodium measurement (moles/volume) 140 mmol/L 135-145 Serum or plasma potassium measurement (moles/volume) 4.0 mmol/L 3.6-5.0 Serum or plasma chloride measurement (moles/volume) 109 mmol/L 98-107 Carbon dioxide 21 mmol/L 21-32 Serum or plasma anion gap determination (moles/volume) 10 mmol/L 5-14 Serum or plasma urea nitrogen measurement (mass/volume) 7 mg/dL 7-18 Serum or plasma creatinine measurement (mass/volume) 0.71 mg/dL 0.60-1.30 Serum or plasma urea nitrogen/creatinine mass ratio 10 NRG Serum or plasma creatinine measurement with calculation of estimated glomerular filtration rate > NRG Serum or plasma glucose measurement (mass/volume) 89 mg/dL 70-105 Serum or plasma calcium measurement (mass/volume) 8.7 mg/dL 8.5-10.1 Serum or plasma total bilirubin measurement (mass/volume) 0.5 mg/dL 0.1-1.0 Serum or plasma alkaline phosphatase measurement (enzymatic activity/volume) 75 U/L 40-136 Serum or plasma aspartate aminotransferase measurement (enzymatic activity/ volume) 16 U/L 5-34 Serum or plasma alanine aminotransferase measurement (enzymatic activity/volume ) 15 U/L 0-55 Serum or plasma protein measurement (mass/volume) 5.9 g/dL 6.4-8.2 Serum or plasma albumin measurement (mass/volume) 3.2 g/dL 3.2-4.5 CALCIUM CORRECTED 9.3 mg/dL 8.5-10.1 Serum or plasma phosphate measurement (mass/volume) - 11/16/18 03:21 Serum or plasma phosphate measurement (mass/volume) 3.9 mg/dL 2.3-4.7 Magnesium - 11/16/18 03:21 Magnesium 1.9 mg/dL 1.8-2.4 Encounters ACCT No. Visit Date/Time Discharge Status Pt. Type Provider Facility Loc./Unit Complaint [id number] 10/12/2014 15:02:00 10/12/2014 23:59:59 [facility] Outpatient VESNA FLOREZ APRN [id number] 04/01/2014 09:07:00 04/01/2014 23:59:59 CLS Outpatient JAZMINL CECI KINCAIDWNYRichard Sung [id number] 03/17/2014 14:44:00 03/17/2014 23:59:59 CLS Outpatient JAZMINL CECI KINCAIDMEHNAZ Sung [id number] 12/03/2013 09:36:00 12/03/2013 23:59:59 CLS Outpatient MARIALUISA RODRIGUEZ MD [id number] 07/29/2013 10:04:00 07/29/2013 23:59:59 CLS Outpatient MARIALUISA RODRIGUEZ MD [id number] 04/08/2013 15:19:00 04/08/2013 23:59:59 CLS Outpatient MARIALUISA RODRIGUEZ MD [id number] 01/03/2013 10:20:00 01/03/2013 23:59:59 CLS Outpatient MAX ORANTES ZOEY Melissa [id number] 10/10/2012 11:18:00 10/10/2012 23:59:59 CLS Outpatient [id number] 08/05/2012 00:00:00 08/05/2012 23:59:59 CLS Outpatient [id number] 02/07/2017 08:07:00 Document Registration [id number] 11/08/2016 08:40:00 Document Registration [id number] 06/22/2016 08:07:00 Document Registration [id number] 11/19/2018 13:20:00 11/19/2018 23:59:59 CLS Outpatient BEKAH SUNSHINE [facility] [id number] 08/23/2018 09:00:00 Document Registration [id number] 03/26/2018 10:00:00 Document Registration [id number] 11/21/2017 08:00:00 Document Registration [id number] 07/10/2017 08:20:00 Document Registration [id number] 07/11/2017 09:10:00 Document Registration [id number] 11/14/2018 23:20:00 11/16/2018 10:40:00 DIS Inpatient ROHAN HERR, PERRI Pineda [facility] ICU AFIB W/RVR;HYPOKALEMIA, HYPOTHYROIDISM [id number] 11/22/2017 11:15:00 11/22/2017 23:59:59 CLS Preadmit VESNA FLOREZ LEATHER SORTER [facility] RAD SCREENING [id number] 03/01/2017 09:33:00 03/01/2017 23:59:59 CLS Outpatient VESNA FLOREZ LEATH[facility] SORTER [facility] RAD R20.9 FACIAL PARESTHESIA [id number] 02/18/2015 11:53:00 02/18/2015 23:59:59 CLS Outpatient LYLA DOSS [facility]ATH[facility] SORTER [facility] QUICK [id number] 03/12/2013 16:07:00 03/12/2013 23:59:59 CLS Outpatient [id number] 12/13/2018 12:08:00 ACT Emergency HARSHAD HERR, JAN Torres [facility] ER HEAVY FEELING IN CHEST [id number] 12/11/2018 08:41:00 PEN Preadmit MASOOD ESPAÑA MD [facility] CARD AF, DIABETES MELLITUS, HTN [id number] 12/11/2018 08:39:00 PEN Preadmit MASOOD ESPAÑA MD [facility] CARD AF, DIABETES MELLITUS, HTN [id number] 01/03/2013 12:00:00 Document Registration [id number] 08/07/2012 05:38:00 Document Registration [id number] 07/29/2012 09:50:00 Document Registration
[2018-12-13 12:22] LABS: BASOPHILS % (AUTO) 0 % (0-10); EOSINOPHILS # (AUTO) 0.1 10^3/uL (0.0-0.3); EOSINOPHILS % (AUTO) 1 % (0-10); HEMATOCRIT 44 % (35-52); HEMOGLOBIN 14.3 G/DL (11.5-16.0); LYMPHOCYTES # (AUTO) 1.6 X 10^3 (1.0-4.0); LYMPHOCYTES % (AUTO) 16 % (12-44); MEAN CORPUSCULAR HEMOGLOBIN 26 PG (25-34); MEAN CORPUSCULAR HGB CONC 32 G/DL (32-36); MEAN CORPUSCULAR VOLUME 80 FL (80-99); MEAN PLATELET VOLUME 10.1 FL (7.4-10.4); MONOCYTES # (AUTO) 0.7 X 10^3 (0.0-1.0); MONOCYTES % (AUTO) 7 % (0-12); NEUTROPHILS # (AUTO) 7.8 X 10^3 (1.8-7.8); NEUTROPHILS % (AUTO) 76 % (42-75); PLATELET COUNT 226 10^3/uL (130-400); RED CELL DISTRIBUTION WIDTH 15.8 % (10.0-14.5); WHITE BLOOD COUNT 10.3 10^3/uL (4.3-11.0)
--- NOTE | 2018-12-13 12:31 | Diagnostic Imaging Report ---
INDICATION: Chest pain and tightness. COMPARISON: 11/16/2018. FINDINGS: Single frontal view of the chest demonstrates normal heart size and pulmonary vascularity. The lungs are well aerated and clear. No large pleural effusion or pneumothorax is seen. The visualized osseous structures show no acute abnormalities. IMPRESSION: 1. No acute cardiopulmonary process. Dictated by: Dictated on workstation # [id number]
--- NOTE | 2018-12-13 12:37 | ED Chest Pain ---
General Chief Complaint: Chest Pain Stated Complaint: HEAVY FEELING IN CHEST Nursing Triage Note: PT PRESENTS TO ED WITH COMPLAINTS OF MEDIAL CP X 2 DAYS. REPORTS SHE WAS MOVING TWO HEAVY TRASH CANS OUTSIDE WHEN IT STARTED. PT REPROTS SHE CALLED [facility] AND THEY REFERRED HER TO ED. PT DENIES N/V BUT REPROTS DECREASE APPETITE. PT DENIES SOA WELL. Nursing Sepsis Screen: No Definite Risk Source: patient Exam Limitations: no limitations History of Present Illness Date Seen by Provider: Dec 13, 2018 Time Seen by Provider: 12:10 Initial Comments 63-year-old female who presents to the emergency room with complaints of medial to left substernal chest pain that started yesterday around 12:00 while she was moving to heavy trash cans around the end of her house. She reports the pain subsided but she still has a heaviness/burning feeling to her chest today. She denies nausea, vomiting, shortness of breath, lightheadedness, dizziness. She has history of GERD and takes omeprazole, she also has history of atrial fibrillation and is on blood thinners, sees Dr. Galindo for cardiology. Timing/Duration: 24 hours Severity/Quality: mild, other (heaviness) Location: substernal ASA po COKE WHEELER: No NTG SL COKE WHEELER: No Associated Symptoms: No diaphoresis, No dizziness, No nausea/vomiting, No shortness of breath, No syncope, No weakness Allergies and Home Medications Allergies Coded Allergies: No Known Drug Allergies (Unverified , 04/20/10) Home Medications Acetaminophen 500 Mg Tablet, 1,000 MG PO Q6H PRN for PAIN-MILD, (Reported) Amiodarone HCl 200 Mg Tablet, 200 MG PO BID Prescribed by: MASOOD GALINDO on 11/16/18811 Apixaban 5 Mg Tablet, 5 MG PO BID Prescribed by: MASOOD GALINDO on 11/16/18811 Atenolol 100 Mg Tablet, 100 MG PO DAILY, (Reported) Celecoxib 200 Mg Capsule, 200 MG PO DAILY, (Reported) Exenatide Microspheres 2 Mg/0.65 Ml Pen.injctr, 2 MG SC Th, (Reported) Hydrochlorothiazide 25 Mg Tablet, 25 MG PO DAILY, (Reported) Lisinopril 5 Mg Tablet, 5 MG PO DAILY, (Reported) Metformin HCl 500 Mg Tab.er.24h, 1,000 MG PO 1730, (Reported) TAKES 2 (500MG) TABLETS Omeprazole 40 Mg Capsule.dr, 40 MG PO DAILY, (Reported) Patient Home Medication List Home Medication List Reviewed: Yes Review of Systems Review of Systems Constitutional: see HPI; No chills, No fever Cardiovascular: See HPI, Chest Pain Gastrointestinal: See HPI, Other (heartburn) All Other Systems Reviewed Negative Unless Noted: Yes Past Hxcmsvm-Ycoqdk-Qsvwvm Hx Past Med/Social Hx: Reviewed Nursing Past Med/Soc Hx Patient Social History Alcohol Use: Denies Use Recreational Drug Use: No Smoking Status: Never a Smoker Recent Foreign Travel: No Contact w/Someone Who Travel: No Recent Infectious Disease Expo: No Recent Hopitalizations: No Physical Abuse: No Sexual Abuse: No Mistreated: No Fear: No Immunizations Up To Date Date of Influenza Vaccine: Aug 15, 2018 Past Medical History Surgeries: Yes (CA LUMP REMOVED FROM THROAT, ) Respiratory: Yes (USES INHALER WHEN SHE HAS A COLD) Cardiac: Yes Hypertension Neurological: No Reproductive Disorders: No Gastrointestinal: Yes Gastroesophageal Reflux Musculoskeletal: Yes Endocrine: Yes Diabetes, Non-Insulin dep Psychosocial: No Blood Disorders: No Family Medical History Reviewed Nursing Family Hx Heart Disease Physical Exam Vital Signs Vital Signs - First Documented 12/13/18 12:13 Temp 97.0 Pulse 66 Resp 18 B/P (MAP) 170/81 (110) Pulse Ox 99 O2 Delivery Room Air Capillary Refill : Less Than 3 Seconds Height, Weight, BMI Height: 5'6.00" Weight: 240lbs. 0.0oz. 108.777935hs; 40.0 BMI Method:Stated General Appearance: No Apparent Distress, WD/WN HEENT: PERRL/EOMI Neck: Full Range of Motion, Normal Inspection, Non Tender Respiratory: Chest Non Tender, Lungs Clear, Normal Breath Sounds, No Accessory Muscle Use, No Respiratory Distress Cardiovascular: Regular Rate, Rhythm, No Edema, No Gallop, No JVD, No Murmur, Normal Peripheral Pulses Gastrointestinal: Normal Bowel Sounds, No Organomegaly, No Pulsatile Mass, Non Tender, Soft Extremity: Normal Capillary Refill, No Pedal Edema Neurologic/Psychiatric: Alert, Oriented x3, Normal Mood/Affect Skin: Normal Color, Warm/Dry Progress/Results/Core Measures Results/Orders Lab Results Laboratory Tests Test 12/13/18 12:18 12/13/18 14:17 Range/Units White Blood Count 10.3 4.3-11.0 10^3/uL Red Blood Count 5.53 4.35-5.85 10^6/uL Hemoglobin 14.3 11.5-16.0 G/DL Hematocrit 44 35-52 % Mean Corpuscular Volume 80 80-99 FL Mean Corpuscular Hemoglobin 26 25-34 PG Mean Corpuscular Hemoglobin Concent 32 32-36 G/DL Red Cell Distribution Width 15.8 H 10.0-14.5 % Platelet Count 226 130-400 10^3/uL Mean Platelet Volume 10.1 7.4-10.4 FL Neutrophils (%) (Auto) 76 H 42-75 % Lymphocytes (%) (Auto) 16 12-44 % Monocytes (%) (Auto) 7 0-12 % Eosinophils (%) (Auto) 1 0-10 % Basophils (%) (Auto) 0 0-10 % Neutrophils # (Auto) 7.8 1.8-7.8 X 10^3 Lymphocytes # (Auto) 1.6 1.0-4.0 X 10^3 Monocytes # (Auto) 0.7 0.0-1.0 X 10^3 Eosinophils # (Auto) 0.1 0.0-0.3 10^3/uL Basophils # (Auto) 0.0 0.0-0.1 10^3/uL Prothrombin Time 14.9 H 12.2-14.7 SEC INR Comment 1.2 0.8-1.4 Activated Partial Thromboplast Time 36 H 24-35 SEC D-Dimer 0.35 0.00-0.49 UG/ML Sodium Level 137 135-145 MMOL/L Potassium Level 3.9 3.6-5.0 MMOL/L Chloride Level 100 98-107 MMOL/L Carbon Dioxide Level 27 21-32 MMOL/L Anion Gap 10 5-14 MMOL/L Blood Urea Nitrogen 9 7-18 MG/DL Creatinine 0.86 0.60-1.30 MG/DL Estimat Glomerular Filtration Rate > 60 BUN/Creatinine Ratio 10 Glucose Level 90 70-105 MG/DL Calcium Level 10.0 8.5-10.1 MG/DL Corrected Calcium 9.8 8.5-10.1 MG/DL Magnesium Level 2.2 1.8-2.4 MG/DL Total Bilirubin 0.5 0.1-1.0 MG/DL Aspartate Amino Transf (AST/SGOT) 20 5-34 U/L Alanine Aminotransferase (ALT/SGPT) 13 0-55 U/L Alkaline Phosphatase 105 40-136 U/L Myoglobin 40.3 10.0-92.0 NG/ML Troponin I < 0.028 < 0.028 <0.028 NG/ML B-Type Natriuretic Peptide 98.4 <100.0 PG/ML Total Protein 7.6 6.4-8.2 GM/DL Albumin 4.2 3.2-4.5 GM/DL Lipase 16 8-78 U/L My Orders Orders - BERNOT,SPENCER Cbc With Automated Diff (12/13/18 12:12) Magnesium (12/13/18 12:12) Chest 1 View, Ap/Pa Only (12/13/18 12:12) Ekg Tracing (12/13/18 12:12) Cardiac Profile 1 (12/13/18 12:12) Comprehensive Metabolic Panel (12/13/18 12:12) Myoglobin Serum (12/13/18 12:12) Protime With Inr (12/13/18 12:12) Partial Thromboplastin Time (12/13/18 12:12) O2 (12/13/18 12:12) Monitor-Rhythm Ecg Trace Only (12/13/18 12:12) Aspirin Chewable Tablet (Baby Aspirin Ch (12/13/18 12:15) Saline Lock/Iv-Start (12/13/18 12:12) Lipase (12/13/18 12:12) BNP (12/13/18 12:12) Fibrin Degradation Products (12/13/18 12:12) Antacid Suspension (Mylanta Suspension (12/13/18 13:30) Lidocaine 2% Viscous 15 Ml (Xylocaine Vi (12/13/18 13:30) Troponin I (12/13/18 14:11) Medications Given in ED Vital Signs/I&O 12/13/18 12/13/18 12/13/18 12:13 12:13 15:07 Temp 97.0 Pulse 66 64 Resp 18 18 B/P (MAP) 170/81 (110) 115/71 (86) Pulse Ox 99 99 O2 Delivery Room Air Blood Pressure Mean: 110 Progress Progress Note : Time: 14:52 Progress Note I have seen and evaluated the patient. I've informed her of her imaging, EKG, and laboratory findings. Her pain has resolved and her heartburn has subsided. She agrees with plan of care, plans for discharge, return precautions were given. Diagnostic Imaging Diagonstic Imaging: Xray Plain Films/CT/US/NM/MRI: chest Comments NAME: [facility]NS [facility] REC#: [id number] PT STATUS: DEP ER : 1955 PHYSICIAN: SPENCER NASSAR ADMIT DATE: 12/13/18/ER Signed Date of Exam:12/13/18 CHEST 1 VIEW, AP/PA ONLY INDICATION: Chest pain and tightness. COMPARISON: 11/16/2018. FINDINGS: Single frontal view of the chest demonstrates normal heart size and pulmonary vascularity. The lungs are well aerated and clear. No large pleural effusion or pneumothorax is seen. The visualized osseous structures show no acute abnormalities. IMPRESSION: 1. No acute cardiopulmonary process. Dictated by: Dictated on workstation # [id number] Dict: 12/13/18 1228 Trans: 12/13/18 1714 [facility] [id number] Interpreted by: MATILDE COLBERT MD Electronically signed by: MATILDE COLBERT MD 12/13/18 1714 Reviewed: Reviewed by Me Departure Impression Primary Impression: Gastroesophageal reflux disease Additional Impression: Chest pain Disposition: 01 HOME, SELF-CARE Condition: Stable/Unchanged Departure-Patient Inst. Decision time for Depature: 14:52 Referrals: ZOEY SANTANA DO (PCP) Primary Care Physician [facility]JENNY (Family) Primary Care Physician Patient Instructions: Acid Reflux (Gastroesophageal Reflux Disease), Adult (DC) Add. Discharge Instructions: You may continue to use the Mylanta [id number]-ktcpktt as needed for your heartburn. Continue to take your omeprazole as prescribed. Follow-up with your primary care provider and Dr. Galindo within 1 week for recheck. Return back to the emergency room for worsening symptoms, chest pain, shortness of breath, or any other concerns as needed. All discharge instructions reviewed with patient and/or family. Voiced understanding. SPENCER NASSAR Dec 13, 2018 12:37
[2018-12-13 12:39] LABS: INR 1.2 (0.8-1.4); PROTHROMBIN TIME PATIENT 14.9 SEC (12.2-14.7)
[2018-12-13 12:44] LABS: ALANINE AMINOTRANSFERASE 13 U/L (0-55); ALBUMIN 4.2 GM/DL (3.2-4.5); ALKALINE PHOSPHATASE 105 U/L (40-136); BILIRUBIN,TOTAL 0.5 MG/DL (0.1-1.0); BUN/CREATININE RATIO 10; CARBON DIOXIDE 27 MMOL/L (21-32); CHLORIDE 100 MMOL/L (98-107); CREATININE SERUM 0.86 MG/DL (0.60-1.30); GFR ESTIMATED > 60; GLUCOSE 90 MG/DL (70-105); LIPASE 16 U/L (8-78); MAGNESIUM 2.2 MG/DL (1.8-2.4); POTASSIUM 3.9 MMOL/L (3.6-5.0); SODIUM 137 MMOL/L (135-145); TOTAL PROTEIN 7.6 GM/DL (6.4-8.2)
[2018-12-13 12:50] LABS: MYOGLOBIN SERUM 40.3 NG/ML (10.0-92.0)
[2018-12-13] MEDS ORDERED: LIDOCAINE 2% VISCOUS 15 ML UDC PO ONE (13:30)
[2018-12-13] MEDS ORDERED: ANTACID SUSP 30 ML UDC (MYLANTA) PO ONE (13:30)
[2018-12-13 15:07] VITALS: BP 115/71
== END 2018-12-13 15:07 | disposition home or self-care (01) ==
LOC: EDUNIT# 12:06 → ER 12:08
DX: R07.81 Pleurodynia (principal); K21.9 Gastro-esophageal reflux disease without esophagitis; I10 Essential (primary) hypertension; E11.9 Type 2 diabetes mellitus without complications; I48.91 Unspecified atrial fibrillation; Z79.01 Long term (current) use of anticoagulants; Z79.84 Long term (current) use of oral hypoglycemic drugs; Z82.49 Family history of ischemic heart disease and other diseases of the circulatory system
CPT/HCPCS: 36415; 71045; 80053; 83690; 83735; 83874; 83880; 84484; 85025; 85379; 85610; 85730; 93005; 93041

== ENCOUNTER 2018-12-18 08:24 | Outpatient (RCR) | payer MEDICARE, OTHER ==
[2019-02-15] MEDS ORDERED: CEPH500C PO (22:21)
== END 2019-03-18 | disposition home or self-care (01) ==
LOC: CARD 08:24
PROVIDERS: ATTEND Internal Medicine Cardiovascular Disease
DX: I48.91 Unspecified atrial fibrillation (principal); I10 Essential (primary) hypertension; E78.2 Mixed hyperlipidemia; E11.9 Type 2 diabetes mellitus without complications
CPT/HCPCS: 93225; 93226

== ENCOUNTER 2019-02-15 19:53 | Emergency (ER) | payer MEDICARE, OTHER ==
[~2019-02-15] VITALS: Ht 167.6 cm; Wt 108.9 kg
--- OUTSIDE RECORDS SUMMARY | 2019-02-15 19:58 | XMS REPORT ---
Author Author Migration, Doctor Organization [facility] Address Unknown Phone Unavailable Care Team Providers Care Residential Youth Counselor Name Role Phone Migration, Doctor Unavailable Unavailable PROBLEMS Type Condition ICD9-CM Code QEF43-YV Code Onset Dates Condition Status SNOMED Code Problem Edema R60.9 Active 513026238 Problem Arthritis M19.90 Active 2131398 Problem Essential hypertension I10 Active 64266816 Problem Body mass index (BMI) of 40.0-44.9 in adult Z68.41 Active 547534038 Problem Type 2 diabetes mellitus with diabetic chronic kidney disease, 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 Active 56115461 Problem Atrial fibrillation, unspecified type I48.91 Active 71153350 Problem CAD (coronary artery disease) I25.10 Active 47036776 Problem Heartburn R12 Active 35422178 Problem H/O motion sickness Z87.898 Active 888389480 Problem Morbid (severe) obesity due to excess calories E66.01 Active 912747510 ALLERGIES No Information ENCOUNTERS Encounter Location Date Diagnosis [place] [address] [address] Dec, Other chest pain R07.89 [place] [address] [place] [id number] [place] [address]136- [address] 12 Nov, 2018 Atrial fibrillation, unspecified type I48.91 [place] [address] [place] [id number] [place] [address] 55557- [address]185 Nov, [facility] [place] [facility] [address] [place] [id number] [place] [address] 16716- 4873 Nov, [place] [address] [address] 08 Nov, 2018 Type 2 diabetes mellitus with diabetic chronic kidney disease, 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 and Arthritis M19.90 [place] [address] [address]- [address] Oct, Type 2 diabetes mellitus with diabetic chronic kidney disease, 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 [place] [address] [place] [id number] [place] [address] 39836- 7986 Aug, Type 2 diabetes mellitus with diabetic chronic kidney disease, 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 [address] Aug, Type 2 diabetes mellitus with diabetic chronic kidney disease, 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 ; Essential hypertension I10 ; Encounter for immunization Z23 ; CAD (coronary artery disease) I25.10 ; Arthritis M19.90 and BMI 40.0-44.9, adult Z68.[address] [address] Aug, [address] [address] Jul, Type 2 diabetes mellitus with diabetic chronic kidney disease, 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 [place] [address] [place] [id number] [place] [address] 10055- 9178 Jun, [facility] [place] [id number] [place] [address] -2383 Jun, Cough R05 and BMI 40.0-44.9, adult Z68.41 [place] [id number] [place] [address] 04533- [address]38 Mar, Type 2 diabetes mellitus with diabetic chronic kidney disease, 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 ; Essential hypertension I10 ; Arthritis M19.90 ; Edema R60.9 ; Body mass index (BMI) of 40.0-44.9 in adult Z68.41 and Morbid (severe) obesity due to excess calories E66.01 [facility] [place] [id number] [place] [address]28 -[address] 27 Nov, 2017 Cough R05 and BMI 40.0-44.9, adult Z68.41 [address] [place] [address] 14 Nov, 2017 Type 2 diabetes mellitus [...] and Long-term use of high-risk medication Z79.899 [place] [address] [place] [id number] [place] [address] 41931- 4766 03 Jul, 2017 Type 2 diabetes mellitus with diabetic chronic kidney disease, 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 ; Essential hypertension I10 ; CAD ( coronary artery disease) I25.10 ; Heartburn R12 ; Arthritis M19.90 and Reactive airway disease that is not asthma R09.89 [facility] IN [facility] [address] [place] [id number] [place] [address] May, Cellulitis of right lower leg L03.115 and Insect bite ( nonvenomous), right lower leg, initial encounter S80.861A [place] [address] [place] [id number] [place] [address] 04334- 2289 February, [place] [address] [place] [id number] [place] [address] 83997- 4659 February, Type 2 diabetes mellitus with diabetic chronic kidney disease, 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 ; Essential hypertension I10 ; CAD ( coronary artery disease) I25.10 ; Heartburn R12 ; Arthritis M19.90 ; H/O motion sickness Z87.898 and Facial paresthesia R20.9 [facility] [place] [facility] [address] [place] [id number] [place] [address] 66150- 6387 February, Type 2 diabetes mellitus with diabetic chronic kidney disease, 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 ; Essential hypertension I10 ; CAD ( coronary artery disease) I25.10 ; Heartburn R12 ; Arthritis M19.90 and H/O motion sickness Z87.898 [place] [address] [place] [address] Dec, [facility] [place] [facility] [id number] [place] [address] 95374- 5582 Dec, [facility] [place] [facility] [address] [place] [id number] [place] [address] 24362- 0835 Oct, Type 2 diabetes mellitus with diabetic chronic kidney disease, 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 ; Essential hypertension I10 ; CAD ( coronary artery disease) I25.10 ; Heartburn R12 and Arthritis M19.90 [facility] [place] [facility] [address] [place] [id number] [place] [address] 10762- 9539 Aug, [facility] [place] [facility] [address] [place] [id number] [place] [address] 14345- 9034 Jul, [place] [address] [place] [id number] [place] [address] 71516- 4381 Jun, Type 2 diabetes mellitus with diabetic chronic kidney disease, 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 ; Essential hypertension I10 ; CAD ( coronary artery disease) I25.10 ; Heartburn R12 ; Screening for hyperlipidemia Z13.220 and Arthritis M19.90 [place] [id number] [place] [address] 81548- 7830 Mar, [facility] [place] [facility] [id number] [place] [address] 64805- 1368 Mar, Cubital tunnel 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 G56.22 [facility] [place] [facility] [id number] [place] [address] 91330- 7648 February, Type 2 diabetes mellitus with diabetic chronic kidney disease, 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 ; Essential hypertension I10 ; CAD ( coronary artery disease) I25.10 and Heartburn R12 [facility] [place] [facility] [id number] [place] [address] 80535- 4346 February, [facility] [place] [facility] [id number] [place] [address] 36922- 8198 February, [facility] [place] [facility] [address] [place] [id number] [place] [address] 57724- 2874 Jan, [facility] [place] [facility] [address] [place] [id number] [place] [address] 46537- 5279 Jan, [facility] [place] [facility] [address] [place] [id number] [place] [address] 02860- 2163 Dec, [facility] [place] [facility] [address] [place] [id number] [place] [address] 82637- 9139 Dec, [facility] [place] [facility] [address] [address] Dec, Essential hypertension I10 ; CAD (coronary artery disease) I25.10 ; Type 2 diabetes mellitus with diabetic chronic kidney disease, 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 and Left hand pain M79.642 [place] [address] [place] [id number] [place] [address] 59323- 1064 14 Dec, 2015 [place] [address] 51469- [address]44 Dec, [facility] [place] [facility] [address] [place] [id number] [place] [address] 54831- 9182 Nov, CAD (coronary artery disease) I25.10 and Cough R05 [place] [address] [place] [id number] [place] [address] 35058- 8895 Nov, [facility] [place] [facility] [address] [place] [id number] [place] [address] 60795- 0854 Nov, Essential hypertension I10 ; Edema R60.9 ; Type 2 diabetes mellitus with diabetic chronic kidney disease, 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 ; Arthritis M19.90 and Sinusitis J32.9 [place] [address] [place] [id number] [place] [address] 34010- 7086 Jul, Upper respiratory tract infection, unspecified upper respiratory infection J06.9 [facility] [place] [facility] [address] [place] [id number] [place] [address] 73182- 9502 Apr, Diabetes 250.00 ; Edema 782.3 ; Hypertension 401.9 ; Arthritis 716.90 and Lumbar back pain 724.2 [facility] [address] [id number] [place] [address]- [address]39 Jan, [facility] [place] [facility] [address] [id number], [place] [address] 9[address] Jan, [facility] [place] [facility] [address] [facility] [id number] [place] [address]- 2558 Oct, [facility] [place] [facility] [address] [id number], [place] [address] 6016 Oct, [facility] [place] [facility] [address] [id number] [place] [address]- 4485 Sep, [facility] [place] [facility] [address] [facility] [id number] [place] [address]- 3471 Sep, [facility] [address] [id number] [address] 47[address] Mar, [facility] [place] [facility] [address] [id number], [place] [address]- 9925 Mar, [facility] [place] [facility] [address] [id number], [place] [address]- 8890 Mar, [facility] [place] [facility] [address] [facility] [id number], [place] [address]- 8540 Mar, [facility] [place] [facility] [address] [facility] [id number], [place] [address]- 7318 Mar, [facility] [place] [facility] [address] [facility] [id number], [place] [address]- 7209 Mar, [facility] [place] [facility] [address] [facility] [id number], [place] [address]- 9235 February, [facility] [place] [facility] [address] [facility] [id number] [place] [address]- 8682 February, [facility] [place] [facility] [address] [facility] [id number] [place] [address]- 7710 February, [facility] [place] [facility] [address] [id number] [place] [address]- 6209 February, [facility] [place] [facility] [address] [id number] [place] [address]- 4314 Dec, [facility] [place] [facility] [address] [id number] [place] [address]- 1648 Dec, [facility] [place] [facility] [address] [id number] [place] [address]- 6164 Nov, [facility] [place] [facility] [address] [id number] [place] [address]- 4745 Nov, [facility] [place] [facility] [address] [id number] [place] [address]- 0855 Nov, [facility] [place] [facility] [address] [id number] [place] [address]- 2924 Nov, [facility] [place] [facility] [address] [id number] [place] [address]- 8483 Nov, [facility] [place] [facility] [address] [id number] [place] [address]- 8596 Nov, [facility] [place] [facility] [address] [facility] [id number] [place] [address]- 6264 Aug, [facility] [place] [facility] [address] [id number] [place] [address]- 7873 Aug, [facility] [place] [facility] [address] [id number] [place] [address]- 3387 Jul, [facility] [place] [facility] [address] [id number] [place] [address]- 4025 Jul, [facility] [place] [facility] [address] [id number] [place] [address]- 8933 Jul, [facility] [place] [facility] [address] [id number] [place] [address]- 4395 Jul, [facility] [place] [facility] [address] [id number] [place] [address]- 7736 Jul, [facility] [address] [id number] [place] [address]- 6897 Jul, [facility] [address] [id number] [place] [address]- 2000 May, [facility] [address] [id number] [place] [address]- 0267 Apr, [facility] [place] [facility] [address] [id number] [place] [address]- 2271 Apr, [facility] [address] [id number] [place] [address]- 2864 Apr, [facility] [address] [id number] [place] [address]- 1849 Apr, [facility] [address] [id number] [place] [address]- 4311 Apr, [facility] [place] [facility] [address] [id number] [place] [address]- 1082 Jan, [facility] [address] [id number] [place] [address]- 6349 Jan, [facility] [place] [facility] [address] [id number] [place] [address]- 0638 Jan, [facility] [address] [id number] [place] [address]- 2026 Dec, [facility] [place] [facility] [address] [id number], [place] [address]- 3002 Oct, [facility] [place] [facility] [address] [id number] [place] [address]- 9312 Sep, [facility] [place] [facility] [address] [id number] [place] [address]- 0155 Sep, [facility] [place] [facility] [address] [id number] [place] [address]- 5609 February, [facility] [place] [facility] [address] [id number], [place] [address]- 2546 February, [facility] [place] [facility] [address] [id number], [place] [address]- 1546 Jan, [facility] [place] [facility] [address], [place] [address]- 6076 Aug, [facility] [place] [facility] [address] [id number], [place] [address]- 9056 Aug, [facility] [place] [facility] [address], [place] [address]- 2546 Aug, [facility] [place] [facility] [address], [place] [address]- 3505 Aug, [facility] [place] [facility] [id number], [place] [address] Jul, [facility] [id number], [place] [address] Jul, [facility] [address] [id number], [place] [address] Jul, IMMUNIZATIONS No Known Immunizations SOCIAL HISTORY Never Assessed REASON FOR VISIT [facility] [place] VITAL SIGNS MEDICATIONS No [...] SURGICAL BREAST BIOPSY Hospitalization History Surgery(s)/Childbirth(s) only Hospitalization History [facility] for 2018
--- OUTSIDE RECORDS SUMMARY | 2019-02-15 19:58 | XMS REPORT ---
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 Active 93687184 Problem Atrial fibrillation, unspecified type I48.91 Active 10090179 Problem CAD (coronary artery disease) I25.10 Active 67823529 Problem Heartburn R12 Active 19278290 Problem H/O motion sickness Z87.898 Active 153466393 Problem Morbid (severe) obesity due to excess calories E66.01 Active 765205505 ALLERGIES No Information ENCOUNTERS Encounter Location Date Diagnosis [place] [address] [address] Dec, Other chest pain R07.89 [place] [address] [place] [id number] [place] [address]191- [address] 12 Nov, 2018 Atrial fibrillation, unspecified type I48.91 [place] [address] [place] [id number] [place] [address] 95182- 8209 Nov, [facility] [address] [place] [id number] [place] [address] 74599- 2295 Nov, [place] [address] [address] 08 Nov, 2018 Type 2 diabetes mellitus with diabetic chronic kidney disease, 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 and Arthritis M19.90 [place] [address] [address] Oct, Type 2 diabetes mellitus with diabetic chronic kidney disease, 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 [place] [address] [place] [id number] [place] [address] 62964- 0167 Aug, Type 2 diabetes mellitus with diabetic chronic kidney disease, 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 [address]- [address] Aug, Type 2 diabetes mellitus with diabetic chronic kidney disease, 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 ; Essential hypertension I10 ; Encounter for immunization Z23 ; CAD (coronary artery disease) I25.10 ; Arthritis M19.90 and BMI 40.0-44.9, adult Z68.[address] [address]- [address] Aug, [address] [address]- [address] Jul, Type 2 diabetes mellitus with diabetic chronic kidney disease, 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 [place] [address] [place] [id number] [place] [address] 65061- 4941 Jun, [facility] [place] [id number] [place] [address] 84537 -1173 Jun, Cough R05 and BMI 40.0-44.9, adult Z68.41 [place] [id number] [place] [address] 00399- 3593 Mar, Type 2 diabetes mellitus with diabetic chronic kidney disease, 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 ; Essential hypertension I10 ; Arthritis M19.90 ; Edema R60.9 ; Body mass index (BMI) of 40.0-44.9 in adult Z68.41 and Morbid (severe) obesity due to excess calories E66.01 [facility] [place] [id number] [place] [address] 11548 -6697 27 Nov, 2017 Cough R05 and BMI 40.0-44.9, adult Z68.41 [address] [place] [address] 14 Nov, 2017 Type 2 diabetes mellitus [...] and Long-term use of high-risk medication Z79.899 [place] [address] [place] [id number] [place] [address] 02374- 9815 03 Jul, 2017 Type 2 diabetes mellitus with diabetic chronic kidney disease, 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 ; Essential hypertension I10 ; CAD ( coronary artery disease) I25.10 ; Heartburn R12 ; Arthritis M19.90 and Reactive airway disease that is not asthma R09.89 [facility] [address] [place] [id number] [place] [address]891 -0926 May, Cellulitis of right lower leg L03.115 and Insect bite ( nonvenomous), right lower leg, initial encounter S80.861A [place] [address] [place] [id number] [place] [address] 85745- 3468 February, [place] [address] [place] [id number] [place] [address] 95026- 1085 February, Type 2 diabetes mellitus with diabetic chronic kidney disease, 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 ; Essential hypertension I10 ; CAD ( coronary artery disease) I25.10 ; Heartburn R12 ; Arthritis M19.90 ; H/O motion sickness Z87.898 and Facial paresthesia R20.9 [facility] [address] [place] [id number] [place] [address] 33716- 3367 February, Type 2 diabetes mellitus with diabetic chronic kidney disease, 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 ; Essential hypertension I10 ; CAD ( coronary artery disease) I25.10 ; Heartburn R12 ; Arthritis M19.90 and H/O motion sickness Z87.898 [place] [address] [id number] [address] Dec, [facility] [id number] [place] [address] 08786- 2349 Dec, [facility] [address] [place] [id number] [place] [address] 88011- 7402 Oct, Type 2 diabetes mellitus with diabetic chronic kidney disease, 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 ; Essential hypertension I10 ; CAD ( coronary artery disease) I25.10 ; Heartburn R12 and Arthritis M19.90 [facility] [address] [place] [id number] [place] [address] 80980- 4629 Aug, [facility] [address] [place] [id number] [place] [address] 34636- 6708 Jul, [place] [address] [place] [id number] [place] [address] 55127- 1824 Jun, Type 2 diabetes mellitus with diabetic chronic kidney disease, 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 ; Essential hypertension I10 ; CAD ( coronary artery disease) I25.10 ; Heartburn R12 ; Screening for hyperlipidemia Z13.220 and Arthritis M19.90 [place] [address] [place] [address] 18981- 1600 Mar, [facility] [address] [place] [address] 48798- 6451 Mar, Cubital tunnel 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 G56.22 [facility] [address] [place] [address] 73482- 7974 February, Type 2 diabetes mellitus with diabetic chronic kidney disease, 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 ; Essential hypertension I10 ; CAD ( coronary artery disease) I25.10 and Heartburn R12 [facility] [address] [place] [address] 24655- 2054 February, [facility] [address] [place] [address] 45355- 1352 February, [facility] [address] [place] [id number] [place] [address] 68031- 8392 Jan, [facility] [address] [place] [id number] [place] [address] 17369- 9618 Jan, [facility] [address] [place] [id number] [place] [address] 00401- 4911 Dec, [facility] [address] [place] [id number] [place] [address] 79180- 2054 Dec, [facility] [address] 03260- 3141 Dec, Essential hypertension I10 ; CAD (coronary artery disease) I25.10 ; Type 2 diabetes mellitus with diabetic chronic kidney disease, 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 and Left hand pain M79.642 [place] [address] [place] [id number] [place] [address] 09076- 0786 14 Dec, 2015 [place] [address] 28241- 0364 Dec, [facility] [address] [place] [id number] [place] [address] 62784- 3792 Nov, CAD (coronary artery disease) I25.10 and Cough R05 [place] [address] [place] [id number] [place] [address] 80103- 4595 Nov, [facility] [address] [place] [id number] [place] [address] 48490- 9042 Nov, Essential hypertension I10 ; Edema R60.9 ; Type 2 diabetes mellitus with diabetic chronic kidney disease, 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 ; Arthritis M19.90 and Sinusitis J32.9 [place] [address] [place] [id number] [place] [address] 68075- 1147 Jul, Upper respiratory tract infection, unspecified upper respiratory infection J06.9 [facility] [address] [place] [id number] [place] [address] 65889- 4859 Apr, Diabetes 250.00 ; Edema 782.3 ; Hypertension 401.9 ; Arthritis 716.90 and Lumbar back pain 724.2 [facility] [address] [id number] [place] [address]- 9303 Jan, [facility] [place] [facility] [address] [id number] [address]- 0383 Jan, [facility] [place] [facility] [address] [facility] [id number] [place] [address]- 5323 Oct, [facility] [place] [facility] [address] [id number] [address]- 1476 Oct, [facility] [place] [facility] [address] [id number] [place] [address]- 7969 Sep, [facility] [place] [facility] [address] [facility] [id number] [place] [address]- 7211 Sep, [facility] [address] [id number] [address]- 2341 Mar, [facility] [place] [facility] [address] [id number] [address]- 1805 Mar, [facility] [place] [facility] [address] [id number] [place] [address]- 2525 Mar, [facility] [place] [facility] [address] [facility] [id number] [address]- 8132 Mar, [facility] [place] [facility] [address] [facility] [id number] [place] [address]- 0939 Mar, [facility] [place] [facility] [address] [facility] [id number] [place] [address]- 0798 Mar, [facility] [place] [facility] [address] [facility] [id number] [place] [address]- 3273 February, [facility] [place] [facility] [address] [facility] [id number] [place] [address]- 7776 February, [facility] [place] [facility] [address] [facility] [id number] [place] [address]- 1809 February, [facility] [place] [facility] [address] [id number] [place] [address]- 8179 February, [facility] [place] [facility] [address] [id number] [place] [address]- 7858 Dec, [facility] [place] [facility] [address] [id number] [place] [address]- 2434 Dec, [facility] [place] [facility] [address] [id number] [place] [address]- 8498 Nov, [facility] [place] [facility] [address] [id number] [place] [address]- 0798 Nov, [facility] [place] [facility] [address] [id number] [place] [address]- 8349 Nov, [facility] [place] [facility] [address] [id number] [place] [address]- 3466 Nov, [facility] [place] [facility] [address] [id number] [place] [address]- 0746 Nov, [facility] [place] [facility] [address] [id number] [place] [address]- 7851 Nov, [facility] [place] [facility] [address] [facility] [id number] [place] [address]- 4394 Aug, [facility] [place] [facility] [address] [id number] [place] [address]- 5576 Aug, [facility] [place] [facility] [address] [id number] [place] [address]- 3083 Jul, [facility] [place] [facility] [address] [id number] [place] [address]- 3531 Jul, [facility] [place] [facility] [address] [id number] [place] [address]- 1616 Jul, [facility] [place] [facility] [address] [id number] [place] [address]- 3433 Jul, [facility] [place] [facility] [address] [id number] [place] [address]- 0736 Jul, [facility] [address] [id number] [place] [address]- 7395 Jul, [facility] [address] [id number] [place] [address]- 0809 May, [facility] [address] [id number] [place] [address]- 9887 Apr, [facility] [place] [facility] [address] [id number] [place] [address]- 5173 Apr, [facility] [address] [id number] [place] [address]- 6771 Apr, [facility] [address] [id number] [place] [address]- 1429 Apr, [facility] [address] [id number] [place] [address]- 5622 Apr, [facility] [place] [facility] [address] [id number] [place] [address]- 0601 Jan, [facility] [address] [id number] [place] [address]- 5358 Jan, [facility] [place] [facility] [address] [id number] [place] [address]- 2363 Jan, [facility] [address] [id number] [place] [address]- 4663 Dec, [facility] [place] [facility] [address] [id number] [address]- 2366 Oct, [facility] [place] [facility] [address] [id number] [place] [address]- 6524 Sep, [facility] [place] [facility] [address] [id number] [place] [address]- 0604 Sep, [facility] [place] [facility] [address] [id number] [place] [address]- 2981 February, [facility] [place] [facility] [address] [id number] [address]- 7516 February, [facility] [address] [id number] 96[address] Jan, [facility] [address] [address]- 3572 Aug, [facility] [address] [address]- 3580 Aug, [facility] [address] [address]- 2510 Aug, [facility] [address] [address]- 0015 Aug, [facility] [address] [address]- 6228 Jul, [facility] [address] [address]- 2192 Jul, [facility] [address] [id number] [address]- 6002 Jul, IMMUNIZATIONS No Known Immunizations SOCIAL HISTORY Never Assessed REASON FOR VISIT [facility] PLAN OF CARE VITAL SIGNS MEDICATIONS Medication Instructions Dosage Frequency Start Date End Date Duration Status Cipro 500 mg 1 tablet by Oral route every 12 hours for 10 day(s) February Active Hydrocodone-Acetaminophen 5-325 mg 1 Tablet by Oral route 2 times per day PRN severe pain Mar, Active Hydrochlorothiazide 25 mg 1 Tablet by Oral route 1 time per day Oct Active Aleve 220 mg take 1 tablet (220 mg) by oral route every 12 hours as needed Mar, Active Amoxicillin 500 mg 1 capsule by Oral route 3 times per day for 10 days Mar, Active Celebrex 200 mg 1 capsule by Oral route 1 time per day Oct, Active Albuterol Sulfate 90 mcg/actuation 2 puffs by Inhalation route every 4-6 hours as needed PRN cough or wheezing Apr, Active RESULTS No Results PROCEDURES No Known [...] Hospitalization History Surgery(s)/Childbirth(s) only Hospitalization History [facility] for Af2018
--- OUTSIDE RECORDS SUMMARY | 2019-02-15 19:58 | XMS REPORT ---
Author Author Migration, Doctor Organization [facility] Address Unknown Phone Unavailable Care Team Providers Care Taxi Truck Driver Name Role Phone Migration, Doctor Unavailable Unavailable PROBLEMS Type Condition ICD9-CM Code FHI71-QP Code Onset Dates Condition Status SNOMED Code Problem Edema R60.9 Active 704717019 Problem Arthritis M19.90 Active 0473569 Problem Essential hypertension I10 Active 73455223 Problem Body mass index (BMI) of 40.0-44.9 in adult Z68.41 Active 507785108 Problem Type 2 diabetes mellitus with diabetic chronic kidney disease, 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 Active 64730121 Problem Atrial fibrillation, unspecified type I48.91 Active 58574462 Problem CAD (coronary artery disease) I25.10 Active 13205129 Problem Heartburn R12 Active 82452469 Problem H/O motion sickness Z87.898 Active 964414140 Problem Morbid (severe) obesity due to excess calories E66.01 Active 024715599 ALLERGIES No Information ENCOUNTERS Encounter Location Date Diagnosis [place] [address] [address] Dec, Other chest pain R07.89 [place] [address] [place] [id number] [place] [address]854- [address]64 12 Nov, 2018 Atrial fibrillation, unspecified type I48.91 [place] [address] [place] [id number] [place] [address] 05985- 2436 Nov, [facility] [address] [place] [id number] [place] [address] 52329- 6416 Nov, [place] [address] [address] 08 Nov, 2018 Type 2 diabetes mellitus with diabetic chronic kidney disease, 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 and Arthritis M19.90 [place] [address] [address] Oct, Type 2 diabetes mellitus with diabetic chronic kidney disease, 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 [place] [address] [place] [id number] [place] [address] 25355- 9393 Aug, Type 2 diabetes mellitus with diabetic chronic kidney disease, 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 [address]- [address] Aug, Type 2 diabetes mellitus with diabetic chronic kidney disease, 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 ; Essential hypertension I10 ; Encounter for immunization Z23 ; CAD (coronary artery disease) I25.10 ; Arthritis M19.90 and BMI 40.0-44.9, adult Z68.[address] [address] Aug, [address] [address]- [address] Jul, Type 2 diabetes mellitus with diabetic chronic kidney disease, 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 [place] [address] [place] [id number] [place] [address] 00171- 8169 Jun, [facility] [place] [id number] [place] [address] -[address]253 Jun, Cough R05 and BMI 40.0-44.9, adult Z68.41 [place] [id number] [place] [address]27- 3464 Mar, Type 2 diabetes mellitus with diabetic chronic kidney disease, 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 ; Essential hypertension I10 ; Arthritis M19.90 ; Edema R60.9 ; Body mass index (BMI) of 40.0-44.9 in adult Z68.41 and Morbid (severe) obesity due to excess calories E66.01 [facility] [place] [id number] [place] [address]207 -[address]28 27 Nov, 2017 Cough R05 and BMI 40.0-44.9, adult Z68.41 [address] [place] [address] 14 Nov, 2017 Type 2 diabetes mellitus [...] and Long-term use of high-risk medication Z79.899 [place] [address] [place] [id number] [place] [address] 67097- 9783 03 Jul, 2017 Type 2 diabetes mellitus with diabetic chronic kidney disease, 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 ; Essential hypertension I10 ; CAD ( coronary artery disease) I25.10 ; Heartburn R12 ; Arthritis M19.90 and Reactive airway disease that is not asthma R09.89 [facility] [address] [place] [id number] [place] [address] May, Cellulitis of right lower leg L03.115 and Insect bite ( nonvenomous), right lower leg, initial encounter S80.861A [place] [address] [place] [id number] [place] [address] 32303- 5797 February, [place] [address] [place] [id number] [place] [address] 40906- 7679 February, Type 2 diabetes mellitus with diabetic chronic kidney disease, 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 ; Essential hypertension I10 ; CAD ( coronary artery disease) I25.10 ; Heartburn R12 ; Arthritis M19.90 ; H/O motion sickness Z87.898 and Facial paresthesia R20.9 [facility] [address] [place] [id number] [place] [address] 02946- 0463 February, Type 2 diabetes mellitus with diabetic chronic kidney disease, 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 ; Essential hypertension I10 ; CAD ( coronary artery disease) I25.10 ; Heartburn R12 ; Arthritis M19.90 and H/O motion sickness Z87.898 [place] [address] [id number] [address] Dec, [facility] [id number] [place] [address] 74889- 2437 Dec, [facility] [address] [place] [id number] [place] [address] 59991- 4500 Oct, Type 2 diabetes mellitus with diabetic chronic kidney disease, 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 ; Essential hypertension I10 ; CAD ( coronary artery disease) I25.10 ; Heartburn R12 and Arthritis M19.90 [facility] [address] [place] [id number] [place] [address] 50676- 2894 Aug, [facility] [address] [place] [id number] [place] [address] 41012- 8961 Jul, [place] [address] [place] [id number] [place] [address] 87289- 6366 Jun, Type 2 diabetes mellitus with diabetic chronic kidney disease, 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 ; Essential hypertension I10 ; CAD ( coronary artery disease) I25.10 ; Heartburn R12 ; Screening for hyperlipidemia Z13.220 and Arthritis M19.90 [place] [address] [place] [address] 42633- 8394 Mar, [facility] [address] [place] [address] 78125- 4395 Mar, Cubital tunnel 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 G56.22 [facility] [address] [place] [address] 63490- 2617 February, Type 2 diabetes mellitus with diabetic chronic kidney disease, 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 ; Essential hypertension I10 ; CAD ( coronary artery disease) I25.10 and Heartburn R12 [facility] [address] [place] [address] 19701- 0417 February, [facility] [address] [place] [address] 91192- 9104 February, [facility] [address] [place] [id number] [place] [address] 86659- 3968 Jan, [facility] [address] [place] [id number] [place] [address] 55692- 4150 Jan, [facility] [address] [place] [id number] [place] [address] 25398- 9641 Dec, [facility] [address] [place] [id number] [place] [address] 89205- 4714 Dec, [facility] [address] [address]- 1186 Dec, Essential hypertension I10 ; CAD (coronary artery disease) I25.10 ; Type 2 diabetes mellitus with diabetic chronic kidney disease, 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 and Left hand pain M79.642 [place] [address] [place] [id number] [place] [address] 35108- 2515 14 Dec, 2015 [place] [address] 36053- 9714 Dec, [facility] [address] [place] [id number] [place] [address] 33688- 9622 Nov, CAD (coronary artery disease) I25.10 and Cough R05 [place] [address] [place] [id number] [place] [address] 55252- 0823 Nov, [facility] [address] [place] [id number] [place] [address] 73602- 5895 Nov, Essential hypertension I10 ; Edema R60.9 ; Type 2 diabetes mellitus with diabetic chronic kidney disease, 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 ; Arthritis M19.90 and Sinusitis J32.9 [place] [address] [place] [id number] [place] [address] 07283- 1243 Jul, Upper respiratory tract infection, unspecified upper respiratory infection J06.9 [facility] [address] [place] [id number] [place] [address] 09782- 5630 Apr, Diabetes 250.00 ; Edema 782.3 ; Hypertension 401.9 ; Arthritis 716.90 and Lumbar back pain 724.2 [facility] [address] [id number] [place] [address]- 0978 Jan, [facility] [place] [facility] [address] [id number], [place] [address]- 9456 Jan, [facility] [place] [facility] [address] [facility] [id number] [place] [address]- 9831 Oct, [facility] [place] [facility] [address] [id number], [place] [address]- 0016 Oct, [facility] [place] [facility] [address] [id number] [place] [address]- 6962 Sep, [facility] [place] [facility] [address] [facility] [id number] [place] [address]- 8955 Sep, [facility] [address] [id number] [address]- 6986 Mar, [facility] [place] [facility] [address] [id number], [place] [address]- 9834 Mar, [facility] [place] [facility] [address] [id number], [place] [address]- 9842 Mar, [facility] [place] [facility] [address] [facility] [id number], [place] [address]- 3116 Mar, [facility] [place] [facility] [address] [facility] [id number], [place] [address]- 7982 Mar, [facility] [place] [facility] [address] [facility] [id number], [place] [address]- 9014 Mar, [facility] [place] [facility] [address] [facility] [id number], [place] [address]- 5491 February, [facility] [place] [facility] [address] [facility] [id number] [place] [address]- 3319 February, [facility] [place] [facility] [address] [facility] [id number] [place] [address]- 6411 February, [facility] [place] [facility] [address] [id number] [place] [address]- 3705 February, [facility] [place] [facility] [address] [id number] [place] [address]- 7089 Dec, [facility] [place] [facility] [address] [id number] [place] [address]- 7156 Dec, [facility] [place] [facility] [address] [id number] [place] [address]- 5752 Nov, [facility] [place] [facility] [address] [id number] [place] [address]- 1333 Nov, [facility] [place] [facility] [address] [id number] [place] [address]- 3217 Nov, [facility] [place] [facility] [address] [id number] [place] [address]- 6375 Nov, [facility] [place] [facility] [address] [id number] [place] [address]- 7997 Nov, [facility] [place] [facility] [address] [id number] [place] [address]- 2425 Nov, [facility] [place] [facility] [address] [facility] [id number] [place] [address]- 1651 Aug, [facility] [place] [facility] [address] [id number] [place] [address]- 4023 Aug, [facility] [place] [facility] [address] [id number] [place] [address]- 3244 Jul, [facility] [place] [facility] [address] [id number] [place] [address]- 3301 Jul, [facility] [place] [facility] [address] [id number] [place] [address]- 3884 Jul, [facility] [place] [facility] [address] [id number] [place] [address]- 3191 Jul, [facility] [place] [facility] [address] [id number] [place] [address]- 8006 Jul, [facility] [address] [id number] [place] [address]- 8351 Jul, [facility] [address] [id number] [place] [address]- 3329 May, [facility] [address] [id number] [place] [address]- 7091 Apr, [facility] [place] [facility] [address] [id number] [place] [address]- 5676 Apr, [facility] [address] [id number] [place] [address]- 3413 Apr, [facility] [address] [id number] [place] [address]- 0677 Apr, [facility] [address] [id number] [place] [address]- 4260 Apr, [facility] [place] [facility] [address] [id number] [place] [address]- 5652 Jan, [facility] [address] [id number] [place] [address]- 0652 Jan, [facility] [place] [facility] [address] [id number] [place] [address]- 8410 Jan, [facility] [address] [id number] [place] [address]- 4324 Dec, [facility] [place] [facility] [address] [id number], [place] [address]- 6966 Oct, [facility] [place] [facility] [address] [id number] [place] [address]- 2808 Sep, [facility] [place] [facility] [address] [id number] [place] [address]- 2080 Sep, [facility] [place] [facility] [address] [id number] [place] [address]- 4925 February, [facility] [place] [facility] [address] [id number], [place] [address]- 2546 February, [facility] [address] [id number], [place] [address]- 3546 Jan, [facility] [address], [place] [address]- 2746 Aug, [facility] [address] [place] [id number] [address]- 0356 Aug, [facility] [address], [place] [address]- 2546 Aug, [facility] [address], [place] [address]- [address] Aug, [facility] [address], [place] [address]- 8555 Jul, [facility] [address], [place] [address]- 5101 Jul, [facility] [address] [id number], [place] [address]- 0778 Jul, IMMUNIZATIONS No Known Immunizations SOCIAL HISTORY Never Assessed REASON FOR VISIT [facility] PLAN OF CARE VITAL SIGNS MEDICATIONS No [...] Hospitalization History Surgery(s)/Childbirth(s) only Hospitalization History [facility] for 2018
--- OUTSIDE RECORDS SUMMARY | 2019-02-15 20:02 | XMS REPORT | Continuity of Care Document ---
Author Organization Unknown Address Unknown Allergies Active Description Code Type Severity Reaction Onset Reported/Identified Relationship to Patient Clinical Status Yes No Known Drug Allergies [id number] Drug Allergy Unknown N/A 04/20/2010 Medications There [...] MD M 461.9 SINUSITIS ACUTE 08/06/2008 MADL ADVICE LINE RN, VESNA L 401.1 ESSENTIAL HYPERTENSION BENIGN 08/06/2008 MADL ADVICE LINE RN, VESNA L 461.9 SINUSITIS ACUTE 08/06/2008 MADL ADVICE LINE RN, VESNA L 401.1 ESSENTIAL HYPERTENSION BENIGN 08/06/2008 MADL ADVICE LINE RN, VESNA L 461.9 SINUSITIS ACUTE 08/06/2008 MADL ADVICE LINE RN, VESNA L 401.1 ESSENTIAL HYPERTENSION BENIGN 08/06/2008 MADL ADVICE LINE RN, VESNA L 461.9 SINUSITIS ACUTE 11/04/2009 079.99 [...] 729.1 MYALGIA AND MYOSITIS, UNSPECIFIED 11/04/2009 MADL ADVICE LINE RN, VESNA L 079.99 UNSPECIFIED VIRAL INFECTION IN CONDITIONS CLASSIFIED ELSEWHERE AND OF UNSPECIFIED SITE 11/04/2009 MADL ADVICE LINE RN, VESNA L 724.2 LUMBAGO 11/04/2009 MADL ADVICE LINE RN, VESNA L 729.1 MYALGIA AND MYOSITIS, UNSPECIFIED 11/04/2009 MADL ADVICE LINE RN, VESNA L 079.99 UNSPECIFIED VIRAL INFECTION IN CONDITIONS CLASSIFIED ELSEWHERE AND OF UNSPECIFIED SITE 11/04/2009 MADL ADVICE LINE RN, VESNA L 724.2 LUMBAGO 11/04/2009 GAUTAM ADVICE LINE RNALDA PinedaA L 729.1 MYALGIA AND MYOSITIS, UNSPECIFIED 11/04/2009 ALDA FLOREZ APRNA L 079.99 UNSPECIFIED VIRAL INFECTION IN CONDITIONS CLASSIFIED ELSEWHERE AND OF UNSPECIFIED SITE 11/04/2009 GAUTAM ADVICE LINE RNALDA PinedaA L 724.2 LUMBAGO 11/04/2009 GAUTAM ADVICE LINE RNALDA PinedaA L 729.1 MYALGIA AND MYOSITIS, UNSPECIFIED 07/28/2010 [...] MD V76.10 BREAST SCREENING, UNSPECIFIED 07/28/2010 MADL ADVICE LINE RN, VESNA L 278.01 MORBID OBESITY 07/28/2010 MADL ADVICE LINE RN, VESNA L 285.9 ANEMIA UNSPECIFIED 07/28/2010 MADL ADVICE LINE RN, VESNA L V68.1 ISSUE OF REPEAT PRESCRIPTIONS 07/28/2010 MADL ADVICE LINE RN, VESNA L V76.10 BREAST SCREENING, UNSPECIFIED 07/28/2010 MADL ADVICE LINE RN, VESNA L 278.01 MORBID OBESITY 07/28/2010 MADL ADVICE LINE RN, VESNA L 285.9 ANEMIA UNSPECIFIED 07/28/2010 MADL ADVICE LINE RN, VESNA L V68.1 ISSUE OF REPEAT PRESCRIPTIONS 07/28/2010 MADL ADVICE LINE RN, VESNA L V76.10 BREAST SCREENING, UNSPECIFIED 07/28/2010 MADL ADVICE LINE RN, VESNA L 278.01 MORBID OBESITY 07/28/2010 MADL ADVICE LINE RN, VESNA L 285.9 ANEMIA UNSPECIFIED 07/28/2010 MADL ADVICE LINE RN, VESNA L V68.1 ISSUE OF REPEAT PRESCRIPTIONS 07/28/2010 MADL ADVICE LINE RN, VESNA L V76.10 BREAST SCREENING, UNSPECIFIED 08/15/2010 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 , BREAST 08/15/2010 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 , BREAST 08/15/2010 ZOEY SANTANA DO 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, BREAST 08/15/2010 MARIALUISA RODRIGUEZ MD 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, BREAST 08/15/2010 MARIALUISA RODRIGUEZ MD 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, BREAST 08/15/2010 MARIALUISA RODRIGUEZ MD 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, BREAST 08/15/2010 MADL ADVICE LINE RN, VESNA L 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, BREAST 08/15/2010 MADL ADVICE LINE RN, VESNA L 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, BREAST 08/15/2010 MADL ADVICE LINE RN, VESNA L 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, BREAST [...] pain, localized in the knee 01/13/2011 MADL ADVICE LINE RN, VESNA L 719.46 joint pain, localized in the knee 01/13/2011 MADL ADVICE LINE RN, VESNA L 719.46 joint pain, localized in the knee 01/13/2011 MADL ADVICE LINE RN, VESNA L 719.46 joint pain, localized in the knee 02/21/2012 788.41 URINARY FREQUENCY 02/21/2012 788.41 URINARY FREQUENCY 02/21/2012 ZOEY SANTANA DO 788.41 URINARY FREQUENCY 02/21/2012 MARIALUISA RODRIGUEZ MD 788.41 URINARY FREQUENCY 02/21/2012 MARIALUISA RODRIGUEZ MD 788.41 URINARY FREQUENCY 02/21/2012 MARIALUISA RODRIGUEZ MD 788.41 URINARY FREQUENCY 02/21/2012 MADL ADVICE LINE RN, VESNA L 788.41 URINARY FREQUENCY 02/21/2012 MADL ADVICE LINE RN, VESNA L 788.41 URINARY FREQUENCY 02/21/2012 MADL ADVICE LINE RN, VESNA L 788.41 URINARY FREQUENCY 08/10/2012 Ot 285.9 ANEMIA NOS 08/10/2012 Ot 401.9 HYPERTENSION NOS 08/10/2012 Ot 715.36 LOC OSTEOARTH NOS-L/LEG 01/03/2013 ZOEY SANTANA DO 782.3 soft tissue swelling (non-joint) [Sx] 01/03/2013 MARIALUISA RODRIGUEZ MD 782.3 soft tissue swelling (non-joint) [Sx] 01/03/2013 MARIALUISA RODRIGUEZ MD 782.3 soft tissue swelling (non-joint) [Sx] 01/03/2013 MARIALUISA RODRIGUEZ MD 782.3 soft tissue swelling (non-joint) [Sx] 01/03/2013 MADL ADVICE LINE RN, VESNA L 782.3 soft tissue swelling (non-joint) [Sx] 01/03/2013 MADL ADVICE LINE RN, VESNA L 782.3 soft tissue swelling (non-joint) [Sx] 01/03/2013 MADL ADVICE LINE RN, VESNA L 782.3 soft tissue swelling (non-joint) [Sx] 07/29/2013 MARIALUISA RODRIGUEZ MD 271.3 GLUCOSE INTOLERANCE 07/29/2013 MARIALUISA RODRIGUEZ MD V04.81 FLU SHOT 07/29/2013 MARIALUISA RODRIGUEZ MD 271.3 GLUCOSE INTOLERANCE 07/29/2013 MARIALUISA RODRIGUEZ MD M V04.81 FLU SHOT 07/29/2013 MADL ADVICE LINE RN, VESNA L 271.3 GLUCOSE INTOLERANCE 07/29/2013 MADL ADVICE LINE RN, VESNA L V04.81 FLU SHOT 07/29/2013 MADL ADVICE LINE RN, VESNA L 271.3 GLUCOSE INTOLERANCE 07/29/2013 MADL ADVICE LINE RN, VESNA L V04.81 FLU SHOT 07/29/2013 MADL ADVICE LINE RN, VESNA L 271.3 GLUCOSE INTOLERANCE 07/29/2013 MADL ADVICE LINE RN, VESNA L V04.81 FLU SHOT 12/03/2013 MARIALUISA RODRIGUEZ MD 278.00 OBESITY UNSPECIFIED 12/03/2013 MARIALUISA RODRIGUEZ MD 536.8 DYSPEPSIA AND OTHER SPECIFIED DISORDERS OF FUNCTION OF STOMACH 12/03/2013 GAUTAM KINCAID, VESNA L 278.00 OBESITY UNSPECIFIED 12/03/2013 GAUTAM KINCAID VESNA L 536.8 DYSPEPSIA AND OTHER SPECIFIED DISORDERS OF FUNCTION OF STOMACH 12/03/2013 MADPineda ADVICE LINE RN, VESNA L 278.00 OBESITY UNSPECIFIED 12/03/2013 GAUTAM KINCAID, VESNA L 536.8 DYSPEPSIA AND OTHER SPECIFIED DISORDERS OF FUNCTION OF STOMACH 12/03/2013 GAUTAM ADVICE LINE RN, VESNA L 278.00 OBESITY UNSPECIFIED 12/03/2013 GAUTAM KINCAID VESNA L 536.8 DYSPEPSIA AND OTHER SPECIFIED DISORDERS OF FUNCTION OF STOMACH 03/17/2014 ALDA FLOREZ APRNA L 462 ACUTE PHARYNGITIS 03/17/2014 MADL ADVICE LINE RN, VESNA L 462 ACUTE PHARYNGITIS 03/17/2014 MADL ADVICE LINE RN, VESNA L 462 ACUTE PHARYNGITIS 10/12/2014 JAZMINL ADVICE LINE RN, VESNA L 465.9 UPPER RESPIRATORY INFECTION 03/01/2017 [...] SWELLING OF LIMB 03/07/2017 MADL, VESNA L IMMIGRATION ATTORNEY Ot N20.9 URINARY CALCULUS, UNSPECIFIED 03/19/2017 MADL, VESNA L IMMIGRATION ATTORNEY Ot N20.9 URINARY CALCULUS, UNSPECIFIED 11/14/2018 MADL, VESNA L IMMIGRATION ATTORNEY Ot N20.9 URINARY CALCULUS, UNSPECIFIED 11/14/2018 MADL, VESNA L IMMIGRATION ATTORNEY Ot N20.9 URINARY CALCULUS, UNSPECIFIED 11/16/2018 PERRI [...] INDEX (BMI) 40.0-44.9, ADULT 11/16/2018 PERRI MADRIGAL MD Ot E03.9 HYPOTHYROIDISM, UNSPECIFIED 11/16/2018 PERRI MADRIGAL MD Ot E11.65 TYPE 2 DIABETES MELLITUS WITH HYPERGLYCE 11/16/2018 PERRI MADRIGAL MD Ot E11.9 TYPE 2 DIABETES MELLITUS WITHOUT COMPLIC 11/16/2018 PERRI MADRIGAL MD Ot E66.9 OBESITY, UNSPECIFIED 11/16/2018 PERRI MADRIGAL MD Ot E78.5 HYPERLIPIDEMIA, UNSPECIFIED 11/16/2018 PERRI MADRIGAL MD Ot E87.6 HYPOKALEMIA 11/16/2018 PERRI MADRIGAL MD Ot I10 ESSENTIAL (PRIMARY) HYPERTENSION 11/16/2018 PERRI MADRIGAL MD Ot I48.0 PAROXYSMAL ATRIAL FIBRILLATION 11/16/2018 PERRI MADRIGAL MD Ot I48.91 UNSPECIFIED ATRIAL FIBRILLATION 11/16/2018 PERRI MADRIGAL MD Ot Z68.41 BODY MASS INDEX (BMI) 40.0-44.9, ADULT 12/13/2018 VINH NASSARIS Ot E11.9 TYPE 2 DIABETES MELLITUS WITHOUT COMPLIC 12/13/2018 BERNOT, SPENCER Ot I10 ESSENTIAL (PRIMARY) HYPERTENSION 12/13/2018 BERNOT, SPENCER Ot I48.91 UNSPECIFIED ATRIAL FIBRILLATION 12/13/2018 BERNOT, SPENCER Ot K21.9 GASTRO-ESOPHAGEAL REFLUX DISEASE WITHOUT 12/13/2018 BERNOT, SPENCER Ot R07.81 PLEURODYNIA 12/13/2018 BERNOT, SPENCER Ot Z79.01 HALF-WAY (CURRENT) USE OF ANTICOAGULANT 12/13/2018 BERNOT, SPENCER Ot Z79.84 HALF-WAY (CURRENT) USE OF ORAL HYPOGLYC 12/13/2018 BERNOT, SPENCER Ot Z82.49 FAMILY HX OF ISCHEM HEART DIS AND OTH DI 12/16/2018 BERNOT SPENCER Ot E11.9 TYPE 2 DIABETES MELLITUS WITHOUT COMPLIC 12/16/2018 BERNOT, SPENCER Ot I10 ESSENTIAL (PRIMARY) HYPERTENSION 12/16/2018 BERNOT, SPENCER Ot I48.91 UNSPECIFIED ATRIAL FIBRILLATION 12/16/2018 BERNOT, SPENCER Ot K21.9 GASTRO-ESOPHAGEAL REFLUX DISEASE WITHOUT 12/16/2018 BERNOT, SPENCER Ot R07.81 PLEURODYNIA 12/16/2018 BERNOT, SPENCER Ot Z79.01 HALF-WAY (CURRENT) USE OF ANTICOAGULANT 12/16/2018 SPENCER NASSAR Ot Z79.84 ENVIRONMENTAL ECONOMIST (CURRENT) USE OF ORAL HYPOGLYC 12/16/2018 SPENCER NASSAR Ot Z82.49 FAMILY HX OF ISCHEM HEART DIS AND OTH DI 01/22/2019 MASOOD ESPAÑA MD Ot E11.9 TYPE 2 DIABETES MELLITUS WITHOUT COMPLIC 01/22/2019 MASOOD ESPAÑA MD Ot E78.2 MIXED HYPERLIPIDEMIA 01/22/2019 MASOOD EPSAÑA MD Ot I10 ESSENTIAL (PRIMARY) HYPERTENSION 01/22/2019 MASOOD ESPAÑA MD Ot I48.91 UNSPECIFIED ATRIAL FIBRILLATION 01/29/2019 MASOOD ESPAÑA MD Ot E11.9 TYPE 2 DIABETES MELLITUS WITHOUT COMPLIC 01/29/2019 MASOOD ESPAÑA MD Ot E78.2 MIXED HYPERLIPIDEMIA 01/29/2019 MASOOD ESPAÑA MD Ot I10 ESSENTIAL (PRIMARY) HYPERTENSION 01/29/2019 MASOOD ESPAÑA MD Ot I48.91 UNSPECIFIED ATRIAL FIBRILLATION Procedures Code Description Performed By Performed On 81.54 TOTAL KNEE REPLACEMENT 08/07/2012 91639 MAMMOGRAM, SCREENING 10/11/2012 82588 ROUTINE VENIPUNCTURE 01/03/2013 17952 VENOUS DOPPLER UNILATERAL/ LIMITED 01/03/2013 27007 GLUCOSE FINGER STICK 01/03/2013 27397 A1C (IN-HOUSE) 01/03/2013 61271 CMP 01/03/2013 3372037 GFR CALC (RESULT ONLY) 01/03/2013 81639 LIPID PANEL 01/03/2013 00524 TSH 01/03/2013 16823 CBC 01/03/2013 32111 ROUTINE VENIPUNCTURE 04/08/2013 97182 BMP 04/09/2013 92622 MAGNESIUM 04/09/2013 7498425 GFR CALC (RESULT ONLY) 04/09/2013 81014 ROUTINE VENIPUNCTURE 07/29/2013 74876 A1C (IN-HOUSE) 07/29/2013 3898091 GFR CALC (RESULT ONLY) 07/29/2013 21750 BMP 07/29/2013 77487 MAGNESIUM 07/29/2013 32895 ROUTINE VENIPUNCTURE 12/03/2013 92839 A1C (IN-HOUSE) 12/03/2013 [id number] GFR CALC (RESULT ONLY) 12/03/2013 18079 BMP 12/03/2013 72332 LIPID PANEL 12/03/2013 85790 MAGNESIUM 12/03/2013 90429 ROUTINE VENIPUNCTURE 04/01/2014 63001 TSH 04/01/2014 86359 A1C (IN-HOUSE) 04/01/2014 15387 CBC 04/01/2014 27225 CMP 04/01/2014 97308 LIPID PANEL 04/01/2014 3382869 GFR CALC (RESULT ONLY) 04/01/2014 45340 A1C (IN-HOUSE) 10/12/2014 Results Test Result Range [...] 7-25 CREATININE 0.85 mg/dL 0.50-0.99 eGFR NON-AFR. [place] 73 mL/min/1.73m2 > OR=60 eGFR 85 mL/min/1.73m2 [...] NRG Blood band neutrophils/100 leukocytes 0 % NR Manual blood lymphocytes/100 leukocytes 20 % NRG Manual eosinophils/100 leukocytes in nose 1 % NRG Manual blood basophils/100 leukocytes 2 % NRG Blood lymphocytes variant/100 leukocytes 2 % NRG Blood microcytes detection by light microscopy [facility] Comprehensive metabolic panel - 11/14/18 22:01 Serum [...] FOR INFLUENZA A AND B ANTIGENS BY [facility] Complete blood count (CBC) with automated white [...] - 11/16/18 03:21 Magnesium 1.9 mg/dL 1.8-2.4 Complete blood count (CBC) with automated white blood cell (WBC) differential - 12/13/18 12:18 Blood leukocytes automated count (number/volume) 10.3 10*3/uL 4.3-11.0 Blood erythrocytes automated count (number/volume) 5.53 10*6/uL 4.35-5.85 Venous blood hemoglobin measurement (mass/volume) 14.3 g/dL 11.5-16.0 Blood hematocrit (volume fraction) 44 % 35-52 Automated erythrocyte mean corpuscular volume 80 [foz_us] 80-99 Automated erythrocyte mean corpuscular hemoglobin (mass per erythrocyte) 26 pg 25-34 Automated erythrocyte mean corpuscular hemoglobin concentration measurement ( mass/volume) 32 g/dL 32-36 Automated erythrocyte distribution width ratio 15.8 % 10.0-14.5 Automated blood platelet count (count/volume) 226 10*3/uL 130-400 Automated blood platelet mean volume measurement 10.1 [foz_us] 7.4-10.4 Automated blood neutrophils/100 leukocytes 76 % 42-75 Automated blood lymphocytes/100 leukocytes 16 % 12-44 Blood monocytes/100 leukocytes 7 % 0-12 Automated blood eosinophils/100 leukocytes 1 % 0-10 Automated blood basophils/100 leukocytes 0 % 0-10 Blood neutrophils automated count (number/volume) 7.8 10*3 1.8-7.8 Blood lymphocytes automated count (number/volume) 1.6 10*3 1.0-4.0 Blood monocytes automated count (number/volume) 0.7 10*3 0.0-1.0 Automated eosinophil count 0.1 10*3/uL 0.0-0.3 Automated blood basophil count (count/volume) 0.0 10*3/uL 0.0-0.1 Comprehensive metabolic panel - 12/13/18 12:18 Serum or plasma sodium measurement (moles/volume) 137 mmol/L 135-145 Serum or plasma potassium measurement (moles/volume) 3.9 mmol/L 3.6-5.0 Serum or plasma chloride measurement (moles/volume) 100 mmol/L 98-107 Carbon dioxide 27 mmol/L 21-32 Serum or plasma anion gap determination (moles/volume) 10 mmol/L 5-14 Serum or plasma urea nitrogen measurement (mass/volume) 9 mg/dL 7-18 Serum or plasma creatinine measurement (mass/volume) 0.86 mg/dL 0.60-1.30 Serum or plasma urea nitrogen/creatinine mass ratio 10 NRG Serum or plasma creatinine measurement with calculation of estimated glomerular filtration rate > NRG Serum or plasma glucose measurement (mass/volume) 90 mg/dL 70-105 Serum or plasma calcium measurement (mass/volume) 10.0 mg/dL 8.5-10.1 Serum or plasma total bilirubin measurement (mass/volume) 0.5 mg/dL 0.1-1.0 Serum or plasma alkaline phosphatase measurement (enzymatic activity/volume) 105 U/L 40-136 Serum or plasma aspartate aminotransferase measurement (enzymatic activity/ volume) 20 U/L 5-34 Serum or plasma alanine aminotransferase measurement (enzymatic activity/volume ) 13 U/L 0-55 Serum or plasma protein measurement (mass/volume) 7.6 g/dL 6.4-8.2 Serum or plasma albumin measurement (mass/volume) 4.2 g/dL 3.2-4.5 CALCIUM CORRECTED 9.8 mg/dL 8.5-10.1 Magnesium - 12/13/18 12:18 Magnesium 2.2 mg/dL 1.8-2.4 Serum or plasma troponin i.cardiac measurement (mass/volume) - 12/13/18 12:18 Serum or plasma troponin i.cardiac measurement (mass/volume) < ng/ mL <0.028 PT panel in platelet poor plasma by coagulation assay - 12/13/18 12:18 Prothrombin time (PT) in platelet poor plasma by coagulation assay 14.9 s 12.2-14.7 INR in platelet poor plasma or blood by coagulation assay 1.2 0.8-1.4 Activated partial thromboplastin time (aPTT) in platelet poor plasma bycoagulation assay - 12/13/18 12:18 Activated partial thromboplastin time (aPTT) in platelet poor plasma bycoagulation assay 36 s 24-35 Myoglobin, serum - 12/13/18 12:18 Myoglobin, serum 40.3 ng/mL 10.0-92.0 Lipase - 12/13/18 12:18 Lipase 16 U/L 8-78 Serum or plasma lithium measurement (moles/volume) - 12/13/18 12:18 BNP level 98.4 pg/mL <100.0 Fibrin D-dimer FEU measurement in platelet poor plasma (mass/volume) - 12:18 Fibrin D-dimer FEU measurement in platelet poor plasma (mass/volume) 0.35 ug/mL 0.00-0.49 Serum or plasma troponin i.cardiac measurement (mass/volume) - 12/13/18 14:17 Serum or plasma troponin i.cardiac measurement (mass/volume) < ng/ mL <0.028 Encounters ACCT No. Visit Date/Time Discharge Status Pt. Type Provider Facility Loc./Unit Complaint [id number] 10/12/2014 15:02:00 10/12/2014 23:59:59 CLS Outpatient VESNA FLOREZ APRN L [id number] 04/01/2014 09:07:00 04/01/2014 23:59:59 CLS Outpatient GAUTAM HUBBARDNALDAA L [id number] 03/17/2014 14:44:00 03/17/2014 23:59:59 CLS Outpatient GAUTAM HUBBARDNALDAA L [id number] 12/03/2013 09:36:00 12/03/2013 23:59:59 CLS Outpatient MARIALUISA RODRIGUEZ MD [id number] 07/29/2013 10:04:00 07/29/2013 23:59:59 CLS Outpatient MARIALUISA RODRIGUEZ MD [id number] 04/08/2013 15:19:00 04/08/2013 23:59:59 CLS Outpatient MARIALUISA RODRIGUEZ MD [id number] 01/03/2013 10:20:00 01/03/2013 23:59:59 CLS Outpatient ZOEY SANTANA DO [id number] 10/10/2012 11:18:00 10/10/2012 23:59:59 CLS Outpatient [id number] 08/05/2012 00:00:00 08/05/2012 23:59:59 CLS Outpatient [id number] 02/07/2017 08:07:00 Document Registration [id number] 11/08/2016 08:40:00 Document Registration [id number] 06/22/2016 08:07:00 Document Registration [id number] 12/18/2018 14:20:00 12/18/2018 23:59:59 CLS Outpatient BEKAH [facility] [id number] 08/23/2018 09:00:00 Document Registration [id number] 03/26/2018 10:00:00 Document Registration [id number] 11/21/2017 08:00:00 Document Registration [id number] 07/10/2017 08:20:00 Document Registration [id number] 07/11/2017 09:10:00 Document Registration [id number] 12/18/2018 08:24:00 12/18/2018 23:59:59 CLS Outpatient MASOOD ESPAÑA MD [facility] CARD AF, DIABETES MELLITUS, HTN [id number] 12/13/2018 12:08:00 12/13/2018 15:07:00 DIS Emergency SPENCER NASSAR [facility] ER HEAVY FEELING IN CHEST [id number] 12/11/2018 08:41:00 12/11/2018 23:59:59 CLS Preadmit MASOOD ESPAÑA MD [facility] CARD AF, DIABETES MELLITUS, HTN [id number] 11/14/2018 23:20:00 11/16/2018 10:40:00 DIS Inpatient ROHAN HERR, PERRI Pineda [facility] ICU AFIB W/RVR;HYPOKALEMIA, HYPOTHYROIDISM [id number] 11/22/2017 11:15:00 11/22/2017 23:59:59 CLS Preadmit MADL, VESNA L IMMIGRATION ATTORNEY [facility] RAD SCREENING [id number] 03/01/2017 09:33:00 03/01/2017 23:59:59 CLS Outpatient MADL, VESNA L IMMIGRATION ATTORNEY [facility] RAD R20.9 FACIAL PARESTHESIA [id number] 02/18/2015 11:53:00 02/18/2015 23:59:59 CLS Outpatient LYLA DOSS IMMIGRATION ATTORNEY [facility] QUICK [id number] 03/12/2013 16:07:00 03/12/2013 23:59:59 CLS Outpatient [id number] 02/15/2019 19:54:00 ACT Emergency ZACK WONG MD [facility] ER SWEATING,NAUSEAU, STOMACH ACHE [id number] 01/03/2013 12:00:00 Document Registration [id number] 08/07/2012 05:38:00 Document Registration [id number] 07/29/2012 09:50:00 Document Registration
[2019-02-15] MEDS ORDERED: NS IV 500 ML 500 ML IV ONE (20:20)
[2019-02-15 20:28] LABS: BASOPHILS # (AUTO) 0.1 10^3/uL (0.0-0.1); BASOPHILS % (AUTO) 0 % (0-10); EOSINOPHILS # (AUTO) 0.1 10^3/uL (0.0-0.3); EOSINOPHILS % (AUTO) 1 % (0-10); HEMATOCRIT 47 % (35-52); HEMOGLOBIN 15.8 G/DL (11.5-16.0); LYMPHOCYTES # (AUTO) 1.5 X 10^3 (1.0-4.0); LYMPHOCYTES % (AUTO) 8 % (12-44); MEAN CORPUSCULAR HEMOGLOBIN 27 PG (25-34); MEAN CORPUSCULAR HGB CONC 34 G/DL (32-36); MEAN CORPUSCULAR VOLUME 80 FL (80-99); MEAN PLATELET VOLUME 10.7 FL (7.4-10.4); MONOCYTES # (AUTO) 1.1 X 10^3 (0.0-1.0); MONOCYTES % (AUTO) 5 % (0-12); NEUTROPHILS # (AUTO) 16.9 X 10^3 (1.8-7.8); NEUTROPHILS % (AUTO) 86 % (42-75); PLATELET COUNT 301 10^3/uL (130-400); RED CELL DISTRIBUTION WIDTH 16.2 % (10.0-14.5); WHITE BLOOD COUNT 19.6 10^3/uL (4.3-11.0)
--- NOTE | 2019-02-15 20:32 | ED Abdominal Pain ---
General Chief Complaint: Abdominal/GI Problems Stated Complaint: SWEATING,NAUSEAU, STOMACH ACHE Nursing Triage Note: Pt to room #8 via ed w/c by ed staff [facility] with c/o bilat lower abd discomfort, nausea, vomiting, weakness, and diaphoresis. 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 Pt reports x1 episode of loose stool while in waiting room. Sepsis Screen: No Definite Risk Source of Information: Patient Exam Limitations: No Limitations History of Present Illness Date Seen by Provider: February 15, 2019 Time Seen by Provider: 20:17 Initial Comments Here from home with report of nausea, vomiting, weakness and sweating. Apparently she ate at a local [place] restaurant. About 30 minutes after eating she started getting lower abdominal cramping and pain and nausea and vomiting. Others that same food did not have any illness. Patient does have history of A. fib and states that maybe she shouldn't have eaten this type of food. States that the abdominal pain is resolved now after vomiting. She states she vomited a few times and a large amount. Denies diarrhea. Does have decreased stools recently but that is not uncommon for her she states. Did have loose stool while in the waiting room on arrival here. Denies chest pain or breathing problems. They did call EMS to the house and she reports that her blood sugar was normal as well as her blood pressure when they came so she elected to come to the emergency department via POV. Timing/Duration: 1-3 Hours, Changing Over Time Severity/Quality: Moderate, Cramping Location: RLQ, LLQ Radiation: No Radiation Activities at Onset: None Modifying Factors: Improves With Defecating; Worsens With Eating; Improves With Vomiting Associated Symptoms: No Back Pain, No Chest Pain; Diaphoresis; No Fever/Chills , No Heartburn; Nausea/Vomiting; No Shortness of Air, No Swelling/Mass in Abdomen, No Syncope; Weakness Allergies and Home Medications Allergies Coded Allergies: No Known Drug Allergies (Unverified , 04/20/10) Home Medications Acetaminophen 500 Mg Tablet, 1,000 MG PO Q6H PRN for PAIN-MILD, (Reported) Amiodarone HCl 200 Mg Tablet, 200 MG PO BID Prescribed by: MASOOD ESPAÑA on 11/16/18 0812 Apixaban 5 Mg Tablet, 5 MG PO BID Prescribed by: MASOOD ESPAÑA on 11/16/18 0812 Atenolol 100 Mg Tablet, 100 MG PO DAILY, (Reported) Celecoxib 200 Mg Capsule, 200 MG PO DAILY, (Reported) Exenatide Microspheres 2 Mg/0.65 Ml Pen.injctr, 2 MG SC Th, (Reported) Hydrochlorothiazide 25 Mg Tablet, 25 MG PO DAILY, (Reported) Lisinopril 5 Mg Tablet, 5 MG PO DAILY, (Reported) Metformin HCl 500 Mg Tab.er.24h, 1,000 MG PO 1730, (Reported) TAKES 2 (500MG) TABLETS Omeprazole 40 Mg Capsule.dr, 40 MG PO DAILY, (Reported) Patient Home Medication List Home Medication List Reviewed: Yes Review of Systems Review of Systems Constitutional: see HPI; No chills; diaphoresis; No fever EENTM: No Symptoms Reported Respiratory: No Symptoms Reported Gastrointestinal: See HPI Genitourinary: No Symptoms Reported Musculoskeletal: no symptoms reported Skin: no symptoms reported All Other Systems Reviewed Negative Unless Noted: Yes Past Uenpecv-Xtjfbh-Ldtlhq Hx Past Med/Social Hx: Reviewed Nursing Past Med/Soc Hx Patient Social History Alcohol Use: Denies Use Recreational Drug Use: No Smoking Status: Never a Smoker 2nd Hand Smoke Exposure: No Recent Foreign Travel: No Contact w/Someone Who Travel: No Recent Infectious Disease Expo: No Recent Hopitalizations: No Immunizations Up To Date Date of Influenza Vaccine: Aug 15, 2018 Past Medical History Surgeries: Yes (CA LUMP REMOVED FROM THROAT, ) Respiratory: Yes (USES INHALER WHEN SHE HAS A COLD) Cardiac: Yes Hypertension Neurological: No Reproductive Disorders: No Gastrointestinal: Yes Gastroesophageal Reflux Musculoskeletal: Yes Endocrine: Yes Diabetes, Non-Insulin dep Cancer: Yes Did You Recieve Any Treatments: Yes What Type of Treatment Did You: 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 Psychosocial: No Blood Disorders: No Family Medical History Reviewed Nursing Family Hx Heart Disease Physical Exam Vital Signs Vital Signs - First Documented 02/15/19 20:00 Temp 97.8 Pulse 76 Resp 17 B/P (MAP) 102/77 (85) Pulse Ox 100 O2 Delivery Room Air Capillary Refill : Less Than 3 Seconds Height/Weight/BMI Height: 5'6.00" Weight: 240lbs. 0.0oz. [id number]; 40.0 BMI Method:Stated General Appearance: WD/WN, no apparent distress HEENT: PERRL/EOMI, pharynx normal Neck: full range of motion, supple Respiratory: lungs clear, normal breath sounds Cardiovascular: regular rate, rhythm, no murmur Gastrointestinal: non tender, soft Extremities: non-tender, normal inspection Back: normal inspection, no CVA tenderness, no vertebral tenderness Neurologic/Psychiatric: alert, oriented x 3 Skin: normal color, warm/dry Progress/Results/Core Measures Results/Orders Lab Results Laboratory Tests Test 02/15/19 20:12 02/15/19 21:33 Range/Units White Blood Count 19.6 H 4.3-11.0 10^3/uL Red Blood Count 5.85 4.35-5.85 10^6/uL Hemoglobin 15.8 11.5-16.0 G/DL Hematocrit 47 35-52 % Mean Corpuscular Volume 80 80-99 FL Mean Corpuscular Hemoglobin 27 25-34 PG Mean Corpuscular Hemoglobin Concent 34 32-36 G/DL Red Cell Distribution Width 16.2 H 10.0-14.5 % Platelet Count 301 130-400 10^3/uL Mean Platelet Volume 10.7 H 7.4-10.4 FL Neutrophils (%) (Auto) 86 H 42-75 % Lymphocytes (%) (Auto) 8 L 12-44 % Monocytes (%) (Auto) 5 0-12 % Eosinophils (%) (Auto) 1 0-10 % Basophils (%) (Auto) 0 0-10 % Neutrophils # (Auto) 16.9 H 1.8-7.8 X 10^3 Lymphocytes # (Auto) 1.5 1.0-4.0 X 10^3 Monocytes # (Auto) 1.1 H 0.0-1.0 X 10^3 Eosinophils # (Auto) 0.1 0.0-0.3 10^3/uL Basophils # (Auto) 0.1 0.0-0.1 10^3/uL Neutrophils % (Manual) 85 % Lymphocytes % (Manual) 9 % Monocytes % (Manual) 2 % Eosinophils % (Manual) 0 % Basophils % (Manual) 0 % Band Neutrophils 1 % Reactive Lymphocytes 3 % Anisocytosis SLIGHT Sodium Level 138 135-145 MMOL/L Potassium Level 3.7 3.6-5.0 MMOL/L Chloride Level 101 98-107 MMOL/L Carbon Dioxide Level 21 21-32 MMOL/L Anion Gap 16 H 5-14 MMOL/L Blood Urea Nitrogen 19 H 7-18 MG/DL Creatinine 1.33 H 0.60-1.30 MG/DL Estimat Glomerular Filtration Rate 40 BUN/Creatinine Ratio 14 Glucose Level 141 H 70-105 MG/DL Calcium Level 9.9 8.5-10.1 MG/DL Corrected Calcium 9.6 8.5-10.1 MG/DL Total Bilirubin 0.6 0.1-1.0 MG/DL Aspartate Amino Transf (AST/SGOT) 22 5-34 U/L Alanine Aminotransferase (ALT/SGPT) 20 0-55 U/L Alkaline Phosphatase 104 40-136 U/L Troponin I < 0.028 <0.028 NG/ML C-Reactive Protein High Sensitivity 1.71 H 0.00-0.50 MG/DL Total Protein 8.0 6.4-8.2 GM/DL Albumin 4.4 3.2-4.5 GM/DL Thyroid Stimulating Hormone (TSH) 5.90 H 0.35-4.94 UIU/ML Urine Color DARK YELLOW Urine Clarity SL CLOUDY Urine pH 5 5-9 Urine Specific [place] 1.020 1.016-1.022 Urine Protein 3+ H NEGATIVE Urine Glucose (UA) NEGATIVE NEGATIVE Urine Ketones 2+ H NEGATIVE Urine Nitrite POSITIVE H NEGATIVE Urine Bilirubin 2+ H NEGATIVE Urine Urobilinogen 8 H NORMAL MG/DL Urine Leukocyte Esterase 2+ H NEGATIVE Urine RBC (Auto) 1+ H NEGATIVE Urine RBC 0-2 /HPF Urine WBC 2-5 /HPF Urine Squamous Epithelial Cells 10-25 H /HPF Urine Crystals NONE /LPF Urine Bacteria MODERATE H /HPF Urine Casts PRESENT /LPF Urine Hyaline Casts 10-25 H /LPF Urine Mucus MODERATE H /LPF Urine Culture Indicated YES My Orders Orders - ZACK WONG MD Cbc With Automated Diff (02/15/19 20:20) Comprehensive Metabolic Panel (02/15/19 20:20) Hs C Reactive Protein (02/15/19 20:20) Thyroid Stimulating Hormone (02/15/19 20:20) Troponin I (02/15/19 20:20) Ua Culture If Indicated (02/15/19 20:20) Ed Iv/Invasive Line Start (02/15/19 20:20) Ns Iv 500 Ml (Sodium Chloride 0.9%) (02/15/19 20:20) Chest 1 View, Ap/Pa Only (02/15/19 20:20) Ekg Tracing (02/15/19 20:20) Manual Differential (02/15/19 20:12) Urine Culture (02/15/19 21:33) Medications Given in ED Current Medications Medications Dose Ordered Sig/Vielka Route Start Time Stop Time Status Last Admin Dose Admin Sodium Chloride 500 ml @ 0 mls/hr Q0M ONCE IV 02/15/19 20:20 02/15/19 20:23 DC 02/15/19 20:40 0 MLS/HR Vital Signs/I&O 02/15/19 20:00 Temp 97.8 Pulse 76 Resp 17 B/P (MAP) 102/77 (85) Pulse Ox 100 O2 Delivery Room Air Blood Pressure Mean: 85 Progress Progress Note : Progress Note Seen and evaluated. IV, labs, UA, normal saline 500 mL bolus and EKG ordered. Monitor patient. 2215: Catheter UA obtained and is nitrite positive. We will treat with Keflex 500 mg by mouth. Patient did have several episodes of diarrhea throughout the ED stay and was allowed to take her home Imodium. She states that she goes through this occasionally and that usually works. She is able to keep the Imodium down and tolerated water without difficulty. Discharged home with return precautions. Patient verbalize understanding of instructions and agreement with plan. Initial ECG Impression Date: February 15, 2019 Initial ECG Impression Time: 21:45 Initial ECG Rate: 60 Initial ECG Rhythm: Normal Sinus Initial ECG Impression: Normal Initial ECG Comparisson: Unchanged Comment Sinus rhythm with borderline T-wave abnormalities. Normal axis. No evidence of ST elevation VA. Similar to previous of 12/13/18. Interpreted by me. Diagnostic Imaging Diagonstic Imaging: Xray Plain Films/CT/US/NM/MRI: chest Comments [facility] [place] NAME: KRISTIAN KERNS [facility] REC#: [id number] PT STATUS: REG ER : 1955 PHYSICIAN: ZACK WONG MD ADMIT DATE: 02/15/19/ER Draft Date of Exam:02/15/19 CHEST 1 VIEW, AP/PA ONLY INDICATION: Chest discomfort Frontal chest obtained at 8:59 p.m. and compared to 12/13/2018. Heart and mediastinal silhouette are normal in appearance. The lungs are clear. There is no pneumothorax or pleural fluid. IMPRESSION: Negative chest. Dictated on workstation # [id number] Dict: 02/15/192108 Trans: 02/15/192112 [facility] [id number] Interpreted by: ALANA HAYES MD Electronically signed by: Departure Impression Primary Impression: Urinary tract infection Qualified Codes: N30.00 - Acute cystitis without hematuria Additional Impressions: Nausea and vomiting Qualified Codes: R11.2 - Nausea with vomiting, unspecified Diarrhea Qualified Codes: R19.7 - Diarrhea, unspecified Disposition: 01 HOME, SELF-CARE Condition: Improved Departure-Patient Inst. Decision time for Depature: 22:18 Referrals: BEKAH SUNSHINE APRN (PCP/Family) Primary Care Physician Patient Instructions: Acute Abdomen (Belly Pain), Adult (DC), Diarrhea in Adolescents and Adults, Nausea and Vomiting, Adult (DC), Urinary Tract Infection , Adult (DC) Add. Discharge Instructions: All discharge instructions reviewed with patient and/or family. Voiced understanding. Clear liquid or light diet for the next 24 hours and then advance as tolerated. Drink plenty of fluids. Take medications as directed. Follow-up with your Dr. in a few days for recheck. Return for worse pain, fever, vomiting, weakness, breathing problems or other concerns as needed. Scripts Cephalexin (Cephalexin) 500 Mg Capsule 500 MG PO BID, #10 CAP 0 Refills Prov: ZACK WONG MD 02/15/19 ZACK WONG MD February 15, 2019 20:32
[2019-02-15 20:42] LABS: ALANINE AMINOTRANSFERASE 20 U/L (0-55); ALBUMIN 4.4 GM/DL (3.2-4.5); ALKALINE PHOSPHATASE 104 U/L (40-136); BUN/CREATININE RATIO 14; CALCIUM 9.9 MG/DL (8.5-10.1); CARBON DIOXIDE 21 MMOL/L (21-32); CHLORIDE 101 MMOL/L (98-107); CREATININE SERUM 1.33 MG/DL (0.60-1.30); GFR ESTIMATED 40; GLUCOSE 141 MG/DL (70-105); POTASSIUM 3.7 MMOL/L (3.6-5.0); SODIUM 138 MMOL/L (135-145)
[2019-02-15 20:47] LABS: BAND NEUTROPHILS 1 %; BASOPHILS % (MANUAL) 0 %; EOSINOPHILS % (MANUAL) 0 %; LYMPHOCYTES % (MANUAL) 9 %; MONOCYTES % (MANUAL) 2 %; NEUTROPHILS % (MANUAL) 85 %; REACTIVE LYMPHOCYTES 3 %
[2019-02-15 20:48] LABS: ANISOCYTOSIS SLIGHT
--- NOTE | 2019-02-15 21:13 | Diagnostic Imaging Report ---
INDICATION: Chest discomfort Frontal chest obtained at 8:59 p.m. and compared to 12/13/2018. Heart and mediastinal silhouette are normal in appearance. The lungs are clear. There is no pneumothorax or pleural fluid. IMPRESSION: Negative chest. Dictated by: Dictated on workstation # [id number]
[2019-02-15 21:14] LABS: BILIRUBIN,TOTAL 0.6 MG/DL (0.1-1.0)
--- NOTE | 2019-02-15 21:25 | NUR ---
Per provider approval pt took x2 of her personal OTC immodium d/t several episodes of diarrhea throughout ED visit.
[2019-02-15 21:42] LABS: GLUCOSE, URINE (UA) NEGATIVE (NEGATIVE); KETONES,URINE 2+ (NEGATIVE); LEUKOCYTE ESTERASE ,URINE 2+ (NEGATIVE); NITRITE,URINE POSITIVE (NEGATIVE); PH,URINE 5 (5-9); PROTEIN,URINE 3+ (NEGATIVE); UROBILINOGEN,URINE 8 MG/DL (NORMAL)
[2019-02-15 21:44] LABS: CLARITY,URINE SL CLOUDY; COLOR,URINE DARK YELLOW
[2019-02-15 21:51] LABS: BACTERIA,URINE MODERATE /HPF; BILIRUBIN,URINE 2+ (NEGATIVE); RBC,URINE 0-2 /HPF
[2019-02-15] MEDS ORDERED: CEPHALEXIN 250 MG (KEFLEX) CAP PO STA (22:15)
[2019-02-15] MEDS ORDERED: CEPH500C PO (22:21)
[2019-02-15 22:29] VITALS: BP 151/97
== END 2019-02-15 22:29 | disposition home or self-care (01) ==
LOC: EDUNIT# 19:53 → ER 19:54
DX: N39.0 Urinary tract infection, site not specified (principal); R19.7 Diarrhea, unspecified; I48.91 Unspecified atrial fibrillation; I10 Essential (primary) hypertension; K21.9 Gastro-esophageal reflux disease without esophagitis; E11.9 Type 2 diabetes mellitus without complications; Z92.21 Personal history of antineoplastic chemotherapy; Z85.818 Personal history of malignant neoplasm of other sites of lip, oral cavity, and pharynx; Z82.49 Family history of ischemic heart disease and other diseases of the circulatory system; Z98.890 Other specified postprocedural states; Z79.01 Long term (current) use of anticoagulants; Z79.84 Long term (current) use of oral hypoglycemic drugs
CPT/HCPCS: 36415; 51702; 71045; 80053; 81000; 84443; 84484; 85007; 85027; 86141; 87088; 93005; 96360

== ENCOUNTER → 2019-07-10 | Outpatient (CLI) | payer MEDICARE, OTHER ==
[~2019-07-10] MED LIST changes: +CEPH500C PO
--- NOTE | 2019-07-11 15:13 | Diagnostic Imaging Report ---
EXAMINATION: Digital mammogram bilateral screening. INDICATION: Screening. COMPARISON: This study was compared to the prior exams of 08/21/2011 and 08/05/2010. At this time, there are no current complaints. The current study was also evaluated with a Computer Aided Detection (CAD) system. 3-D tomosynthesis was also performed and reviewed. FINDINGS: There are scattered fibroglandular densities in both breasts, which could obscure a lesion. In the interval since the prior exam, a 2 cm poorly defined area of increased density has developed in the mid lateral aspect of the left breast approximately 10 cm from the nipple. There are numerous pleomorphic calcifications associated with this density, and this finding is highly concerning for malignancy. I would recommend that a compression view of this area be performed in both the MLO and CC projections for further evaluation. Ultrasound should also be performed. There are a few other small nodules in the left breast as well as a stereotactic clip. These were also present on the prior exam and do not seem to have changed significantly. There does appear to be architectural distortion in the retroareolar region of the right breast. However, this finding seems similar to the prior exam. IMPRESSION: Additional mammographic views and ultrasound of the left breast would be recommended. ACR BI-RADS Category 0: Incomplete. (Needs additional imaging evaluation). Result letter will be mailed to the patient. Note: At least 10% of breast cancer is not imaged by mammography. Dictated by: Dictated on workstation # [id number]
== END ==
LOC: RAD 10:05
PROVIDERS: ATTEND Nurse Practitioner Family
DX: Z12.31 Encounter for screening mammogram for malignant neoplasm of breast (principal)
CPT/HCPCS: 77067

== ENCOUNTER → 2019-07-28 | Outpatient (CLI) | payer MEDICARE ==
--- NOTE | 2019-07-28 13:58 | Diagnostic Imaging Report ---
INDICATION: Left breast density and left breast calcifications. Patient presents for additional views. COMPARISON: Correlation is made with the recent screening study from 07/10/2019. TECHNIQUE: Unilateral left 2D and 3D diagnostic mammography was performed including magnification CC and ML views as well as conventional 90 degree lateral views. FINDINGS: There is a persistent irregular density in the outer left breast approximately 10 cm from the nipple. There are numerous suspicious microcalcifications associated with the density. This is concerning for neoplasm. IMPRESSION: Irregular density with associated pleomorphic microcalcifications in the outer left breast 10 cm from the nipple. Further evaluation of this area with ultrasound is recommended and will be performed today. ACR BI-RADS Category 0: Incomplete. (Needs additional imaging evaluation). Result letter will be mailed to the patient. Note: At least 10% of breast cancer is not imaged by mammography. Dictated by: Dictated on workstation # [id number]
--- NOTE | 2019-07-28 15:04 | Diagnostic Imaging Report ---
INDICATION: Left breast density with abnormal microcalcifications noted on recent mammogram. This study is performed for further evaluation. COMPARISON: Correlation is made with the diagnostic mammogram from earlier this same day and a screening mammogram from 07/10/2019. FINDINGS: Sonographic interrogation of the outer left breast was performed. There is an irregular region of hypoechogenicity at the 3 o'clock location of the left breast approximately 10 cm from the nipple measuring 14 mm x 12 mm x 14 mm. This likely accounts for the density noted mammographically. There is also a lymph node at the 2:30 location 10 cm from the nipple measuring 8 mm x 7 mm x 4 mm. IMPRESSION: There is an irregular area of hypoechogenicity at the 3 o'clock location of the left breast 10 cm from the nipple. This likely accounts for the density noted mammographically. Features are concerning for malignancy. Tissue sampling is recommended. This would be amenable to an ultrasound-guided core biopsy. ACR BI-RADS Category 4: Suspicious abnormality. Dictated by: Dictated on workstation # [id number]
== END ==
LOC: RAD 13:03
PROVIDERS: ATTEND Nurse Practitioner Family
DX: R92.2 Inconclusive mammogram (principal); R92.0 Mammographic microcalcification found on diagnostic imaging of breast
CPT/HCPCS: 76642

== ENCOUNTER → 2019-08-06 | Outpatient (CLI) | payer MEDICARE, OTHER ==
[~2019-08-06] MED LIST changes: +LIDOCAINE 1% INJ 20 ML 20 ML VIAL INJ ONE; +METF500T19 PO; -METF500T8 PO; +OMEP40CA27 PO; -OMEP40CA36 PO
--- NOTE | 2019-08-06 11:23 | Diagnostic Imaging Report ---
INDICATION: Left breast mass. Patient presents for ultrasound guided biopsy. PROCEDURE: Patient was brought to the procedure room and placed on the bed in the supine position. Ultrasound imaging over the left breast was performed to evaluate appropriate entry site. The left breast was then prepped and draped in usual sterile fashion. A small amount of 1% lidocaine was utilized for local anesthesia. A total of four core biopsies were made through the hypoechoic lesion at the 3 o'clock location of the left breast, 10 cm from the nipple, utilizing a 14-gauge Achieve needle. A marker clip was then deployed. Hemostasis was obtained using manual compression. Patient tolerated the procedure well and was sent for post procedure mammogram in satisfactory condition. IMPRESSION: Ultrasound-guided core biopsy of the hypoechoic mass 3 o'clock location of the left breast, 10 cm from the nipple. Pathology results are currently pending. Dictated by: Dictated on workstation # [id number]
--- NOTE | 2019-08-06 13:14 | Diagnostic Imaging Report ---
INDICATION: Left breast biopsy. FINDINGS: The patient underwent an ultrasound-guided left breast biopsy. CC and ML mammography was performed post biopsy. There is a marker clip identified within the irregular mass with microcalcifications in the outer mid left breast. IMPRESSION: The marker clip is located within the suspicious mass in the outer left breast. The Pathology results are currently pending. Dictated by: Dictated on workstation # [id number]
== END ==
LOC: RAD 10:06
PROVIDERS: ATTEND Nurse Practitioner Family
DX: N63.20 Unspecified lump in the left breast, unspecified quadrant (principal); R92.8 Other abnormal and inconclusive findings on diagnostic imaging of breast
CPT/HCPCS: 19083; 88305; 88341; 88342; 88360

== ENCOUNTER 2019-09-11 06:14 | Day surgery (SDC) | payer MEDICARE, OTHER ==
--- NOTE | 2019-09-03 14:37 | NUR ---
PREOP UPDATED MED REC, I COMPARED IT WITH THE EXT MED HX AND DID NOT SEE ANY DISCREPANCIES. TYLENOL WAS REPORTED NEEDED OTC. I DID NOT RE INTERVIEW THE PATIENT AT THIS TIME.
[~2019-09-11] VITALS: Ht 167 cm; Wt 113.6 kg
[2019-09-11] VITALS (11 sets, daily range): BP systolic 113–167; BP diastolic 62–89
[~2019-09-11 06:14] MED LIST changes: -LIDOCAINE 1% INJ 20 ML 20 ML VIAL INJ ONE
[2019-09-11] MEDS ORDERED: ceFAZolin 2 GM/50 ML NS 50 ML IV ONE (06:45)
--- NOTE | 2019-09-11 07:55 | Progress Note-Pre Operative ---
Pre-Operative Progress Note H&P Reviewed The H&P was reviewed, patient examined and no changes noted. 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
[2019-09-11] MEDS ORDERED: LIDOCAINE PF 2% 5 ML (XYLOCAINE) VIAL ONE (09:21)
[2019-09-11] MEDS ORDERED: SEVOFLURANE (ULTANE) 15 ML INHAL SOLN ONE ×9 (09:21→14:35)
[2019-09-11] MEDS ORDERED: fentaNYL INJECTION 100 MCG/2 ML AMP ONE ×2 (09:21→10:32)
[2019-09-11] MEDS ORDERED: MIDAZOLAM 2 MG/2 ML (VERSED) VIAL ONE (09:21)
[2019-09-11] MEDS ORDERED: proPOfol 200 MG/20 ML (DIPRIVAN) VIAL IV ONE (09:21)
[2019-09-11] MEDS: LACTATED RINGERS 1,000 ML IV PRN ×2 (09:24→11:33)
[2019-09-11] MEDS ORDERED: BUPIVACAINE 0.5% 30 ML (SENSORCAINE) VIAL ONE ×2 (09:25→11:58)
[2019-09-11] MEDS ORDERED: 0.9% SODIUM CHLORIDE PF INJ 20 ML VIAL ONE (09:25)
[2019-09-11] MEDS ORDERED: METHYLENE BLUE 0.5% (PROVAYBLUE) 50 mg/10 ml vial IV ONE (09:25)
[2019-09-11] MEDS ORDERED: BUP/EPI 0.5% 1:200,000 (MARCAINE) 10ML VIAL IJ ONE (09:37)
[2019-09-11] MEDS ORDERED: ONDANSETRON 4 MG/2 ML (SDV) Z0FRAN ONE (10:32)
--- NOTE | 2019-09-11 10:55 | Diagnostic Imaging Report ---
INDICATION: Breast carcinoma. Total of 1.0 mCi of filtered technetium 99 M sulfur colloid was administered in 4 separate aliquots and periareolar distribution of the left breast. Imaging was performed. Imaging does show identification of at least 2 areas of uptake in the region of the left axilla suggestive of sentinel nodes. These were marked on the patient's skin. IMPRESSION: Lymphoscintigraphy for identification of sentinel nodes. Dictated by: Dictated on workstation # [id number]
[2019-09-11] MEDS ORDERED: ONDANSETRON 4 MG/2 ML (SDV) Z0FRAN IVP PRN ×2 (12:15→17:15)
[2019-09-11] MEDS ORDERED: HYDROmorphone 2 MG/ML VIAL (DILAUDID) IV ONE (12:15)
[2019-09-11] MEDS ORDERED: morphine INJ 10 MG/ML 1ML (SYR OR VIAL) IVP ONE (12:15)
--- NOTE | 2019-09-11 13:00 | NUR ---
Pt arrived to floor via bed from recovery, report received from Anglea RN. Pt denies needs at this time, call light in reach, will continue to monitor
--- NOTE | 2019-09-11 13:42 | Anesthesia-General Post-Op ---
General Patient Condition Mental Status/LOC: Same as Preop Cardiovascular: Satisfactory Nausea/Vomiting: Absent Respiratory: Satisfactory Pain: Controlled Complications: Absent Post Op Complications Complications None Follow Up Care/Instructions Patient Instructions None needed. Anesthesia/Patient Condition Patient Condition Patient is doing well, no complaints, stable vital signs, no apparent adverse anesthesia problems. No complications reported per nursing. FERNANDEZ KAUFMAN CRNA Sep 11, 2019 13:42 POS
[2019-09-11] MEDS ORDERED: FLU QUADRIvalent (5+ YOA) 2019-2020 (AFLURIA) 0.5 ML IM ONE (14:00)
[2019-09-11] MEDS ORDERED: ceFAZolin 2 GM/50 ML NS 50 ML IV SCH (14:15)
[2019-09-11] MEDS ORDERED: ONDANSETRON 4 MG/2 ML (SDV) Z0FRAN IV PRN (14:15)
[2019-09-11] MEDS ORDERED: HYDROcodone/APAP 5 MG/325 MG (LORTAB) TAB PO PRN (14:15)
[2019-09-11] MEDS: ceFAZolin 2 GM/NS 50 ML (COMPOUNDED) IV SCH ×2 (15:02→23:04)
--- NOTE | 2019-09-11 15:59 | NUR ---
Pt requested flu shot to be administered prior to dc
--- NOTE | 2019-09-11 17:10 | Progress Note-Post Operative ---
Post-Operative Progess Note Surgeon (s)/Locator (s) Surgeon CLAUDETTE MORA DO Locator: Dr. Ward Pre-Operative Diagnosis dcis with comedonecrosis left breast Post-Operative Diagnosis same Procedure & Operative Findings Date of Procedure 09/11/19 Procedure Performed/Findings left mastectomy with sentinel node biopsy Anesthesia Type gen Estimated Blood Loss Estimated blood loss (mL): 100 mL Specimens/Packing Specimens Removed left breast and sentinel node #1 and #2 CLAUDETTE MORA DO Sep 11, 2019 17:10 POS
[2019-09-11] MEDS ORDERED: morphine INJ 10 MG/ML 1ML (SYR OR VIAL) IVP PRN (17:15)
[2019-09-11] MEDS ORDERED: NON-FORMULARY MEDICATION 1 EA EA (Exenatide Microspheres (Bydureon Pen) 2 MG) SC SCH (17:15)
[2019-09-11] MEDS ORDERED: metFORMIN XR 500 MG (GLUCOPHAGE XR) TAB PO SCH (17:30)
[2019-09-11] MEDS ORDERED: morphine INJ 4 MG/ML 1 ML (VIAL/SYRINGE) IV PRN (17:45)
[2019-09-11] MEDS: AMIODARONE 200 MG (CORDARONE) TAB PO SCH (20:12)
[2019-09-12 04:00] VITALS: BP 103/67
[2019-09-12] MEDS: ceFAZolin 2 GM/NS 50 ML (COMPOUNDED) IV SCH (07:45)
[2019-09-12 08:00] VITALS: BP 120/76
[2019-09-12] MEDS ORDERED: NON-FORMULARY MEDICATION 1 EA EA (Omeprazole 40 MG) PO SCH (09:00)
[2019-09-12] MEDS ORDERED: NON-FORMULARY MEDICATION 1 EA EA (Hydrochlorothiazide 25 MG) PO SCH (09:00)
[2019-09-12] MEDS ORDERED: lisINopril 5 MG (PRINIVIL) TABLET PO SCH (09:00)
[2019-09-12] MEDS ORDERED: HYDROCHLOROTHIAZIDE 25 MG (HCTZ) TAB PO SCH (09:00)
[2019-09-12] MEDS ORDERED: NON-FORMULARY MEDICATION 1 EA EA (Atenolol 100 MG) PO SCH (09:00)
[2019-09-12] MEDS ORDERED: PANTOPRAZOLE 40 MG (PROTONIX) TAB PO SCH (09:00)
[2019-09-12] MEDS ORDERED: ATENOLOL 50 MG (TENORMIN) TAB PO SCH (09:00)
[2019-09-12] MEDS: AMIODARONE 200 MG (CORDARONE) TAB PO SCH (09:04)
[2019-09-12] MEDS ORDERED: FLU QUADRIvalent (5+ YOA) 2019-2020 (AFLURIA) 0.5 ML IM ONE (09:04)
--- NOTE | 2019-09-12 09:09 | NUR ---
prior to a.m. medications pulse was 57 bpm and b/p was 120/76.
[2019-09-12 12:00] VITALS: BP 99/65
[2019-09-12] MEDS ORDERED: ACHD5005 PO (12:55)
--- NOTE | 2019-09-12 12:57 | Discharge Inst-Simple/Standard ---
Discharge Inst-Standard Discharge Medications New, Converted or Re-Newed RX: RX on Chart Patient Instructions/Follow Up Plan of Care/Instructions/FU: 2 weeks chavo Activity as Tolerated: No Discharge Diet: Regular Diet Other Inst to Patient Follow up Appt: Make appointment for 2 week. Instructions: No lifting greater than 10 pounds. No strenuous activity. May shower in 24 hours, no tub bath or soaking. Use incentive spirometer at home as directed. No Smoking Skin/Wound Care: May remove bandages in 24 hours. Keep dressing clean and dry changing daily. Keep track of drainage per drain bulb. When less than 30 mL in 24 hours notify office to discuss having it removed. Symptoms to Report: Appetite Changes, Extremity Discoloration, Numbness/Tingling, Swelling Increased, Bleeding Excessive, Eyesight Changes, Pain Increased, Urine Color Change, Constipation(Persistent), Fever over 101 degree F, Pain/Pressure in ches t, Urinating Difficulty, Cough Up/Vomit Blood, Heart Beat Irreg/Pounding, Pain/Pressure in jaw, Vaginal Bleeding Increase, Cramps in feet or legs, Lightheadedness, Pain/Pressure in shoulder, Diarrhea(Persistent), Memory Changes Suddenly, Questions/Concerns, Weight gain consecutive days, Dizziness/Fainting, Nausea/Vomiting, Shortness of Breath, Weight gain over 2 pounds If questions or concerns contact your physician Or seek help at emergency department. CLAUDETTE MORA DO Sep 12, 2019 12:57 POS
--- NOTE | 2019-09-12 13:05 | Progress Note - Surgery ---
Subjective Date Seen by a Provider: Sep 12, 2019 Time Seen by a Provider: 10:24 Subjective/Events-last exam patient pain controlled. tolerating diet. drains serosang no new complaints. wanting to go home. denies n/v fever sweats chills shortness of breath or chest pain. Objective Exam Vital Signs Date Time Temp Pulse Resp B/P (MAP) Pulse Ox O2 Delivery O2 Flow Rate FiO2 09/12/19 12:00 36.4 58 16 99/65 (76) 99 Room Air 09/12/19 09:00 96 Room Air 09/12/19 08:00 36.4 57 18 120/76 (91) 96 Room Air 09/12/19 04:00 36.6 58 17 103/67 (79) 97 Room Air 09/11/19 23:43 36.2 61 18 113/73 (86) 96 Room Air 09/11/19 21:00 Room Air 09/11/19 19:26 36.6 61 18 113/73 (86) 96 Room Air 09/11/19 19:02 Room Air 09/11/19 16:00 36.4 55 16 137/82 (100) 100 Room Air 09/11/19 14:28 Room Air 3.00 I & O 09/12/19 07:00 Intake Total 2420 ml Output Total 1965 ml Balance 455 ml Capillary Refill : Less Than 3 Seconds General Appearance: No Apparent Distress HEENT: PERRL/EOMI Respiratory: Chest Non Tender, No Accessory Muscle Use, No Respiratory Distress Cardiovascular: Regular Rate, Rhythm Gastrointestinal: normal bowel sounds, non tender, soft Extremity: Non Tender Neurologic/Psychiatric: Alert, Oriented x3, No Motor/Sensory Deficits, Normal Mood/Affect, director treasurer II-XII Norm as Tested Skin: Normal Color, Warm/Dry (incision c/d/i no signs of infection) Assessment/Plan Assessment/Plan Assessment/Plan left breast dcis c comedonecrosis s/p left mastectomy with sentinel node biopsy doing well wanting to go home dc instructions discussed f/u 2 weeks any issues be seen at that time. Final Diagnosis left breast dcis c comedonecrosis s/p left mastectomy with sentinel node biopsy Clinical Quality Measures DVT/VTE Risk/Contraindication: Risk Factor Score Per Nursin RFS Level Per Nursing on Admit: 4+=Very High CLAUDETTE MORA DO Sep 12, 2019 13:05 POS
[2019-09-12 14:10] VITALS: BP 99/65
[2019-09-12 14:36] VITALS: BP 99/65
--- NOTE | 2019-09-22 20:57 | OPERATIVE REPORT ---
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 PROCEDURE: Left mastectomy with sentinel node biopsy. SURGEON: Claudette Rosales DO FISH FLIPPER: Dr. Ward, assisted in retraction, dissection and closure. ANESTHESIA: General. ESTIMATED BLOOD LOSS: 100 mL. COMPLICATIONS: None. INDICATIONS: The patient is a 63-year-old female with DCIS of the left breast with comedo necrosis. She understands risks and benefits of procedure. She understands also alternative procedures. Consent was signed in the chart. DESCRIPTION OF PROCEDURE: The patient was taken to the operating suite. She was prepped and draped in sterile fashion. Surgical pause was performed. Timeout was performed. Methylene blue was injected in four locations and massaged for lymphatic spread. The patient was then reprepped and draped in sterile fashion. Timeout again was reperformed and an elliptical incision from the mediastinum, taking the nipple and previous biopsy site was then made and superior and inferior skin flaps were made just above the breast tissue in an avascular plane. Dissection was taken just above the up to the level of the clavicle and down to the rectus muscle. The pectoral muscle fascia was then removed from the medial aspect of the breast out laterally removing the skin and breast tissue. The Clari counter was used to isolate the sentinel nodes also using the methylene blue. The sentinel node #1 was isolated and dissected out with it measuring 1486 and the second was isolated with the number being 1171. The wound was then irrigated with copious amounts of irrigation Two round drains were placed in the surgical area and placed inferiorly lateral. These were secured with 3-0 silk suture. The subcutaneous tissues were then reapproximated using 2-0 and 3-0 Vicryl. The skin was then closed with lalit. The area was washed and dried and sterile bandages were applied. The patient tolerated procedure well without any complications. She was taken to recovery room in stable condition. Job ID: [id number] DocumentID: [id number] Dictated Date: 09/22/2019 14:15:28 Property Inspector Date: 09/22/2019 20:56:56 Dictated By: CLAUDETTE ROSALES DO
== END 2019-09-12 15:00 | disposition home or self-care (01) ==
LOC: SDC 06:14 → 4TH 13:00 → SDC 09-12 15:00
PROVIDERS: ATTEND Surgery
DX: D05.12 Intraductal carcinoma in situ of left breast (principal); M19.90 Unspecified osteoarthritis, unspecified site; I10 Essential (primary) hypertension; I48.91 Unspecified atrial fibrillation; E78.5 Hyperlipidemia, unspecified; E11.22 Type 2 diabetes mellitus with diabetic chronic kidney disease; R94.39 Abnormal result of other cardiovascular function study; K21.9 Gastro-esophageal reflux disease without esophagitis; E66.01 Morbid (severe) obesity due to excess calories; Z68.41 Body mass index [BMI] 40.0-44.9, adult; Z79.01 Long term (current) use of anticoagulants; Z79.84 Long term (current) use of oral hypoglycemic drugs; Z79.899 Other long term (current) drug therapy; Z80.9 Family history of malignant neoplasm, unspecified; Z96.651 Presence of right artificial knee joint; Z90.710 Acquired absence of both cervix and uterus
CPT/HCPCS: 78195; 82962; 87081; 88307; 88342; 90471; 94664

== ENCOUNTER 2019-10-16 09:05 | Outpatient (RCR) | payer MEDICARE, OTHER ==
[2019-08-18 10:48] LABS: BASOPHILS % (AUTO) 0 % (0-10); EOSINOPHILS # (AUTO) 0.1 10^3/uL (0.0-0.3); EOSINOPHILS % (AUTO) 2 % (0-10); HEMATOCRIT 45 % (35-52); HEMOGLOBIN 14.5 G/DL (11.5-16.0); LYMPHOCYTES # (AUTO) 1.6 X 10^3 (1.0-4.0); LYMPHOCYTES % (AUTO) 17 % (12-44); MEAN CORPUSCULAR HEMOGLOBIN 27 PG (25-34); MEAN CORPUSCULAR HGB CONC 32 G/DL (32-36); MEAN CORPUSCULAR VOLUME 83 FL (80-99); MEAN PLATELET VOLUME 9.9 FL (7.4-10.4); MONOCYTES # (AUTO) 0.9 X 10^3 (0.0-1.0); MONOCYTES % (AUTO) 9 % (0-12); NEUTROPHILS # (AUTO) 6.7 X 10^3 (1.8-7.8); NEUTROPHILS % (AUTO) 72 % (42-75); PLATELET COUNT 220 10^3/uL (130-400); RED CELL DISTRIBUTION WIDTH 16.4 % (10.0-14.5); WHITE BLOOD COUNT 9.3 10^3/uL (4.3-11.0)
[2019-08-18 11:18] LABS: BILIRUBIN,TOTAL 0.4 MG/DL (0.1-1.0); CALCIUM 9.3 MG/DL (8.5-10.1); CREATININE SERUM 0.97 MG/DL (0.60-1.30); POTASSIUM 4.5 MMOL/L (3.6-5.0); TOTAL PROTEIN 7.2 GM/DL (6.4-8.2)
[2019-10-16 09:17] LABS: BASOPHILS % (AUTO) 0 % (0-10); EOSINOPHILS # (AUTO) 0.1 10^3/uL (0.0-0.3); EOSINOPHILS % (AUTO) 2 % (0-10); HEMATOCRIT 40 % (35-52); LYMPHOCYTES # (AUTO) 1.6 X 10^3 (1.0-4.0); LYMPHOCYTES % (AUTO) 23 % (12-44); MEAN CORPUSCULAR HEMOGLOBIN 27 PG (25-34); MEAN CORPUSCULAR HGB CONC 32 G/DL (32-36); MEAN CORPUSCULAR VOLUME 83 FL (80-99); MEAN PLATELET VOLUME 10.2 FL (7.4-10.4); MONOCYTES # (AUTO) 0.7 X 10^3 (0.0-1.0); MONOCYTES % (AUTO) 10 % (0-12); NEUTROPHILS # (AUTO) 4.5 X 10^3 (1.8-7.8); NEUTROPHILS % (AUTO) 65 % (42-75); PLATELET COUNT 198 10^3/uL (130-400); RED CELL DISTRIBUTION WIDTH 14.9 % (10.0-14.5); WHITE BLOOD COUNT 6.9 10^3/uL (4.3-11.0)
[2019-10-16 09:37] LABS: ALANINE AMINOTRANSFERASE 13 U/L (0-55); ALBUMIN 3.7 GM/DL (3.2-4.5); ALKALINE PHOSPHATASE 87 U/L (40-136); BILIRUBIN,TOTAL 0.4 MG/DL (0.1-1.0); BUN/CREATININE RATIO 16; CALCIUM 8.9 MG/DL (8.5-10.1); CARBON DIOXIDE 24 MMOL/L (21-32); CHLORIDE 104 MMOL/L (98-107); GFR ESTIMATED > 60; GLUCOSE 85 MG/DL (70-105); POTASSIUM 4.2 MMOL/L (3.6-5.0); SODIUM 139 MMOL/L (135-145); TOTAL PROTEIN 6.6 GM/DL (6.4-8.2)
== END 2019-11-16 | disposition home or self-care (01) ==
LOC: ONC 09:05
PROVIDERS: ATTEND Internal Medicine Hematology & Oncology
DX: D05.12 Intraductal carcinoma in situ of left breast (principal); I48.91 Unspecified atrial fibrillation; E66.01 Morbid (severe) obesity due to excess calories; I25.10 Atherosclerotic heart disease of native coronary artery without angina pectoris; I10 Essential (primary) hypertension; E11.9 Type 2 diabetes mellitus without complications; E78.2 Mixed hyperlipidemia
CPT/HCPCS: 36415; 80053; 85025; 99213; 99214

== ENCOUNTER 2020-02-19 09:51 | Outpatient (RCR) | payer MEDICARE, OTHER ==
[2019-11-27 09:17] LABS: BASOPHILS % (AUTO) 0 % (0-10); EOSINOPHILS # (AUTO) 0.1 10^3/uL (0.0-0.3); EOSINOPHILS % (AUTO) 2 % (0-10); HEMATOCRIT 41 % (35-52); HEMOGLOBIN 12.9 G/DL (11.5-16.0); LYMPHOCYTES # (AUTO) 1.3 X 10^3 (1.0-4.0); LYMPHOCYTES % (AUTO) 16 % (12-44); MEAN CORPUSCULAR HEMOGLOBIN 26 PG (25-34); MEAN CORPUSCULAR HGB CONC 32 G/DL (32-36); MEAN CORPUSCULAR VOLUME 81 FL (80-99); MEAN PLATELET VOLUME 10.3 FL (7.4-10.4); MONOCYTES # (AUTO) 0.7 X 10^3 (0.0-1.0); MONOCYTES % (AUTO) 8 % (0-12); NEUTROPHILS # (AUTO) 5.8 X 10^3 (1.8-7.8); NEUTROPHILS % (AUTO) 74 % (42-75); PLATELET COUNT 203 10^3/uL (130-400); RED CELL DISTRIBUTION WIDTH 15.2 % (10.0-14.5); WHITE BLOOD COUNT 7.8 10^3/uL (4.3-11.0)
[2019-11-27 09:38] LABS: ALBUMIN 3.7 GM/DL (3.2-4.5); BILIRUBIN,TOTAL 0.2 MG/DL (0.1-1.0); CREATININE SERUM 0.94 MG/DL (0.60-1.30); POTASSIUM 4.1 MMOL/L (3.6-5.0); TOTAL PROTEIN 6.8 GM/DL (6.4-8.2)
[~2020-02-19 09:51] MED LIST changes: +METF-865 PO; -METF500T19 PO
[2020-02-19 10:12] LABS: BASOPHILS % (AUTO) 0 % (0-10); EOSINOPHILS # (AUTO) 0.1 10^3/uL (0.0-0.3); EOSINOPHILS % (AUTO) 2 % (0-10); HEMATOCRIT 40 % (35-52); HEMOGLOBIN 12.7 G/DL (11.5-16.0); LYMPHOCYTES # (AUTO) 1.5 X 10^3 (1.0-4.0); LYMPHOCYTES % (AUTO) 19 % (12-44); MEAN CORPUSCULAR HEMOGLOBIN 26 PG (25-34); MEAN CORPUSCULAR HGB CONC 32 G/DL (32-36); MEAN CORPUSCULAR VOLUME 81 FL (80-99); MEAN PLATELET VOLUME 10.3 FL (7.4-10.4); MONOCYTES # (AUTO) 0.6 X 10^3 (0.0-1.0); MONOCYTES % (AUTO) 7 % (0-12); NEUTROPHILS # (AUTO) 5.5 X 10^3 (1.8-7.8); NEUTROPHILS % (AUTO) 72 % (42-75); PLATELET COUNT 185 10^3/uL (130-400); RED CELL DISTRIBUTION WIDTH 17.2 % (10.0-14.5); WHITE BLOOD COUNT 7.7 10^3/uL (4.3-11.0)
[2020-02-19 10:28] LABS: ALBUMIN 3.6 GM/DL (3.2-4.5); BILIRUBIN,TOTAL 0.3 MG/DL (0.1-1.0); CALCIUM 8.7 MG/DL (8.5-10.1); CREATININE SERUM 0.99 MG/DL (0.60-1.30); TOTAL PROTEIN 6.6 GM/DL (6.4-8.2)
== END 2020-02-25 | disposition home or self-care (01) ==
LOC: ONC 09:51
PROVIDERS: ATTEND Internal Medicine Hematology & Oncology
DX: D05.12 Intraductal carcinoma in situ of left breast (principal); I48.91 Unspecified atrial fibrillation; E66.01 Morbid (severe) obesity due to excess calories; I25.10 Atherosclerotic heart disease of native coronary artery without angina pectoris; I10 Essential (primary) hypertension; E11.9 Type 2 diabetes mellitus without complications; E78.2 Mixed hyperlipidemia
CPT/HCPCS: 80053; 85025; 99213

== ENCOUNTER 2020-04-13 13:19 | Outpatient (RCR) | payer MEDICARE, OTHER ==
[2020-04-13 13:37] LABS: BASOPHILS % (AUTO) 0 % (0-10); EOSINOPHILS # (AUTO) 0.1 10^3/uL (0.0-0.3); EOSINOPHILS % (AUTO) 1 % (0-10); HEMATOCRIT 42 % (35-52); HEMOGLOBIN 13.4 G/DL (11.5-16.0); LYMPHOCYTES # (AUTO) 1.7 X 10^3 (1.0-4.0); LYMPHOCYTES % (AUTO) 17 % (12-44); MEAN CORPUSCULAR HEMOGLOBIN 26 PG (25-34); MEAN CORPUSCULAR HGB CONC 32 G/DL (32-36); MEAN CORPUSCULAR VOLUME 81 FL (80-99); MEAN PLATELET VOLUME 10.2 FL (7.4-10.4); MONOCYTES % (AUTO) 10 % (0-12); NEUTROPHILS % (AUTO) 71 % (42-75); PLATELET COUNT 234 10^3/uL (130-400); WHITE BLOOD COUNT 9.9 10^3/uL (4.3-11.0)
[2020-04-13 13:52] LABS: ALBUMIN 3.6 GM/DL (3.2-4.5); POTASSIUM 4.3 MMOL/L (3.6-5.0)
[2020-04-13 13:54] LABS: TOTAL PROTEIN 6.9 GM/DL (6.4-8.2)
[2020-04-13 13:56] LABS: BILIRUBIN,TOTAL 0.3 MG/DL (0.1-1.0)
[2020-04-13 13:58] LABS: CREATININE SERUM 1.13 MG/DL (0.60-1.30)
== END 2020-07-12 | disposition home or self-care (01) ==
LOC: ONC 13:19
PROVIDERS: ATTEND Internal Medicine Hematology & Oncology
DX: D05.12 Intraductal carcinoma in situ of left breast (principal); I48.91 Unspecified atrial fibrillation; E66.01 Morbid (severe) obesity due to excess calories; I25.10 Atherosclerotic heart disease of native coronary artery without angina pectoris; I10 Essential (primary) hypertension; E11.9 Type 2 diabetes mellitus without complications; E78.2 Mixed hyperlipidemia
CPT/HCPCS: 80053; 85025; G0463; 99213

== ENCOUNTER → 2020-08-20 | Outpatient (CLI) | payer MEDICARE ==
[~2020-08-20] MED LIST changes: -AMIO200T4 PO; +AMIO200T6 PO
--- NOTE | 2020-08-20 14:00 | Diagnostic Imaging Report ---
INDICATION: Left breast carcinoma. Correlation is made with prior mammogram from 07/10/2019 and 08/21/2011. Unilateral right 2-D and 3-D diagnostic mammography was performed with CAD. Scattered fibroglandular densities in the right breast are noted. Overall parenchymal pattern is stable. No dominant mass or malignant appearing microcalcifications are seen. There are benign calcifications present. Right axilla is unremarkable. IMPRESSION: BI-RADS Category 2 No mammographic features suspicious for malignancy are identified. ACR BI-RADS Category 2: Benign findings. Result letter will be mailed to the patient. Note: At least 10% of breast cancer is not imaged by mammography. Dictated by: Dictated on workstation # [id number]
== END ==
LOC: RAD 13:15
PROVIDERS: ATTEND Nurse Practitioner
DX: C50.912 Malignant neoplasm of unspecified site of left female breast (principal)
CPT/HCPCS: 77065; G0279

== ENCOUNTER 2020-09-01 19:05 | Inpatient (IN) | payer MEDICARE ==
[~2020-09-01] VITALS: Ht 168 cm; Wt 109.0 kg
--- NOTE | 2020-09-01 19:07 | NUR ---
pt arrived by [facility] unresponsive. pt intubated by [facility] precinct captain 7.0 oett 20cm at teeth. pt transferred to e.d. cart monitors applied. ns infusing to left prox. tibial i/o under pressure. 1929 rijtl placed by silverio browne using ultrasound. levophed gtt started.
[2020-09-01] MEDS ORDERED: MIDAZOLAM 5 MG/5 ML (VERSED) VIAL ONE (19:13)
[2020-09-01] MEDS ORDERED: fentaNYL INJECTION 100 MCG/2 ML AMP ONE (19:14)
[2020-09-01] MEDS ORDERED: NOREPINEPHRINE 4 MG/250 ML 250 ML IV ONE ×2 (19:17→20:42)
[2020-09-01] MEDS: NS IV 1000 ML 1,000 ML IV SCH ×2 (19:23→20:41)
[2020-09-01 19:43] LABS: BASOPHILS # (AUTO) 0.1 10^3/uL (0.0-0.1); BASOPHILS % (AUTO) 1 % (0-10); EOSINOPHILS # (AUTO) 0.1 10^3/uL (0.0-0.3); EOSINOPHILS % (AUTO) 1 % (0-10); HEMATOCRIT 48 % (35-52); HEMOGLOBIN 14.4 g/dL (11.5-16.0); LYMPHOCYTES % (AUTO) 27 % (12-44); MEAN CORPUSCULAR HEMOGLOBIN 27 pg (25-34); MEAN CORPUSCULAR HGB CONC 30 g/dL (32-36); MEAN CORPUSCULAR VOLUME 89 fL (80-99); MEAN PLATELET VOLUME 10.6 fL (9.0-12.2); MONOCYTES # (AUTO) 0.2 10^3/uL (0.0-1.0); MONOCYTES % (AUTO) 2 % (0-12); NEUTROPHILS # (AUTO) 6.4 10^3/uL (1.8-7.8); NEUTROPHILS % (AUTO) 58 % (42-75); PLATELET COUNT 232 10^3/uL (130-400); WHITE BLOOD COUNT 11.1 10^3/uL (4.3-11.0)
[2020-09-01 19:53] LABS: ABG BASE EXCESS -9.8 MMOL/L (-2.5-2.5); ABG OXYGEN SATURATION 98 % (94-100); ABG PCO2 46 MMHG (35-45); ABG PO2 149 MMHG (79-93); ABG TCO2 19.1 MMOL/L (21.0-31.0); ALLENS TEST YES-POS
[2020-09-01 19:54] LABS: ABG PH 7.19 (7.37-7.43); INSPIRED O2 100; PATIENT TEMP 93.6; VENTILATOR YES
[2020-09-01 19:55] LABS: ALBUMIN 2.8 GM/DL (3.2-4.5)
[2020-09-01 19:56] LABS: CALCIUM 7.5 MG/DL (8.5-10.1); INR 1.4 (0.8-1.4); PROTHROMBIN TIME PATIENT 17.6 SEC (12.2-14.7)
[2020-09-01 19:57] LABS: GLUCOSE 308 MG/DL (70-105)
[2020-09-01 19:58] LABS: TOTAL PROTEIN 5.8 GM/DL (6.4-8.2)
[2020-09-01 19:59] LABS: BILIRUBIN,TOTAL 0.3 MG/DL (0.1-1.0); CARBON DIOXIDE 20 MMOL/L (21-32)
--- NOTE | 2020-09-01 19:59 | Diagnostic Imaging Report ---
INDICATION: Chest pain. EXAMINATION: Portable erect AP chest at 7:35 p.m. FINDINGS: There is shallow inspiration when compared to the prior exam of 02/15/2019. The heart has increased in size and the central pulmonary vascularity does seem more prominent. This appearance does suggest that there is an element of congestion present. There is also some increased density in the right infrahilar region. This could be secondary to coexistent pneumonia. A small amount of atelectasis/infiltrate is also suspected in the left lung base. The lungs are otherwise clear. The mediastinum is not widened. The osseous structures are intact. The patient has been intubated. The ET tube tip overlies the tracheal air shadow just proximal to the thoracic inlet and roughly 5 cm from the darron. IMPRESSION: 1. The appearance of the chest has worsened since the prior study as cardiomegaly and pulmonary congestion have developed. There may also be elements of pneumonia/atelectasis in both lung bases. A follow up exam would be recommended for further study. 2. The ET tube appears to be in good position. Dictated by: Dictated on workstation # [id number]
[2020-09-01 20:01] LABS: ALKALINE PHOSPHATASE 113 U/L (40-136); CREATININE SERUM 1.47 MG/DL (0.60-1.30); GFR ESTIMATED 36
[2020-09-01 20:02] LABS: BUN/CREATININE RATIO 12
[2020-09-01 20:04] LABS: ALANINE AMINOTRANSFERASE 124 U/L (0-55); MAGNESIUM 2.3 MG/DL (1.6-2.4)
--- NOTE | 2020-09-01 20:20 | NUR ---
pt following rn with eyes, following commands, severe weakness.
--- NOTE | 2020-09-01 20:25 | ED CPR ---
HPI-CPR General Chief Complaint: Unresponsive Stated Complaint: UNRESPONSIVE Nursing Triage Note: brought in by [facility] intubated at scene. ems paged at 1808 for unresponsive female. Sepsis Screen: No Definite Risk Source of Information: Patient Exam Limitations: No Limitations History of Present Illness Date Seen by Provider: Sep 01, 2020 Time Seen by Provider: 19:15 Initial Comments To ER by EMS after she collapsed at home. Reportedly she called her niece to the bedroom to report that she was dizzy. She then collapsed. Family feeling well, family reports that she has been feeling well until sudden onset of dizziness this evening. History of breast cancer not undergoing any treatment. Upon EMS arrival she was hypoxic with respiratory rate of 6, she was intubated with a size 7 endotracheal tube 20 cm at the teeth. Unable to obtain blood pressure or palpate a pulse other than the carotid which was week. She did not receive chest compressions or epinephrine. History of a-fib on Eliquis. Initial Complaints: Collapsed, Found Unresponsive Witnessed Arrest: Yes Bystander CPR: No Paramedics Initial Findings: Agonal Respirations Pre Hospital Treatment: Intubation, IV Fluids Allergies and Home Medications Allergies Coded Allergies: No Known Drug Allergies (Unverified , 04/20/10) Home Medications Acetaminophen 500 Mg Tablet, 1,000 MG PO Q6H PRN for PAIN-MILD, (Reported) Amiodarone HCl 200 Mg Tablet, 200 MG PO BID, (Reported) Apixaban 5 Mg Tablet, 5 MG PO BID, (Reported) Atenolol 100 Mg Tablet, 100 MG PO DAILY, (Reported) Celecoxib 200 Mg Capsule, 200 MG PO DAILY, (Reported) Exenatide Microspheres 2 Mg/0.65 Ml Pen.injctr, 2 MG SC Th, (Reported) Hydrochlorothiazide 25 Mg Tablet, 25 MG PO DAILY, (Reported) Hydrocodone Bit/Acetaminophen 1 Tab Tab, 1-2 TAB PO Q6H PRN for PAIN-MODERATE Prescribed by: CLAUDETTE MORA on 09/12/19 1255 Lisinopril 5 Mg Tablet, 5 MG PO DAILY, (Reported) Metformin HCl 500 Mg Tab.er.24h, 1,000 MG PO 1730, (Reported) TAKES 2 (500MG) TABLETS Omeprazole 40 Mg Capsule.dr, 40 MG PO DAILY, (Reported) Patient Home Medication List Home Medication List Reviewed: Yes Review of Systems Review of Systems Constitutional: other (unable to obtain) Past Enwifdk-Ayftan-Zagyun Hx Patient Social History Alcohol Use: Denies Use Recreational Drug Use: No Smoking Status: Unknown if Ever Smoked 2nd Hand Smoke Exposure: No Recent Foreign Travel: No Contact w/Someone Who Travel: No Recent Infectious Disease Expo: No Recent Hopitalizations: No Immunizations Up To Date Tetanus Booster (TDap): Unknown Date of Pneumonia Vaccine: Jul 08, 2019 Date of Influenza Vaccine: Aug 15, 2018 Seasonal Allergies Seasonal Allergies: No Past Medical History Surgeries: Yes (CA LUMP REMOVED FROM THROAT, c/s x2, knee replaced) Appendectomy, Hysterectomy Respiratory: Yes (USES INHALER WHEN SHE HAS A COLD) Cardiac: Yes Atrial Fibrillation, Hypertension Neurological: No : No Reproductive Disorders: No EPILEPSY PHYSICIAN History: Hysterectomy Genitourinary: No Gastrointestinal: Yes Gastroesophageal Reflux Musculoskeletal: Yes Arthritis Endocrine: Yes Diabetes, Non-Insulin dep HEENT: No Cancer: Yes Breast Did You Recieve Any Treatments: Yes What Type of Treatment Did You: Radiation Psychosocial: No Integumentary: No Blood Disorders: No Family Medical History FH: breast cancer 19 MOTHER G8 SISTER Parkinson's disease 19 FATHER Heart Disease Physical Exam Vital Signs Vital Signs - First Documented 09/01/20 09/01/20 19:07 19:08 Temp 34.2 Pulse 59 Resp 20 B/P (MAP) 45/30 (35) Pulse Ox 98 O2 Delivery Mechanical Ventilator FiO2 100 Capillary Refill : Less Than 3 Seconds Height, Weight, BMI Height: 5'6.00" Weight: 240lbs. 0.0oz. 108.882716sd; 38.00 BMI Method:Stated General Appearance: No Apparent Distress, WD/WN, Other (very weak but palpable carotid pulse. Blood pressure in the 40s and 50s systolic. Already intubated and switched over to the ventilator. Has poor venous access so a right internal jugular central line was started using ultrasound guidance. Blood was collected, IV fluids attached and levo fed started at 0.1 mics per kilo per minute and titrated upward. She has had minimal to no response to noxious stimuli. She only required one dose of fentanyl and Versed.) HEENT: PERRL/EOMI, TMs Normal Respiratory: No Accessory Muscle Use, No Respiratory Distress Cardiovascular: Regular Rate, Rhythm, Normal Peripheral Pulses Gastrointestinal: Non Tender, Soft Skin: Normal Color, Warm/Dry Focused Exam Sepsis Stage: Septic Shock Lactate Level 11/25/20 19:30: Lactic Acid Level 8.02*H Time of Focused Exam: 20:53 Respiratory: Lungs Clear, Normal Breath Sounds, No Accessory Muscle Use Cardiovascular: Regular Rate, Rhythm, Normal Peripheral Pulses Capillary Refill: Greater Than 3 Seconds Skin: cool, other (dry) Lactic Acid Level Laboratory Tests Test 09/01/20 19:30 Lactic Acid Level 8.02 MMOL/L (0.50-2.00) *H Procedures/Interventions Lumen: triple Central Line Procedure: betadine prep, sterile drapes applied, sterile dressing applied Position: internal jugular (R) Anesthesia: Lidocaine Volume Anesthetic (ccs): 5 Complications: none Post Position: sutured, good blood return, position confirmed w/ CXR Date of ETT Placement: Sep 01, 2020 Tube Size: 7.00 Progress/Results/Core Measures Results/Orders Lab Results Laboratory Tests Test 09/01/20 19:13 09/01/20 19:30 09/01/20 19:45 Range/Units Coronavirus 2018 (FILIPE) Negative Negative White Blood Count 11.1 H 4.3-11.0 10^3/uL Red Blood Count 5.40 H 3.80-5.11 10^6/uL Hemoglobin 14.4 11.5-16.0 g/dL Hematocrit 48 35-52 % Mean Corpuscular Volume 89 80-99 fL Mean Corpuscular Hemoglobin 27 25-34 pg Mean Corpuscular Hemoglobin Concent 30 L 32-36 g/dL Red Cell Distribution Width 15.3 H 10.0-14.5 % Platelet Count 232 130-400 10^3/uL Mean Platelet Volume 10.6 9.0-12.2 fL Immature Granulocyte % (Auto) 12 % Neutrophils (%) (Auto) 58 42-75 % Lymphocytes (%) (Auto) 27 12-44 % Monocytes (%) (Auto) 2 0-12 % Eosinophils (%) (Auto) 1 0-10 % Basophils (%) (Auto) 1 0-10 % Neutrophils # (Auto) 6.4 1.8-7.8 10^3/uL Lymphocytes # (Auto) 3.0 1.0-4.0 10^3/uL Monocytes # (Auto) 0.2 0.0-1.0 10^3/uL Eosinophils # (Auto) 0.1 0.0-0.3 10^3/uL Basophils # (Auto) 0.1 0.0-0.1 10^3/uL Immature Granulocyte # (Auto) 1.3 H 0.0-0.1 10^3/uL Prothrombin Time 17.6 H 12.2-14.7 SEC INR Comment 1.4 0.8-1.4 Activated Partial Thromboplast Time 28 24-35 SEC Carbon Dioxide Level 20 L 21-32 MMOL/L Blood Urea Nitrogen 17 7-18 MG/DL Creatinine 1.47 H 0.60-1.30 MG/DL Estimat Glomerular Filtration Rate 36 BUN/Creatinine Ratio 12 Glucose Level 308 H 70-105 MG/DL Lactic Acid Level 8.02 *H 0.50-2.00 MMOL/L Calcium Level 7.5 L 8.5-10.1 MG/DL Corrected Calcium 8.5 8.5-10.1 MG/DL Magnesium Level 2.3 1.6-2.4 MG/DL Total Bilirubin 0.3 0.1-1.0 MG/DL Aspartate Amino Transf (AST/SGOT) 303 H 5-34 U/L Alanine Aminotransferase (ALT/SGPT) 124 H 0-55 U/L Alkaline Phosphatase 113 40-136 U/L Myoglobin 436.0 H 10.0-92.0 NG/ML Troponin I < 0.028 <0.028 NG/ML Total Protein 5.8 L 6.4-8.2 GM/DL Albumin 2.8 L 3.2-4.5 GM/DL Blood Gas Puncture Site R RAD Blood Gas Patient Temperature 93.6 Arterial Blood pH 7.19 *L 7.37-7.43 Arterial Blood Partial Pressure CO2 46 H 35-45 MMHG Arterial Blood Partial Pressure O2 149 H 79-93 MMHG Arterial Blood HCO3 18 L 23-27 MMOL/L Arterial Blood Total CO2 19.1 L 21.0-31.0 MMOL/L Arterial Blood Oxygen Saturation 98 94-100 % Arterial Blood Base Excess -9.8 L -2.5-2.5 MMOL/L Olvin Test YES-POS Blood Gas Ventilator Setting YES Blood Gas Inspired Oxygen 100 My Orders Orders - THIERRY CRAVEN APRN Covid 19 Inhouse Test (09/01/20 19:24) Cbc With Automated Diff (09/01/20 19:24) Magnesium (09/01/20 19:24) Chest 1 View, Ap/Pa Only (09/01/20 19:24) Ekg Tracing (09/01/20:24) Comprehensive Metabolic Panel (09/01/20) Myoglobin Serum (09/01/20 19:24) Protime With Inr (09/01/20:24) Partial Thromboplastin Time (09/01/20:24) O2 (09/01/20:24) Monitor-Rhythm Ecg Trace Only (09/01/20:) Lipid Panel (09/02/20 06:00) Ed Iv/Invasive Line Start (09/01/20:24) Troponin I (09/01/20:) Blood Culture (09/01/20) Sputum Culture (09/01/20:) Urinalysis (09/01/20) Urine Culture (09/01/20:) Ed Iv/Invasive Line Start (09/01/20:24) Ed Iv/Invasive Line Start (09/01/20:24) Vital Signs Adult Sepsis Patie Q15M (09/01/20 19:24) O2 (09/01/20:24) Remove Rings In Anticipation O (09/01/20:) Lactic Acid Analyzer (09/01/20:) Ns Iv 1000 Ml (Sodium Chloride 0.9%) (09/01/20:24) Arterial Blood Gas (09/01/20:) Ct Head Wo-R/O Stroke (09/01/20 19:52) Vasopressin Injection (Pitressin Injecti (09/01/20 20:30) Chest 1 View, Ap/Pa Only (09/01/20 20:26) Dexmedetomidine Pre Mix (Precedex Pre-M (09/01/20 20:30) Norepinephrine 4 Mg/250 Ml (Norepinephri (09/01/20 20:42) Piperacillin Sodium/Tazobactam (Zosyn Vi (09/01/20 21:30) Salicylate (09/01/20 21:27) Alcohol (09/01/20 21:27) Drug Screen Stat (Urine) (09/01/20:) Acetaminophen (11/25/20 21:27) Medications Given in ED Current Medications Medications Dose Ordered Sig/Vielka Route Start Time Stop Time Status Last Admin Dose Admin Fentanyl Citrate 100 mcg STK-MED ONCE .ROUTE 09/01/20 19:14 09/01/20 19:17 DC 09/01/20 19:23 75 MCG Midazolam HCl 5 mg STK-MED ONCE .ROUTE 09/01/20 19:13 09/01/20 19:16 DC 09/01/20 19:32 5 MG Norepinephrine Bitartrate 250 ml @ ud STK-MED ONCE IV 09/01/20 19:17 09/01/20 19:19 DC 09/01/20 19:30 82.3 MLS/HR Vital Signs/I&O 09/01/20 09/01/20 09/01/20 09/01/20 19:07 19:08 19:30 19:30 Temp 34.2 Pulse 59 56 55 Resp 20 20 B/P (MAP) 45/30 (35) 47/26 Pulse Ox 98 98 98 O2 Delivery Mechanical Ventilator Mechanical Ventilator FiO2 100 100 09/01/20 09/01/20 09/01/20 19:51 20:23 20:40 Pulse 51 B/P (MAP) 56/37 58/24 FiO2 70 Blood Pressure Mean: 33 Critical Care Note Critical Care Start Time: 19:07 Stop Time: 19:39 Total Time (minutes) 32 Progress Spent 32 minutes at the bedside titrating pressors, adjusting ventilator settings and directing plan of care. Departure Communication (Admissions) 2052-levophed 0.3 mcg/kg/m, vasopressin drip. Has received 2 L of crystalloids as bolus. Precedex drip for sedation as she did follow commands, her eyes were open and when I tapped on her right shoulder and told her to look that direction she moved both her eyes and her head. When I asked her to open her mouth to insert the endotracheal tube little further she was able to follow the command as well. Impression Primary Impression: Hypotension Additional Impression: Collapse Disposition: 09 ADMITTED INPATIENT Condition: Critical Admissions Decision to Admit Reason: Admit from ER (General) Decision to Admit/Date: Sep 01, 2020 Time/Decision to Admit Time: 20:55 Departure-Patient Inst. Referrals: [facility] (PCP/Family) Primary Care Physician THIERRY CRAVEN INSOLE BEVELER Sep 01, 2020 20:25
[2020-09-01] MEDS ORDERED: DexMEDEtomidine PRE MIX 100 ML IV SCH (20:30)
[2020-09-01] MEDS ORDERED: VASOPRESSIN INJECTION 20 UNIT in NS (IVPB) 100 ML IV SCH (20:30)
--- NOTE | 2020-09-01 21:10 | NUR ---
pt to ct with rn/rt 2118-pt back from ct, tolerated well.
[2020-09-01] MEDS ORDERED: PIPERACILLIN SODIUM/TAZOBACTAM 4.5 GM in NS (IVPB) 100 ML IV ONE (21:30)
--- NOTE | 2020-09-01 21:56 | Diagnostic Imaging Report ---
PROCEDURE: CT head wo r/o stroke. TECHNIQUE: Multiple contiguous axial images were obtained through the brain without the use of intravenous contrast. Auto Exposure Controls were utilized during the CT exam to meet ALARA standards for radiation dose reduction. INDICATION: Unresponsive There is no mass, shift of the midline or hemorrhage to suggest an acute intracranial abnormality. The ventricles are not abnormally dilated and stable in size when compared to the prior exam of 03/01/2017. The senescent changes seen on the prior study including cortical atrophy and periventricular encephalomalacia are again evident and no different. The bone windows show no evidence for a fracture or for a destructive lesion. The orbits are symmetrical and within normal limits. The sinuses are generally clear. IMPRESSION: 1. There is no evidence for an acute intracranial abnormality. 2. If clinical concern regarding an underlying abnormality persists, then MRI would be recommended for further evaluation. Dictated by: Dictated on workstation # [id number]
[2020-09-01 21:59] LABS: CHLORIDE 102 MMOL/L (98-107); POTASSIUM 4.9 MMOL/L (3.6-5.0); SODIUM 136 MMOL/L (135-145)
--- NOTE | 2020-09-01 21:59 | Diagnostic Imaging Report ---
INDICATION: Central line placement. EXAMINATION: Portable supine AP chest at 8:44 p.m. FINDINGS: In the interval since the exam performed earlier today at 8:43 p.m., a central venous catheter has been inserted through the internal jugular vein on the right. The tip of the catheter overlies the proximal superior vena cava and seems to be in good position. There is no sign of a pneumothorax although a small pneumothorax could be present yet undetected on a supine film such as this. There has also been insertion of an OG line. The line extends below the diaphragm but the tip of the line is not visualized. The ET tube noted previously has been advanced since the prior exam. The tip now overlies the distal tracheal air shadow approximately 2.2 cm cephalad to the darron. It should be retracted at least 1 cm. The overall appearance of the chest is otherwise stable. IMPRESSION: 1. There has been insertion of a central venous catheter on the right without apparent complication. There is also an OG line in place although the tip of line is not visualized. 2. The ET tube should be retracted approximately 1 cm. Results were conveyed to Albin Singleton APRN at 9:53 p.m.., by say. Dictated by: Dictated on workstation # [id number]
[2020-09-01] MEDS ORDERED: NS IV 1000 ML 1,000 ML IV SCH (22:15)
[2020-09-01 22:29] LABS: ACETAMINOPHEN < 10 UG/ML (10-30); SALICYLATE < 5.0 MG/DL (5.0-20.0)
[2020-09-01] MEDS ORDERED: LACTATED RINGERS 1,000 ML IV ONE (22:34)
[2020-09-01 22:58] VITALS: BP 121/69
[2020-09-01 23:00] VITALS: BP 121/69
[2020-09-01 23:15] VITALS: BP 76/64
[2020-09-01 23:30] VITALS: BP 97/61
[2020-09-01] MEDS: PRECEDEX IV SCH (23:35)
[2020-09-01] MEDS: NOREPINEPHRINE 4 MG/250 ML 250 ML IV SCH (23:35)
[2020-09-01] MEDS: LACTATED RINGERS 1,000 ML IV SCH (23:35)
[2020-09-01] MEDS ORDERED: CALCIUM GLUC. 10% 4.65 MEQ/10 ML VIAL ONE (23:38)
[2020-09-01] MEDS ORDERED: NS (IVPB) 50 ML ONE (23:39)
[2020-09-01 23:45] VITALS: BP 86/51
[2020-09-01] MEDS ORDERED: CALCIUM GLUCONATE 10% INJ 4.65 MEQ in NS (IVPB) 50 ML IV ONE (23:45)
[2020-09-01] MEDS: ENOXAPARIN 60 MG/0.6 ML (LOVENOX) SYR SC SCH (23:47)
[2020-09-02] VITALS (30 sets, daily range): BP systolic 45–120; BP diastolic 30–84
[2020-09-02 00:19] LABS: ABG OXYGEN SATURATION 93 % (94-100); ABG PCO2 37 MMHG (35-45); ABG PO2 76 MMHG (79-93)
[2020-09-02 00:24] LABS: ABG PH 7.29 (7.37-7.43); ALLENS TEST POS; INSPIRED O2 40%
[2020-09-02 00:25] LABS: PATIENT TEMP 35; VENTILATOR YES
[2020-09-02] MEDS: NOREPINEPHRINE 4 MG/250 ML 250 ML IV SCH ×6 (00:32→21:00)
[2020-09-02] MEDS ORDERED: RT-ALBUTEROL INHALER HFA (VENTOLIN HFA) 18 GM IH PRN (01:00)
--- NOTE | 2020-09-02 01:46 | NUR ---
EICU UPDATED ON PT LABS, VSS AND URINE OUTPUT
[2020-09-02] MEDS: LACTATED RINGERS 1,000 ML IV SCH ×2 (02:52→11:20)
[2020-09-02 04:56] LABS: BASOPHILS # (AUTO) 0.1 10^3/uL (0.0-0.1); BASOPHILS % (AUTO) 0 % (0-10); EOSINOPHILS % (AUTO) 0 % (0-10); HEMATOCRIT 47 % (35-52); HEMOGLOBIN 14.7 g/dL (11.5-16.0); LYMPHOCYTES # (AUTO) 1.1 10^3/uL (1.0-4.0); LYMPHOCYTES % (AUTO) 5 % (12-44); MEAN CORPUSCULAR HEMOGLOBIN 27 pg (25-34); MEAN CORPUSCULAR HGB CONC 31 g/dL (32-36); MEAN CORPUSCULAR VOLUME 87 fL (80-99); MONOCYTES # (AUTO) 0.7 10^3/uL (0.0-1.0); MONOCYTES % (AUTO) 3 % (0-12); NEUTROPHILS # (AUTO) 23.1 10^3/uL (1.8-7.8); NEUTROPHILS % (AUTO) 91 % (42-75); PLATELET COUNT 242 10^3/uL (130-400); WHITE BLOOD COUNT 25.3 10^3/uL (4.3-11.0)
[2020-09-02 05:29] LABS: ABG BASE EXCESS -7.6 MMOL/L (-2.5-2.5); ABG OXYGEN SATURATION 96 % (94-100); ABG PCO2 33 MMHG (35-45); ABG PO2 95 MMHG (79-93); ABG TCO2 18.1 MMOL/L (21.0-31.0)
[2020-09-02] MEDS ORDERED: NS (IVPB) 100 ML ONE (05:31)
[2020-09-02] MEDS ORDERED: PIPERACILLIN/TAZO 4.5 GM VIAL (ZOSYN) IV ONE (05:31)
[2020-09-02 05:38] LABS: POTASSIUM 4.5 MMOL/L (3.6-5.0)
[2020-09-02 05:39] LABS: CALCIUM 7.2 MG/DL (8.5-10.1)
[2020-09-02] MEDS: PIPERACILLIN/TAZO 4.5 GM/NS 100 ML IV SCH ×6 (05:42→20:26)
[2020-09-02 05:43] LABS: PHOSPHORUS 3.4 MG/DL (2.3-4.7)
[2020-09-02 05:44] LABS: CREATININE SERUM 1.83 MG/DL (0.60-1.30)
[2020-09-02 05:46] LABS: MAGNESIUM 2.1 MG/DL (1.6-2.4)
[2020-09-02] MEDS ORDERED: POTASSIUM CL 10MEQ/50ML IVPB 50 ML IV SCH (06:00)
[2020-09-02] MEDS ORDERED: KCL 20 MEQ TAB (K-DUR) PO SCH (06:00)
[2020-09-02] MEDS ORDERED: inSUlin ASPART (NovoLOG) 1 UNIT/0.01 ML (CHARGE PER UNIT) SC SCH (06:00)
[2020-09-02] MEDS: inSUlin ASPART (NovoLOG) 1 UNIT/0.01 ML (CHARGE PER UNIT) SC SCH ×3 (06:00→18:39)
[2020-09-02] MEDS ORDERED: MAGNESIUM 1 GM/100 ML IVPB 100 ML IV SCH (06:00)
--- NOTE | 2020-09-02 06:08 | History & Physical-Hospitalist ---
History of Present Illness HPI/Chief Complaint CC: Unresponsive episode with hypotension HPI: This is a 64yoWF who was brought to the ER due to unresponsive episode at home. Details are limited since patient was intubated at the time I assessed her but apparently she was trying to have a BM and was sitting on the toilet when she "blacked out." Patient was brought to the ER and intubated. Patient was given aggressive IVF and was maintained on the vent until she became awake and alert and was able to maintain her airway and was successfully extubated. Patient remained on Levophed but Dr Galindo evaluated her and I evaluated her and we agreed to extubate since the patient was alert and asking for extubation. Patient still remained with elevated lactic acid in the 6 range so Levophed maintained. Patient then began to have extremely loose stools "pouring" onto the bed so rectal tube placed. Arzate cath revealed minimal urinary output and CVP was 3 then increased to 8 with another fluid bolus and remains at 12 so albumin given but creatinine increased to 2.7 with anuric renal failure. Discussion with RN after she spoke to eicu will start process for Nephrology transfer but in the midst of COVID pandemic no ICU around the area is able to take a patient due to diversion. Hyperkalemia will be managed with D50 IV and insulin. UA will be checked for ATN and hydrocortisone will be given empirically in case she is in adrenal crisis. Source: RN/MD Exam Limitations: clinical condition Date Seen 09/02/20 Time Seen by a Provider: 10:00 Attending Physician Tonya Sellers DO [facility] Referring Physician Date of Admission Sep 01, 2020 at 21:25 Home Medications & Allergies Home Medications Reviewed patient Home Medication Reconciliation performed by pharmacy medication reconciliations mobile home technician and/or nursing. Patients Allergies have been reviewed. Allergies Allergies Coded Allergies No Known Drug Allergies (Unverified04/20/10) Past Xwghdqw-Mwhauj-Mojqjx Hx Past Med/Social Hx: Reviewed Nursing Past Med/Soc Hx, Reviewed and Corrections made Patient Social History Alcohol Use: Denies Use Recreational Drug Use: No Smoking Status: Unknown if Ever Smoked 2nd Hand Smoke Exposure: No Recent Foreign Travel: No Contact w/other who traveled: No Recent Hopitalizations: No Recent Infectious Disease Expo: No Immunizations Up To Date Tetanus Booster (TDap): Unknown Date of Pneumonia Vaccine: Jul 08, 2019 Date of Influenza Vaccine: Aug 15, 2018 Seasonal Allergies Seasonal Allergies: No Past Medical History Surgeries: Appendectomy, Hysterectomy Cardiac: Atrial Fibrillation, Hypertension : No Reproductive: No Hysterectomy Gastrointestinal: Gastroesophageal Reflux Musculoskeletal: Arthritis Endocrine: Diabetes, Non-Insulin dep Cancer: Breast Did You Recieve Any Treatments: Yes What Type of Treatment Did You: Radiation History of Blood Disorders: No Family History FH: breast cancer 19 MOTHER G8 SISTER Parkinson's disease 19 FATHER Heart Disease Review of Systems Constitutional: see HPI, dizziness, malaise, weakness EENTM: no symptoms reported Respiratory: no symptoms reported Cardiovascular: no symptoms reported Gastrointestinal: constipation, diarrhea Genitourinary: no symptoms reported Musculoskeletal: no symptoms reported Skin: no symptoms reported Psychiatric/Neurological: No Symptoms Reported All Other Systems Reviewed Negative Unless Noted: Yes Physical Exam Physical Exam Vital Signs Vital Signs - First Documented 09/01/20 09/01/20 09/01/20 19:07 19:08 23:00 Temp 34.2 Pulse 59 Resp 20 B/P (MAP) 45/30 (35) Pulse Ox 98 O2 Delivery Mechanical Ventilator O2 Flow Rate 60.00 FiO2 100 Capillary Refill : Greater Than 3 Seconds Height, Weight, BMI Height: 5'6.00" Weight: 240lbs. 0.0oz. 108.040745ml; 38.00 BMI Method:Stated General Appearance: Anxious, Chronically ill, Mild Distress, Other (intubated but awake and alert, communicating with me) Eyes: Right Eye Normal Inspection, Right Eye PERRL HEENT: PERRL/EOMI, Normal ENT Inspection, Pharynx Normal, Moist Mucous Membranes Neck: Full Range of Motion, Normal Inspection, Non Tender Respiratory: Chest Non Tender, Lungs Clear, Normal Breath Sounds, No Accessory Muscle Use, No Respiratory Distress Cardiovascular: Regular Rate, Rhythm, No Edema, No Gallop, No JVD, No Murmur, Normal Peripheral Pulses Gastrointestinal: Normal Bowel Sounds, No Organomegaly, No Pulsatile Mass, Non Tender, Soft Back: Normal Inspection, No CVA Tenderness, No Vertebral Tenderness Extremity: Normal Capillary Refill, Normal Inspection, Normal Range of Motion, Non Tender, No Calf Tenderness, No Pedal Edema Neurologic/Psychiatric: Alert, Oriented x3, No Motor/Sensory Deficits, Normal Mood/Affect Skin: Normal Color, Warm/Dry Lymphatic: No Adenopathy Results Results/Procedures Labs Laboratory Tests 09/01/20 19:30 09/02/20 04:13 09/02/20 16:20 Patient resulted labs reviewed. Assessment/Plan Admission Diagnosis Assessment: Unresponsive episode requiring intubation Hypotension refractory CVP was 3 then 8 then now 13 after fluid boluses requiring albumin infusion and gave Hydrocortisone empirically in case adrenal insufficiency as source Anuria Elevated lactic acid Severe diarrhea requiring rectal tube hx of AF Breast cancer hx HTN hx Plan: ICU Appreciate eicu Blake empirically COVID swab negative Appreciate Dr Galindo Add lactic acid C. diff and stool leukocytes to lab Monitor UOP May need transfer to Nephrology Admission Status: Inpatient Order (span 2 midnights) Reason for Inpatient Admission: VDRF with hypotension Diagnosis/Problems Diagnosis/Problems (1) Collapse Status: Acute (2) Hypotension Status: Acute (3) Breast cancer (4) Diarrhea Status: Acute (5) Atrial fibrillation with rapid ventricular response Status: Acute Clinical Quality Measures DVT/VTE Risk/Contraindication: Risk Factor Score Per Nursin RFS Level Per Nursing on Admit: 4+=Very High TONYA SELLERS DO Sep 02, 2020 06:08
[2020-09-02 06:20] LABS: ABG PH 7.34 (7.37-7.43)
[2020-09-02 06:21] LABS: CLARITY,URINE TURBID; COLOR,URINE BROWN; GLUCOSE, URINE (UA) TRACE (NEGATIVE); KETONES,URINE TRACE (NEGATIVE); LEUKOCYTE ESTERASE ,URINE TRACE (NEGATIVE); NITRITE,URINE NEGATIVE (NEGATIVE); PH,URINE 5.5 (5-9); PROTEIN,URINE 3+ (NEGATIVE)
[2020-09-02 06:21] LABS: ALLENS TEST POS; INSPIRED O2 21%; PATIENT TEMP 36.8; VENTILATOR YES
--- NOTE | 2020-09-02 06:34 | NUR ---
PT ON PRESSURE SUPPORT ON VENT X1 HOUR-ABG DRAWN-NOTIFIED EICU OF CRITICAL LABS AND INCREASE RATE OF LEVOPHED-ORDERS TO HOLD OFF ON EXTUBATION FOR NOW.
[2020-09-02 06:43] LABS: NEUTROPHILS % (MANUAL) 91 %
[2020-09-02 06:44] LABS: BAND NEUTROPHILS 2 %; EOSINOPHILS % (MANUAL) 2 %; LYMPHOCYTES % (MANUAL) 5 %; RBC MORPH NORMAL
[2020-09-02 06:54] LABS: AMORPHOUS SEDIMENT,UR LARGE AMOR URATES /LPF
[2020-09-02 06:56] LABS: BACTERIA,URINE TRACE /HPF; BILIRUBIN,URINE 1+ (NEGATIVE); YEAST,URINE MODERATE /HPF
[2020-09-02] MEDS: RT-ALBUTEROL INHALER HFA (VENTOLIN HFA) 18 GM IH SCH ×2 (07:22→21:28)
--- NOTE | 2020-09-02 10:52 | Consultation-Cardiology ---
HPI-Cardiology Cardiology Consultation Date of Consultation 09/02/20 Date of Admission Time Seen by Provider: 10:50 Indication: hypotensive shock HPI 64-year-old lady with history of hypertension, hyperlipidemia and diabetes mellitus, patient collapsed at home, she called for help to her niece and then she collapsed. She has history of breast cancer. On arrival patient was hy poxic with respiratory rate 6, she was intubated and brought to the emergency room, has been in hypotensive shock, received IV fluid and has been on pressors, currently she is awake, wanting to take the tube out. Blood pressure is still soft. Unable to provide any further history. I was able to communicate with her and she denied any chest pain prior to collapse Home Medications & Allergies Allergies: Coded Allergies: No Known Drug Allergies (Unverified , 04/20/10) Home Medication List Reviewed: Yes FIM-Ububaq-Hkgppj Hx Patient Social History Alcohol Use: Denies Use Recreational Drug Use: No Smoking Status: Unknown if Ever Smoked 2nd Hand Smoke Exposure: No Recent Foreign Travel: No Recent Infectious Disease Expo: No Recent Hopitalizations: No Immunizations Up To Date Tetanus Booster (TDap): Unknown Date of Pneumonia Vaccine: Jul 08, 2019 Date of Influenza Vaccine: Aug 15, 2018 Past Medical History Discussed below Family Medical History Significant Family History: Heart Disease Family History: FH: breast cancer 19 MOTHER G8 SISTER Parkinson's disease 19 FATHER Review of Systems-General Review of Systems Constitutional: other (unable to provide review of systems) Reviewed Test Results Reviewed Test Results Lab Laboratory Tests Test 09/01/20 19:13 09/01/20 19:30 09/01/20 19:45 09/01/20 22:17 Range/Units Coronavirus 2019 (FILIPE) Negative Negative White Blood Count 11.1 H 4.3-11.0 10^3/uL Red Blood Count 5.40 H 3.80-5.11 10^6/uL Hemoglobin 14.4 11.5-16.0 g/dL Hematocrit 48 35-52 % Mean Corpuscular Volume 89 80-99 fL Mean Corpuscular Hemoglobin 27 25-34 pg Mean Corpuscular Hemoglobin Concent 30 L 32-36 g/dL Red Cell Distribution Width 15.3 H 10.0-14.5 % Platelet Count 232 130-400 10^3/uL Mean Platelet Volume 10.6 9.0-12.2 fL Immature Granulocyte % (Auto) 12 % Neutrophils (%) (Auto) 58 42-75 % Lymphocytes (%) (Auto) 27 12-44 % Monocytes (%) (Auto) 2 0-12 % Eosinophils (%) (Auto) 1 0-10 % Basophils (%) (Auto) 1 0-10 % Neutrophils # (Auto) 6.4 1.8-7.8 10^3/uL Lymphocytes # (Auto) 3.0 1.0-4.0 10^3/uL Monocytes # (Auto) 0.2 0.0-1.0 10^3/uL Eosinophils # (Auto) 0.1 0.0-0.3 10^3/uL Basophils # (Auto) 0.1 0.0-0.1 10^3/uL Immature Granulocyte # (Auto) 1.3 H 0.0-0.1 10^3/uL Prothrombin Time 17.6 H 12.2-14.7 SEC INR Comment 1.4 0.8-1.4 Activated Partial Thromboplast Time 28 24-35 SEC Sodium Level 136 135-145 MMOL/L Potassium Level 4.9 3.6-5.0 MMOL/L Chloride Level 102 98-107 MMOL/L Carbon Dioxide Level 20 L 21-32 MMOL/L Anion Gap 14 5-14 MMOL/L Blood Urea Nitrogen 17 7-18 MG/DL Creatinine 1.47 H 0.60-1.30 MG/DL Estimat Glomerular Filtration Rate 36 BUN/Creatinine Ratio 12 Glucose Level 308 H 70-105 MG/DL Lactic Acid Level 8.02 *H 3.64 *H 0.50-2.00 MMOL/L Calcium Level 7.5 L 8.5-10.1 MG/DL Corrected Calcium 8.5 8.5-10.1 MG/DL Magnesium Level 2.3 1.6-2.4 MG/DL Total Bilirubin 0.3 0.1-1.0 MG/DL Aspartate Amino Transf (AST/SGOT) 303 H 5-34 U/L Alanine Aminotransferase (ALT/SGPT) 124 H 0-55 U/L Alkaline Phosphatase 113 40-136 U/L Myoglobin 436.0 H 10.0-92.0 NG/ML Troponin I < 0.028 <0.028 NG/ML Total Protein 5.8 L 6.4-8.2 GM/DL Albumin 2.8 L 3.2-4.5 GM/DL Salicylates Level < 5.0 L 5.0-20.0 MG/DL Acetaminophen Level < 10 L 10-30 UG/ML Serum Alcohol < 10 <10 MG/DL Blood Gas Puncture Site R RAD Blood Gas Patient Temperature 93.6 Arterial Blood pH 7.19 *L 7.37-7.43 Arterial Blood Partial Pressure CO2 46 H 35-45 MMHG Arterial Blood Partial Pressure O2 149 H 79-93 MMHG Arterial Blood HCO3 18 L 23-27 MMOL/L Arterial Blood Total CO2 19.1 L 21.0-31.0 MMOL/L Arterial Blood Oxygen Saturation 98 94-100 % Arterial Blood Base Excess -9.8 L -2.5-2.5 MMOL/L Olvin Test YES-POS Blood Gas Ventilator Setting YES Blood Gas Inspired Oxygen 100 Test 09/01/20 23:40 09/02/20 00:11 09/02/20 00:53 09/02/20 04:13 Range/Units Glucometer 271 H 70-110 MG/DL Blood Gas Puncture Site RIGHT RAD Blood Gas Patient Temperature 35 Arterial Blood pH 7.29 *L 7.37-7.43 Arterial Blood Partial Pressure CO2 37 35-45 MMHG Arterial Blood Partial Pressure O2 76 L 79-93 MMHG Arterial Blood HCO3 18 L 23-27 MMOL/L Arterial Blood Total CO2 19.0 L 21.0-31.0 MMOL/L Arterial Blood Oxygen Saturation 93 L 94-100 % Arterial Blood Base Excess -8.0 L -2.5-2.5 MMOL/L Olvin Test POS Blood Gas Ventilator Setting YES Blood Gas Inspired Oxygen 40% Lactic Acid Level 3.55 *H 3.79 *H 0.50-2.00 MMOL/L Troponin I 0.028 <0.028 NG/ML White Blood Count 25.3 H 4.3-11.0 10^3/uL Red Blood Count 5.45 H 3.80-5.11 10^6/uL Hemoglobin 14.7 11.5-16.0 g/dL Hematocrit 47 35-52 % Mean Corpuscular Volume 87 80-99 fL Mean Corpuscular Hemoglobin 27 25-34 pg Mean Corpuscular Hemoglobin Concent 31 L 32-36 g/dL Red Cell Distribution Width 15.4 H 10.0-14.5 % Platelet Count 242 130-400 10^3/uL Mean Platelet Volume 11.0 9.0-12.2 fL Immature Granulocyte % (Auto) 1 % Neutrophils (%) (Auto) 91 H 42-75 % Lymphocytes (%) (Auto) 5 L 12-44 % Monocytes (%) (Auto) 3 0-12 % Eosinophils (%) (Auto) 0 0-10 % Basophils (%) (Auto) 0 0-10 % Neutrophils # (Auto) 23.1 H 1.8-7.8 10^3/uL Lymphocytes # (Auto) 1.1 1.0-4.0 10^3/uL Monocytes # (Auto) 0.7 0.0-1.0 10^3/uL Eosinophils # (Auto) 0.0 0.0-0.3 10^3/uL Basophils # (Auto) 0.1 0.0-0.1 10^3/uL Immature Granulocyte # (Auto) 0.3 H 0.0-0.1 10^3/uL Neutrophils % (Manual) 91 % Lymphocytes % (Manual) 5 % Eosinophils % (Manual) 2 % Band Neutrophils 2 % Blood Morphology Comment NORMAL Sodium Level 136 135-145 MMOL/L Potassium Level 4.5 3.6-5.0 MMOL/L Chloride Level 105 98-107 MMOL/L Carbon Dioxide Level 18 L 21-32 MMOL/L Anion Gap 13 5-14 MMOL/L Blood Urea Nitrogen 24 H 7-18 MG/DL Creatinine 1.83 H 0.60-1.30 MG/DL Estimat Glomerular Filtration Rate 28 BUN/Creatinine Ratio 13 Glucose Level 192 H 70-105 MG/DL Calcium Level 7.2 L 8.5-10.1 MG/DL Phosphorus Level 3.4 2.3-4.7 MG/DL Magnesium Level 2.1 1.6-2.4 MG/DL B-Type Natriuretic Peptide 72.3 <100.0 PG/ML Test 09/02/20 05:12 09/02/20 05:23 09/02/20 06:04 Range/Units Blood Gas Puncture Site [facility] RAD Blood Gas Patient Temperature 36.8 Arterial Blood pH 7.34 *L 7.37-7.43 Arterial Blood Partial Pressure CO2 33 L 35-45 MMHG Arterial Blood Partial Pressure O2 95 H 79-93 MMHG Arterial Blood HCO3 17 *L 23-27 MMOL/L Arterial Blood Total CO2 18.1 L 21.0-31.0 MMOL/L Arterial Blood Oxygen Saturation 96 94-100 % Arterial Blood Base Excess -7.6 L -2.5-2.5 MMOL/L Olvin Test POS Blood Gas Ventilator Setting YES Blood Gas Inspired Oxygen 21% Troponin I 0.039 H <0.028 NG/ML Triglycerides Level 64 <150 MG/DL Cholesterol Level 126 < 200 MG/DL LDL Cholesterol Direct 76 1-129 MG/DL VLDL Cholesterol 13 5-40 MG/DL HDL Cholesterol 37 L 40-60 MG/DL Urine Color BROWN H Urine Clarity TURBID Urine pH 5.5 5-9 Urine Specific [place] 1.025 H 1.016-1.022 Urine Protein 3+ H NEGATIVE Urine Glucose (UA) TRACE H NEGATIVE Urine Ketones TRACE H NEGATIVE Urine Nitrite NEGATIVE NEGATIVE Urine Bilirubin 1+ H NEGATIVE Urine Urobilinogen 2.0 < = 1.0 MG/DL Urine Leukocyte Esterase TRACE H NEGATIVE Urine RBC (Auto) 3+ H NEGATIVE Urine RBC 10-25 H /HPF Urine WBC 5-10 H /HPF Urine Crystals PRESENT H /LPF Urine Amorphous Sediment LARGE ANETTE URATES H /LPF Urine Bacteria TRACE /HPF Urine Casts NONE /LPF Urine Mucus NEGATIVE /LPF Urine Yeast MODERATE H /HPF Urine Culture Indicated YES Physical Exam Physical Exam Vital Signs Vital Signs - First Documented 09/01/20 09/01/20 09/01/20 19:07 19:08 23:00 Temp 34.2 Pulse 59 Resp 20 B/P (MAP) 45/30 (35) Pulse Ox 98 O2 Delivery Mechanical Ventilator O2 Flow Rate 60.00 FiO2 100 Capillary Refill : Less Than 3 Seconds Height, Weight, BMI Height: 5'6.00" Weight: 240lbs. 0.0oz. 108.063861mu; 38.00 BMI Method:Stated General Appearance: WD/WN, Other (ventilatory dependent) HEENT: PERRL/EOMI, TMs Normal Respiratory: Normal Breath Sounds, No Accessory Muscle Use, Crackles Cardiovascular: Regular Rate, Rhythm, Normal Peripheral Pulses Gastrointestinal: Non Tender, Soft Extremity: Normal Capillary Refill Neurologic/Psychiatric: Alert, Other (ventilatory dependent, following commands) Skin: Normal Color, Warm/Dry A/P-Cardiology Admission Diagnosis Acute respiratory failure Hypotensive shock Type II WI Hyperlipidemia Assessment/Plan Acute respiratory failure, ventilatory dependent, currently awake and saturating well on room air, still having ET tube, I recommend extubation as soon as possible, managed by eICU Hypotensive shock, probably sepsis, has UTI, receiving antibiotic, I will give additional liter of saline, received already 3 L. Managed by primary care team. Continue to monitor Mild elevation in troponin, probably type II myocardial infarction, there is mild EKG changes. No acute ST elevation or depression at this time. Patient has multiple risk factors for coronary artery disease, underlying malignant arrhythmia or coronary artery disease cannot be entirely excluded. Maintained on Lovenox Hyperlipidemia, continue to monitor next Diabetes mellitus, followed and managed by primary care physician Clinical Quality Measures DVT/VTE Risk/Contraindication: Risk Factor Score Per Nursin RFS Level Per Nursing on Admit: 4+=Very High MASOOD ESPAÑA MD Sep 02, 2020 10:52
[2020-09-02] MEDS ORDERED: NS IV 1000 ML 1,000 ML ONE ×2 (11:08→13:36)
--- NOTE | 2020-09-02 11:10 | NUR ---
PT EXTUBATED BY RT AND PLACE ON ROOM AIR. PT O2 SAT 96%. PT UPDATED TO CURRENT SITUATION.
[2020-09-02] MEDS: ENOXAPARIN 60 MG/0.6 ML (LOVENOX) SYR SC SCH (11:41)
--- NOTE | 2020-09-02 13:30 | NUR ---
THIS RN CALLED AND SPOKE WITH EICU REGARDING PT DECREASED BLOOD PRESSURE, LACTIC RESULTS, AND DECREASED URINE OUTPUT. NEW ORDERS RECEIVED
[2020-09-02] MEDS ORDERED: NS (IVPB) 250 ML IV ONE ×2 (14:00→16:30)
[2020-09-02] MEDS ORDERED: ALBUMIN 25% 25 GM/100 ML 50 ML IV ONE ×2 (14:00→16:30)
[2020-09-02] MEDS ORDERED: NS IV 1000 ML 1,000 ML IV SCH (14:00)
[2020-09-02] MEDS: PRECEDEX IV SCH (15:22)
[2020-09-02] MEDS ORDERED: NS (IVPB) 250 ML ONE ×2 (16:25→21:35)
[2020-09-02 16:33] LABS: BASOPHILS % (AUTO) 0 % (0-10); EOSINOPHILS % (AUTO) 0 % (0-10); HEMATOCRIT 43 % (35-52); HEMOGLOBIN 13.2 g/dL (11.5-16.0); LYMPHOCYTES # (AUTO) 0.9 10^3/uL (1.0-4.0); LYMPHOCYTES % (AUTO) 3 % (12-44); MEAN CORPUSCULAR HEMOGLOBIN 27 pg (25-34); MEAN CORPUSCULAR HGB CONC 31 g/dL (32-36); MEAN CORPUSCULAR VOLUME 88 fL (80-99); MEAN PLATELET VOLUME 11.1 fL (9.0-12.2); MONOCYTES # (AUTO) 1.1 10^3/uL (0.0-1.0); MONOCYTES % (AUTO) 4 % (0-12); NEUTROPHILS # (AUTO) 24.6 10^3/uL (1.8-7.8); NEUTROPHILS % (AUTO) 92 % (42-75); PLATELET COUNT 214 10^3/uL (130-400); WHITE BLOOD COUNT 26.8 10^3/uL (4.3-11.0)
[2020-09-02 16:50] LABS: CALCIUM 6.8 MG/DL (8.5-10.1)
[2020-09-02 16:54] LABS: CREATININE SERUM 2.78 MG/DL (0.60-1.30)
[2020-09-02 16:56] LABS: MAGNESIUM 1.9 MG/DL (1.6-2.4)
--- NOTE | 2020-09-02 17:30 | NUR ---
THIS RN SPOKE WITH CYNDI AND DR PHAM REGARDING PT STATUS MULTIPLE TIMES THROUGHOUT SHIFT. UPDATING THEM ON PT CURRENT GTT RATES, BP, DECREASED URINE OUTPUT, PT VITALS AND PT STATUS.
[2020-09-02] MEDS ORDERED: DEXTROSE 50% 50 ML (IMS) SYR IV ONE (17:45)
[2020-09-02] MEDS ORDERED: CALCIUM GLUC. 10% 4.65 MEQ/10 ML VIAL IV ONE (17:45)
[2020-09-02] MEDS ORDERED: D5W 1000 ML IV SOLUTION 1,000 ML ONE ×2 (18:48→19:10)
[2020-09-02] MEDS ORDERED: SODIUM BICARB 8.4% 50 MEQ/50 ML VIAL ONE ×2 (18:48→19:08)
[2020-09-02] MEDS: HYDROCORTISONE 100 MG/2 ML (Solu-CORTEF) VIAL IV SCH (18:54)
--- NOTE | 2020-09-02 19:30 | NUR ---
EICU CALLED TO SPEAK WITH THIS RN REGARDING PT. THIS RN NOTIFIED DR ON PT CURRENT GTT RATES, NO URINE OUTPUT FOR MY LAST 4 HOURS AND CURRENT STATUS OF PT. ABG ORDER RECEIVED AND ORDER RECEIVED FOR BOLUS OF 500ML NS
[2020-09-02] MEDS: NS IV 500 ML 500 ML IV SCH ×2 (20:00→23:46)
--- NOTE | 2020-09-02 20:11 | Consultation - Surgery ---
History of Present Illness History of Present Illness Patient Consulted On(eladia/time) 09/02/20 20:05 Date Seen by Provider: Sep 02, 2020 Time Seen by Provider: 20:06 Reason for Visit: hypotensive shock History of Present Illness Consult requested by Dr. Sellers for oliguria, diarrhea, ? ischemic bowel Patient is a 64 year old female who was unresponsive at home, when using res troom. Was having diarrhea several that started today. Patient denies any blood. She was confused and intubated. She was able to be extubated today. SHe reports the diarrhea. She is not having any abdominal pain. Patient urine output has been scant. Her Cr has increased. Her lactic acid has increased along with her Cr. She has been hypotensive. She was found to have UTI. She has also received hydrocortisone and on Lovenox. Patient feels like most her problems are the diarrhea and she does have phlegm in her throat she can't clear. Patient limited historian. Allergies and Home Medications Allergies Coded Allergies: No Known Drug Allergies (Unverified , 04/20/10) Home Medications Acetaminophen 500 Mg Tablet, 1,000 MG PO Q6H PRN for PAIN-MILD, (Reported) Amiodarone HCl 200 Mg Tablet, 200 MG PO BID, (Reported) Apixaban 5 Mg Tablet, 5 MG PO BID, (Reported) Atenolol 100 Mg Tablet, 100 MG PO DAILY, (Reported) Celecoxib 200 Mg Capsule, 200 MG PO DAILY, (Reported) Exenatide Microspheres 2 Mg/0.65 Ml Pen.injctr, 2 MG SC Th, (Reported) Hydrochlorothiazide 25 Mg Tablet, 25 MG PO DAILY, (Reported) Hydrocodone Bit/Acetaminophen 1 Tab Tab, 1-2 TAB PO Q6H PRN for PAIN-MODERATE Prescribed by: CLAUDETTE MORA on 09/12/19 1255 Lisinopril 5 Mg Tablet, 5 MG PO DAILY, (Reported) Metformin HCl 500 Mg Tab.er.24h, 1,000 MG PO 1730, (Reported) TAKES 2 (500MG) TABLETS Omeprazole 40 Mg Capsule.dr, 40 MG PO DAILY, (Reported) Patient Home Medication List Home Medication List Reviewed: Yes Past Tirhyim-Ttxfnw-Zvmqtt Hx Patient Social History Alcohol Use: Denies Use Recreational Drug Use: No Smoking Status: Unknown if Ever Smoked 2nd Hand Smoke Exposure: No Recent Foreign Travel: No Contact w/Someone Who Travel: No Recent Infectious Disease Expo: No Recent Hopitalizations: No Immunizations Up To Date Tetanus Booster (TDap): Unknown Date of Pneumonia Vaccine: Jul 08, 2019 Date of Influenza Vaccine: Aug 15, 2018 Seasonal Allergies Seasonal Allergies: No Surgeries History of Surgeries: Yes (CA LUMP REMOVED FROM THROAT, c/s x2, knee replaced) Surgeries: Appendectomy, Hysterectomy Respiratory History of Respiratory Disorde: Yes (USES INHALER WHEN SHE HAS A COLD) Cardiovascular History of Cardiac Disorders: Yes Cardiac Disorders: Atrial Fibrillation, Hypertension Neurological History of Neurological Disord: No Reproductive System : No Hx Reproductive Disorders: No METAL FRAMER History: Hysterectomy Genitourinary History of Genitourinary Disor: No Gastrointestinal History of Gastrointestinal Di: Yes Gastrointestinal Disorders: Gastroesophageal Reflux Musculoskeletal History of Musculoskeletal Dis: Yes Musculoskeletal Disorders: Arthritis Endocrine History of Endocrine Disorders: Yes Endocrine Disorders: Diabetes, Non-Insulin dep HEENT History of HEENT Disorders: No Cancer History of Cancer: Yes Cancer: Breast Psychosocial History of Psychiatric Problem: No Integumentary History of Skin or Integumenta: No Blood Transfusions History of Blood Disorders: No Reviewed Nursing Assessment Reviewed/Agree w Nursing PMH: Yes Family Medical History Significant Family History: Heart Disease Family Medial History: FH: breast cancer 19 MOTHER G8 SISTER Parkinson's disease 19 FATHER Review of Systems-General Constitutional: No chills, No diaphoresis; weakness EENTM: No blurred vision, No double vision, No mouth swelling Respiratory: No cough; short of breath (slight) Cardiovascular: No chest pain, No palpitations; syncope Gastrointestinal: No abdominal pain; diarrhea Genitourinary: decreased output; No discharge Musculoskeletal: No back pain, No joint pain Skin: No change in color, No change in hair/nails Psychiatric/Neurological: Denies Anxiety, Denies Depressed, Denies Emotional Problems All Other Systems Reviewed Negative Unless Noted: Yes (Negative excepted noted.) Physical Exam-General Problems Physical Exam Vital Signs Vital Signs - First Documented 09/01/20 09/01/20 09/01/20 19:07 19:08 23:00 Temp 34.2 Pulse 59 Resp 20 B/P (MAP) 45/30 (35) Pulse Ox 98 O2 Delivery Mechanical Ventilator O2 Flow Rate 60.00 FiO2 100 Capillary Refill : Less Than 3 Seconds General Appearance: no apparent distress, obese HEENT: PERRL/EOMI, normal ENT inspection Neck: non-tender, supple, normal inspection Respiratory: chest non-tender, no respiratory distress, no accessory muscle use Cardiovascular: regular rate, rhythm, no JVD Gastrointestinal: soft; No guarding, No rebound, No tenderness; other (obese) Rectal: deferred Back: no CVA tenderness, no vertebral tenderness Extremities: No no pedal edema; swelling (b/l lower ext) 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, alert, normal mood/affect; No oriented x 3; other (answeres appropriately sometimes slower than expected) Skin: normal color, warm/dry Lymphatic: no adenopathy Data Review Labs Laboratory Tests 09/01/20 22:17: Lactic Acid Level 3.64*H 09/01/20 23:40: Glucometer 271H 09/02/20 00:11: Blood Gas Puncture Site RIGHT RAD, Blood Gas Patient Temperature 35, Arterial Blood pH 7.29*L, Arterial Blood Partial Pressure CO2 37, Arterial Blood Partial Pressure O2 76L, Arterial Blood HCO3 18L, Arterial Blood Total CO2 19.0L, Arterial Blood Oxygen Saturation 93L, Arterial Blood Base Excess -8.0L, Olvin Test POS, Blood Gas Ventilator Setting YES, Blood Gas Inspired Oxygen 40% 09/02/20 00:53: Lactic Acid Level 3.55*H, Troponin I 0.028 09/02/20 04:13: White Blood Count 25.3H, Red Blood Count 5.45H, Hemoglobin 14.7, Hematocrit 47, Mean Corpuscular Volume 87, Mean Corpuscular Hemoglobin 27, Mean Corpuscular Hemoglobin Concent 31L, Red Cell Distribution Width 15.4H, Platelet Count 242, Mean Platelet Volume 11.0, Immature Granulocyte % (Auto) 1, Neutrophils (%) (Auto) 91H, Lymphocytes (%) (Auto) 5L, Monocytes (%) (Auto) 3, Eosinophils (%) (Auto) 0, Basophils (%) (Auto) 0, Neutrophils # (Auto) 23.1H, Lymphocytes # (Auto) 1.1, Monocytes # (Auto) 0.7, Eosinophils # (Auto) 0.0, Basophils # (Auto) 0.1, Immature Granulocyte # (Auto) 0.3H, Neutrophils % (Manual) 91, Lymphocytes % (Manual) 5, Eosinophils % (Manual) 2, Band Neutrophils 2, Blood Morphology Comment NORMAL, Sodium Level 136, Potassium Level 4.5, Chloride Level 105, Carbon Dioxide Level 18L, Anion Gap 13, Blood Urea Nitrogen 24H, Creatinine 1.83H, Estimat Glomerular Filtration Rate 28, BUN/Creatinine Ratio 13, Glucose Level 192H, Lactic Acid Level 3.79*H, Calcium Level 7.2L, Phosphorus Level 3.4, Magnesium Level 2.1, B-Type Natriuretic Peptide 72.3 09/02/20 05:12: Blood Gas Puncture Site RGHT RAD, Blood Gas Patient Temperature 36.8, Arterial Blood pH 7.34*L, Arterial Blood Partial Pressure CO2 33L, Arterial Blood Partial Pressure O2 95H, Arterial Blood HCO3 17*L, Arterial Blood Total CO2 18.1L, Arterial Blood Oxygen Saturation 96, Arterial Blood Base Excess -7.6L, Olvin Test POS, Blood Gas Ventilator Setting YES, Blood Gas Inspired Oxygen 21% 09/02/20 05:23: Troponin I 0.039H, Triglycerides Level 64, Cholesterol Level 126, LDL Cholesterol Direct 76, VLDL Cholesterol 13, HDL Cholesterol 37L 09/02/20 06:04: Urine Color BROWNH, Urine Clarity TURBID, Urine pH 5.5, Urine Specific [place] 1.025H, Urine Protein 3+H, Urine Glucose (UA) TRACEH, Urine Ketones TRACEH, Urine Nitrite NEGATIVE, Urine Bilirubin 1+H, Urine Urobilinogen 2.0, Urine Leukocyte Esterase TRACEH, Urine RBC (Auto) 3+H, Urine RBC 10-25H, Urine WBC 5- 10H, Urine Crystals PRESENTH, Urine Amorphous Sediment LARGE ANETTE URATESH, Urine Bacteria TRACE, Urine Casts NONE, Urine Mucus NEGATIVE, Urine Yeast MODERATEH, Urine Culture Indicated YES 09/02/20 11:39: Glucometer 128H 09/02/20 12:35: Lactic Acid Level 6.40*H 09/02/20 16:20: Lactic Acid Level 6.55*H, White Blood Count 26.8H, Red Blood Count 4.88, Hemoglobin 13.2, Hematocrit 43, Mean Corpuscular Volume 88, Mean Corpuscular Hemoglobin 27, Mean Corpuscular Hemoglobin Concent 31L, Red Cell Distribution Width 15.9H, Platelet Count 214, Mean Platelet Volume 11.1, Immature Granulocyte % (Auto) 1, Neutrophils (%) (Auto) 92H, Lymphocytes (%) (Auto) 3L, Monocytes (%) (Auto) 4, Eosinophils (%) (Auto) 0, Basophils (%) (Auto) 0, Neutrophils # (Auto) 24.6H, Lymphocytes # (Auto) 0.9L, Monocytes # (Auto) 1.1H, Eosinophils # (Auto) 0.0, Basophils # (Auto) 0.0, Immature Granulocyte # (Auto) 0.1, D-Dimer 7.60H, Sodium Level 137, Potassium Level 6.0H, Chloride Level 105, Carbon Dioxide Level 15L, Anion Gap 17H, Blood Urea Nitrogen 32H, Creatinine 2.78#H, Estimat Glomerular Filtration Rate 17, BUN/Creatinine Ratio 12, Glucose Level 140H, Calcium Level 6.8L, Magnesium Level 1.9, Lactate Dehydrogenase 4056H, Total Creatine Kinase 1712H, Procalcitonin 25.80H 09/02/20 18:00: Glucometer 131H, Lactic Acid Level 6.15*H Microbiology 09/01/20 Blood Culture - Preliminary, Resulted No growth Assessment/Plan Assessment/Plan Assessment/Plan hypotensive shock diarrhea UTI NSTEMI Leukocytosis Oliguria Patient on exam nontender abdomen do not feel she has ischemic bowel Iv fluid resucitaiton follow urine output Dr. Sellers trying to transfer for Nephrology Will get abd x ray portable, do not feel would tolerate going to ct at this time and with exam do not feel high yield Follow labs No surgical intervention at this time. Clinical Quality Measures DVT/VTE Risk/Contraindication: Risk Factor Score Per Nursin RFS Level Per Nursing on Admit: 4+=Very High CLAUDETTE MORA DO Sep 02, 2020 20:11
--- NOTE | 2020-09-02 20:55 | Diagnostic Imaging Report ---
EXAMINATION: Abdominal radiographs, single portable view, 2 images. DATE: September 02, 2020. CLINICAL INDICATION: 64-year-old female, diarrhea. COMPARISON: None. COMMENTS: There are technical limitations of the study relating to patient body habitus and difficulties with exposure as well as material overlying the patient. There are no identified grossly distended gas-filled segments of bowel. There is a small amount of gas present within likely colonic bowel segments. There is no obvious abnormal radiodensity overlying the kidneys or expected positions of the ureter. IMPRESSION: 1. Significant technical limitations of the study. 2. No radiographically apparent acute abdominal abnormality. Dictated by: Dictated on workstation # [id number]
[2020-09-02] MEDS ORDERED: inSUlin (REGULAR) HUMAN 1 UNIT/0.01 ML (CHARGE PER UNIT) IV SCH (21:00)
[2020-09-02 21:14] LABS: ALBUMIN 2.7 GM/DL (3.2-4.5); POTASSIUM 5.4 MMOL/L (3.6-5.0)
[2020-09-02 21:15] LABS: CALCIUM 6.7 MG/DL (8.5-10.1)
[2020-09-02 21:18] LABS: BILIRUBIN,TOTAL 0.9 MG/DL (0.1-1.0)
[2020-09-02 21:20] LABS: CREATININE SERUM 3.03 MG/DL (0.60-1.30)
[2020-09-02] MEDS ORDERED: VANCOMYCIN 1000 MG/VIAL ONE (21:35)
[2020-09-02] MEDS ORDERED: VANCOMYCIN INJECTION 1,000 MG in NS (IVPB) 250 ML IV SCH (21:45)
[2020-09-02 22:20] LABS: ABG BASE EXCESS -11.7 MMOL/L (-2.5-2.5); ABG OXYGEN SATURATION 95 % (94-100); ABG PCO2 31 MMHG (35-45); ABG PH 7.28 (7.37-7.43); ABG PO2 96 MMHG (79-93); ABG TCO2 14.9 MMOL/L (21.0-31.0); ALLENS TEST POSITIVE; INSPIRED O2 5; VENTILATOR NO
[2020-09-02 22:21] LABS: PATIENT TEMP 36.2
[2020-09-02] MEDS ORDERED: ENOXAPARIN 300 MG/3 ML (LOVENOX) MULTI-DOSE VIAL SQ SCH (23:00)
[2020-09-02] MEDS ORDERED: DEXTROSE 10% IV SCH (23:30)
[2020-09-02] MEDS ORDERED: SODIUM BICARBONATE IV SCH (23:30)
[2020-09-03] MEDS: inSUlin ASPART (NovoLOG) 1 UNIT/0.01 ML (CHARGE PER UNIT) SC SCH (00:54)
[2020-09-03 01:00] VITALS: BP 108/53
[2020-09-03] MEDS: HYDROCORTISONE 100 MG/2 ML (Solu-CORTEF) VIAL IV SCH (01:52)
[2020-09-03] MEDS: NOREPINEPHRINE 4 MG/250 ML 250 ML IV SCH (01:53)
[2020-09-03 02:00] VITALS: BP 129/71
--- NOTE | 2020-09-03 04:08 | NUR ---
TIMELINE NOTE BELOW: 09/02/20 @ 1999 THIS RN SPOKE WITH DAUGHTER, MARIA M, TO GIVE UPDATE. MARIA M REQUESTED HER MOM BE TRANSFERRED TO HOSPITAL IN [place] BECAUSE THEY HAVE FAMILY THERE WHO CAN BE WITH HER. THIS RN STILL TRYING TO FIND AVAILABLE BED AT HOSPITAL WITH NEPHROLOGY. THIS RN WILL CALL WITH ANY UPDATES/CHANGES IN PATIENT STATUS. * @ 2029 THIS RN SPOKE WITH DAUGHTER, AMEYA, TO GIVE UPDATE. STILL TRYING TO FIND AVAILABLE BED AT HOSPITAL WITH NEPHROLOGY. THIS RN WILL CALL WITH ANY UPDATES/CHANGES IN PATIENT STATUS. * @ 2100- THIS RN CONTACTED [facility] IN [place] TO INQUIRE ABOUT BED AVAILABILITY. SPOKE WITH [facility]. THEY DO HAVE AVAILABLE ICU BED WITH NEPHROLOGY. REQUIRED DOCUMENTS SENT AT THIS TIME. * @ [address] PHAM OF BED AVAILABILITY AT [facility] IN [place]. CONTACT INFORMATION GIVEN FOR DOCTOR TO DOCTOR REPORT. * @ 2123 DR. PHAM CONTACTED THIS RN TO NOTIFY OF ACCEPTANCE TO [facility] IN [place], [place]. NEW ORDER RECEIVED FOR 1GM VANCOMYCIN X1 NOW. SEE ORDER HX AND EMAR. * @ 2129 [facility] DENIED TRANSPORT OF THIS PATIENT TO [facility] IN [place], [place]. THEY REQUIRE ALL CLOSER HOSPITALS BE CONTACTED FOR BED AVAILABILITY FIRST. AT THIS TIME [facility] IN [place] HAD NO AVAILABILITY, AND PT IS ON WAIT LIST AT [facility]. EMS WANTED ADDITIONAL HOSPITALS CONTACTED. * [address] PIO VU WITH [facility] OF EMS DENIED TRANSPORT TO [facility]. * @ 2201 THIS RN CALLED [facility] IN [place] AND SPOKE TO [facility] FOR BED PLACEMENT. DR. PIO VU'S CONTACT INFORMATION GIVEN AT THIS TIME FOR DOCTOR TO DOCTOR REPORT. THIS RN ALSO SENT ALL REQUIRED DOCUMENTATION AT THIS TIME. 09/03/20 @ 0018 THIS RN UPDATED AMEYA, PATIENT'S DAUGHTER. THIS RN EXPLAINED THAT EMS HAS REFUSED TRANSPORT PATIENT, THAT PATIENT WILL INCUR ADDITIONAL OUT OF POCKET COSTS IF CLOSER HOSPITALS ARE NOT ATTEMPTED FOR ADMISSION. AMEYA VERBALIZED UNDERSTANDING AND WISHES FOR US TO CHECK CLOSER HOSPITALS. THIS RN WILL CALL WITH ANY UPDATES/CHANGES IN PATIENT STATUS. * @ 0024 THIS RN CONTACTED THE FOLLOWING HOSPITALS FOR BED PLACEMENT: [facility] AND [facility]. REQUIRED DOCUMENTATION SENT AT THIS TIME. * @ 0133 MUMTA[facility] FROM [facility] CONTACTED THIS RN AT THIS TIME TO ACCEPT PATIENT. DR. LANGE IS ACCEPTING PHYSICIAN AT [facility] AND PATIENT WILL BE TRANSFERRED TO ROOM HC909 TO JOAN MOREIRA. * @ 0135 THIS RN CALLED PATIENT'S DAUGHTER, AMEYA, TO LET HER KNOW OF ACCEPTANCE TO [facility]. THIS RN ANSWERED ALL QUESTIONS AMEYA HAD AT THIS TIME. * @ [address] PIO VU OF PATIENT'S ACCEPTANCE TO [facility]. * @ 0230 PT SIGNED TRANSFER FORM AT THIS TIME, WITH THIS RN WITNESS. EMS PRESENT AT BEDSIDE WELL. * @ 0237 THIS RN GAVE REPORT TO [facility]. PT ON STRETCHER RESTING COMFORTABLY. VITALS: HR 65, R25, BP 129/71, SA02 99% ON RA. * @ 0239 THIS RN GAVE REPORT TO JOAN MOREIRA AT [facility]. * @ 0254 THIS RN CALLED AMEYA, PATIENT'S DAUGHTER. INFORMED AMEYA THAT PATIENT HAD LEFT WITH EMS AND THAT LILLIE WOULD BE HER NURSE AT [facility].
--- NOTE | 2020-09-03 06:44 | Discharge Summary ---
Discharge Summary Hospital Course Was the Problem List Reviewed?: Yes Problems/Dx: (1) Collapse Status: Acute (2) Hypotension Status: Acute (3) Breast cancer (4) Diarrhea Status: Acute (5) Atrial fibrillation with rapid ventricular response Status: Acute Hospital Course Date of Admission: Sep 01, 2020 at 21:25 Admission Diagnosis : Family Physician/Provider: [facility] Date of Discharge: 09/03/20 Discharge Diagnosis: collapse, hypotension, anuria, ARF, liver shock Hospital Course: Brief hospital course after admitted and intubated in ER for collapse and unresponsiveness. Patient did very well and was able to be extubated without difficulty but then she began having more and more hypotension requiring EICU consultation and Levophed maintenance. Patient required IVF until CVP increased from 3 to 13. Zosyn had been maintained since admit to cover for aspiration although CXR was normal. PCT was found to be 25 so Vanc was added. Cardiology consulted along with Dr Rosales to evaluate for ishcemic bowel but no evidence of any source of the anuria or hypotension was found. Patient ultimately worsened and required transfer to higher level and [facility] was updated on the entire case and then ended up not having a bed for her so [facility] was updated by this clinician and she was accepted but then EMS declined transfer until closer facilities were contacted so EICU spoke to and they accepted the patient and she was transferred in critical condition. Labs and Pending Lab Test: Laboratory Tests 09/02/20 11:39: Glucometer 128H 09/02/20 12:35: Lactic Acid Level 6.40*H 09/02/20 16:20: Lactic Acid Level 6.55*H, White Blood Count 26.8H, Red Blood Count 4.88, Hemoglobin 13.2, Hematocrit 43, Mean Corpuscular Volume 88, Mean Corpuscular Hemoglobin 27, Mean Corpuscular Hemoglobin Concent 31L, Red Cell Distribution Width 15.9H, Platelet Count 214, Mean Platelet Volume 11.1, Immature Granulocyte % (Auto) 1, Neutrophils (%) (Auto) 92H, Lymphocytes (%) (Auto) 3L, Monocytes (%) (Auto) 4, Eosinophils (%) (Auto) 0, Basophils (%) (Auto) 0, Neutrophils # (Auto) 24.6H, Lymphocytes # (Auto) 0.9L, Monocytes # (Auto) 1.1H, Eosinophils # (Auto) 0.0, Basophils # (Auto) 0.0, Immature Granulocyte # (Auto) 0.1, D-Dimer 7.60H, Sodium Level 137, Potassium Level 6.0H, Chloride Level 105, Carbon Dioxide Level 15L, Anion Gap 17H, Blood Urea Nitrogen 32H, Creatinine 2.78#H, Estimat Glomerular Filtration Rate 17, BUN/Creatinine Ratio 12, Glucose Level 140H, Calcium Level 6.8L, Magnesium Level 1.9, Lactate Dehydrogenase 4056H, Total Creatine Kinase 1712H, Procalcitonin 25.80H 09/02/20 18:00: Glucometer 131H, Lactic Acid Level 6.15*H 09/02/20 20:41: Sodium Level 134L, Potassium Level 5.4H, Chloride Level 104, Carbon Dioxide Level 13L, Anion Gap 17H, Blood Urea Nitrogen 35H, Creatinine 3.03H, Estimat Glomerular Filtration Rate 16, BUN/Creatinine Ratio 12, Glucose Level 192H, Lactic Acid Level 5.64*H, Calcium Level 6.7L, Corrected Calcium 7.7L, Total Bilirubin 0.9, Aspartate Amino Transf (AST/SGOT) 3631#H, Alanine Aminotransferase (ALT/SGPT) 1579#H, Alkaline Phosphatase 83, Total Protein 5.0L, Albumin 2.7L 09/02/20 21:50: Blood Gas Puncture Site RIGHT RADIAL, Blood Gas Patient Temperature 36.2, Arterial Blood pH 7.28*L, Arterial Blood Partial Pressure CO2 31L, Arterial Blood Partial Pressure O2 96H, Arterial Blood HCO3 14*L, Arterial Blood Total CO2 14.9L, Arterial Blood Oxygen Saturation 95, Arterial Blood Base Excess - 11.7L, Olvin Test POSITIVE, Blood Gas Ventilator Setting NO, Blood Gas Inspired Oxygen 5 09/02/20 21:52: Glucometer 177H 09/03/20 00:53: Glucometer 153H Microbiology 09/01/20 Blood Culture - Preliminary, Resulted No growth Home Meds Active Hydrocodone/Acetaminophen 5/325mg Tablet (Acetaminophen/Hydrocodone Bitart) 1 Tab Tab 1-2 Tab PO Q6H PRN MDD 10 Reported Eliquis (Apixaban) 5 Mg Tablet 5 Mg PO BID Amiodarone HCl 200 Mg Tablet 200 Mg PO BID Tylenol Extra Strength (Acetaminophen) 500 Mg Tablet 1,000 Mg PO Q6H PRN Lisinopril 5 Mg Tablet 5 Mg PO DAILY Omeprazole 40 Mg Capsule.dr 40 Mg PO DAILY Hydrochlorothiazide 25 Mg Tablet 25 Mg PO DAILY Atenolol 100 Mg Tablet 100 Mg PO DAILY Metformin HCl ER (Metformin HCl) 500 Mg Tab.er.24h 1,000 Mg PO 1730 TAKES 2 (500MG) TABLETS Celecoxib 200 Mg Capsule 200 Mg PO DAILY Bydureon Pen (Exenatide Microspheres) 2 Mg/0.65 Ml Pen.injctr 2 Mg SC TH Assessment/Pt Instructions [facility] transfer Discharge Planning: >30 minutes discharge planning Discharge Physical Examination Vital Signs Vital Signs Date Time Temp Pulse Resp B/P (MAP) Pulse Ox O2 Delivery O2 Flow Rate FiO2 09/03/20 02:00 64 28 129/71 (90) 100 Room Air 09/03/20 01:00 2.00 09/02/20 23:44 36.2 09/02/20 14:58 70 General Appearance: No Apparent Distress, WD/WN, Chronically ill Allergies: Coded Allergies: No Known Drug Allergies (Unverified , 04/20/10) Discharge Summary Date of Admission Sep 01, 2020 at 21:25 Date of Discharge Admission Diagnosis Assessment: Unresponsive episode requiring intubation Hypotension refractory CVP was 3 then 8 then now 13 after fluid boluses requiring albumin infusion and gave Hydrocortisone empirically in case adrenal insufficiency as source Anuria Elevated lactic acid Severe diarrhea requiring rectal tube hx of AF Breast cancer hx HTN hx Plan: ICU Appreciate terri Lozano empirically COVID swab negative Appreciate Dr Galindo Add lactic acid C. diff and stool leukocytes to lab Monitor UOP May need transfer to Nephrology Discharge Diagnosis (1) Collapse Status: Acute (2) Hypotension Status: Acute (3) Breast cancer (4) Diarrhea Status: Acute (5) Atrial fibrillation with rapid ventricular response Status: Acute Clinical Quality Measures DVT/VTE Risk/Contraindication: Risk Factor Score Per Nursin RFS Level Per Nursing on Admit: 4+=Very High GURDEEP PHAM DO Sep 03, 2020 06:44
--- NOTE | 2020-09-08 23:27 | Physician Query Clarification ---
PQ-Uncertain Diagnosis Admission/Discharge Admission Date: Sep 01, 2020 at 21:25 Discharge Date: Sep 03, 2020 at 02:37 UGRDEEP Morgan DO The medical record reflects the following clinical scenario: History/Risk Factors: 64 y/o felame brought to ER unresponsive at home, Hand P, 08/01: Unresponsive episode requiring intubation, hypotension refractory CVP was 3 then 8 then now 13 after fluid boluses requiring albumin infusion and gave Hydrocortisone empirically in case adrenal insufficiency as source, elevated lactic acid. 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 Discharge summary, 09/03: Collapse, hypotension, anuria, ARF, liver shock. Clinical Findings: WBC-26.8 H, anion gap-17 H, lactic acid-6.5 H Treatment: IV Fluids, Zosyn, Vancomycin. Question: Is Sepsis a clinically valid diagnosis? Sepsis was documented in the insolvency consultant, 09/02 with no further doc umentation in the medical record. Please document a response in Progress Note or Discharge Summary. 1. Yes, clinically valid, condition resolved. 2. No, condition ruled out. 3. Other, with explanation of clinical findings. 4. Undetermined, no explanation for clinical findings. PHYSICIAN RESPONSE Diagnosis clinically valid: Yes, Conditon resolved Please remember a lack of response to the above will prompt a phone page by CDI/Coding staff. In responding to this query, please exercise your independent professional judgment. The purpose of this communication is to more accurately reflect the complexity of your patients condition. The fact that a question is asked does not imply that any particular answer is desired or expected. Thank you for your timely response to this clarification. Requestors name: [ ] Phone # [ ] THIS PHYSICIAN QUERY FORM IS A PERMANENT PART OF THE MEDICAL RECORD YONG RAYA Sep 08, 2020 23:27 GURDEEP PHAM DO Sep 09, 2020 12:53
== END 2020-09-03 02:37 | disposition short-term general hospital (02) | DRG 871 ==
LOC: EDUNIT# 19:05 → ER 19:06 → ICU 21:25
PROVIDERS: ADMIT Internal Medicine; ATTEND Internal Medicine
PROC: 5A1935Z Respiratory Ventilation, Less than 24 Consecutive Hours (ICD-10-PCS; principal; 2020-09-02)
PROC: 0BH17EZ Insertion of Endotracheal Airway into Trachea, Via Natural or Artificial Opening (ICD-10-PCS; 2020-09-02)
DX: A41.9 Sepsis, unspecified organism (principal); J96.01 Acute respiratory failure with hypoxia; K72.00 Acute and subacute hepatic failure without coma; I21.A1 Myocardial infarction type 2; R57.8 Other shock; N39.0 Urinary tract infection, site not specified; R55 Syncope and collapse; I95.9 Hypotension, unspecified; R19.7 Diarrhea, unspecified; I48.91 Unspecified atrial fibrillation; R34 Anuria and oliguria; Z20.828 Contact with and (suspected) exposure to other viral communicable diseases; I10 Essential (primary) hypertension; R74.02 Elevation of levels of lactic acid dehydrogenase [LDH]; K21.9 Gastro-esophageal reflux disease without esophagitis; M19.90 Unspecified osteoarthritis, unspecified site; E11.9 Type 2 diabetes mellitus without complications; D72.829 Elevated white blood cell count, unspecified; E78.5 Hyperlipidemia, unspecified; Z90.49 Acquired absence of other specified parts of digestive tract; Z85.3 Personal history of malignant neoplasm of breast
CPT/HCPCS: 36415; 36680; 51702; 70450; 71045; 74019; 80048; 80053; 80061; 80320; 80329; 81000; 82550; 82805; 82962; 83605; 83615; 83735; 83874; 83880; 84100; 84145; 84484; 85007; 85025; 85027; 85379; 85610; 85730; 87040; 87070; 87077; 87081; 87088; 87205; 87635; 93005; 93041; 94002; 94003; 94640; 94799; 96361; 96365; 96366; 96367; 96368; 96375; 99291; 99292